=== PATIENT | female | born 1960 | race Caucasian/White ===

== ENCOUNTER 2018-02-27 08:27 | Outpatient (CLI) | payer MEDICARE, MEDICAID, SELFPAY ==
[2018-02-27 11:36] LABS: Hemoglobin A1C 6.8 % (4.5-6.2)
[2018-02-27 11:49] LABS: Anion Gap 8.7 mmol/L (3-11); BUN 14 mg/dL (7-18); CO2 29.3 mmol/L (21.0-32.0); CREATININE 1.06 mg/dL (0.55-1.02); Calcium 8.7 mg/dL (8.5-10.1); Chloride 103 mmol/L (98-107); Estimated GFR 53.24 (mL/min/1.73m2); Glucose 188 mg/dL (70-100); Potassium 4.6 mmol/L (3.5-5.1); Sodium 141 mmol/L (136-145)
== END 2018-02-27 08:47 ==
LOC: LOS 08:29 → LBO 09:08
PROVIDERS: PCP Family Medicine; Visit Provider Family Medicine
DX: E11.9 Type 2 diabetes mellitus without complications (principal)
CPT/HCPCS: 36415; 80048; 83036

== ENCOUNTER 2018-05-17 02:19 | Outpatient (CLI) | payer MEDICARE, MEDICAID, SELFPAY ==
[2018-05-17 13:00] LABS: Amylase 27 U/L (25-115); Anion Gap 8.6 mmol/L (3-11); BUN 15 mg/dL (7-18); CO2 30.4 mmol/L (21.0-32.0); CREATININE 0.91 mg/dL (0.55-1.02); Calcium 8.8 mg/dL (8.5-10.1); Chloride 102 mmol/L (98-107); Glucose 222 mg/dL (70-100); Lipase 214 U/L (73-393); Potassium 4.4 mmol/L (3.5-5.1); Sodium 141 mmol/L (136-145)
== END 2018-05-17 02:39 ==
PROVIDERS: PCP Family Medicine; Visit Provider Family Medicine
DX: R10.13 Epigastric pain (principal); R10.9 Unspecified abdominal pain; R79.89 Other specified abnormal findings of blood chemistry
CPT/HCPCS: 36415; 80048; 83690; 82150

== ENCOUNTER 2018-09-01 16:31 | Outpatient (REF) | payer MEDICARE, MEDICAID, SELFPAY | END 2018-09-01 16:51 | LOC: LBN 16:31 | PROVIDERS: PCP Family Medicine; Visit Provider Nurse Practitioner Family | DX: R35.0 Frequency of micturition (principal) | CPT/HCPCS: 87086 ==

== ENCOUNTER 2018-09-06 09:17 | Outpatient (CLI) | payer MEDICARE, MEDICAID, SELFPAY ==
[2018-09-06 16:34] LABS: TSH 3.41 uIU/mL (0.358-3.74)
[2018-09-06 17:27] LABS: Hemoglobin A1C 6.9 % (4.5-6.2)
== END 2018-09-06 09:37 ==
PROVIDERS: PCP Family Medicine; Visit Provider Family Medicine
DX: E11.9 Type 2 diabetes mellitus without complications (principal)
CPT/HCPCS: 36415; 83036; 84443

== ENCOUNTER → 2018-09-27 10:21 | Outpatient (BNVA) | payer MEDICARE, MEDICAID, SELFPAY | PROVIDERS: PCP Family Medicine; Referring Provider Family Medicine; Visit Provider Nurse Practitioner Gerontology | DX: R32 Unspecified urinary incontinence (principal); N30.10 Interstitial cystitis (chronic) without hematuria; E11.319 Type 2 diabetes mellitus with unspecified diabetic retinopathy without macular edema | CPT/HCPCS: 51798; 81003; 99204; 99215 ==

== ENCOUNTER 2018-10-05 18:18 | Emergency (ER) | payer MEDICARE, MEDICAID, SELFPAY ==
--- NOTE | 2018-10-05 18:13 | W.ED.GENAD ---
Discharge Plan Disposition Patient Disposition: HOME Condition: Stable Discharge Details Chief Complaint: FlankPain Clinical Impression: Right ureteral stone Primary Care Provider: Asim Tay ED Provider: Jona Wang Home Meds and New Rx's Prescriptions: New ondansetron 4 mg tablet,disintegrating 4 mg PO TID-QID PRN (Reason: nausea and vomiting) Qty: 30 RF: 0 oxycodone 5 mg tablet 5 mg PO Q6H PRN (Reason: pain) Qty: 12 RF: 0 tamsulosin [Flomax] 0.4 mg capsule 0.4 mg PO DAILY Qty: 14 RF: 0 acetaminophen-codeine [Tylenol-Codeine #3] 300-30 mg tablet 1 tab PO Q6H PRN (Reason: pain) Qty: 12 RF: 0 No Action terconazole 0.4 % cream 1 appful VG DAILY Qty: 45 RF: 0 clotrimazole 1 % cream 1 applic TP BID Qty: 28.35 RF: 4 Lotemax 0.5 % drops,suspension 1 drp OU DAILY PRNRF: 0 lorazepam 0.5 mg tablet 0.5 mg PO BID PRN (Reason: anxiety) Qty: 20 RF: 0 fluticasone propionate 50 mcg/actuation spray,suspension 2 spray TEAGAN DAILY Qty: 15.8 RF: 1 baclofen 5 mg tablet 5 mg PO TID PRN (Reason: muscle spasm) Qty: 30 RF: 2 Durezol 0.05 % drops 1 drp OP DAILY RF: 0 Ultra-Light Rollator 1 EACH misc 1 ea Miscellaneous ONCE Qty: 1 RF: 0 citalopram 20 MG tablet 20 mg PO DAILY Qty: 90 RF: 4 blood-glucose meter [OneTouch UltraMini] 1 EACH kit 1 ea Miscellaneous ONCE Qty: 1 RF: 0 ONETOUCH ULTRA TEST STRIPS 1 EACH strip 1 ea Miscellaneous QID Qty: 300 RF: 4 lancets [OneTouch Delica Lancets] 30 gauge misc 1 ea Miscellaneous QID Qty: 300 RF: 4 loratadine 10 mg capsule 10 mg PO DAILY PRN (Reason: allergy symptoms) Qty: 90 RF: 4 pen needle, diabetic [Unifine Pentips Plus] 31 gauge x 5/16 needle 1 ea Sub-Q DAILY Qty: 300 RF: 4 fluconazole 150 mg tablet 150 mg PO ONCE Qty: 2 RF: 0 Lantus Solostar U-100 Insulin 100 unit/mL (3 mL) insulin pen 42 unit subcut DAILY Qty: 12 RF: 4 omeprazole 20 mg capsule,delayed release(DR/EC) 20 mg PO DAILY PRN (Reason: GERD) Qty: 30 RF: 3 nitrofurantoin macrocrystal 100 mg capsule 100 mg PO BID Qty: 10 RF: 0 Discharge Instructions Instructions: Kidney Stones (ED) Additional Instructions: you can take 600mg ibuprofen every 6 hours for pain do not drive or drink alcohol if you take the oxycodone if you have high fevers, persistent vomit or severe uncontrolled pain return to the emergency department you should be contacted with an appointment for urology Discharge Data Discharge Date/Time-TO BE ENTERED AT DEPARTURE: 10/05/18 20:16 Medical Decision Making 58 yo female with hx of DM, spinal senosis, hld, anxiety, who comes in with chief complaint of suprapubic/right lower abdomen pain radiating to the rigth lower back that started acutely about an hour or so ago. Denies any recent trauma or falls, no fevers, no vomit but has had nausea since this started. Denies pain like this in the past. She has been having issues emptying her bladder per pt and incontinence and has seen urology recently for this and had post void residual that was 25cc. She denies ivdu or significant alcohol intake. She has rlq tenderness and suprapubic tenderness, no back tenderness, no rashes. No saddle anesthesia or weakness so doubt cauda equina. Given acute onset of symptoms concern for kidney stone, less likely appendicitis, will obtian lab work and imaging and monitor. pt's labs unremarkable. Her CT on my read shows distal right ureteral stone. she feels significantly better, awaiting vrad report vrad report confirms 8mm stone, ?cystitis as well and does have some bacteria on UA. No findings to suggest sepsis. will start on abx and have her f/u with urology, return precautions given I originally wrote to give her oxycodone but she states she prefers tylenol with codeine so this was prescribed in place of this, she was not given prescrption for oxycodone Differential Diagnosis kidney stone, pyelo, appendicitis Medical Records Medical records reviewed: Yes I reviewed the patient's medical records. Imaging Data Radiologic Study: Attestation: I personally reviewed and interpreted this imaging study as follows: Imaging: CT Scan My impression: distal right ureteral stone Radiologist's impression: IMPRESSION: 1. 8 mm right distal ureteral stone. Right hydroureteronephrosis. 2. 1.3 cm wall thickening of the bladder which could be related to underdistention. There is pericystic fat stranding which could indicate cystitis. Correlate with urinalysis. 3. Umbilical hernia containing fat, uncomplicated. 4. Groundglass appearance of the mesentery with shotty lymph nodes suggesting mesenteritis. Lab Data Lab results reviewed: Yes I reviewed the patient's lab results. HPI General Mode of arrival: EMS. Date/Time Provider Initiated Documentation: 10/05/18 18:21. Limitations to Documentation: no limitations. Information obtained by: patient. History of Present Illness 58 year old F presents to the emergency department with the chief complaint of abdomen pain, described as moderate and severe, Quality is described as aching and sharp, and is localized to the abdomen. Patient reports radiation to back. Patient started experiencing this hour(s) (1) and it has been constant. No relieving factors improve symptom(s), No exacerbating factors reported . Patient notes nausea/vomiting (nausea only). Patient did receive the following treatments prior to arrival, other (zofran with ems) Related Data Home Medications Medication Instructions Recorded Confirmed Ultra-Light Rollator #1 01/11/17 10/12/18 citalopram 20 mg PO DAILY #90 tab 09/27/17 10/12/18 blood-glucose meter [Onetouch #1 kit 12/29/17 10/12/18 Ultramini] clotrimazole 1 % topical cream 1 applic TP BID #28.35 gm 02/24/18 10/12/18 lancets 30 gauge #300 each 03/09/18 10/12/18 loratadine 10 mg capsule 10 mg PO DAILY PRN #90 cap 03/09/18 10/12/18 pen needle, diabetic 31 gauge x #300 each 03/09/18 10/12/18 5/16 lorazepam 0.5 mg tablet 0.5 mg PO BID PRN #20 tab 04/07/18 10/12/18 loteprednol etabonate 0.5 % eye 1 drp OU DAILY PRN ml 04/07/18 10/12/18 drops,suspension baclofen 5 mg tablet 5 mg PO TID PRN #30 tab 08/01/18 10/12/18 fluticasone propionate 50 2 spray TEAGAN DAILY #15.8 gm 08/01/18 10/12/18 mcg/actuation nasal spray,suspension terconazole 0.4 % vaginal cream 1 appful VG DAILY #45 gm 09/01/18 10/12/18 fluconazole 150 mg tablet 150 mg PO ONCE #2 tab 09/11/18 10/12/18 insulin glargine (U-100) 100 42 unit SUBCUT DAILY #12 pen 09/26/18 10/12/18 unit/mL (3 mL) subcutaneous pen omeprazole 20 mg capsule,delayed 20 mg PO DAILY PRN #30 cap 09/26/18 10/12/18 release acetaminophen-codeine 1 tab PO Q6H PRN #12 tab 10/05/18 10/12/18 [Tylenol-Codeine #3] ondansetron 4 mg PO TID-QID PRN #30 tab 10/05/18 10/12/18 oxycodone 5 mg PO Q6H PRN #12 tab 10/05/18 10/12/18 tamsulosin [Flomax] 0.4 mg PO DAILY #14 cap 10/05/18 10/12/18 nitrofurantoin macrocrystal 100 mg 100 mg PO BID #10 cap 10/06/18 10/12/18 capsule difluprednate 0.05 % eye drops 1 drp OP DAILY 10/12/18 10/12/18 Previous Rx's Medication Instructions Recorded citalopram 20 mg PO DAILY #90 tab 09/27/17 blood-glucose meter [Onetouch #1 kit 12/29/17 Ultramini] clotrimazole 1 % topical cream 1 applic TP BID #28.35 gm 02/24/18 lancets 30 gauge #300 each 03/09/18 loratadine 10 mg capsule 10 mg PO DAILY PRN #90 cap 03/09/18 pen needle, diabetic 31 gauge x #300 each 03/09/1810/19 lorazepam 0.5 mg tablet 0.5 mg PO BID PRN #20 tab 04/07/18 baclofen 5 mg tablet 5 mg PO TID PRN #30 tab 08/01/18 fluticasone propionate 50 2 spray TEAGAN DAILY #15.8 gm 08/01/18 mcg/actuation nasal spray,suspension terconazole 0.4 % vaginal cream 1 appful VG DAILY #45 gm 09/01/18 fluconazole 150 mg tablet 150 mg PO ONCE #2 tab 09/11/18 insulin glargine (U-100) 100 42 unit SUBCUT DAILY #12 pen 09/26/18 unit/mL (3 mL) subcutaneous pen omeprazole 20 mg capsule,delayed 20 mg PO DAILY PRN #30 cap 09/26/18 release acetaminophen-codeine 1 tab PO Q6H PRN #12 tab 10/05/18 [Tylenol-Codeine #3] ondansetron 4 mg PO TID-QID PRN #30 tab 10/05/18 oxycodone 5 mg PO Q6H PRN #12 tab 10/05/18 tamsulosin [Flomax] 0.4 mg PO DAILY #14 cap 10/05/18 nitrofurantoin macrocrystal 100 mg 100 mg PO BID #10 cap 10/06/18 capsule Allergies Allergy/AdvReac Type Severity Reaction Status Date / Time amoxicillin Allergy Severe Affects Unverified 10/05/18 18:35 kidney FXN per pt. dapsone Allergy Severe Anaphylaxsi Unverified 10/05/18 18:35 s lisinopril Allergy Severe Unverified 10/05/18 18:35 metformin Allergy Severe INTERACTION Unverified 10/05/18 18:35 S Pertussis Vaccines Allergy Severe kidney Unverified 10/05/18 18:35 problems clindamycin Allergy Mild SWELLING Unverified 10/05/18 18:35 OF THE THROAT latex Allergy Mild RASH Unverified 10/05/18 18:35 paroxetine Allergy Unknown Unverified 10/05/18 18:35 Sulfa (Sulfonamide Allergy Unknown Unverified 10/05/18 18:35 Antibiotics) fluconazole AdvReac Mild HEADACHE Unverified 10/05/18 18:35 tdap Allergy Intermediate PT Uncoded 10/05/18 18:35 REPORTED metal AdvReac Unknown staph Uncoded 10/05/18 18:35 infection Review of Systems Review of Systems All systems reviewed & are unremarkable except as noted in HPI and below Constitutional Denies fever(s) and Denies weakness Cardiovascular Denies chest pain and Denies dyspnea Respiratory Denies cough and Denies dyspnea Gastrointestinal Denies vomiting Genitourinary Denies dysuria Neurologic Denies weakness [facility] Medical History Diabetes mellitus (Chronic 09/01/12) Spinal stenosis (Chronic) Social anxiety disorder (Chronic 11/25/17) Restless legs (Chronic 06/05/07) Obstructive sleep apnea syndrome (Chronic 06/05/07) Obsessive compulsive disorder (Chronic) Non-alcoholic fatty liver disease (Chronic) Knee osteonecrosis, left (Chronic 11/08/16) Idiopathic scoliosis (Chronic) Hyperlipidemia (Chronic) Foot drop, right (Chronic) Fibrocystic disease of breast (Chronic) Dry eye (Chronic 03/15/13) Chronic post-traumatic stress disorder (Chronic) Cholelithiasis without obstruction (Chronic) Attention deficit hyperactivity disorder, predominantly inattentive type (Chronic) Anxiety (Chronic) Allergic rhinitis (Chronic) Cholelithiasis with cholecystitis (Chronic) ADHD (attention deficit hyperactivity disorder) Allergic rhinitis Anemia Anxiety Breast pain, left Chronic pain of both knees Chronic post-traumatic stress disorder (PTSD) Depressive disorder Dermatitis Diabetes mellitus Dry eyes Elevated LDH Fibrocystic disease of breast Foot drop Functional diarrhea Generalized osteoarthritis H/O menorrhagia Hyperlipidemia Idiopathic scoliosis Knee osteonecrosis, left Left carpal tunnel syndrome Low back pain Morbid obesity Non-alcoholic fatty liver disease OCD (obsessive compulsive disorder) Phlebitis RLS (restless legs syndrome) Right lumbar radiculopathy Social phobia Spinal stenosis Thrombosis of arteries of lower extremity Umbilical hernia without obstruction or gangrene Vaginitis Surgical History section Cholecystectomy (02/26/14) Colonoscopy - MAC (~10/2007) EGD - MAC (~10/2007) LAMINECTOMY (~11/2004) Ligation of fallopian tube (~1999) STRESS TEST Spinal Fusion (~1974) Family History Sister No problems noted. Sister No problems noted. Paternal Grandmother No problems noted. Social History Smoking/Tobacco Use Status: Never Alcohol Intake: never Drug use: Never Substance use type: does not use Caregiver/Support person: No Household members: none Housing: apartment Communication Needs: Hard of Hearing Pets and animals: No Sexually active: No Do you think of yourself as: straight/heterosexual Current gender identity: female What is your relationship status?: How often do you talk on the phone with friends or family?: three or more times per week How often do you get together with friends or relatives?: twice per week How often do you attend baptist or restorationist services?: decline to answer Do you belong to any clubs or organized social groups?: no Panel score (0-1 are the most socially isolated patients): 1 What type of physical activity do you participate in: walking Duration: 45-60 minutes/day Frequency: 5-6 times per week Claudette/Holiness: No preference Special claudette needs: No Seatbelt use: always Drive 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 local driver: No Do you feel safe at home: Yes Do you feel safe in your relationship?: Yes Exam Const General: no acute distress Orientation: alert HENMT Head: normal to inspection Ears: external ears normal General nose exam: external nose normal Mouth: moist mucous membranes Eyes General: appearance normal, both eyes and all related structures Neck Neck: normal visual inspection Resp Effort & Inspection: normal respiratory effort and able to speak in complete sentences Cardio Rate: regular rate GI Palpation: soft Skin General skin exam: no rashes or lesions noted Neuro General: alert and oriented x3 Extrem General: normal to inspection Psych Mental Status: mental status grossly normal
[2018-10-05 18:18] VITALS: BP 173/89; PULSE 71; RESP 16; TEMP 37.1; O2SAT 99
[2018-10-05] MEDS: Normal Saline Flush 10 ML SYR IVP (18:33)
[2018-10-05] MEDS: Normal Saline 1,000 ML 1000 ML IV (18:33)
[2018-10-05] MEDS: Ketorolac 15 MG/ML VIAL IVP (18:33)
[2018-10-05 18:38] LABS: Abs Immature Grans 0.03 k/cumm (0.0-0.09); Absolute Basophil Count 0.11 k/cumm (0.0-0.2); Absolute Eosinophil Count 0.39 k/cumm (0.0-0.7); Absolute Monocyte Count 0.58 k/cumm (0.11-0.7); Absolute Neutrophil Count 5.26 k/cumm (1.2-6.7); Basophils % 1.1; Eosinophils % 4.1; HCT 42.8 % (36.0-46.0); HGB 14.5 g/dL (12.0-15.5); Immature Grans % 0.3; Lymphocytes % 33.4; Mean Corp. HGB Concentration 33.9 g/dL (32.0-36.0); Mean Corpuscular Hemoglobin 28.7 pg (27.0-33.0); Mean Corpuscular Volume 84.8 fL (80-95); Mean Platelet Volume 9.9 fL (8.0-11.0); Monocytes % 6.1; Platelet Count 178 x1000/uL (130-400); RBC 5.05 m/cumm (4.00-5.20); RBC Distribution Width 13.3 % (11.7-14.6); White Blood Cell Count 9.57 k/cumm (4.4-10.8)
[2018-10-05 18:53] LABS: ALT 50 U/L (12-78); AST 25 U/L (15-37); Albumin 3.8 g/dL (3.4-5.0); Alkaline Phosphatase 97 U/L (46-116); Anion Gap 7.8 mmol/L (3-11); BUN 19 mg/dL (7-18); Bilirubin, Total 0.5 mg/dL (0.2-1.0); CO2 30.2 mmol/L (21.0-32.0); CREATININE 0.93 mg/dL (0.55-1.02); Calcium 9.2 mg/dL (8.5-10.1); Chloride 100 mmol/L (98-107); Glucose 141 mg/dL (70-100); Lipase 233 U/L (73-393); Magnesium 2.1 mg/dL (1.8-2.4); Potassium 3.8 mmol/L (3.5-5.1); Sodium 138 mmol/L (136-145); Total Protein 7.7 g/dL (6.4-8.2)
--- NOTE | 2018-10-05 18:55 | DI.CT_ITS ---
SYMPTOM/DIAGNOSIS: RT FLANK PAIN RENAL COLIC CT: CT examination of the abdomen and pelvis was performed without contrast administration. Note is made of posterior lumbar fusion with Rubio sergio in place. There is a marked scoliosis. Visualized lung bases appear clear. Visualized portions of the liver and spleen are unremarkable. Prior cholecystectomy noted. Pancreas appears intact. Note is made of mildly increased attenuation of central mesentery with some prominence of mesenteric lymph nodes noted as well, the findings may represent inflammatory process. Abdominal aorta is of normal diameter. Prior cholecystectomy noted with no evidence of biliary dilatation. There is a fat containing ventral hernia with no involvement of bowel. Urinary bladder is essentially empty and cannot be adequately evaluated. Appendix is normal. No evidence of diverticulitis or bowel obstruction. Adrenals appear normal bilaterally. Left kidney is unremarkable in appearance and there is no left urinary tract calcification or obstruction. There is an 8 mm. in diameter obstructing stone just above the ureterovesical junction on the right with surrounding fat edema and moderate right hydronephrosis and hydroureter to this level. 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 CONCLUSION: Findings consistent with 8 mm. obstructing distal right ureteral stone. Incidental finding of mesenteric mild fat edema and lymph node prominence may be associated with inflammatory process such as mesenteritis.
[2018-10-05 19:00] LABS: Bilirubin Negative (Negative); Blood Small (Negative); Clarity Clear; Glucose Negative (Negative); Ketones Negative (Negative); Leukocyte Esterase Negative (Negative); Nitrite Negative (Negative); Specific Gravity 1.025 (1.005-1.025); Urobilinogen 0.2 EU/dL (Up TO 0.2); pH 5.5 (5-8)
[2018-10-05 19:08] LABS: Bacteria Few HPF (Negative); C & S Indicated? Yes; Casts Negative LPF (Negative); Crystals Negative HPF (Negative); Epithelial Cells Few HPF (Negative); Mucus Negative (Negative)
[2018-10-05 19:10] VITALS: BP 153/61; PULSE 72; RESP 18; O2SAT 98
--- NOTE | 2018-10-05 19:37 | DI.VRAD_ITS ---
EXAM: CT Abdomen and Pelvis Without Contrast EXAM DATE/TIME: 10/05/2018 6:23 PM CLINICAL HISTORY: 58 years old, female; Abdominal pain; Flank; Right; Prior surgery; Surgery date: 6+ months; Surgery type: Back TECHNIQUE: Imaging protocol: Axial computed tomography images of the abdomen and pelvis without contrast. Coronal and sagittal reformatted images were created and reviewed. Radiation optimization: All CT scans at this facility use at least one of these dose optimization techniques: automated exposure control; mA and/or kV adjustment per patient size (includes targeted exams where dose is matched to clinical indication); or iterative reconstruction. COMPARISON: CT ABD PELVIS WO CONTRAST 09/27/2016 6:03 PM FINDINGS: ABDOMEN: Liver: Normal. No mass. Gallbladder and bile ducts: Cholecystectomy. Pancreas: Normal. No ductal dilation. Spleen: Normal. No splenomegaly. Adrenals: Normal. No mass. Kidneys and ureters: 8 mm right distal ureteral stone. Right hydroureteronephrosis. Stomach and bowel: Normal. No obstruction. No mucosal thickening. Appendix: No evidence of appendicitis. PELVIS: Bladder: 1.3 cm wall thickening of the bladder which could be related to underdistention. There is pericystic fat stranding which could indicate cystitis. Correlate with urinalysis. Reproductive: Unremarkable as visualized. ABDOMEN and PELVIS: Intraperitoneal space: Normal. No free air. No significant fluid collection. Bones/joints: Rubio sergio repair of scoliosis. Soft tissues: Umbilical hernia containing fat, uncomplicated. Vasculature: Normal. No abdominal aortic aneurysm. Lymph nodes: Groundglass appearance of the mesentery with shotty lymph nodes suggesting mesenteritis. IMPRESSION: 1. 8 mm right distal ureteral stone. Right hydroureteronephrosis. 2. 1.3 cm wall thickening of the bladder which could be related to underdistention. There is pericystic fat stranding which could indicate cystitis. Correlate with urinalysis. 3. Umbilical hernia containing fat, uncomplicated. 4. Groundglass appearance of the mesentery with shotty lymph nodes suggesting mesenteritis. Dictated and Authenticated by: Shaista Phillips MD. Ordering:HARRIS Tenorio MD
[2018-10-05] MEDS: Ondansetron O.D.T. 4 MG TABEF PO (20:02)
[2018-10-05] MEDS: levoFLOXacin 500 MG, levoFLOXacin 250 MG 750 MG PO (20:03)
[2018-10-05 20:17] VITALS: BP 153/61; PULSE 72; RESP 18; O2SAT 98
--- NOTE | 2018-10-05 20:18 | NUR.NOTE ---
Nursing Note: DC IV intact bleeding controlled. Discussed discharge instructions, Rx/OTC meds, use of strainer and follow up care with pt. Pt verbalized an understanding. Pt ambulated out the door with steady gait.
== END 2018-10-05 20:16 | disposition home or self-care (01) ==
PROVIDERS: Emergency Provider Emergency Medicine; PCP Family Medicine
DX: N20.1 Calculus of ureter (principal); E11.9 Type 2 diabetes mellitus without complications; Z79.4 Long term (current) use of insulin
CPT/HCPCS: 36415; 80053; 83690; 96361; 96374; 99284; 74176; 81003; 81015; 83735; 85025; 87086; J1885; J3490

== ENCOUNTER → 2018-10-12 13:52 | Outpatient (BNVA) | payer MEDICARE, MEDICAID, SELFPAY | PROVIDERS: PCP Family Medicine; Visit Provider Urology | DX: N20.1 Calculus of ureter (principal); Z87.448 Personal history of other diseases of urinary system; E11.319 Type 2 diabetes mellitus with unspecified diabetic retinopathy without macular edema; Z79.4 Long term (current) use of insulin | CPT/HCPCS: 99213 ==

== ENCOUNTER 2018-12-15 09:28 | Outpatient (CLI) | payer MEDICARE, MEDICAID, SELFPAY ==
[2018-12-15 13:14] LABS: Anion Gap 9.9 mmol/L (3-11); BUN 15 mg/dL (7-18); CO2 27.1 mmol/L (21.0-32.0); Calcium 8.8 mg/dL (8.5-10.1); Chloride 104 mmol/L (98-107); Glucose 157 mg/dL (70-100); Potassium 4.3 mmol/L (3.5-5.1); Sodium 141 mmol/L (136-145)
== END 2018-12-15 09:48 ==
PROVIDERS: PCP Family Medicine; Visit Provider Family Medicine
DX: E11.9 Type 2 diabetes mellitus without complications (principal)
CPT/HCPCS: 36415; 80048

== ENCOUNTER 2019-01-12 02:36 | Outpatient (CLI) | payer MEDICARE, MEDICAID, SELFPAY ==
--- NOTE | 2019-01-12 15:35 | DI.US_ITS ---
SYMPTOM/DIAGNOSIS: H/O RT URETERAL STONE WITH HYDRONEPHROSIS, N13.2 RENAL ULTRASOUND: The kidneys are normal in size and shape. There is no evidence of a renal mass, hydronephrosis or nephrolithiasis. Urinary bladder is unremarkable in appearance with pre and post void urinary bladder volume measurements of 382 cc's and 0 cc's respectively. CONCLUSION: Negative renal ultrasound.
== END 2019-01-12 02:56 ==
PROVIDERS: PCP Family Medicine; Visit Provider Family Medicine
DX: N13.2 Hydronephrosis with renal and ureteral calculous obstruction (principal)
CPT/HCPCS: 76770

== ENCOUNTER 2019-01-23 10:22 | Outpatient (CLI) | payer MEDICARE, MEDICAID, SELFPAY ==
[2019-01-23 11:54] LABS: Anion Gap 8.9 mmol/L (3-11); BUN 11 mg/dL (7-18); CO2 29.1 mmol/L (21.0-32.0); CREATININE 0.83 mg/dL (0.55-1.02); Calcium 8.9 mg/dL (8.5-10.1); Chloride 105 mmol/L (98-107); Glucose 130 mg/dL (70-100); Potassium 4.1 mmol/L (3.5-5.1); Sodium 143 mmol/L (136-145)
== END 2019-01-23 10:42 ==
PROVIDERS: PCP Family Medicine; Visit Provider Family Medicine
DX: I10 Essential (primary) hypertension (principal)
CPT/HCPCS: 36415; 80048

== ENCOUNTER 2019-03-18 13:45 | Emergency (ER) | payer MEDICARE, MEDICAID, SELFPAY ==
[2019-03-18] VITALS (52 sets, daily range): BP systolic 139–202; BP diastolic 64–162; PULSE 67–86; RESP 10–24; TEMP 36.9; O2SAT 93–98
--- NOTE | 2019-03-18 14:05 | ED.GENADUL_ITS ---
Discharge Plan Disposition Patient Disposition: [facility] Condition: Stable Discharge Details Chief Complaint: GenMedical Clinical Impression: Headache, Abnormal CT scan of head Primary Care Provider: Asim Tay ED Provider: Lidia Quinn Home Meds and New Rx's Prescriptions: No Action (DME) lancets [OneTouch Delica Lancets] 30 gauge misc 1 ea Miscellaneous QID Qty: 300 RF: 4 acetaminophen-codeine [Tylenol-Codeine #3] 300-30 mg tablet 1 tab PO Q6H PRN (Reason: pain) Qty: 12 RF: 0 Restasis MultiDose 0.05 % drops 1 drp OP Q12H RF: 0 (DME) Ultra-Light Rollator 1 EACH misc 1 ea Miscellaneous ONCE Qty: 1 RF: 0 (DME) blood-glucose meter [OneTouch UltraMini] 1 EACH kit 1 ea Miscellaneous ONCE Qty: 1 RF: 0 Lantus Solostar U-100 Insulin 100 unit/mL (3 mL) insulin pen 42 unit subcut DAILY Qty: 12 RF: 4 citalopram 20 mg tablet 20 mg PO DAILY Qty: 90 RF: 4 (DME) pen needle, diabetic [BD Ultra-Fine Mini Pen Needle] 31 gauge x 3/16 needle See Rx Instructions .ROUTE .MEDSUPPLY Qty: 100 RF: 5 (DME) OneTouch Ultra Blue Test Strip Strip See Rx Instructions .ROUTE .MEDSUPPLY Qty: 300 RF: 4 mupirocin 2 % ointment 1 applic TP BID PRN (Reason: rash) Qty: 15 RF: 0 lorazepam 0.5 mg tablet 0.5 mg PO BID PRN (Reason: anxiety) Qty: 20 RF: 0 loratadine 10 mg capsule 10 mg PO DAILY PRN (Reason: allergy symptoms) Qty: 90 RF: 4 nystatin 100,000 unit/gram powder 1 applic TP BID PRNRF: 0 Medical Decision Making 1400 -- 59-year-old female with a history of diabetes, PTSD, ADHD, hypertension, hyperlipidemia, obsessive-compulsive disorder who presents to the ED with a complaint of neck pain, left ear pain, and headache over the past week, worse with any movement of her head. She denies any fever, extremity weakness or numbness, blurry vision, or injury. BP hypertensive, 202/91. Normal ENT exam. She has tenderness to palpation of bilateral cervical paraspinal muscles as well as pain with range of motion of her head. No focal deficits. Neurovascularly intact. Suspect cervical strain/spasm, tension headache, viral illness. History presentation not consistent with meningitis, carotid dissection, acute CVA. Will obtain CT head and cervical spine, and give a dose of Toradol, prednisone, Valium and reassess. 1520 --imaging reviewed with radiologist Dr. Storey -there is an area of hyperdensity anterior macrina and recommends further evaluation with CTA brain. Will place an IV, give bolus IV fluids and check screening labs. Creatinine GFR from January within normal limits. CTA reviewed with Dr. Storey who states that he does not see any aneurysm but based on Noncon CT head recommends further evaluation possibly including MRI. Imaging reviewed with [facility] neurosurgery and they do not feel this is a mass or an aneurysm, but discussed that with patient's level of pain, an LP could be considered to rule out subarachnoid hemorrhage. This was discussed with patient and she was in agreement. Due to high acuity and volume in ED, anesthesia paged to perform LP. 2019 --anesthesia unable to obtain LP due to patient anatomy with spinal st enosis, Rubio rods, body habitus and level of pain. Case discussed with [facility] neurosurgery Dr. Story and they recommend LP under fluoroscopic guidance. We are unable to perform this here and she is excepted for transfer to the emergency department. Accepting physician Dr. Newell to the ED. Patient is agreeable with transfer. She states pain slightly increasing and she was given a dose of morphine. She is hemodynamically stable, moving all extremities and no focal deficits. Medical Records Medical records reviewed: Yes I reviewed the patient's medical records. Imaging Data Radiologic Study: Radiologist's impression: CT HEAD CERVICAL SPINE WO CLINICAL HISTORY: diffuse RODRIGUEZ and neck pain. TECHNIQUE: COMPARISON: SINUS CT WITHOUT CONTRAST from 03/03/2011 FINDINGS: CT examination cervical spine was performed utilizing multi slice acquisition multiplanar reconstruction. Moderate degenerative hypertrophic changes noted involving endplates and facet joints. No evidence of acute fracture or d islocation. Noncontrast cranial CT was performed. There is focus of increased attenuation which lies anterior to the macrina measuring roughly 18 by 7 millimeters. Possibility of a small focus of hemorrhage or possibly tip of the basilar aneurysm is raised. No fat additional evidence of subarachnoid or subdural hematoma. Orbital structures appear intact. Ventricular system is unremarkable in appearance. Additional evaluation with CTA recommended. IMPRESSION: No evidence of acute cervical fracture or dislocation. Moderate cervical degenerative changes noted. Questionable finding of increased attenuation lying anterior to the mcarina at the expected location of the basilar artery, additional evaluation with CT angiography recommended. CT BRAIN CTA CLINICAL HISTORY: further assessment macrina, r/o aneurysm. TECHNIQUE: COMPARISON: CT HEAD CERVICAL SPINE WO from 03/18/2019 FINDINGS: CT angiography of the head was performed with intravenous infusion of 100 cc of Omnipaque 350. The noncontrast CT obtained earlier today showed question of lobulated area of increased attenuation seen anterior to the macrina. Basilar artery vertebral arteries posterior cerebral arteries appear normal. Right posterior cerebral artery is supplied mainly across the posterior communicating artery. Visualized internal carotid arteries appear. Middle and anterior cerebral arteries and major branches are unremarkable. No enhancing lesion identified in the brain. There is minimal fusiform dilatation of the proximal basilar artery at about 3 millimeters. No fusiform or saccular aneurysm identified the level of the questionable area of increased attenuation seen on noncontrast CT. No additional findings. IMPRESSION: Conclusion no aneurysm identified at the superior basilar. Minimal fusiform dilatation of the proximal basilar artery noted at about 3 millimeters. No other significant findings in light of the CT findings on the noncontrast examination the possibility of a small mass or contrast unopacified aneurysm is not excluded. Additional evaluation with MRI of the brain recommended. Lab Data Lab results reviewed: Yes I reviewed the patient's lab results. Labs: Laboratory Tests Range/Units 03/18/19 03/18/19 15:45 15:45 WBC (4.4-10.8) k/cumm 10.96 H RBC (4.00-5.20) m/cumm 4.95 Hgb (12.0-15.5) g/dL 14.3 Hct (36.0-46.0) % 41.5 MCV (80-95) fL 83.8 MCH (27.0-33.0) pg 28.9 MCHC (32.0-36.0) g/dL 34.5 RDW (11.7-14.6) % 13.2 Plt Count (130-400) x1000/uL 233 MPV (8.0-11.0) fL 9.9 Immature Gran % 0.3 Neutrophils % 67.9 Lymphocytes % 23.1 Monocytes % 6.6 Eosinophils % 1.6 Basophils % 0.5 Absolute Neutrophils (1.2-6.7) k/cumm 7.44 H Absolute Lymphocytes (1.2-3.4) k/cumm 2.53 Absolute Monocytes (0.11-0.7) k/cumm 0.72 H Absolute Eosinophils (0.0-0.7) k/cumm 0.18 Absolute Basophils (0.0-0.2) k/cumm 0.05 Sodium (136-145) mmol/L 135 L Potassium (3.5-5.1) mmol/L 3.9 Chloride (98-107) mmol/L 99 Carbon Dioxide (21.0-32.0) mmol/L 27.8 Anion Gap (3-11) mmol/L 8.2 BUN (7-18) mg/dL 13 Creatinine (0.55-1.02) mg/dL 0.90 Estimated GFR/1.73 m2 (mL/min/1.73m2) >= 60.00 Glucose (70-100) mg/dL 156 H Calcium (8.5-10.1) mg/dL 9.1 HPI General Mode of arrival: ambulatory . Date/Time Provider Initiated Documentation: 03/18/19 13:49 . Limitations to Documentation: no limitations . Information obtained by: patient . HPI Narrative: Patient is a 59-year-old female with a history of anxiety, ADHD, PTSD, OCD, social phobia, diabetes, depression, sleep apnea who presents with headache, left ear pain and neck pain for the past week. She states her headache and neck pain is worse with movement of her head. She denies any known injury. She she denies any known fever, nasal congestion or discharge, sore throat. She states she has taken Tylenol with codeine and Motrin without relief. She describes the headache as a constant pulse in her head. She states the headache pain is currently 15/10. Related Data Home Medications Medication Instructions Recorded Confirmed Ultra-Light Rollator #1 01/11/17 01/19/19 blood-glucose meter [Onetouch #1 kit 12/29/17 01/19/19 Ultramini] insulin glargine 100 unit/mL (3 42 unit SUBCUT DAILY #12 pen 09/26/18 03/18/19 mL) subcutaneous pen cyclosporine 0.05 % eye drops 1 drp OP Q12H 11/15/18 03/18/19 citalopram 20 mg tablet 20 mg PO DAILY #90 tab 11/22/18 03/18/19 pen needle, diabetic 31 gauge x #100 each 01/03/19 01/19/1908/19 blood sugar diagnostic #300 each 01/19/19 lancets 30 gauge #300 each 01/19/19 01/19/19 mupirocin 2 % topical ointment 1 applic TP BID PRN #15 gm 01/29/19 03/18/19 loratadine 10 mg capsule 10 mg PO DAILY PRN #90 cap 02/02/19 03/18/19 lorazepam 0.5 mg tablet 0.5 mg PO BID PRN #20 tab 02/02/19 03/18/19 acetaminophen 300 mg-codeine 30 mg 1 tab PO Q6H PRN #12 tab 03/12/19 03/18/19 tablet nystatin 1 applic TP BID PRN 03/18/19 03/18/19 Previous Rx's Medication Instructions Recorded blood-glucose meter [Onetouch #1 kit 12/29/17 Ultramini] insulin glargine 100 unit/mL (3 42 unit SUBCUT DAILY #12 pen 09/26/18 mL) subcutaneous pen citalopram 20 mg tablet 20 mg PO DAILY #90 tab 11/22/18 pen needle, diabetic 31 gauge x #100 each 01/03/1908/19 blood sugar diagnostic #300 each 01/19/19 lancets 30 gauge #300 each 01/19/19 mupirocin 2 % topical ointment 1 applic TP BID PRN #15 gm 01/29/19 loratadine 10 mg capsule 10 mg PO DAILY PRN #90 cap 02/02/19 lorazepam 0.5 mg tablet 0.5 mg PO BID PRN #20 tab 02/02/19 acetaminophen 300 mg-codeine 30 mg 1 tab PO Q6H PRN #12 tab 03/12/19 tablet Allergies Allergy/AdvReac Type Severity Reaction Status Date / Time amoxicillin Allergy Severe Affects Verified 03/18/19 13:55 kidney FXN per pt. dapsone Allergy Severe Anaphylaxsi Verified 03/18/19 13:55 s lisinopril Allergy Severe Verified 03/18/19 13:55 metformin Allergy Severe INTERACTION Verified 03/18/19 13:55 S Pertussis Vaccines Allergy Severe kidney Verified 03/18/19 13:55 problems clindamycin Allergy Mild SWELLING Verified 03/18/19 13:55 OF THE THROAT latex Allergy Mild RASH Verified 03/18/19 13:55 paroxetine Allergy Unknown Verified 03/18/19 13:55 Sulfa (Sulfonamide Allergy Unknown Verified 03/18/19 13:55 Antibiotics) fluconazole AdvReac Mild HEADACHE Verified 03/18/19 13:55 tdap Allergy Intermediate PT Uncoded 02/22/19 11:02 REPORTED metal AdvReac Unknown staph Uncoded 02/22/19 11:02 infection General Stated Complaint: GenMedical SALMA: 3 Review of Systems Review of Systems ROS Unobtainable: All systems reviewed & are unremarkable except as noted in HPI and below Constitutional Constitutional: Reports as per HPI, Denies chills, Denies fever(s) and Reports headache(s) Eyes Eyes: Denies blurry vision ENT Ears, Nose, Mouth, and Throat: Denies dizziness, Reports otalgia, Reports headache(s), Reports neck pain, Denies sore throat and Denies throat swelling Cardiovascular Cardiovascular: Denies chest pain and Denies dyspnea Respiratory Respiratory: Denies cough and Denies dyspnea Gastrointestinal Gastrointestinal: Denies abdominal pain, Denies diarrhea and Denies vomiting Genitourinary Genitourinary: Denies hematuria and Denies dysuria Musculoskeletal Musculoskeletal: Denies back pain, Reports neck pain and Denies numbness Integumentary/Breasts Skin/Breast: Denies lesions and Denies rash Neurologic Neurologic: Denies dizziness, Reports headache(s), Denies focal weakness and Denies numbness Allergic/Immunologic Allergic/Immunologic: Denies throat swelling [facility] Medical History ADHD (attention deficit hyperactivity disorder) Allergic rhinitis Allergic rhinitis (Chronic) Anemia Anxiety Anxiety (Chronic) Attention deficit hyperactivity disorder, predominantly inattentive type (Chronic) social phobia Breast pain, left Cholelithiasis with cholecystitis (Chronic) Cholelithiasis without obstruction (Chronic) Chronic pain of both knees Chronic post-traumatic stress disorder (Chronic) childhood Chronic post-traumatic stress disorder (PTSD) Depressive disorder Dermatitis Diabetes mellitus Diabetes mellitus (Chronic 09/01/12) Dry eye (Chronic 03/15/13) Dry eyes Elevated LDH Fibrocystic disease of breast Fibrocystic disease of breast (Chronic) Foot drop Foot drop, right (Chronic) right; 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 Functional diarrhea Generalized osteoarthritis H/O menorrhagia Hyperlipidemia Hyperlipidemia (Chronic) Hypertension (Chronic) Idiopathic scoliosis Idiopathic scoliosis (Chronic) Rubio sergio-age 13 Knee osteonecrosis, left Knee osteonecrosis, left (Chronic 11/08/16) Left carpal tunnel syndrome Low back pain Morbid obesity Neck pain (Acute) Non-alcoholic fatty liver disease Non-alcoholic fatty liver disease (Chronic) Obsessive compulsive disorder (Chronic) Obstructive sleep apnea syndrome (Chronic 06/05/07) with CPAP OCD (obsessive compulsive disorder) Phlebitis Restless legs (Chronic 06/05/07) Right lumbar radiculopathy RLS (restless legs syndrome) Social anxiety disorder (Chronic 11/25/17) Social phobia Spinal stenosis Spinal stenosis (Chronic) with Cauda equina syndrome; [place] [facility] [place]rombosis of arteries of lower extremity Umbilical hernia without obstruction or gangrene Vaginitis Surgical History section 1997 AND 1999 Cholecystectomy (02/26/14) Colonoscopy - MAC (~10/2007) NEG EGD - MAC (~10/2007) NEG LAMINECTOMY (~11/2004) L5-S1 Ligation of fallopian tube (~1999) Spinal Fusion (~1974) T4-L3 FOR SEVERE SCOLIOSIS STRESS TEST 02/18/14;LVEF 64%; EXAM IN N/L Family History Sister No problems noted. Sister No problems noted. Paternal Grandmother No problems noted. Social History Smoking/Tobacco Use Status: Never Alcohol Intake: former Drug use: Never Substance use type: does not use Caregiver/Support person: No Household members: none Housing: apartment Communication Needs: Hard of Hearing Pets and animals: No Sexually active: No Do you think of yourself as: straight/heterosexual Current gender identity: female What is your relationship status?: How often do you talk on the phone with friends or family?: three or more times per week How often do you get together with friends or relatives?: twice per week How often do you attend jewish or nondenominational services?: decline to answer Do you belong to any clubs or organized social groups?: no Panel score (0-1 are the most socially isolated patients): 1 What type of physical activity do you participate in: walking Duration: 45-60 minutes/day Frequency: 5-6 times per week Claudette/Denominational: No preference Special claudette needs: No Seatbelt use: always Drive 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 ice delivery driver: No Do you feel safe at home: Yes Exam Const General: cooperative and anxious (mild, tearful) Orientation: alert, awake and oriented x3 HENMT Head: normal to inspection Ears: hearing grossly normal bilaterally, external ears normal and TM's normal bilaterally General nose exam: external nose normal Face and sinus: normal facial exam Mouth: oral mucosae normal Teeth and gingiva: dentition normal Throat: posterior oropharynx normal Eyes General: appearance normal, both eyes and all related structures Eyelids: eyelids normal Pupils: PERRL EOM: EOM intact bilaterally Neck Neck: normal visual inspection, no lymphadenopathy, no anterior neck swelling and No submandibular swelling Lymphatic: no lymphadenopathy noted Chest Chest: normal inspection of the chest Resp Effort & Inspection: normal respiratory effort and able to speak in complete sentences Auscultation: clear to auscultation bilaterally Cardio Rate: regular rate Rhythm: regular rhythm GI Inspection: normal to inspection Palpation: soft, not firm, no guarding, no hepatosplenomegaly, no masses and nontender Auscultation: normal bowel sounds Back/Spine/Pelvis Back: no CVA tenderness Skin General skin exam: no rashes or lesions noted Neuro General: alert and awake Cranial Nerves: CN's II-XI intact bilaterally Cognition: normal cognition Speech: speech normal Gait: normal gait Motor: muscle tone normal throughout and strength 5/5 throughout Sensory Exam: no sensory deficits noted Extrem General: normal to inspection, full ROM and normal capillary refill Psych Appearance: grossly normal Mental Status: mental status grossly normal Speech and Movement: speech and movement normal Affect: normal affect Thought Process: normal Course Vital Signs Vital signs: Vital Signs Temperature 98.4 F 03/18/19 13:50 Pulse 75 03/18/19 13:50 Respiratory Rate 18 03/18/19 13:50 Blood Pressure 202/91 H 10/13/19 13:50 Pulse Oximetry 97 03/18/19 13:50 Temperature 98.4 F 03/18/19 13:50 Temperature Source Skin 03/18/19 13:50 Pulse 75 03/18/19 13:50 Respiratory Rate 18 03/18/19 13:50 Respiratory Effort Non-Labored 03/18/19 14:00 Respiratory Depth Normal 03/18/19 14:00 Blood Pressure 202/91 H 03/18/19 13:50 Blood Pressure Position Sitting 03/18/19 13:50 Pulse Oximetry 97 03/18/19 13:50 Oxygen Delivery Method Room Air 03/18/19 13:50 Oxygen Flow Rate 0 03/18/19 13:50 Pain Level 10 03/18/19 13:50 Comment 03/18/19 13:50
--- NOTE | 2019-03-18 14:22 | DI.CT_ITS ---
EXAM: CT HEAD CERVICAL SPINE WO CLINICAL HISTORY: diffuse RODRIGUEZ and neck pain. TECHNIQUE: COMPARISON: SINUS CT WITHOUT CONTRAST from 03/03/2011 FINDINGS: CT examination cervical spine was performed utilizing multi slice acquisition multiplanar reconstruct ion. Moderate degenerative hypertrophic changes noted involving endplates and facet joints. No evid ence of acute fracture or dislocation. Noncontrast cranial CT was performed. There is focus of increased attenuation which lies anterior to the macrina measuring roughly 18 by 7 millimeters. Possibility of a small focus of hemorrhage or possi alberto tip of the basilar aneurysm is raised. No fat additional evidence of subarachnoid or subdural he matoma. Orbital structures appear intact. Ventricular system is unremarkable in appearance. Additional evaluation with CTA recommended. IMPRESSION: No evidence of acute cervical fracture or dislocation. Moderate cervical degenerative changes noted. Questionable finding of increased attenuation lying anterior to the macrina at the expected location of the basilar artery, additional evaluation with CT angiography recommended.
[2019-03-18] MEDS: predniSONE 20 MG TAB 60 MG PO (14:34)
[2019-03-18] MEDS: Ketorolac 60 MG/2 ML VIAL IM (14:34)
[2019-03-18] MEDS: diazePAM 5 MG TAB PO (14:34)
--- NOTE | 2019-03-18 15:26 | DI.CT_ITS ---
EXAM: CT BRAIN CTA CLINICAL HISTORY: further assessment macrina, r/o aneurysm. TECHNIQUE: COMPARISON: CT HEAD CERVICAL SPINE WO from 03/18/2019 FINDINGS: CT angiography of the head was performed with intravenous infusion of 100 cc of Omnipaque 350. The n oncontrast CT obtained earlier today showed question of lobulated area of increased attenuation seen anterior to the macrina. Basilar artery vertebral arteries posterior cerebral arteries appear normal. Right posterior cerebral artery is supplied mainly across the posterior communicating artery. Visual ized internal carotid arteries appear. Middle and anterior cerebral arteries and major branches are unremarkable. No enhancing lesion identified in the brain. There is minimal fusiform dilatation of the proximal basilar artery at about 3 millimeters. No fusif orm or saccular aneurysm identified the level of the questionable area of increased attenuation seen on noncontrast CT. No additional findings. IMPRESSION: Conclusion no aneurysm identified at the superior basilar. Minimal fusiform dilatation of the proxima l basilar artery noted at about 3 millimeters. No other significant findings in light of the CT find ings on the noncontrast examination the possibility of a small mass or contrast unopacified aneurysm is not excluded. Additional evaluation with MRI of the brain recommended.
[2019-03-18 15:57] LABS: Abs Immature Grans 0.03 k/cumm (0.0-0.09); Absolute Basophil Count 0.05 k/cumm (0.0-0.2); Absolute Eosinophil Count 0.18 k/cumm (0.0-0.7); Absolute Lymphocyte Count 2.53 k/cumm (1.2-3.4); Absolute Monocyte Count 0.72 k/cumm (0.11-0.7); Basophils % 0.5; Eosinophils % 1.6; HCT 41.5 % (36.0-46.0); HGB 14.3 g/dL (12.0-15.5); Immature Grans % 0.3; Lymphocytes % 23.1; Mean Corp. HGB Concentration 34.5 g/dL (32.0-36.0); Mean Corpuscular Hemoglobin 28.9 pg (27.0-33.0); Mean Corpuscular Volume 83.8 fL (80-95); Mean Platelet Volume 9.9 fL (8.0-11.0); Monocytes % 6.6; Neutrophils % 67.9; Platelet Count 233 x1000/uL (130-400); RBC 4.95 m/cumm (4.00-5.20); RBC Distribution Width 13.2 % (11.7-14.6); White Blood Cell Count 10.96 k/cumm (4.4-10.8)
[2019-03-18 16:01] LABS: Absolute Neutrophil Count 7.44 k/cumm (1.2-6.7)
[2019-03-18 16:06] LABS: Anion Gap 8.2 mmol/L (3-11); BUN 13 mg/dL (7-18); CO2 27.8 mmol/L (21.0-32.0); Calcium 9.1 mg/dL (8.5-10.1); Chloride 99 mmol/L (98-107); Glucose 156 mg/dL (70-100); Potassium 3.9 mmol/L (3.5-5.1); Sodium 135 mmol/L (136-145)
[2019-03-18] MEDS: Normal Saline 1,000 ML 1000 ML IV (16:18)
[2019-03-18] MEDS: Omnipaque 350 MG/ML 100 ML BTL IJ (16:20)
--- NOTE | 2019-03-18 19:03 | NUR.NOTE ---
03/18/19 @ 1900-Anesthesia bedside, consent for LP given by and signed by pt. supplies bedside. Nursing Note:
== END 2019-03-18 21:59 | disposition short-term general hospital (02) ==
PROVIDERS: Emergency Provider Physician Assistant; PCP Family Medicine
DX: R51 Headache (principal); R93.0 Abnormal findings on diagnostic imaging of skull and head, not elsewhere classified; I10 Essential (primary) hypertension
CPT/HCPCS: 36415; 70496; 80048; 96360; 96361; 96372; 99285; 70450; 72125; 85025; 99284; J1885; J3490; J7512

== ENCOUNTER 2019-04-01 16:07 | Observation (INO) | payer MEDICARE, MEDICAID, SELFPAY ==
[2019-04-01] VITALS (65 sets, daily range): BP systolic 140–177; BP diastolic 71–91; PULSE 60–72; RESP 16; TEMP 36.3–36.8; O2SAT 91–98
--- NOTE | 2019-04-01 16:46 | W.ED.GENAD ---
Discharge Plan Discharge Details Chief Complaint: GenMedical Admit Date/Time: 04/02/19 00:00 Admit Provider: Rodrick Donato Attending Provider: Rodrick Donato Primary Care Provider: Asim Tay ED Provider: Jaun Mijares Discharge Data Discharge Date/Time-TO BE ENTERED AT DEPARTURE: 04/02/19 00:25 Medical Decision Making <Jaun Mijares MD - Last Filed: 04/03/19 01:21> 16:51 --59-year-old female with multiple medical problems including recently diagnosed spontaneous subarachnoid hemorrhage, [place] [facility] [place] here generally not feeling well with persistent headache, generalized weakness, fatigue. No focal deficits noted. I obtained and reviewed outside hospital records [place] [facility] [place] summary dated 03/28/2019 notes Hospital course with admission for subarachnoid hemorrhage HH2, MF1. MRI of the brain noted pre-mesencephalic hemorrhage characterized by susceptibility related signal loss and T1 shortening surrounding the basilar artery. There is an adjacent 7 mm site of acute infarction involving the left superior macrina. No significant mass-effect. MRA noted basilar artery focally narrowed at the site of hemorrhage. -- Dilaudid 1mg IV for pain. Zofran 4mg PO for nausea. 18:25 --labs reviewed and nondiagnostic. CT head was interpreted by radiology: No acute intracranial abnormality. I have called [facility] [place] with [place]surgery. CT has been sent for review. 19:08 -- Spoke with Dr. Cesar - discussed ED presentation and course. He reviewed CT head. He recommends checking troponin and further discussion. 20:00 --troponin negative. ECG was reviewed and interpreted by me: Sinus rhythm 61 bpm, normal axis, no STEMI. Patient reassessed continues to have 4 out of 10 headache and continues to feel generally weak. Repeat call to [facility] [place] with [place]sx. Awating call back. 21:50 --CTA of the brain venous phase interpreted by radiology is no acute arterial pathology, pain in false pass of [place], dominant dural venous sinuses appear patent. CTA of the neck interpreted by radiology: No acute arterial pathology. Patent carotid and vertebral system bilaterally. Jugular veins are patent bilaterally. Patient reassessed and BP 166/81. Plan to admit for serial exams, symptomatic treatment and BP control. HPI <Jaun Mijares MD - Last Filed: 04/03/19 01:21> General Mode of arrival: ambulatory. Date/Time Provider Initiated Documentation: 04/01/19 16:23. Limitations to Documentation: no limitations. Information obtained by: patient. HPI Narrative: 59-year-old female with multiple medical problems including recently discharged [place] [facility] [place] being treated for spontaneous subarachnoid hemorrhage, returns today with chief complaint of generally not feeling well. Patient notes that since she was discharged on the she has had persistent moderate to severe headache, localized frontal head, improves with Tylenol with codeine, generalized weakness with no focal deficits, fatigue. She states that she has been taking T3 as prescribed and sleeping and otherwise not functioning. She states that she stumbled last night as a result of fatigue. She is concerned that her BP is elevated. She notes that during hospitalization she has low sodium and was on salt tablets. Related Data Home Medications Medication Instructions Recorded Confirmed Ultra-Light Rollator #1 01/11/17 04/01/19 blood-glucose meter [Onetouch #1 kit 12/29/17 04/01/19 Ultramini] cyclosporine 0.05 % eye drops 1 drp OP Q12H 11/15/18 04/01/19 citalopram 20 mg tablet 20 mg PO DAILY #90 tab 11/22/18 04/01/19 pen needle, diabetic 31 gauge x #100 each 01/03/19 04/01/1908/19 blood sugar diagnostic #300 each 01/19/19 04/01/19 lancets 30 gauge #300 each 01/19/19 04/01/19 mupirocin 2 % topical ointment 1 applic TP BID PRN #15 gm 01/29/19 04/01/19 loratadine 10 mg capsule 10 mg PO DAILY PRN #90 cap 02/02/19 03/18/19 lorazepam 0.5 mg tablet 0.5 mg PO BID PRN #20 tab 02/02/19 03/18/19 acetaminophen 300 mg-codeine 30 mg 1 tab PO Q6H PRN #12 tab 03/12/19 04/01/19 tablet nystatin 1 applic TP BID PRN 03/18/19 04/01/19 acetaminophen-codeine 1 tab PO UNKNOWN 04/01/19 04/01/19 [Tylenol-Codeine #3] insulin glargine [Lantus Solostar 22 unit SUBCUT DAILY 04/01/19 04/01/19 U-100 Insulin] Previous Rx's Medication Instructions Recorded blood-glucose meter [Onetouch #1 kit 12/29/17 Ultramini] citalopram 20 mg tablet 20 mg PO DAILY #90 tab 11/22/18 pen needle, diabetic 31 gauge x #100 each 01/03/1908/19 blood sugar diagnostic #300 each 01/19/19 lancets 30 gauge #300 each 01/19/19 mupirocin 2 % topical ointment 1 applic TP BID PRN #15 gm 01/29/19 loratadine 10 mg capsule 10 mg PO DAILY PRN #90 cap 02/02/19 lorazepam 0.5 mg tablet 0.5 mg PO BID PRN #20 tab 02/02/19 acetaminophen 300 mg-codeine 30 mg 1 tab PO Q6H PRN #12 tab 03/12/19 tablet Allergies Allergy/AdvReac Type Severity Reaction Status Date / Time amoxicillin Allergy Severe Affects Verified 04/01/19 16:14 kidney FXN per pt. dapsone Allergy Severe Anaphylaxsi Verified 04/01/19 16:14 s lisinopril Allergy Severe Verified 04/01/19 16:14 metformin Allergy Severe INTERACTION Verified 04/01/19 16:14 S Pertussis Vaccines Allergy Severe kidney Verified 04/01/19 16:14 problems clindamycin Allergy Mild SWELLING Verified 04/01/19 16:14 OF THE THROAT latex Allergy Mild RASH Verified 04/01/19 16:14 paroxetine Allergy Unknown Verified 04/01/19 16:14 Sulfa (Sulfonamide Allergy Unknown Verified 04/01/19 16:14 Antibiotics) adhesive AdvReac Mild Itching Unverified 04/02/19 00:55 fluconazole AdvReac Mild HEADACHE Verified 04/01/19 16:14 tdap Allergy Intermediate PT Uncoded 04/01/19 16:14 REPORTED metal AdvReac Unknown staph Uncoded 04/01/19 16:14 infection General Stated Complaint: GenMedical SALMA: 3 Review of Systems <Jaun Mijares MD - Last Filed: 04/03/19 01:21> All systems reviewed & are unremarkable except as noted in HPI and below Constitutional Constitutional: Reports as per HPI, Reports fatigue, Denies fever(s) and Reports weakness Cardiovascular Cardiovascular: Denies chest pain and Denies dyspnea Respiratory Respiratory: Denies dyspnea Gastrointestinal Gastrointestinal: Denies abdominal pain Neurologic Neurologic: Reports weakness and Reports other (chronic neuropathy LEs) Endocrine Endocrine: Reports fatigue PFS <Jaun Mijares MD - Last Filed: 04/03/19 01:21> Medical History (Updated 04/02/19 @ 10:00 by Sherita Saldaña MD) ADHD (attention deficit hyperactivity disorder) Allergic rhinitis (Chronic) Anemia Anxiety (Chronic) Attention deficit hyperactivity disorder, predominantly inattentive type (Chronic) social phobia Breast pain, left Cholelithiasis with cholecystitis (Chronic) Cholelithiasis without obstruction (Chronic) Chronic pain of both knees Chronic post-traumatic stress disorder (Chronic) childhood Depressive disorder Dermatitis Diabetes mellitus (Chronic 09/01/12) Dry eye (Chronic 03/15/13) Elevated LDH Fibrocystic disease of breast (Chronic) Foot drop, right (Chronic) right; 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 Functional diarrhea Generalized osteoarthritis H/O menorrhagia Hyperlipidemia (Chronic) Hypertension (Chronic) Idiopathic scoliosis (Chronic) Rubio sergio-age 13 Knee osteonecrosis, left (Chronic 11/08/16) Left carpal tunnel syndrome Low back pain Morbid obesity Neck pain (Acute) Non-alcoholic fatty liver disease (Chronic) Obsessive compulsive disorder (Chronic) Obstructive sleep apnea syndrome (Chronic 06/05/07) with CPAP Phlebitis Restless legs (Chronic 06/05/07) Scoliosis (Acute) Social anxiety disorder (Chronic 11/25/17) Social phobia Spastic bladder (Acute) Spinal stenosis (Chronic) with Cauda equina syndrome; [place] [facility] [place] Thrombosis of arteries of lower extremity Umbilical hernia without obstruction or gangrene Vaginitis Surgical History section 1997 AND 1999 Cholecystectomy (02/26/14) Colonoscopy - MAC (~10/2007) NEG EGD - MAC (~10/2007) NEG LAMINECTOMY (~11/2004) L5-S1 Ligation of fallopian tube (~1999) Spinal Fusion (~1974) T4-L3 FOR SEVERE SCOLIOSIS STRESS TEST 02/18/14;LVEF 64%; EXAM IN N/L Family History Sister No problems noted. Sister No problems noted. Paternal Grandmother No problems noted. Social History Smoking/Tobacco Use Status: Never Alcohol Intake: former Drug use: Never Substance use type: does not use Caregiver/Support person: No Household members: none Housing: apartment Communication Needs: Hard of Hearing Pets and animals: No Sexually active: No Do you think of yourself as: straight/heterosexual Current gender identity: female What is your relationship status?: How often do you talk on the phone with friends or family?: three or more times per week How often do you get together with friends or relatives?: twice per week How often do you attend protestant or caodaism services?: decline to answer Do you belong to any clubs or organized social groups?: no Panel score (0-1 are the most socially isolated patients): 1 What type of physical activity do you participate in: walking Duration: 45-60 minutes/day Frequency: 5-6 times per week Claudette/Pentecostal: No preference Special claudette needs: No Seatbelt use: always Drive 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 tour bus driver: No Do you feel safe at home: Yes Exam <Jaun Mijares MD - Last Filed: 04/03/19 01:21> Const General: cooperative and no acute distress HENMT Head: normocephalic and atraumatic Mouth: moist mucous membranes Eyes Alignment and Position: alignment normal Conjunctivae: normal conjunctivae Sclera: normal sclerae Pupils: PERRL and accommodation normal EOM: EOM intact bilaterally Neck Neck: trachea midline and supple Resp Auscultation: clear to auscultation bilaterally, no rales, no rhonchi and no wheezes Cardio Jugular venous pressure: no JVD Rate: regular rate and not tachycardic Rhythm: regular rhythm GI Palpation: soft, not firm, no guarding, no masses, not rigid and nontender Skin General skin exam: no rashes or lesions noted Neuro General: alert, awake, oriented x3 and tone normal Cranial Nerves: CN's II-XI intact bilaterally Cognition: normal cognition Speech: speech normal Motor: muscle tone normal throughout and strength 5/5 throughout Sensory Exam: no sensory deficits noted Extrem General: no edema Psych Appearance: grossly normal Mental Status: mental status grossly normal Speech and Movement: speech and movement normal Course <Jaun Mijares MD - Last Filed: 04/03/19 01:21> Vital Signs Vital signs: Vital Signs Temperature 36.3 C L 04/01/19 16:11 Pulse 72 04/01/19 16:11 Respiratory Rate 16 04/01/19 16:11 Blood Pressure 177/91 H 04/01/19 16:11 Pulse Oximetry 98 04/01/19 16:11 Temperature 36.3 C L 04/01/19 16:11 Temperature Source Temporal Artery Scan 04/01/19 16:11 Pulse 72 04/01/19 16:11 Respiratory Rate 16 04/01/19 16:11 Respiratory Effort Non-Labored 04/01/19 16:11 Blood Pressure 177/91 H 04/01/19 16:11 Pulse Oximetry 98 04/01/19 16:11 Oxygen Delivery Method Room Air 04/01/19 16:11 Oxygen Flow Rate 0 04/01/19 16:11 Pain Level 5 04/01/19 16:11
--- NOTE | 2019-04-01 17:02 | DI.CT_ITS ---
EXAM: CT HEAD WO CLINICAL HISTORY: headache, recent SAH TECHNIQUE: The exam was performed according to the usual protocol without contrast. COMPARISON: CT BRAIN CTA from 03/18/2019 FINDINGS: There is a normal ying-white matter differentiation. No acute intracranial hemorrhage, midline shift , or mass effect is present. The ventricles are intact. The basilar cisterns are patent. No acute fluid levels are seen in the visualized paranasal sinuses. The mastoid air cells are well pneumatize d. The calvarium is intact. IMPRESSION: No acute intracranial process.
--- NOTE | 2019-04-01 17:15 | DI.VRAD_ITS ---
PROCEDURE INFORMATION: Exam: CT Head Without Contrast Exam date and time: 04/01/2019 4:59 PM Clinical history: 59 years old, female; Other: Headache, recent sah; Patient HX: Patient discharged from [facility] [place]. 10 day stay with sah. TECHNIQUE: Imaging protocol: Computed tomography of the head without contrast. Radiation optimization: All CT scans at this facility use at least one of these dose optimization techniques: automated exposure control; mA and/or kV adjustment per patient size (includes targeted exams where dose is matched to clinical indication); or iterative reconstruction. COMPARISON: CT HEAD CERVICAL SPINE WO 03/18/2019 2:53 PM FINDINGS: Brain: Normal. No hemorrhage. Unremarkable white matter. No mass effect. Ventricles: Normal. No ventriculomegaly. Bones/joints: Unremarkable. No acute fracture. Sinuses: Visualized sinuses are unremarkable. No fluid levels. Mastoid air cells: Visualized mastoid air cells are well aerated. Soft tissues: Unremarkable. IMPRESSION: No acute intracranial abnormality. Dictated and Authenticated by: Shaista Phillips MD. Ordering:QI Zamorano MD
[2019-04-01 17:29] LABS: Abs Immature Grans 0.07 k/cumm (0.0-0.09); Absolute Basophil Count 0.05 k/cumm (0.0-0.2); Absolute Eosinophil Count 0.23 k/cumm (0.0-0.7); Absolute Lymphocyte Count 1.94 k/cumm (1.2-3.4); Absolute Monocyte Count 0.59 k/cumm (0.11-0.7); Absolute Neutrophil Count 6.27 k/cumm (1.2-6.7); Basophils % 0.5; Eosinophils % 2.5; HGB 13.1 g/dL (12.0-15.5); Immature Grans % 0.8; Lymphocytes % 21.2; Mean Corp. HGB Concentration 32.8 g/dL (32.0-36.0); Mean Corpuscular Hemoglobin 28.4 pg (27.0-33.0); Mean Corpuscular Volume 86.6 fL (80-95); Mean Platelet Volume 9.5 fL (8.0-11.0); Monocytes % 6.4; Neutrophils % 68.6; Platelet Count 201 x1000/uL (130-400); RBC 4.62 m/cumm (4.00-5.20); RBC Distribution Width 13.3 % (11.7-14.6); White Blood Cell Count 9.15 k/cumm (4.4-10.8)
[2019-04-01] MEDS: HYDROmorphone 2 MG/ML VIAL 1 MG IVP (17:32)
[2019-04-01] MEDS: Normal Saline Flush 10 ML SYR IVP (17:33)
[2019-04-01] MEDS: Normal Saline 50 ML 200 ML (17:33)
[2019-04-01 17:44] LABS: ALT 64 U/L (14-59); AST 52 U/L (15-37); Albumin 3.7 g/dL (3.4-5.0); Alkaline Phosphatase 76 U/L (46-116); Anion Gap 9.2 mmol/L (3-11); BUN 16 mg/dL (7-18); Bilirubin, Total 0.3 mg/dL (0.2-1.0); CO2 26.8 mmol/L (21.0-32.0); CREATININE 0.81 mg/dL (0.55-1.02); Calcium 9.2 mg/dL (8.5-10.1); Chloride 103 mmol/L (98-107); Glucose 142 mg/dL (70-100); Potassium 4.1 mmol/L (3.5-5.1); Sodium 139 mmol/L (136-145); Total Protein 7.5 g/dL (6.4-8.2)
[2019-04-01] MEDS: Ondansetron O.D.T. 4 MG TABEF (17:46)
[2019-04-01 19:46] LABS: Troponin I < 0.05 ng/mL (0.00-0.06)
--- NOTE | 2019-04-01 21:41 | DI.VRAD_ITS ---
PROCEDURE INFORMATION: Exam: CT Angiography Head With Contrast Exam date and time: 04/01/2019 21:05 Clinical history: 59 years old, female; Patient HX: Consistent headache recent sah concern for sinus thrombus; Additional info: Venous phases done also TECHNIQUE: Imaging protocol: Computed tomography angiography of the head with intravenous contrast. 3D rendering: MIP reconstructed images were created and reviewed. Radiation optimization: All CT scans at this facility use at least one of these dose optimization techniques: automated exposure control; mA and/or kV adjustment per patient size (includes targeted exams where dose is matched to clinical indication); or iterative reconstruction. Contrast material: OMNIPAQUE 350; Contrast volume: 85 ml; Contrast route: IV; COMPARISON: CT BRAIN CTA 03/18/2019 16:01 FINDINGS: Right internal carotid artery: Intracranial segment is patent with no significant stenosis. No aneurysm. Right anterior cerebral artery: No occlusion or significant stenosis. No aneurysm. Right middle cerebral artery: No occlusion or significant stenosis. No aneurysm. Right posterior cerebral artery: No occlusion or significant stenosis. No aneurysm. Right vertebral artery: No occlusion or significant stenosis. No aneurysm. Left internal carotid artery: Intracranial segment is patent with no significant stenosis. No aneurysm. Left anterior cerebral artery: No occlusion or significant stenosis. No aneurysm. Left middle cerebral artery: No occlusion or significant stenosis. No aneurysm. Left posterior cerebral artery: No occlusion or significant stenosis. No aneurysm. Left vertebral artery: No occlusion or significant stenosis. No aneurysm. Basilar artery: No occlusion or significant stenosis. No aneurysm. Dural sinuses/cerebral veins: The dominant dural venous sinuses appear patent. Dominant central veins appear patent. HEAD: Sinuses: Trace mucosal thickening in the right ethmoid air cells, mild mucosal thickening in the left sphenoid sinus. IMPRESSION: No acute arterial pathology; patent [place]. The dominant dural venous sinuses appear patent. PROCEDURE INFORMATION: Exam: CT Angiography Neck With Contrast Exam date and time: 04/01/2019 21:05 Clinical history: 59 years old, female; Patient HX: Consistent headache recent sah concern for sinus thrombus; Additional info: Venous phases done also TECHNIQUE: Imaging protocol: Computed tomography angiography of the neck with intravenous contrast. 3D rendering: MIP reconstructed images were created and reviewed. Radiation optimization: All CT scans at this facility use at least one of these dose optimization techniques: automated exposure control; mA and/or kV adjustment per patient size (includes targeted exams where dose is matched to clinical indication); or iterative reconstruction. Contrast material: OMNIPAQUE 350; Contrast volume: 85 ml; Contrast route: IV; COMPARISON: CT BRAIN CTA 03/18/2019 16:01 FINDINGS: VASCULATURE: Right common carotid artery: No significant stenosis. No dissection or occlusion. Right internal carotid artery: Extracranial segment is patent with no significant stenosis. No dissection or occlusion. Right external carotid artery: No occlusion or significant stenosis. Right vertebral artery: No significant stenosis. No dissection or occlusion. Left common carotid artery: No significant stenosis. No dissection or occlusion. Left internal carotid artery: Extracranial segment is patent with no significant stenosis. No dissection or occlusion. Left external carotid artery: No occlusion or significant stenosis. Left vertebral artery: No significant stenosis. No dissection or occlusion. Other vasculature: The jugular veins are patent bilaterally. NECK: Bones/joints: Internal fixation partially seen in the thoracic spine. Degenerative changes in the neck. No acute fracture or subluxation. Soft tissues: No significant soft tissue swelling. IMPRESSION: 1. No acute arterial pathology. Patent carotid and vertebral system bilaterally. 2. The jugular veins are patent bilaterally. COMMENT: Reference per NASCET criteria for degree of stenosis: Mild: less than 50% stenosis. Moderate: 50-69% stenosis. Severe: 70-94% stenosis. Near occlusion: 95-99% stenosis. Dictated and Authenticated by: Arianna Tillman MD. Ordering:QI Zamorano MD
[2019-04-01] MEDS: Omnipaque 350 MG/ML 100 ML BTL IJ (21:55)
--- NOTE | 2019-04-01 21:56 | DI.CT_ITS ---
EXAM: CT BRAIN NECK CTA CLINICAL HISTORY: recent SAH, RODRIGUEZ TECHNIQUE: Axial CT angiography was performed with multi-slice acquisition and multi-planar and/or 3 D reconstructions. The exam was performed according to the usual protocol with 85 cc's of Omnipaque 350. COMPARISON: No exams were available for comparison FINDINGS: CT angiography of the neck: The common carotid arteries are unremarkable. No evidence of dissection, occlusion, or significant s tenosis is present. The extracranial internal carotid arteries are unremarkable. There is no evidence of occlusion, diss ection, or significant stenosis. The external carotid arteries are unremarkable. There is no evidence of occlusion or significant brent nosis. The vertebral arteries are unremarkable. No evidence of dissection, occlusion, or significant stenos is. Degenerative changes are seen in the neck. The soft tissues are unremarkable. Internal fixation of the thoracic spine is partially identified. CT angiography of the head: The intracranial internal carotid arteries are unremarkable. No evidence of significant stenosis, oc clusion, or aneurysm. The anterior cerebral arteries are unremarkable. There is no evidence of aneurysm, occlusion, or sig nificant stenosis. The middle cerebral arteries are unremarkable. There is no evidence of aneurysm, occlusion, or signi ficant stenosis. The posterior cerebral arteries are unremarkable. There is no evidence of aneurysm, occlusion, or si gnificant stenosis. The vertebral arteries are unremarkable. No evidence of aneurysm, occlusion, or significant stenosis . The basilar artery is unremarkable. No evidence of aneurysm, occlusion, or significant stenosis. There is trace mucosal thickening in the right ethmoid air cells. There is mild mucosal thickening i n the left sphenoid sinus. IMPRESSION: No acute arterial injury.
[2019-04-01 22:25] LABS: Troponin I < 0.05 ng/mL (0.00-0.06)
[2019-04-02] VITALS (9 sets, daily range): BP systolic 117–178; BP diastolic 55–91; PULSE 64–84; RESP 17–19; TEMP 36–36.9; O2SAT 93–98
--- NOTE | 2019-04-02 01:16 | HPE_ITS ---
Date of service: 04/02/19 Time of Service: 01:16 Assessment and Plan Assessment and plan (1) Headache: Status: Acute Assessment and plan: will try to control her BP and her headaches w/ verapamil. will continue Tyl #3 for short term control of headaches but use verapamil for prevention of both her headaches and control of her BP. She reportedly had TITA associated w/ use of lisinopril although discussion with her reveals that there was more going on including use of NSAID's at the time of her TITA however she had severe renal failure w/ creatinine up to 8 and nearly went on hemodialysis. Nevertheless, I am not going to start her on an GONZALO-I nor an ARB without her steel analyst's input. However, use of a non-dihydropyridine Calcium channel stiven may be beneficial in treating any vasospasms causing her headaches as well as controlling her HTN w/out increasing her proteinuria or increasing her GF pressures. I am going to avoid use of NSAID for couple of good reasons including her prior TITA and also her recent SAH. Likewise, it would be prudent to avoid Tramadol as this may increase her risk for seizures. I will continue her use of Tylenol #3 for now. I will also consult w/ neurology to weigh in on best practices for post SAH headaches. Qualifiers: Headache type: other vascular headache Qualified Code(s): G44.1 - Vascular headache, not elsewhere classified (2) Hypertension: Status: Chronic Assessment and plan: begin Verapamil SR 120 mg daily and monitor her bp. Qualifiers: Hypertension type: unspecified secondary hypertension Qualified Code(s): I15.9 - Secondary hypertension, unspecified (3) History of subarachnoid hemorrhage: Status: Acute Assessment and plan: as above. avoid use of enoxaparin for DVT prophylaxis. avoid NSAID's. Obtain improved BP control w/ goal of SBP under 140 mm (4) Diabetes mellitus: Status: Chronic Assessment and plan: Patient previously was on Lantus 42 units daily prior to entry into [facility] on 03/18 but states that they were only giving her couple units of insulin per day. Since discharge she was on Lantus 20 units daiy but increased herself to 22 units when her glucose was running in the high 280's. I am going to start her on 30 units daily of Lantus but also give her meal coverage and a sliding scale for correction of elevated glucose readings. We can then titrate her Lantus dose based upon her total daily insulin needs. 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 Because of concern for possible subarachnoid hemorrhage patient was transferred to [facility] for further work-up. LP could not be performed because of previous back surgery and because of her obesity. Work-up at [facility] included 2 digital subtraction angiography in the first 1 performed March 19, 2019 that was negative for aneurysm. A repeat angiogram was performed on March 27, 2019 and again was negative and uncomplicated. She was monitored regularly with transcranial Dopplers which were negative. She had no focal deficits on exam throughout her admission. She was treated prophylactically for seizure protection with Keppra and was placed on nimodipine for vasospasm prevention which was then discontinued after the second negative DSA. She continued to have headaches upon discharge she was discharged on Tylenol 3. She has known type 2 diabetes mellitus for which she takes insulin and usually uses Lantus 42 units daily prior to her hospitalization. Since being discharged from the hospital she has had difficulty controlling her blood sugars with glucose readings up to high 280s. Says normally her A1c runs around 6.5% and she does not take any fast acting insulin. She called [facility] earlier this evening complaining that her blood sugars are out of whack and feeling shaky and lightheaded and unsteady on her feet. She was crying on the phone and complained of headaches and feeling unwell. She was advised to go the nearest emergency department. She presented to the emergency department at [facility] where she was evaluated by Dr. Jaun Mijares who performed a neurologic exam as well as a noncontrast CT scan of her head and a CTA of her head. Noncontrast CT scan of the head showed no acute intracranial abnormality. CTA of her head showed no acute arterial pathology and her [place] is patent. She has dominant dural venous sinuses that appear to be patent. CTA of the neck also showed no acute arterial pathology. Carotid and vertebral systems are patent bilaterally and the jugular veins are patent bilaterally. Her headache was treated with Dilaudid 1 mg IV and Zofran 4 mg for nausea. On arrival she was noted to have elevated blood pressures of 177/91 but after being treated for her headache with Dilaudid her blood pressures came down into the mid 140s but has since climbed into the 150-160 range. She does not currently take any medications for blood pressure but previously had been on lisinopril which was discontinued when she had acute kidney injury in June 2011. At that time she had severe renal failure although she did not require hemodialysis. At that time she was taking a number of different medications including NSAIDs and lisinopril and had just received a Tdap vaccine. She says she was told by her steel analyst at [facility] stay off all the medications that she had been on at the time of her acute kidney injury. Patient was not discharged on any antihypertensives at the time of her latest discharge from [facility]. As a said the nimodipine was stopped once the repeat DSA confirmed no aneurysm was present. Dr. Jaun Mijares discussed her case with Dr. Lainez from [facility] who would reviewed her CT scans. He recommended admission for observation and control of her headaches. Review of Systems Constitutional Constitutional: Reports weakness Neurologic Neurologic: Reports as per HPI, Reports paresthesias (Chronic paresthesias in her right leg as well as mild right leg weakness) and Reports weakness Comments: Chronic right leg weakness and paresthesias secondary to spinal stenosis unchanged [facility] Medical History ADHD (attention deficit hyperactivity disorder) Allergic rhinitis Allergic rhinitis (Chronic) Anemia Anxiety Anxiety (Chronic) Attention deficit hyperactivity disorder, predominantly inattentive type (Chronic) social phobia Breast pain, left Cholelithiasis with cholecystitis (Chronic) Cholelithiasis without obstruction (Chronic) Chronic pain of both knees Chronic post-traumatic stress disorder (Chronic) childhood Chronic post-traumatic stress disorder (PTSD) Depressive disorder Dermatitis Diabetes mellitus Diabetes mellitus (Chronic 09/01/12) Dry eye (Chronic 03/15/13) Dry eyes Elevated LDH Fibrocystic disease of breast Fibrocystic disease of breast (Chronic) Foot drop Foot drop, right (Chronic) right; 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 Functional diarrhea Generalized osteoarthritis H/O menorrhagia Hyperlipidemia Hyperlipidemia (Chronic) Hypertension (Chronic) Idiopathic scoliosis Idiopathic scoliosis (Chronic) Rubio sergio-age 13 Knee osteonecrosis, left Knee osteonecrosis, left (Chronic 11/08/16) Left carpal tunnel syndrome Low back pain Morbid obesity Neck pain (Acute) Non-alcoholic fatty liver disease Non-alcoholic fatty liver disease (Chronic) Obsessive compulsive disorder (Chronic) Obstructive sleep apnea syndrome (Chronic 06/05/07) with CPAP OCD (obsessive compulsive disorder) Phlebitis Restless legs (Chronic 06/05/07) Right lumbar radiculopathy RLS (restless legs syndrome) Social anxiety disorder (Chronic 11/25/17) Social phobia Spinal stenosis Spinal stenosis (Chronic) with Cauda equina syndrome; surgery at [facility] Thrombosis of arteries of lower extremity Umbilical hernia without obstruction or gangrene Vaginitis Surgical History section 1997 AND 1999 Cholecystectomy (02/26/14) Colonoscopy - MAC (~10/2007) NEG EGD - MAC (~10/2007) NEG LAMINECTOMY (~11/2004) L5-S1 Ligation of fallopian tube (~1999) Spinal Fusion (~1974) T4-L3 FOR SEVERE SCOLIOSIS STRESS TEST 02/18/14;LVEF 64%; EXAM IN N/L Family History Sister No problems noted. Sister No problems noted. Paternal Grandmother No problems noted. Social History Smoking/Tobacco Use Status: Never Alcohol Intake: former Drug use: Never Substance use type: does not use Caregiver/Support person: No Household members: none Housing: apartment Communication Needs: Hard of Hearing Pets and animals: No Sexually active: No Do you think of yourself as: straight/heterosexual Current gender identity: female What is your relationship status?: How often do you talk on the phone with friends or family?: three or more times per week How often do you get together with friends or relatives?: twice per week How often do you attend zoroastrianism or yarsani services?: decline to answer Do you belong to any clubs or organized social groups?: no Panel score (0-1 are the most socially isolated patients): 1 What type of physical activity do you participate in: walking Duration: 45-60 minutes/day Frequency: 5-6 times per week Claudette/Worship: No preference Special claudette needs: No Seatbelt use: always Drive 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 emergency medical technician/driver: No Do you feel safe at home: Yes Meds Home Medications and Allergies Home Medications Medication Instructions Recorded Confirmed Type Ultra-Light Rollator #1 01/11/17 04/01/19 History blood-glucose meter [Onetouch #1 kit 12/29/17 04/01/19 Rx Ultramini] cyclosporine 0.05 % eye drops 1 drp OP Q12H 11/15/18 04/01/19 History citalopram 20 mg tablet 20 mg PO DAILY #90 tab 11/22/18 04/01/19 Rx pen needle, diabetic 31 gauge x #100 each 01/03/19 04/01/19 Rx 08/19 blood sugar diagnostic #300 each 01/19/19 04/01/19 Rx lancets 30 gauge #300 each 01/19/19 04/01/19 Rx mupirocin 2 % topical ointment 1 applic TP BID PRN #15 gm 01/29/19 04/01/19 Rx loratadine 10 mg capsule 10 mg PO DAILY PRN #90 cap 02/02/19 03/18/19 Rx lorazepam 0.5 mg tablet 0.5 mg PO BID PRN #20 tab 02/02/19 03/18/19 Rx acetaminophen 300 mg-codeine 30 mg 1 tab PO Q6H PRN #12 tab 03/12/19 04/01/19 Rx tablet nystatin 1 applic TP BID PRN 03/18/19 04/01/19 History acetaminophen-codeine 1 tab PO UNKNOWN 04/01/19 04/01/19 History [Tylenol-Codeine #3] insulin glargine [Lantus Solostar 22 unit SUBCUT DAILY 04/01/19 04/01/19 History U-100 Insulin] Allergies Allergy/AdvReac Type Severity Reaction Status Date / Time amoxicillin Allergy Severe Affects Verified 04/01/19 16:14 kidney FXN per pt. dapsone Allergy Severe Anaphylaxsi Verified 04/01/19 16:14 s lisinopril Allergy Severe Verified 04/01/19 16:14 metformin Allergy Severe INTERACTION Verified 04/01/19 16:14 S Pertussis Vaccines Allergy Severe kidney Verified 04/01/19 16:14 problems clindamycin Allergy Mild SWELLING Verified 04/01/19 16:14 OF THE THROAT latex Allergy Mild RASH Verified 04/01/19 16:14 paroxetine Allergy Unknown Verified 04/01/19 16:14 Sulfa (Sulfonamide Allergy Unknown Verified 04/01/19 16:14 Antibiotics) adhesive AdvReac Mild Itching Unverified 04/02/19 00:55 fluconazole AdvReac Mild HEADACHE Verified 04/01/19 16:14 tdap Allergy Intermediate PT Uncoded 04/01/19 16:14 REPORTED metal AdvReac Unknown staph Uncoded 04/01/19 16:14 infection Exam Const General: cooperative and anxious Nutritional Appearance: obese Orientation: alert, awake and oriented x3 HENMT Head: normal to inspection, no palpable skull fracture, normocephalic and atraumatic Ears: hearing grossly normal bilaterally, external ears normal and TM's normal bilaterally General nose exam: external nose normal, nares normal, no nasal polyps and nasal mucous membranes and turbinates normal Face and sinus: normal facial exam, sinuses nontender and face symmetric Mouth: oral mucosae normal, lip normal, tongue normal and oropharynx normal Teeth and gingiva: poor dentition Throat: posterior oropharynx normal and uvula midline Eyes General: appearance normal, both eyes and all related structures Alignment and Position: alignment normal Periorbital: periorbital findings normal Eyelids: eyelids normal Conjunctivae: conjunctivae normal Sclera: sclerae normal Cornea: corneas normal Pupils: PERRL EOM: EOM intact bilaterally Direct ophthalmoscopy: normal light reflex Resp Effort & Inspection: normal respiratory effort and able to speak in complete sentences Auscultation: clear to auscultation bilaterally Cardio Jugular venous pressure: no JVD Palpation: normal PMI Rate: regular rate Rhythm: regular rhythm Heart Sounds: S1 normal, S2 normal, normal, physiologic split S2, no gallops, no murmurs and no rubs Bruits: no abdominal aortic bruits and no carotid bruits Pulses: normal peripheral pulses GI Inspection: obesity Palpation: soft, no hepatosplenomegaly and nontender Percussion: normal to percussion Auscultation: normal bowel sounds Back/Spine/Pelvis Back: no CVA tenderness Cervical Spine: normal cervical lordosis Skin General skin exam: no rashes or lesions noted Neuro General: alert, awake, oriented x3 and moves all extremities Cranial Nerves: PERRL, accommodation normal, EOM intact bilaterally, no nystagmus, facial strength normal, tongue midline, hearing normal, able to rotate head bilaterally and able to elevate shoulders bilaterally Cognition: normal cognition Speech: speech normal Motor: muscle tone normal throughout, no pronator drift, no movement abnormalities noted, no fasciculations and strength abnormal right lower extremity flexion 4 / 5 and extension 4 / 5 Sensory Exam: lower extremity right light-touch abnormal decreased Coordination: [id number] test normal Extrem General: normal to inspection, full ROM, normal capillary refill, no joint enlargement, no clubbing, cyanosis or edema, no pedal edema and no calf tenderness Psych Appearance: grossly normal Mental Status: mental status grossly normal Speech and Movement: speech and movement normal Mood: anxious mood Affect: anxious affect Attitude: cooperative Thought Process: normal Thought Content: normal Insight: insight good Judgment: judgment good Results Imaging Additional studies: PROCEDURE INFORMATION: Exam: CT Head Without Contrast Exam date and time: 04/01/2019 4:59 PM Clinical history: 59 years old, female; Other: Headache, recent sah; Patient HX: Patient discharged from [facility]. 10 day stay with sah. TECHNIQUE: Imaging protocol: Computed tomography of the head without contrast. Radiation optimization: All CT scans at this facility use at least one of these dose optimization techniques: automated exposure control; mA and/or kV adjustment per patient size (includes targeted exams where dose is matched to clinical indication); or iterative reconstruction. COMPARISON: CT HEAD CERVICAL SPINE WO 03/18/2019 2:53 PM FINDINGS: Brain: Normal. No hemorrhage. Unremarkable white matter. No mass effect. Ventricles: Normal. No ventriculomegaly. Bones/joints: Unremarkable. No acute fracture. Sinuses: Visualized sinuses are unremarkable. No fluid levels. Mastoid air cells: Visualized mastoid air cells are well aerated. Soft tissues: Unremarkable. IMPRESSION: No acute intracranial abnormality. Dictated and Authenticated by: Shaista Phillips MD. Imaging Studies: PROCEDURE INFORMATION: Exam: CT Angiography Head With Contrast Exam date and time: 04/01/2019 21:05 Clinical history: 59 years old, female; Patient HX: Consistent headache recent sah concern for sinus thrombus; Additional info: Venous phases done also TECHNIQUE: Imaging protocol: Computed tomography angiography of the head with intravenous contrast. 3D rendering: MIP reconstructed images were created and reviewed. Radiation optimization: All CT scans at this facility use at least one of these dose optimization techniques: automated exposure control; mA and/or kV adjustment per patient size (includes targeted exams where dose is matched to clinical indication); or iterative reconstruction. Contrast material: OMNIPAQUE 350; Contrast volume: 85 ml; Contrast route: IV; COMPARISON: CT BRAIN CTA 03/18/2019 16:01 FINDINGS: Right internal carotid artery: Intracranial segment is patent with no significant stenosis. No aneurysm. Right anterior cerebral artery: No occlusion or significant stenosis. No aneurysm. Right middle cerebral artery: No occlusion or significant stenosis. No aneurysm. Right posterior cerebral artery: No occlusion or significant stenosis. No aneurysm. Right vertebral artery: No occlusion or significant stenosis. No aneurysm. Left internal carotid artery: Intracranial segment is patent with no significant stenosis. No aneurysm. Left anterior cerebral artery: No occlusion or significant stenosis. No aneurysm. Left middle cerebral artery: No occlusion or significant stenosis. No aneurysm. Left posterior cerebral artery: No occlusion or significant stenosis. No aneurysm. Left vertebral artery: No occlusion or significant stenosis. No aneurysm. Basilar artery: No occlusion or significant stenosis. No aneurysm. Dural sinuses/cerebral veins: The dominant dural venous sinuses appear patent. Dominant central veins appear patent. HEAD: Sinuses: Trace mucosal thickening in the right ethmoid air cells, mild mucosal thickening in the left sphenoid sinus. IMPRESSION: No acute arterial pathology; patent [place] of [place]. The dominant dural venous sinuses appear patent. PROCEDURE INFORMATION: Exam: CT Angiography Neck With Contrast Exam date and time: 04/01/2019 21:05 Clinical history: 59 years old, female; Patient HX: Consistent headache recent sah concern for sinus thrombus; Additional info: Venous phases done also TECHNIQUE: Imaging protocol: Computed tomography angiography of the neck with intravenous contrast. 3D rendering: MIP reconstructed images were created and reviewed. Radiation optimization: All CT scans at this facility use at least one of these dose optimization techniques: automated exposure control; mA and/or kV adjustment per patient size (includes targeted exams where dose is matched to clinical indication); or iterative reconstruction. Contrast material: OMNIPAQUE 350; Contrast volume: 85 ml; Contrast route: IV; COMPARISON: CT BRAIN CTA 03/18/2019 16:01 FINDINGS: VASCULATURE: Right common carotid artery: No significant stenosis. No dissection or occlusion. Right internal carotid artery: Extracranial segment is patent with no significant stenosis. No dissection or occlusion. Right external carotid artery: No occlusion or significant stenosis. Right vertebral artery: No significant stenosis. No dissection or occlusion. Left common carotid artery: No significant stenosis. No dissection or occlusion. Left internal carotid artery: Extracranial segment is patent with no significant stenosis. No dissection or occlusion. Left external carotid artery: No occlusion or significant stenosis. Left vertebral artery: No significant stenosis. No dissection or occlusion. Other vasculature: The jugular veins are patent bilaterally. NECK: Bones/joints: Internal fixation partially seen in the thoracic spine. Degenerative changes in the neck. No acute fracture or subluxation. Soft tissues: No significant soft tissue swelling. IMPRESSION: 1. No acute arterial pathology. Patent carotid and vertebral system bilaterally. 2. The jugular veins are patent bilaterally. COMMENT: Reference per NASCET criteria for degree of stenosis: Mild: less than 50% stenosis. Moderate: 50-69% stenosis. Severe: 70-94% stenosis. Near occlusion: 95-99% stenosis. Dictated and Authenticated by: Arianna Tillman MD. Ordering:QI Zamorano MD Ordered By: CC: Dictated By: Reports vrad 04/[id number] Transcribed By: Bertha Ortega Labs Result diagrams: 04/01/19 17:15 04/01/19 17:15 Labs: Laboratory Results - last 24 hr 04/01/19 04/01/19 04/01/19 17:15 17:15 19:00 WBC 9.15 RBC 4.62 Hgb 13.1 Hct 40.0 MCV 86.6 MCH 28.4 MCHC 32.8 RDW 13.3 Plt Count 201 MPV 9.5 Immature Gran % 0.8 Neutrophils % 68.6 Lymphocytes % 21.2 Monocytes % 6.4 Eosinophils % 2.5 Basophils % 0.5 Absolute Neutrophils 6.27 Absolute Lymphocytes 1.94 Absolute Monocytes 0.59 Absolute Eosinophils 0.23 Absolute Basophils 0.05 Sodium 139 Potassium 4.1 Chloride 103 Carbon Dioxide 26.8 Anion Gap 9.2 BUN 16 Creatinine 0.81 Estimated GFR/1.73 m2 >= 60.00 Glucose 142 H Calcium 9.2 Magnesium 2.0 Total Bilirubin 0.3 AST 52 H ALT 64 H Alkaline Phosphatase 76 Troponin I < 0.05 Total Protein 7.5 Albumin 3.7 04/01/19 22:00 WBC RBC Hgb Hct MCV MCH MCHC RDW Plt Count MPV Immature Gran % Neutrophils % Lymphocytes % Monocytes % Eosinophils % Basophils % Absolute Neutrophils Absolute Lymphocytes Absolute Monocytes Absolute Eosinophils Absolute Basophils Sodium Potassium Chloride Carbon Dioxide Anion Gap BUN Creatinine Estimated GFR/1.73 m2 Glucose Calcium Magnesium Total Bilirubin AST ALT Alkaline Phosphatase Troponin I < 0.05 Total Protein Albumin Last Vital Signs Temp 36.8 C 04/01/19 17:19 Pulse 65 04/02/19 00:00 Resp 16 04/01/19 17:19 BP 151/88 H 04/02/19 00:00 Pulse Ox 97 04/01/19 20:52
[2019-04-02] MEDS: Normal Saline 1,000 ML 100 ML IV (02:49)
--- NOTE | 2019-04-02 04:01 | NUR.NOTE ---
Patient was admitted to the med-surg unit earlier this evening with headache. Patient gave history of admission to the [facility] on `03/18/19 until 03/28/19 for SAH. She state that since yesterday she started feeling generalized weakness, nausea, constant headache; she was treating the headache with medications that she had from [facility] but state they were not getting any better. Patient visited this hospital then was admitted to floor. She is conscious, alert and rational.
[2019-04-02] MEDS: Citalopram 20 MG TAB PO (08:22)
[2019-04-02] MEDS: Insulin Aspart 300 UNITS/3 ML PEN SC ×5 (08:24→17:06)
[2019-04-02] MEDS: Insulin Glargine 300 UNITS/3 ML PEN 30 UNITS SC (08:25)
--- NOTE | 2019-04-02 09:40 | W.NEUROCONSU ---
Date of service: 04/02/19 Time of Service: 09:40 Assessment and Plan Assessment and plan (1) Anxiety: Status: Chronic (2) Headache: Status: Acute Qualifiers: Headache type: other vascular headache Qualified Code(s): G44.1 - Vascular headache, not elsewhere classified (3) Subarachnoid hemorrhage: Status: Acute Assessment and plan: Ms. Hudson is a 59-year-old, right-handed woman with a complicated past medical history with a recent nontraumatic, non-aneurysmal, perimesencephalic subarachnoid hemorrhage, complicated by a small, asymptomatic left pontine/midbrain acute ischemic infarct with persistent headaches and increased anxiety. She is neurologically stable. I agree with MRI brain without contrast as further work-up. In the meantime, I also agree with verapamil for use as an antihypertensive, migraine prophylactic, and to prevent post hemorrhage vasospasm. I would also consider aggressive IV hydration for treatment of headaches along with scheduled 1 g magnesium every 8 hours given over 20 minutes. She does have some nausea, and therefore would recommend p.o. or IV Compazine 5 to 10 mg every 8 hours either as needed or scheduled. This will be helpful for headaches as well. Watch for acute dystonic reaction. Otherwise, anxiety seems to be playing a large part in her syndrome. Her anxiety was under control previous to her hemorrhage. She was treated with scheduled lorazepam while at [facility]. Will defer to primary team but can consider hydroxyzine which also has an anti-headache component. I will continue to follow along. Please call for any further questions or concerns. History of Present Illness History of Present Illness Chief Complaint: headache Narrative: Handedness: right. HPI: Ms. Hudson is a 59-year-old woman with a past medical history of hypertension, hyperlipidemia, type 2 diabetes, depression, anxiety, PTSD, ADHD, OCD, fibromyalgia, headaches, and scoliosis. She was admitted to [facility] 03/18/2019 through 03/28/2019 after [facility] with 7 days of increasing headache found to have a small paramesencephalic subarachnoid hemorrhage. Angiography x2 on 03/19/2019 and 03/27/2019 were both negative. She was treated with nimodipine through 03/27/2019 and discharged to home on Tylenol 3 for her headaches. She had an extensive work-up as below. She presented back to the ER yesterday 04/01/2019 with increased anxiety specifically around her glucose levels and blood pressure as well as continued headaches. She has no new neurological symptoms. In the emergency room, her blood pressure was noted to be 177/91. She had a sodium of 135. Troponin x2 was negative. She has mild AST/ALT elevation which is stable. She was admitted for further treatment and observation. She did not get much sleep last night as her current place of living has been affected by bedbugs. This has been a several week process and she attributes the stress and anxiety to bedbugs as causing her hemorrhage. Every time I asked her on the status of her headache, she redirects her symptoms to discuss her anxiety and need for lorazepam. Imaging: -CT head (03/18/19): an area of hypertensity anterior to the macrina/midbrain. I reviewed these images personally. -CTA head (03/18/19): no aneurysm. I reviewed these images personally. -MRI brain w/wo with MRA head (03/19/19): perimesencephalic SAH anterior to midbrain/macrina; small areas of acute ischemic infarction in the left upper macrina/lower midbrain; possible vasospasm basilar artery with fluctuating diameter. I reviewed these images personally. -CT head (04/01/19): a blush of apparent residual hemorrhage in the above perimesencephalic area. I reviewed these images personally. -CTA head (04/01/19): no aneursym. No apparent vasospasm but this is not a an adequate test. I reviewed these images personally. Consults Requesting physician: Rodrick Donato Review of Systems All systems reviewed & are unremarkable except as noted in HPI and below [facility] Medical History ADHD (attention deficit hyperactivity disorder) Allergic rhinitis (Chronic) Anemia Anxiety (Chronic) Attention deficit hyperactivity disorder, predominantly inattentive type (Chronic) social phobia Breast pain, left Cholelithiasis with cholecystitis (Chronic) Cholelithiasis without obstruction (Chronic) Chronic pain of both knees Chronic post-traumatic stress disorder (Chronic) childhood Depressive disorder Dermatitis Diabetes mellitus (Chronic 09/01/12) Dry eye (Chronic 03/15/13) Elevated LDH Fibrocystic disease of breast (Chronic) Foot drop, right (Chronic) right; 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 Functional diarrhea Generalized osteoarthritis H/O menorrhagia Hyperlipidemia (Chronic) Hypertension (Chronic) Idiopathic scoliosis (Chronic) Rubio sergio-age 13 Knee osteonecrosis, left (Chronic 11/08/16) Left carpal tunnel syndrome Low back pain Morbid obesity Neck pain (Acute) Non-alcoholic fatty liver disease (Chronic) Obsessive compulsive disorder (Chronic) Obstructive sleep apnea syndrome (Chronic 06/05/07) with CPAP Phlebitis Restless legs (Chronic 06/05/07) Social anxiety disorder (Chronic 11/25/17) Social phobia Spinal stenosis (Chronic) with Cauda equina syndrome; surgery at [facility] Thrombosis of arteries of lower extremity Umbilical hernia without obstruction or gangrene Vaginitis Surgical History section 1997 AND 1999 Cholecystectomy (02/26/14) Colonoscopy - MAC (~10/2007) NEG EGD - MAC (~10/2007) NEG LAMINECTOMY (~11/2004) L5-S1 Ligation of fallopian tube (~1999) Spinal Fusion (~1974) T4-L3 FOR SEVERE SCOLIOSIS STRESS TEST 02/18/14;LVEF 64%; EXAM IN N/L Family History Sister No problems noted. Sister No problems noted. Paternal Grandmother No problems noted. Social History Smoking/Tobacco Use Status: Never Alcohol Intake: former Drug use: Never Substance use type: does not use Caregiver/Support person: No Household members: none Housing: apartment Communication Needs: Hard of Hearing Pets and animals: No Sexually active: No Do you think of yourself as: straight/heterosexual Current gender identity: female What is your relationship status?: How often do you talk on the phone with friends or family?: three or more times per week How often do you get together with friends or relatives?: twice per week How often do you attend sabianist or sikhism services?: decline to answer Do you belong to any clubs or organized social groups?: no Panel score (0-1 are the most socially isolated patients): 1 What type of physical activity do you participate in: walking Duration: 45-60 minutes/day Frequency: 5-6 times per week Claudette/Yazdanism: No preference Special claudette needs: No Seatbelt use: always Drive 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 bottom hoop driver: No Do you feel safe at home: Yes Visit Medication and Allergies Active Medications Generic Name Dose Route Start Last Admin Trade Name Freq PRN Reason Stop Dose Admin Acetaminophen 0 mg 04/02/19 00:52 Tylenol PO Q4H PRN PRN Acetaminophen/Codeine Phosphate 1 tab 04/02/19 01:15 04/02/19 02:48 Tylenol W/Codeine #3 Tablet PO 1 tab Q6H PRN PRN Administration Headache Al Hydrox/Mg Hydrox/Simethicone 30 ml 04/02/19 00:52 Mylanta Liquid PO Q2H PRN PRN Citalopram Hydrobromide 20 mg 04/02/19 08:30 04/02/19 08:22 Celexa PO 20 mg DAILY LONI Administration Cyclosporine 0 ml 04/02/19 02:00 04/02/19 02:49 Restasis OP 1 drp Q12H LONI Administration Dextrose 0 gm 04/02/19 00:56 Insta-Glucose PO DIRECTED PRN Dextrose/Water 0 gm 04/02/19 00:56 IVP DIRECTED PRN Dimethicone/Zinc Oxide 0 gm 04/02/19 00:52 Sandra Protect Cream TP PRN PRN Docusate Sodium 100 mg 04/02/19 00:52 Colace PO TID PRN PRN Sodium Chloride 1,000 mls @ 100 mls/hr 04/02/19 01:00 04/02/19 02:49 Saline 1000ml Bag IV 04/02/19 10:59 100 mls/hr INFUSION LONI Administration IV Miscellaneous Supplies 1 each 04/01/19 16:45 IV DIRECTED LONI Insulin Aspart 0 units 04/02/19 08:00 04/02/19 08:24 Novolog Flexpen SC 2 unit 0800,1200,1700 LONI Administration Protocol Insulin Aspart 0 units 04/02/19 07:30 04/02/19 08:27 Novolog Flexpen SC 4 unit AC & HS LONI Administration Insulin Glargine 30 units 04/02/19 08:30 04/02/19 08:25 Lantus Solostar SC 30 unit DAILY LONI Administration Iohexol 100 ml 04/01/19 22:00 04/01/19 21:55 Omnipaque 350 IJ 05/01/19 23:59 100 ml DIRECTED LONI Administration Magnesium Hydroxide 30 ml 04/02/19 00:52 Milk Of Magnesia PO DAILY PRN PRN Nystatin 0 gm 04/02/19 00:55 Mycostatin Powder TP BID PRN PRN Polyethylene Glycol 17 gm 04/02/19 00:52 Miralax PO DAILY PRN PRN Constipation Sodium Chloride 0 ml 04/01/19 16:41 04/01/19 17:33 Saline Flush 10 Ml Syringe IVP 10 ml PRN PRN Administration Verapamil HCl 120 mg 04/02/19 08:30 04/02/19 08:22 Calan Sr PO 120 mg DAILY LONI Administration Allergies amoxicillin Allergy (Severe, Verified 04/01/19 16:14) Affects kidney FXN per pt. dapsone Allergy (Severe, Verified 04/01/19 16:14) Anaphylaxsis lisinopril Allergy (Severe, Verified 04/01/19 16:14) metformin Allergy (Severe, Verified 04/01/19 16:14) INTERACTIONS Pertussis Vaccines Allergy (Severe, Verified 04/01/19 16:14) kidney problems clindamycin Allergy (Mild, Verified 04/01/19 16:14) SWELLING OF THE THROAT latex Allergy (Mild, Verified 04/01/19 16:14) RASH paroxetine Allergy (Unknown, Verified 04/01/19 16:14) Sulfa (Sulfonamide Antibiotics) Allergy (Unknown, Verified 04/01/19 16:14) adhesive Adverse Reaction (Mild, Unverified 04/02/19 00:55) Itching fluconazole Adverse Reaction (Mild, Verified 04/01/19 16:14) HEADACHE tdap Allergy (Intermediate, Uncoded 04/01/19 16:14) PT REPORTED metal Adverse Reaction (Unknown, Uncoded 04/01/19 16:14) staph infection Exam Narrative Exam Narrative: Physical Exam: Gen: Patient of apparent stated age, mild distress Head and face: no facial or cranial abnormalities Neck: Supple, no meningismus, no occipital tenderness CV: + S1, S2, RRR, no murmur Resp: CTA B/L Abd: soft, nontender, nondistended Ext: No edema. No clubbing or cyanosis. No bony deformity. Neuro Exam: Language: fluency, naming, repetition, and comprehension intact; Mental Status: AAOx3, current events intact, fund of knowledge intact; Speech: no dysarthria Cranial nerves: Funduscopy: not performed CN II: visual spence intact CN III, IV, : extraocular movements intact, no nystagmus, pupils symmetric and reactive to light CN V: face sensation intact to LT and PP CN VII: no facial asymmetry noted CN VIII: hearing intact bilaterally CN IX, X: palate rises symmetrically CN XI: trapezius/SCM 5/5 bilaterally CN XII: protrudes tongue symmetrically Sensory: intact to LT and PP in all extremities Motor: bulk and tone intact. Fine motor movements intact bilaterally. No pronator drift. Strength 5/5 throughout including the deltoids, biceps, triceps, wrist extensors, hip flexors, knee flexors, knee extensors, ankle flexors, and ankle extensors. Reflexes: hyporeflexic throughout; toes down going bilaterally; Coordination: FTN and HTS intact bilaterally Gait: deferred Results Last Vital Signs Temp 36.8 C 04/02/19 03:05 Pulse 84 04/02/19 04:05 Resp 17 04/02/19 04:05 BP 117/68 04/02/19 04:05 Pulse Ox 95 04/02/19 04:05 Labs Result diagrams: 04/01/19 17:15 04/01/19 17:15 Labs: Laboratory Results - last 24 hr 04/01/19 04/01/19 04/01/19 17:15 17:15 19:00 WBC 9.15 RBC 4.62 Hgb 13.1 Hct 40.0 MCV 86.6 MCH 28.4 MCHC 32.8 RDW 13.3 Plt Count 201 MPV 9.5 Immature Gran % 0.8 Neutrophils % 68.6 Lymphocytes % 21.2 Monocytes % 6.4 Eosinophils % 2.5 Basophils % 0.5 Absolute Neutrophils 6.27 Absolute Lymphocytes 1.94 Absolute Monocytes 0.59 Absolute Eosinophils 0.23 Absolute Basophils 0.05 Sodium 139 Potassium 4.1 Chloride 103 Carbon Dioxide 26.8 Anion Gap 9.2 BUN 16 Creatinine 0.81 Estimated GFR/1.73 m2 >= 60.00 Glucose 142 H Calcium 9.2 Magnesium 2.0 Total Bilirubin 0.3 AST 52 H ALT 64 H Alkaline Phosphatase 76 Troponin I < 0.05 Total Protein 7.5 Albumin 3.7 10/27/19 22:00 WBC RBC Hgb Hct MCV MCH MCHC RDW Plt Count MPV Immature Gran % Neutrophils % Lymphocytes % Monocytes % Eosinophils % Basophils % Absolute Neutrophils Absolute Lymphocytes Absolute Monocytes Absolute Eosinophils Absolute Basophils Sodium Potassium Chloride Carbon Dioxide Anion Gap BUN Creatinine Estimated GFR/1.73 m2 Glucose Calcium Magnesium Total Bilirubin AST ALT Alkaline Phosphatase Troponin I < 0.05 Total Protein Albumin
[2019-04-02] MEDS: MAGNESIUM SULFATE 1 GM/100 ML BAG IVPB ×2 (10:23→17:05)
[2019-04-02] MEDS: Normal Saline 1,000 ML 1000 ML IV (10:23)
[2019-04-02] MEDS: Prochlorperazine 5 MG TAB PO ×2 (10:52→17:04)
[2019-04-02] MEDS: hydrOXYzine HCL 25 MG TAB PO (10:52)
--- NOTE | 2019-04-02 11:30 | W.PM.PROGNOT ---
Date of Service Date of service: 04/02/19 Time of Service: 11:30 Subjective Subjective Interval history since last seen: Patient highly anxious. Neurology recommendations IVF bolus 1 L, Mag 1 gm over 20 mins, hydroxizine po for anxiety ordered QID and compazine. Tylenol 3 not giving patient much relief. Will try fioricet for relief of RODRIGUEZ, with neurology recommendation. MRI pending. Objective Objective Clinical Data: Abnormal lab results 04/01/19 Range/Units 17:15 Glucose 142 H (70-100) mg/dL AST 52 H (15-37) U/L ALT 64 H (14-59) U/L Vital Signs Temperature 36.6 C 04/02/19 07:20 Temperature Source Tympanic 04/02/19 07:20 Pulse 73 04/02/19 07:20 Pulse Rhythm Regular 04/02/19 07:20 Respiratory Rate 18 04/02/19 07:20 Respiratory Effort 04/02/19 07:20 Respiratory Depth Normal 04/02/19 07:20 Respiratory Pattern Normal 04/02/19 07:20 Blood Pressure 121/55 L 04/02/19 07:20 Blood Pressure Mean 94 04/01/19 19:01 Pulse Oximetry 93 L 04/02/19 07:20 Oxygen Delivery Method Room Air 04/02/19 07:20 Oxygen Flow Rate 0 04/02/19 07:20 Pain Level 3 04/02/19 10:52 Intake & Output 04/01/19 04/01/19 04/02/19 11:59 23:59 11:59 Intake Total 1236.667 / 1236.667 Output Total 1000 / 1000 Balance 236.667 / 236.667 Weight 90.718 kg 97.7 kg Intake: IV 786.667 / 786.667 Oral 450 / 450 Output: Urine 1000 / 1000 Other: Urine Color Yellow Urine Appearance Clear Urine Odor None Voiding Methods Toilet Laboratory Results WBC 9.15 k/cumm (4.4-10.8) 04/01/19 17:15 RBC 4.62 m/cumm (4.00-5.20) 04/01/19 17:15 Hgb 13.1 g/dL (12.0-15.5) 04/01/19 17:15 Hct 40.0 % (36.0-46.0) 04/01/19 17:15 MCV 86.6 fL (80-95) 04/01/19 17:15 MCH 28.4 pg (27.0-33.0) 04/01/19 17:15 MCHC 32.8 g/dL (32.0-36.0) 04/01/19 17:15 RDW 13.3 % (11.7-14.6) 04/01/19 17:15 Plt Count 201 x1000/uL (130-400) 04/01/19 17:15 MPV 9.5 fL (8.0-11.0) 04/01/19 17:15 Immature Gran % 0.8 04/01/19 17:15 Neutrophils % 68.6 04/01/19 17:15 Lymphocytes % 21.2 04/01/19 17:15 Monocytes % 6.4 04/01/19 17:15 Eosinophils % 2.5 04/01/19 17:15 Basophils % 0.5 04/01/19 17:15 Absolute Neutrophils 6.27 k/cumm (1.2-6.7) 04/01/19 17:15 Absolute Lymphocytes 1.94 k/cumm (1.2-3.4) 04/01/19 17:15 Absolute Monocytes 0.59 k/cumm (0.11-0.7) 04/01/19 17:15 Absolute Eosinophils 0.23 k/cumm (0.0-0.7) 04/01/19 17:15 Absolute Basophils 0.05 k/cumm (0.0-0.2) 04/01/19 17:15 Sodium 139 mmol/L (136-145) 04/01/19 17:15 Potassium 4.1 mmol/L (3.5-5.1) 04/01/19 17:15 Chloride 103 mmol/L (98-107) 04/01/19 17:15 Carbon Dioxide 26.8 mmol/L (21.0-32.0) 04/01/19 17:15 Anion Gap 9.2 mmol/L (3-11) 04/01/19 17:15 BUN 16 mg/dL (7-18) 04/01/19 17:15 Creatinine 0.81 mg/dL (0.55-1.02) 04/01/19 17:15 Estimated GFR/1.73 m2 >= 60.00 (mL/min/1.73m2) 04/01/19 17:15 Glucose 142 mg/dL (70-100) H 04/01/19 17:15 Calcium 9.2 mg/dL (8.5-10.1) 04/01/19 17:15 Magnesium 2.0 mg/dL (1.8-2.4) 04/01/19 17:15 Total Bilirubin 0.3 mg/dL (0.2-1.0) 04/01/19 17:15 AST 52 U/L (15-37) H 04/01/19 17:15 ALT 64 U/L (14-59) H 04/01/19 17:15 Alkaline Phosphatase 76 U/L (46-116) 04/01/19 17:15 Troponin I < 0.05 ng/mL (0.00-0.06) 04/01/19 22:00 Total Protein 7.5 g/dL (6.4-8.2) 04/01/19 17:15 Albumin 3.7 g/dL (3.4-5.0) 04/01/19 17:15
[2019-04-02] MEDS: LORazepam 2 MG/ML VIAL (11:41)
--- NOTE | 2019-04-02 11:52 | NUR.NOTE ---
Per pulmonology, patient's CPAP settings were between 9-15, patient averages 10L. Respiratory aware. Nursing Note:
--- NOTE | 2019-04-02 12:35 | DI.MRI_ITS ---
EXAM: MR BRAIN WO CLINICAL HISTORY: headaches; recent SAH and pontine CVA. TECHNIQUE: Multiplanar multisequence MRI was performed. COMPARISON: No exams were available for comparison FINDINGS: The ventricles and sulci are consistent with the patient's age. The diffusion-weighted images show n o evidence of an acute hemorrhage. The ventricles are intact. The basilar cisterns are patent. The re is no acute midline shift. No intracranial hemorrhage is identified. There is a normal flow void seen in the [id number]. There is mild mucosal thickening in the sphenoid sinuses. No fluid l evels are present in the sinuses. IMPRESSION: No evidence of an acute infarct.
[2019-04-03] MEDS: MAGNESIUM SULFATE 1 GM/100 ML BAG IVPB ×2 (02:54→10:13)
[2019-04-03] MEDS: Prochlorperazine 5 MG TAB PO ×2 (02:55→13:27)
[2019-04-03 07:28] LABS: Anion Gap 6.6 mmol/L (3-11); BUN 14 mg/dL (7-18); CO2 29.4 mmol/L (21.0-32.0); CREATININE 0.88 mg/dL (0.55-1.02); Calcium 8.8 mg/dL (8.5-10.1); Chloride 105 mmol/L (98-107); Glucose 125 mg/dL (70-100); Magnesium 2.4 mg/dL (1.8-2.4); Potassium 4.2 mmol/L (3.5-5.1); Sodium 141 mmol/L (136-145)
[2019-04-03] MEDS: Citalopram 20 MG TAB PO (07:50)
[2019-04-03] MEDS: Insulin Aspart 300 UNITS/3 ML PEN SC ×4 (08:07→17:18)
[2019-04-03] MEDS: Insulin Glargine 300 UNITS/3 ML PEN 30 UNITS SC (08:09)
[2019-04-03 08:48] VITALS: BP 132/79; PULSE 60; RESP 17; TEMP 36.1; O2SAT 95
--- NOTE | 2019-04-03 08:54 | W.PM.PROGNOT ---
Date of Service Date of service: 04/03/19 Time of Service: 08:54 Assessment and Plan Assessment and plan (1) Anxiety: Status: Chronic (2) Headache: Status: Acute Qualifiers: Headache type: other vascular headache Qualified Code(s): G44.1 - Vascular headache, not elsewhere classified (3) Subarachnoid hemorrhage: Status: Acute Assessment and plan: Ms. Hudson is a 59-year-old, right-handed woman with a complicated past medical history with a recent nontraumatic, non-aneurysmal, perimesencephalic subarachnoid hemorrhage, complicated by a small, asymptomatic left pontine/midbrain acute ischemic infarct with persistent headaches and increased anxiety. She remains neurologically stable with an MRI with no residual significant hemorrhage. Anxiety continues to be her biggest factor. Would recommend scheduling hydroxyzine QID with close outpatient follow-up with PCP/psych. Continue Compazine 5mg +/- Tylenol #3 TID prn headache. We discussed blood pressure control as best way to avoid future hemorrhage. She should follow-up in the Neurology clinic in 4-6 weeks. Please call with any questions or concerns. . Subjective Subjective Interval history since last seen: No headache over night and slept well. Initially no headache this am, but then as I talked to her she kept developing new pains (occipital and then behind her eyes; 2/10 in severity). As she was talking she continued to express significant anxiety over everything - her insulin regimen, her blood pressures, her PCP office, her headaches, her recent SAH, the future, etc. She has no support at home. Does have a counselor but hasn't seen her in a few weeks due to her illness. Hydroxyzine was Rx'd for her anxiety but appears she only got once last night as it was written prn instead of scheduled. Exam Narrative Exam Narrative: Physical Exam: Constitutional: Patient of apparent stated age, well nourished, well developed, no acute distress Neuro: MS/Language/Speech: Alert, oriented, clear language (fluency and comprehension), no dysarthria CN: EOMI, visual spence full, trigeminal sensation intact, no facial asymmetry, hearing intact Motor: Normal bulk and tone. FMM intact, no pronator drift. 5/5 strength in bilateral upper and lower extremities Sensation: Intact to light touch throughout Coordination: Finger to nose performed without dysmetria Gait: Deferred Objective Objective Clinical Data: Abnormal lab results 04/03/19 Range/Units 06:45 Glucose 125 H (70-100) mg/dL Vital Signs Temperature 36.1 C L 04/03/19 08:48 Temperature Source Tympanic 04/03/19 08:48 Pulse 60 04/03/19 08:48 Pulse Rhythm Regular 04/03/19 02:30 Respiratory Rate 17 04/03/19 08:48 Respiratory Effort 04/03/19 02:30 Respiratory Depth Normal 04/03/19 02:30 Respiratory Pattern Normal 04/03/19 02:30 Blood Pressure 132/79 04/03/19 08:48 Blood Pressure Mean 94 04/01/19 19:01 Pulse Oximetry 95 04/03/19 08:48 Oxygen Delivery Method Room Air 04/03/19 08:48 Oxygen Flow Rate 0 04/03/19 08:48 Pain Level 2 04/03/19 08:48 Intake & Output 04/02/19 04/02/19 04/03/19 11:59 23:59 11:59 Intake Total 1236.667 / 2816.667 1580 / 2816.667 Output Total 1000 / 3300 2300 / 3300 700 / 700 Balance 236.667 / -483.333 -720 / -483.333 -700 / -700 Weight 97.7 kg Intake: IV 786.667 / 1381.637 6092 / 1886.667 Oral 450 / 930 480 / 930 Output: Urine 1000 / 3300 2300 / 3300 700 / 700 Other: Urine Color Yellow Yellow Yellow Urine Appearance Clear Clear Clear Urine Odor None Normal None Voiding Methods Toilet Toilet Laboratory Results WBC 9.15 k/cumm (4.4-10.8) 04/01/19 17:15 RBC 4.62 m/cumm (4.00-5.20) 04/01/19 17:15 Hgb 13.1 g/dL (12.0-15.5) 04/01/19 17:15 Hct 40.0 % (36.0-46.0) 04/01/19 17:15 MCV 86.6 fL (80-95) 04/01/19 17:15 MCH 28.4 pg (27.0-33.0) 04/01/19 17:15 MCHC 32.8 g/dL (32.0-36.0) 04/01/19 17:15 RDW 13.3 % (11.7-14.6) 04/01/19 17:15 Plt Count 201 x1000/uL (130-400) 04/01/19 17:15 MPV 9.5 fL (8.0-11.0) 04/01/19 17:15 Immature Gran % 0.8 04/01/19 17:15 Neutrophils % 68.6 04/01/19 17:15 Lymphocytes % 21.2 04/01/19 17:15 Monocytes % 6.4 04/01/19 17:15 Eosinophils % 2.5 04/01/19 17:15 Basophils % 0.5 04/01/19 17:15 Absolute Neutrophils 6.27 k/cumm (1.2-6.7) 04/01/19 17:15 Absolute Lymphocytes 1.94 k/cumm (1.2-3.4) 04/01/19 17:15 Absolute Monocytes 0.59 k/cumm (0.11-0.7) 04/01/19 17:15 Absolute Eosinophils 0.23 k/cumm (0.0-0.7) 04/01/19 17:15 Absolute Basophils 0.05 k/cumm (0.0-0.2) 04/01/19 17:15 Sodium 141 mmol/L (136-145) 04/03/19 06:45 Potassium 4.2 mmol/L (3.5-5.1) 04/03/19 06:45 Chloride 105 mmol/L (98-107) 04/03/19 06:45 Carbon Dioxide 29.4 mmol/L (21.0-32.0) 04/03/19 06:45 Anion Gap 6.6 mmol/L (3-11) 04/03/19 06:45 BUN 14 mg/dL (7-18) 04/03/19 06:45 Creatinine 0.88 mg/dL (0.55-1.02) 04/03/19 06:45 Estimated GFR/1.73 m2 >= 60.00 (mL/min/1.73m2) 04/03/19 06:45 Glucose 125 mg/dL (70-100) H 04/03/19 06:45 Calcium 8.8 mg/dL (8.5-10.1) 04/03/19 06:45 Magnesium 2.4 mg/dL (1.8-2.4) 04/03/19 06:45 Total Bilirubin 0.3 mg/dL (0.2-1.0) 04/01/19 17:15 AST 52 U/L (15-37) H 04/01/19 17:15 ALT 64 U/L (14-59) H 04/01/19 17:15 Alkaline Phosphatase 76 U/L (46-116) 04/01/19 17:15 Troponin I < 0.05 ng/mL (0.00-0.06) 04/01/19 22:00 Total Protein 7.5 g/dL (6.4-8.2) 04/01/19 17:15 Albumin 3.7 g/dL (3.4-5.0) 04/01/19 17:15
[2019-04-03 11:00] VITALS: BP 117/64; PULSE 60; RESP 17; TEMP 36; O2SAT 93
[2019-04-03] MEDS: hydrOXYzine HCL 25 MG TAB PO ×2 (12:03→16:12)
--- NOTE | 2019-04-03 12:57 | DI.US_ITS ---
EXAM: US LOWER EXTREMITY VENOUS RT CLINICAL HISTORY: ?DVT, RLE pain, hx DVT TECHNIQUE: Ultrasound performed using standard protocol. COMPARISON: US renal from 01/12/2019 FINDINGS: The common femoral, femoral, and popliteal veins show normal compression, augmentation, and color flash w. There is no evidence of a right lower extremity deep venous thrombus. Saphenofemoral junction ap pears unremarkable. No evidence of a Smart's cyst is seen. IMPRESSION: No evidence of a right lower extremity DVT
[2019-04-03 15:00] VITALS: BP 125/68; PULSE 65; RESP 14; TEMP 36.7; O2SAT 96
--- NOTE | 2019-04-03 15:28 | CMDISCH_ITS ---
LACE Index Scoring Tool - Questions: Length of Stay (in days): 1 (RN/PT/OT/FURNITURE PAINTER) Acuity (Admit via E.D.?): Yes Comorbidities: Diabetes w/o Complication E.D. Visits: 3 - Answers: Total Score: 8 Risk of Readmission: Low Risk Care Management Discharge Reason for Hospitalization: Headache Discharge Plan: Linh will return home where she resides at the [facility] in [place], [place]. Her son has an apartment across the [place]. She reports being interested in working with a mattress spring encaser and manager social responsibility to attain increased services in the home setting including homemaker supports. She will transport via private vehicle with her mother. Per provider, she will have new orders through [facility] for RN/PT/OT/FURNITURE PAINTER. Filled FWW through [employer] at patient and provider request. Patient/Family Education Needs: Review discharge instructions, discuss Ask Me Three, reviewed discharge plan. Provided medication trays, medication organization sheet, pill cutter, and lifeline resources. Services Needed at Discharge: DME Agency, Home Health Care Services (RN/PT/OT/Andrew GARCIA)
--- NOTE | 2019-04-03 15:30 | DSE_ITS ---
Date of service: 04/03/19 Time of Service: 15:30 DS: Diagnosis Discharge Diagnosis (1) Anxiety: Status: Chronic (2) Headache: Status: Acute (3) Subarachnoid hemorrhage: Status: Acute Discharge Plan Disposition Patient Disposition: HOME W/HOME HEALTH SERVICE Condition: Improving Discharge Details Chief Complaint: GenMedical Reason For Visit: HEADACHE Admit Date/Time: 04/02/19 00:00 Admit Provider: Rodrick Donato Attending Provider: Rodrick Donato Primary Care Provider: Asim Tay ED Provider: Jaun Mijares [facility] Course Hospital Course: Linh Hudson is a 59-year-old female with a past medical history significant for hypertension, hyperlipidemia, type 2 diabetes, depression, anxiety, PTSD, ADHD, OCD, fibromyalgia, headaches and scoliosis as well as recent subarachnoid hemorrhage. She was recently hospitalized at [facility] from 03/18/2019 to 03/28/2019 after she presented to the emergency department here at [facility] with 7 days of increasing headache. There was concern for subarachnoid hemorrhage, however, she was unable to have a lumbar puncture at this facility due to no availability of LP under fluoroscopic guidance. She was transferred to [facility] and was found to have a small paramesencephalic subarachnoid hemorrhage. She had ongoing headaches and was discharged from [facility] on 03/28/2019 with Tylenol 3 for her headaches. On 04/01/2019, she presented back to the [facility] emergency department with increased anxiety regarding her elevated glucose levels and blood pressure as well as ongoing headaches. In the emergency department, her blood pressure was noted to be 177/91, her sodium was mildly low at 135, troponin was negative x2, she had mild AST/ALT elevation. She had a CT head which showed no acute intracranial process, CTA head/neck showed no acute arterial injury. She was admitted to the [facility] floor for further treatment and observation. She went on to have Brain MRI showed no evidence of an acute infarct. She was seen by neurology who made recommendations including scheduled aggressive IV fluid hydration, IV magnesium, scheduled hydroxyzine, Compazine and she did agree with verapamil for antihypertensive, migraine prophylaxis and to prevent post hemorrhage vasospasm. She is chronically on celexa and the combination of celexa and hydroxyzine puts her at risk for prolonged QT. Therefore, she is not discharged home on hydroxyzine. She will remain on Tylenol #3 TID as needed headache. She will follow up in the Neurology clinic in 4-6 weeks. On the day of discharge, she is no longer experiencing a headache. She was very concerned about making changes to her insulin regimen. She has been on a carb counting regimen, 1 unit per 10 g of carbohydrates with meals and snacks while she has been in the hospital. She did not believe that she could maintain that at home. She was previously on a once daily Lantus regimen which she would prefer to resume, at an adjusted dose. She will be discharged home on a once daily long acting insulin regimen. She will be discharged on 30 units of lantus daily. She will monitor her blood glucose and bring her log to her PCP so he can review and make adjustments. She will follow up with her PCP in 2 days. Ms Hudson was evaluated by PT. PT recommended a front-wheeled walker and home PT/OT for ongoing balance training. She will also be referred for Home health nursing and social work. She is concerned about bed bugs in her apartment building and will be provided with community resources for help with that issue. It is recommended that she be connected with behavioral health for her anxiety, consider psychiatric consult as an outpatient. Home Meds and New Rx's Prescriptions: New verapamil [Calan SR] 120 mg Tablet Extended Release 120 mg PO DAILY Qty: 30 RF: 0 prochlorperazine maleate 5 mg Tablet 5 mg PO TID Qty: 90 RF: 0 Continued (DME) lancets [OneTouch Delica Lancets] 30 gauge misc 1 ea Miscellaneous QID Qty: 300 RF: 4 acetaminophen-codeine [Tylenol-Codeine #3] 300-30 mg tablet 1 tab PO Q6H PRN (Reason: pain) Qty: 12 RF: 0 Restasis MultiDose 0.05 % drops 1 drp OP Q12H RF: 0 (DME) Ultra-Light Rollator 1 EACH misc 1 ea Miscellaneous ONCE Qty: 1 RF: 0 (DME) blood-glucose meter [OneTouch UltraMini] 1 EACH kit 1 ea Miscellaneous ONCE Qty: 1 RF: 0 citalopram 20 mg tablet 20 mg PO DAILY Qty: 90 RF: 4 (DME) pen needle, diabetic [BD Ultra-Fine Mini Pen Needle] 31 gauge x 3/16 needle See Rx Instructions .ROUTE .MEDSUPPLY Qty: 100 RF: 5 (DME) OneTouch Ultra Blue Test Strip Strip See Rx Instructions .ROUTE .MEDSUPPLY Qty: 300 RF: 4 mupirocin 2 % ointment 1 applic TP BID PRN (Reason: rash) Qty: 15 RF: 0 lorazepam 0.5 mg tablet 0.5 mg PO BID PRN (Reason: anxiety) Qty: 20 RF: 0 loratadine 10 mg capsule 10 mg PO DAILY PRN (Reason: allergy symptoms) Qty: 90 RF: 4 nystatin 100,000 unit/gram powder 1 applic TP BID PRNRF: 0 acetaminophen-codeine [Tylenol-Codeine #3] 300-30 mg Tablet 1 tab PO UNKNOWN RF: 0 Changed Lantus Solostar U-100 Insulin 100 unit/mL (3 mL) insulin pen 30 unit subcut DAILY Qty: 0 RF: 0 Discharge Instructions Instructions: Basic Carbohydrate Counting (DC), Anxiety (GEN) Additional Instructions: Your long acting insulin dose has been increased to 30 units daily. You will need to keep track of your blood glucose and bring it to your PCP on . Your lantus will likely need adjustment but this will need to be done slowly as an outpatient so you do not get too low. Keeping your blood pressure under control will be very important, you have been started on verapamil. You will have home health services to monitor you at home. Follow up with Dr. Saldaña, Neurology, in 4-6 weeks. Follow up with your PCP as scheduled. Stand Alone Forms: Nursing Discharge Form Referrals: Asim Tay MD [Primary Care Provider] - 04/05/19 10:00 am Sherita Saldaña MD [ [facility] STAFF PHYSICIAN] - (Please call the office tomorow to schedule a follow up appointment for 4-6 weeks. [phone]) Activity:: Activity as Tolerated Equipment/Supplies:: No Equipment Needed Diet:: Carb Counting Discharge Orders Discharge Orders: Discharge Order (Routine); Ordered 04/03/19 Ordered By: Josseline Heredia DS: Summary Status at Discharge Functional status at discharge: uses cane/walker Overall status at discharge: patient is progressing back to baseline Mental Status: mental status grossly normal Speech and Movement: speech and movement normal Mood: anxious mood Affect: normal affect Exam Narrative Exam Narrative: General: Middle aged female, sitting up in recliner, in NAD. Alert and oriented, answers questions appropriately. HEENT: Pupils equal and round, EOMI, mucous membranes moist. Neck: supple, no JVD. Cardiovascular: heart has regular rate and rhythm, no murmur appreciated. Respiratory: respirations even and unlabored, lung sounds clear bilaterally. GI: abdomen soft, nontender on palpation, no masses appreciated, normal bowel sounds. Extremities: well perfused with no clubbing, cyanosis or edema. Psych Mental Status: mental status grossly normal Speech and Movement: speech and movement normal Mood: anxious mood Affect: normal affect DS: Data Vitals/I&O Vitals and I&O: Vital Signs Temperature 36.0 C L 04/03/19 11:00 Temperature Source Tympanic 04/03/19 11:00 Pulse 60 04/03/19 11:00 Pulse Rhythm Regular 04/03/19 07:45 Respiratory Rate 17 04/03/19 11:00 Respiratory Effort Non-Labored 04/03/19 07:45 Respiratory Depth Normal 04/03/19 07:45 Respiratory Pattern Normal 04/03/19 07:45 Blood Pressure 117/64 04/03/19 11:00 Blood Pressure Mean 94 04/01/19 19:01 Pulse Oximetry 93 L 04/03/19 11:00 Oxygen Delivery Method Room Air 04/03/19 11:00 Oxygen Flow Rate 0 04/03/19 11:00 Pain Level 4 04/03/19 12:02 Intake & Output 04/02/19 04/03/19 04/03/19 23:59 11:59 23:59 Intake Total 1580 / 2816.667 590 / 830 240 / 830 Output Total 2300 / 3300 800 / 1400 600 / 1400 Balance -720 / -483.333 -210 / -570 -360 / -570 Intake: IV 1100 / 1886.667 110 / 110 Oral 480 / 930 480 / 720 240 / 720 Output: Urine 2300 / 3300 800 / 1400 600 / 1400 Other: Urine Color Yellow Yellow Yellow Urine Appearance Clear Clear Urine Odor Normal None Voiding Methods Toilet Toilet Data Completed and Pending Completed studies during hospitalization [Text1]: 04/01/2019: EXAM: CT HEAD WO CLINICAL HISTORY: headache, recent SAH TECHNIQUE: The exam was performed according to the usual protocol without contrast. COMPARISON: CT BRAIN CTA from 03/18/2019 FINDINGS: There is a normal ying-white matter differentiation. No acute intracranial hemorrhage, midline shift, or mass effect is present. The ventricles are intact. The basilar cisterns are patent. No acute fluid levels are seen in the visualized paranasal sinuses. The mastoid air cells are well pneumatized. The calvarium is intact. IMPRESSION: No acute intracranial process. EXAM: CT BRAIN NECK CTA CLINICAL HISTORY: recent SAH, RODRIGUEZ TECHNIQUE: Axial CT angiography was performed with multi-slice acquisition and multi-planar and/or 3D reconstructions. The exam was performed according to the usual protocol with 85 cc's of Omnipaque 350. COMPARISON: No exams were available for comparison FINDINGS: CT angiography of the neck: The common carotid arteries are unremarkable. No evidence of dissection, occlusion, or significant stenosis is present. The extracranial internal carotid arteries are unremarkable. There is no evidence of occlusion, dissection, or significant stenosis. The external carotid arteries are unremarkable. There is no evidence of occlusion or significant stenosis. The vertebral arteries are unremarkable. No evidence of dissection, occlusion, or significant stenosis. Degenerative changes are seen in the neck. The soft tissues are unremarkable. Internal fixation of the thoracic spine is partially identified. CT angiography of the head: The intracranial internal carotid arteries are unremarkable. No evidence of significant stenosis, occlusion, or aneurysm. The anterior cerebral arteries are unremarkable. There is no evidence of aneurysm, occlusion, or significant stenosis. The middle cerebral arteries are unremarkable. There is no evidence of aneurysm, occlusion, or significant stenosis. The posterior cerebral arteries are unremarkable. There is no evidence of aneurysm, occlusion, or significant stenosis. The vertebral arteries are unremarkable. No evidence of aneurysm, occlusion, or significant stenosis. The basilar artery is unremarkable. No evidence of aneurysm, occlusion, or significant stenosis. There is trace mucosal thickening in the right ethmoid air cells. There is mild mucosal thickening in the left sphenoid sinus. IMPRESSION: No acute arterial injury. 04/02/2018: EXAM: MR BRAIN WO CLINICAL HISTORY: headaches; recent SAH and pontine CVA. TECHNIQUE: Multiplanar multisequence MRI was performed. COMPARISON: No exams were available for comparison FINDINGS: The ventricles and sulci are consistent with the patient's age. The diffusion- weighted images show no evidence of an acute hemorrhage. The ventricles are intact. The basilar cisterns are patent. There is no acute midline shift. No intracranial hemorrhage is identified. There is a normal flow void seen in the [id number]. There is mild mucosal thickening in the sphenoid sinuses. No fluid levels are present in the sinuses. IMPRESSION: No evidence of an acute infarct. Labs on day of discharge: Labs from last 24 hours 04/03/19 06:45 Sodium 141 Potassium 4.2 Chloride 105 Carbon Dioxide 29.4 Anion Gap 6.6 BUN 14 Creatinine 0.88 Estimated GFR/1.73 m2 >= 60.00 Glucose 125 H Calcium 8.8 Magnesium 2.4 [facility] Medical History ADHD (attention deficit hyperactivity disorder) Allergic rhinitis (Chronic) Anemia Anxiety (Chronic) Attention deficit hyperactivity disorder, predominantly inattentive type (Chronic) social phobia Breast pain, left Cholelithiasis with cholecystitis (Chronic) Cholelithiasis without obstruction (Chronic) Chronic pain of both knees Chronic post-traumatic stress disorder (Chronic) childhood Depressive disorder Dermatitis Diabetes mellitus (Chronic 09/01/12) Dry eye (Chronic 03/15/13) Elevated LDH Fibrocystic disease of breast (Chronic) Foot drop, right (Chronic) right; 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 Functional diarrhea Generalized osteoarthritis H/O menorrhagia Hyperlipidemia (Chronic) Hypertension (Chronic) Idiopathic scoliosis (Chronic) Rubio sergio-age 13 Knee osteonecrosis, left (Chronic 11/08/16) Left carpal tunnel syndrome Low back pain Morbid obesity Neck pain (Acute) Non-alcoholic fatty liver disease (Chronic) Obsessive compulsive disorder (Chronic) Obstructive sleep apnea syndrome (Chronic 06/05/07) with CPAP Phlebitis Restless legs (Chronic 06/05/07) Scoliosis (Acute) Social anxiety disorder (Chronic 11/25/17) Social phobia Spastic bladder (Acute) Spinal stenosis (Chronic) with Cauda equina syndrome; surgery at [facility] Thrombosis of arteries of lower extremity Umbilical hernia without obstruction or gangrene Vaginitis Surgical History section 1997 AND 1999 Cholecystectomy (02/26/14) Colonoscopy - MAC (~10/2007) NEG EGD - MAC (~10/2007) NEG LAMINECTOMY (~11/2004) L5-S1 Ligation of fallopian tube (~1999) Spinal Fusion (~1974) T4-L3 FOR SEVERE SCOLIOSIS STRESS TEST 02/18/14;LVEF 64%; EXAM IN N/L Family History Sister No problems noted. Sister No problems noted. Paternal Grandmother No problems noted. Social History Smoking/Tobacco Use Status: Never Alcohol Intake: former Drug use: Never Substance use type: does not use Caregiver/Support person: No Household members: none Housing: apartment Communication Needs: Hard of Hearing Pets and animals: No Sexually active: No Do you think of yourself as: straight/heterosexual Current gender identity: female What is your relationship status?: How often do you talk on the phone with friends or family?: three or more times per week How often do you get together with friends or relatives?: twice per week How often do you attend gnosticist or confucianism services?: decline to answer Do you belong to any clubs or organized social groups?: no Panel score (0-1 are the most socially isolated patients): 1 What type of physical activity do you participate in: walking Duration: 45-60 minutes/day Frequency: 5-6 times per week Claudette/Buddhism: No preference Special claudette needs: No Seatbelt use: always Drive 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 otr hazmat company driver: No Do you feel safe at home: Yes
--- NOTE | 2019-04-03 16:24 | PDOC.HHF2F ---
Home Health Certification Home Health Certification: 1. Encounter Date and Reason I certify that HANSEL VIEIRA was seen by Josseline Heredia on 04/03/19 and that I had a [id number] encounter with this patient that meets the physician face to face encounter requirements. 2. Clinical Findings Supporting Skilled Need and Homebound Status I certify that home health services are medically necessary, include either intermittent shelter and/or physical/speech therapy, and that this patient is homebound in that absences from the home require considerable and taxing effort and are infrequent or of short duration, or are attributable to the need to receive medical care. [X] (a) Attached documentation from encounter provides clinical findings supporting skilled need and homebound status (including what assistance patient requires to leave the home). The encounter with the patient was in whole, or in part, for the following medical condition, which is the primary reason for home health care: HEADACHE, recent SAH, anxiety Correction: Needed to monitor medical conditions including diabetes, hypertension and anxiety. Assist with medication management Physical Therapy: Needed for ongoing balance and strength training after discharge from hospital. OT: Needed for evaluation of home environment and for recommendations as needed. Speech Therapy: Homebound: Unable to leave home without assistance at this time. 3. Certification and Authentication I certify that I composed the above information based on my clinical judgement relating to this patient's medical condition and, if applicable, clinical findings communicated to me by the NPP or inpatient physician who performed the Home Health Referral. All further orders will be obtained through Dr. Tay (Community Based Physician - PCP)
[2019-04-03] MEDS: Calcium Carbonate *TUMS* 500 MG CHEW 1000 MG PO (16:29)
--- NOTE | 2019-04-03 18:17 | NUR.NOTE ---
Nursing Note: Patient on magnesium infusions to treat headaches. Magnesium level this am (04/03/19) 2.4. Discussed level with charge nurse who contacted the provider. Provider aware and ok to continue with infusion.
--- NOTE | 2019-04-03 18:30 | PT.INIE ---
Date of service: 04/03/19 Time of Service: 13:10 PT Notes Inpatient Physical Therapy Evaluation Date: 04/03/2019 Referring Doctor: Carlos Perkins MD PT Orders: PT CONSULT: Safety Consult for D/C? Precautions: Fall. Standard. Activity as tolerated. Patient Profile/Admitting Diagnosis: Patient was admitted to the ED on 04/01/2019 with chief complaints of persistent headache since discharge from [facility] on 03/28/2019 and general generalized body weakness. Patient is diagnosed with headache related to severe hemorrhage, and hypertension. PMHX: Medical History ADHD (attention deficit hyperactivity disorder) Allergic rhinitis Allergic rhinitis (Chronic) Anemia Anxiety Anxiety (Chronic) Attention deficit hyperactivity disorder, predominantly inattentive type (Chronic) social phobia Breast pain, left Cholelithiasis with cholecystitis (Chronic) Cholelithiasis without obstruction (Chronic) Chronic pain of both knees Chronic post-traumatic stress disorder (Chronic) childhood Chronic post-traumatic stress disorder (PTSD) Depressive disorder Dermatitis Diabetes mellitus Diabetes mellitus (Chronic 09/01/12) Dry eye (Chronic 03/15/13) Dry eyes Elevated LDH Fibrocystic disease of breast Fibrocystic disease of breast (Chronic) Foot drop Foot drop, right (Chronic) right; 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 Functional diarrhea Generalized osteoarthritis H/O menorrhagia Hyperlipidemia Hyperlipidemia (Chronic) Hypertension (Chronic) Idiopathic scoliosis Idiopathic scoliosis (Chronic) Rubio sergio-age 13 Knee osteonecrosis, left Knee osteonecrosis, left (Chronic 11/08/16) Left carpal tunnel syndrome Low back pain Morbid obesity Neck pain (Acute) Non-alcoholic fatty liver disease Non-alcoholic fatty liver disease (Chronic) Obsessive compulsive disorder (Chronic) Obstructive sleep apnea syndrome (Chronic 06/05/07) with CPAP OCD (obsessive compulsive disorder) Phlebitis Restless legs (Chronic 06/05/07) Right lumbar radiculopathy RLS (restless legs syndrome) Social anxiety disorder (Chronic 11/25/17) Social phobia Spinal stenosis Spinal stenosis (Chronic) with Cauda equina syndrome; surgery at [facility] Thrombosis of arteries of lower extremity Umbilical hernia without obstruction or gangrene Vaginitis Surgical History section 1997 AND 1999 Cholecystectomy (02/26/14) Colonoscopy - MAC (~10/2007) NEG, EGD - MAC (~10/2007)NEG LAMINECTOMY (~11/2004)L5-S1 Ligation of fallopian tube (~1999) Spinal Fusion (~1974) T4-L3 FOR SEVERE SCOLIOSIS STRESS TEST 02/18/14;LVEF 64%; EXAM IN N/L Social History/Home Situation: Patient lives at [facility] in [place] by herself. She has a daughter at [employer] [facility] [employer], and a son who is disabled and lives next door. Equipment Owned/DME: [employer] Subjective: Patient reports she has a 3/10 headache that worsens with activity. She attributes it to her rising blood pressure. She is severely afraid of falling. She states her neighbor has bed bugs, and she fears going back to her home because she is afraid she might also have bed bugs. Objective: General Observation: Patient is seen sitting in her chair with an IV in R UE. Mental Status: Alert and oriented x 4 but in some mental distress Pain: 3/10 that increases to 6/10 with ambulation. Vital Signs: 159/76 mmHg following 240? ambulation. ROM: Right Lower Extremity: Hip flexion WFL. Hip abduction WFL. Knee flexion WFL. Ankle dorsiflexion WFL. Ankle plantarflexion WFL. Left Lower Extremity: Hip flexion WFL. Hip abduction WFL. Knee flexion WFL. Ankle dorsiflexion WFL. Ankle plantarflexion WFL. Strength: Right Lower Extremity: Hip flexors 3/5. Hip abductors 5/5. Knee flexors 3+/5. Knee extensors 3/5. Ankle dorsiflexors 5/5. Ankle plantarflexors 5/5. Left Lower Extremity:Hip flexors 5/5. Hip abductors 5/5. Knee flexors 5/5. Knee extensors 5/5. Ankle dorsiflexors 5/5. Ankle plantarflexors 5/5. Bed Mobility/Transfers: Rolling Independent Supine to sit Independent Sit to supine Independent Sit to stand Independent Stand to sit Independent Bed to chair Independent Chair to bed Independent Gait: Patient ambulated 240? with FWW and SBA. She exhibited a reciprocal gait pattern with trunk sway. She required a decreased pace during the last 100 feet. Balance: Static Sitting: Normal Dynamic Sitting: Normal Static Standing: Fair Dynamic Standing: Poor-Fair Special Tests: Mobility Limitations Standardized Measure [facility] AM-PAC 6 clicks Basic Mobility Inpatient Short Form: Raw Score: 24 CMS Score: 0% 4-Stage Balance Test: Could not complete stage 1, classifying her as a high fall risk. 2-minute walk test: 162 steps classifying her as one with impaired aerobic capacity and at risk for falls. Informed Consent/Education: Patient instructed in purpose of PT consult and plan of care. Assessment: Patient is a 59 year old female admitted to the medical/surgical unit with complaints of [id number]-rz-hthexd headache. She previously had a subarachnoid hemorrhage six days ago and was discharged from [facility]. She continues to complain of headache and stated that it worsens with activities that heighten her blood pressure. She stated that her anxiety also worsens her headache. She reported that her anxiety stems from her home situation at the [facility]. There has been a recent infestation of bed bugs in her jairon?s apartment, and it has made her very anxious that she will also get bed bugs. Care management has been asked to intervene. Rodolfo balance is severely impaired and she could not perform the first stage of the 4-stage balance test. Her walking tolerance is fair, but she requires a FWW due to limited stability during gait. She reported that due to her scoliosis as well as her previous spinal fusion surgery, she is unable to stand up straight. Patient presents with clinical signs and symptoms consistent with current/admitting diagnoses that have resulted to mobility limitations, gait instability, generalized weakness, and impairment of motor control as demonstrated by the following impairment level findings: 1. Decreased strength to R LE major muscle groups 2. Impaired standing balance 3. Impaired activity tolerance Impairments are contributing to the following functional limitations: 1. Inability to safely ambulate without assistive device and physical assistance 2. Increase completion time for mobility ADL performance 3. Increased fall risk 4. Inability to negotiate steps alone safely Patient is assessed as a 46640 moderate complexity based on the following: History: Patient was admitted with chief complaints of persistent headache since discharge from [facility] on 03/28/2019 and general generalized body weakness. Patient is diagnosed with headache related to severe hemorrhage, and hypertension. Examination: Demonstrable impairment in strength, balance, and range of motion with underlying impairments and functional limitations as documented above Presentation:Evolving Decision Makin moderate complexity Goals: N/A. Patient is evaluation only. Please see recommendations below. Plan of Care/Treatment Plan: N/A. Patient is evaluation only. Please see recommendations below. DISCHARGE RECOMMENDATIONS: Patient is safe to return home and is recommended to receive home health physical therapy services for a home safety assessment, and balance training. TREATMENT CODE/TIME: 71931 x 25 minutes beginning at 13:10 PM. Thank you very much for this referral. Rivas Littlejohn, [facility] In consultation with: Sruthi Calderon PT, DPT, CLT [facility]
== END 2019-04-03 17:45 | disposition home health service (06) ==
LOC: ER 23:57 → MS 04-02 00:28
PROVIDERS: Admitting Provider Internal Medicine; Emergency Provider Student in an Organized Health Care Education/Training Program; PCP Family Medicine; Visit Provider Internal Medicine
DX: F41.8 Other specified anxiety disorders (principal); F90.9 Attention-deficit hyperactivity disorder, unspecified type; R51 Headache; I10 Essential (primary) hypertension; E78.5 Hyperlipidemia, unspecified; E11.65 Type 2 diabetes mellitus with hyperglycemia; F32.9 Major depressive disorder, single episode, unspecified; Z79.4 Long term (current) use of insulin; Z86.79 Personal history of other diseases of the circulatory system; G25.81 Restless legs syndrome; Z86.73 Personal history of transient ischemic attack (TIA), and cerebral infarction without residual deficits
CPT/HCPCS: 36415; 70496; 70498; 80048; 80053; 93005; 96374; 97161; 99215; 99220; 99226; 99232; 99239; 99255; 99285; NC; 70450; 70551; 83735; 84484; 85025; 93010; 93971; 94660; 99217; G0378; J2060; J3475; J3490

== ENCOUNTER 2019-04-05 19:41 | Outpatient (REF) | payer MEDICARE, MEDICAID, SELFPAY ==
[2019-04-05 13:16] LABS: Bilirubin Negative (Negative); Blood Negative (Negative); Glucose Negative (Negative); Ketones Negative (Negative); Leukocyte Esterase Negative (Negative); Nitrite Negative (Negative); Specific Gravity 1.025 (1.005-1.025); Urobilinogen 0.2 EU/dL (Up TO 0.2); pH 5.5 (5-8)
[2019-04-05 13:35] LABS: Clarity Clear (Clear)
== END 2019-04-05 20:01 ==
LOC: LBN 19:41
PROVIDERS: PCP Family Medicine; Visit Provider Family Medicine
DX: R30.0 Dysuria (principal); Z87.442 Personal history of urinary calculi
CPT/HCPCS: 81003; 87086

== ENCOUNTER → 2019-05-23 13:27 | Outpatient (BNVA) | payer MEDICARE, MEDICAID, SELFPAY | PROVIDERS: PCP Family Medicine; Referring Provider Family Medicine; Visit Provider Psychiatry & Neurology Neurology | DX: G44.1 Vascular headache, not elsewhere classified (principal); Z86.79 Personal history of other diseases of the circulatory system; I10 Essential (primary) hypertension | CPT/HCPCS: 99214 ==

== ENCOUNTER 2019-07-06 10:05 | Outpatient (CLI) | payer MEDICARE, MEDICAID, SELFPAY ==
[2019-07-06 10:44] LABS: Hemoglobin A1C 7.1 % (3.8-5.6)
== END 2019-07-06 10:25 ==
PROVIDERS: PCP Family Medicine; Visit Provider Family Medicine
DX: E11.9 Type 2 diabetes mellitus without complications (principal)
CPT/HCPCS: 36415; 83036

== ENCOUNTER 2019-10-30 00:43 | Outpatient (CLI) | payer MEDICARE, MEDICAID, SELFPAY ==
[2019-10-30 08:57] LABS: BUN 15 mg/dL (7-18); CREATININE 0.89 mg/dL (0.55-1.02)
--- NOTE | 2019-10-30 09:30 | DI.CT_ITS ---
EXAM: CT BRAIN NECK CTA CLINICAL HISTORY: F/U SUBDURAL HEMORRHAGE,I60.9,ANGIO NEG, ? VASCULAR ABNORMALITY. TECHNIQUE: Imaging Protocol: Axial CT angiography was performed with multi-slice acquisition and mu lti-planar and/or 3D reconstructions. CONTRAST MATERIAL: Intravenous: Omnipaque 350 Contrast volume:structured data in ml COMPARISON: CT CT BRAIN NECK CTA from 04/01/[address] HEAD WO from 04/01/2019 FINDINGS: CT Head W/O: Ventricles and Extra axial spaces: Normal in size and morphology for the patient's age. Hemorrhage: None. Cerebral parenchyma: Normal. Midline shift: None. Brainstem/Cerebellum: Normal. Calvarium: Normal. Visualized Paranasal sinuses/Mastoids: Clear. Soft Tissues: Unremarkable. CTA Brain W: Internal Carotid Arteries: Petrous: Normal. Cavernous: Normal. Cerebral: Normal. Middle Cerebral Arteries: Right: No aneurysm, occlusion or significant stenosis. No vascular irregularity is seen. Left: No aneurysm, occlusion or significant stenosis. No vascular irregularity is seen. Anterior Cerebral Arteries: Right: No aneurysm, occlusion or significant stenosis. No vascular irregularity is seen. Left: No aneurysm, occlusion or significant stenosis. No vascular irregularity is seen. Posterior cerebral Arteries: Right: No aneurysm, occlusion or significant stenosis. No vascular irregularity is seen. Left: No aneurysm, occlusion or significant stenosis. No vascular irregularity is seen. Vertebral Arteries: Right: No aneurysm, occlusion or significant stenosis. No vascular irregularity is seen. Left: No aneurysm, occlusion or significant stenosis. No vascular irregularity is seen. Basilar Artery: No aneurysm, occlusion or significant stenosis. No vascular irregularity is seen. CTA Neck W: Common Carotid: Right: No aneurysm, occlusion or significant stenosis. Left: No aneurysm, occlusion or significant stenosis. External Carotid: Right: No aneurysm, occlusion or significant stenosis. Left: No aneurysm, occlusion or significant stenosis. Internal Carotid: Right: No aneurysm, occlusion or significant stenosis. Left: No aneurysm, occlusion or significant stenosis. Vertebral Artery: Right: No aneurysm, occlusion or significant stenosis. Left: No aneurysm, occlusion or significant stenosis. Lung Apices: Normal. Bones: Normal. Soft Tissues: Normal. Cerebral parenchyma: Mild atrophy. IMPRESSION: 1. Normal CTA examination of the [place]. No vascular irregularity is seen. 2. Unremarkable noncontrast CT Head. 3. Normal CTA examination of the neck. RADIATION DOSE DELIVERED: 1,199.03mGy.cm Total DLP 1,199.03mGy.cm Total DLP DATA REPOSITORY: All CT scans at this facility are submitted to the National Radiology Data Registry (NRDR) Dose Index Registry (DIR) with the [employer] (ACR). RADIATION OPTIMIZATION: All CT scans at this facility use at least one of these dose optimization te chniques: automated exposure control; mA and/or kV adjustment per patient size (includes targeted exa ms where dose is matched to clinical indication); or iterative reconstruction. Addendum: There is linear high signal extending horizontally through the substance the body of the la teral meniscus with extension into the anterior and posterior horns. There is apparent extension to the inferior articular surface at the anterior horn. This is consistent with a horizontal tear.
[2019-10-30] MEDS: Normal Saline - Diluent 50 ML VIAL IV (09:51)
[2019-10-30] MEDS: Omnipaque 350 MG/ML 100 ML BTL 85 ML IJ (09:52)
[2019-10-30 11:10] LABS: Anion Gap 8.2 mmol/L (3-11); BUN 17 mg/dL (7-18); CO2 25.8 mmol/L (21.0-32.0); CREATININE 0.94 mg/dL (0.55-1.02); Calcium 9.2 mg/dL (8.5-10.1); Chloride 102 mmol/L (98-107); Glucose 241 mg/dL (74-106); Potassium 3.7 mmol/L (3.5-5.1); Sodium 136 mmol/L (136-145)
== END 2019-10-30 01:03 ==
PROVIDERS: PCP Family Medicine; Visit Provider Neurological Surgery
DX: I60.9 Nontraumatic subarachnoid hemorrhage, unspecified (principal); I10 Essential (primary) hypertension; Z13.89 Encounter for screening for other disorder
CPT/HCPCS: 70496; 70498; 80048; 84520; 82565; J3490

== ENCOUNTER 2019-11-07 01:42 | Outpatient (CLI) | payer MEDICARE, MEDICAID, SELFPAY ==
--- NOTE | 2019-11-07 08:45 | DI.US_ITS ---
EXAM: US RENAL CLINICAL HISTORY: Left flank pain R10.9 ABDOMINAL PAIN TECHNIQUE: Ultrasound performed using standard protocol. COMPARISON: CT CT renal colic wo from 10/05/[address] BRAIN NECK CTA from 04/01/2019 US US LOWER EXTREMITY VENOUS RT from 04/03/2019 FINDINGS: The kidneys are normal in size and shape. There is no evidence of a renal mass, hydronephrosis, or n ephrolithiasis. Pre and postvoid urinary bladder volume measurements are 175 cc and 1 cc respectivel y. Ureteral jets are noted bilaterally. IMPRESSION: Negative renal ultrasound DATA REPOSITORY:
== END 2019-11-07 02:02 ==
PROVIDERS: PCP Family Medicine; Visit Provider Family Medicine
DX: R10.32 Left lower quadrant pain (principal)
CPT/HCPCS: 76770

== ENCOUNTER 2019-11-26 12:52 | Outpatient (REF) | payer MEDICARE, MEDICAID, SELFPAY ==
--- NOTE | 2019-11-26 10:30 | PAPFT_PTH ---
PATIENT: Linh Hudson LOC: N U#:[id number] AGE/SX: 59/F ROOM: RE11/26/[address]: DAVID Renee : 1960 BED: DIS: 11/26/2019 SPEC #: [id number] RECD: 11/26/19 12:57 STATUS: CHERRIE REQ #: [id number] RATNA: 11/26/19 10:[address]: Heidi Peck DEPT: [facility] Cytology RECD BY: Katja Caro ENTERED: 11/26/19 12:58 SP TYPE: PAPFT LIBAN DR: Asim Tay MD Tissues: 1 - CX/ENDOCX FOR PAP SMEARS Procedures: PAP THIN PREP/UVM Screening HPV DNA PROBE Comments: [id number]
== END 2019-11-26 13:12 ==
LOC: LBN 12:52
PROVIDERS: PCP Family Medicine; Visit Provider Nurse Practitioner Family
DX: Z12.4 Encounter for screening for malignant neoplasm of cervix (principal); Z11.51 Encounter for screening for human papillomavirus (HPV)
CPT/HCPCS: 88142; 87624

== ENCOUNTER 2019-11-28 02:18 | Outpatient (CLI) | payer MEDICARE, MEDICAID, SELFPAY ==
[2019-11-28 10:13] LABS: Abs Immature Grans 0.03 k/cumm (0.0-0.09); Absolute Basophil Count 0.03 k/cumm (0.0-0.2); Absolute Eosinophil Count 0.29 k/cumm (0.0-0.7); Absolute Lymphocyte Count 1.77 k/cumm (1.2-3.4); Absolute Neutrophil Count 3.94 k/cumm (1.2-6.7); Basophils % 0.5; Eosinophils % 4.5; HCT 40.1 % (36.0-46.0); HGB 13.6 g/dL (12.0-15.5); Immature Grans % 0.5 %; Lymphocytes % 27.4; Mean Corp. HGB Concentration 33.9 g/dL (32.0-36.0); Mean Corpuscular Hemoglobin 29.1 pg (27.0-33.0); Mean Corpuscular Volume 85.7 fL (80-95); Mean Platelet Volume 10.1 fL (8.0-11.0); Monocytes % 6.2; Neutrophils % 60.9; Platelet Count 183 x1000/uL (130-400); RBC 4.68 m/cumm (4.00-5.20); RBC Distribution Width 13.7 % (11.7-14.6); White Blood Cell Count 6.46 k/cumm (4.4-10.8)
[2019-11-28 10:41] LABS: Hemoglobin A1C 7.4 % (3.8-5.6)
[2019-11-28 11:16] LABS: Albumin 3.8 g/dL (3.4-5.0); Anion Gap 7.8 mmol/L (3-11); BUN 12 mg/dL (7-18); C-Reactive Protein 1.16 mg/dL (0.0-0.3); CO2 29.2 mmol/L (21.0-32.0); CREATININE 0.92 mg/dL (0.55-1.02); Calcium 8.9 mg/dL (8.5-10.1); Chloride 103 mmol/L (98-107); Glucose 219 mg/dL (74-106); PHOSPHORUS 3.5 mg/dL (2.6-4.7); Potassium 4.5 mmol/L (3.5-5.1); Sodium 140 mmol/L (136-145)
[2019-11-28 11:36] LABS: ESR 13 mm/hr (0-30)
== END 2019-11-28 02:38 ==
PROVIDERS: PCP Family Medicine; Visit Provider Optometrist
DX: E11.9 Type 2 diabetes mellitus without complications (principal); Z79.4 Long term (current) use of insulin; H20.013 Primary iridocyclitis, bilateral
CPT/HCPCS: 36415; 80069; 85652; 83036; 85025; 86140

== ENCOUNTER 2019-12-05 10:48 | Outpatient (REF) | payer MEDICARE, MEDICAID, SELFPAY ==
[2019-12-05 22:09] LABS: Bilirubin Negative (Negative); Blood Large (Negative); Clarity Cloudy (Clear); Glucose Negative (Negative); Ketones Negative (Negative); Leukocyte Esterase Small (Negative); Nitrite Negative (Negative); Specific Gravity 1.025 (1.005-1.025); Urobilinogen 0.2 EU/dL (Up TO 0.2); pH 5.5 (5-8)
[2019-12-05 22:26] LABS: Bacteria Negative HPF (Negative); C & S Indicated? Yes; Casts Negative LPF (Negative); Crystals Negative HPF (Negative); Epithelial Cells Few HPF (Negative); Mucus Negative (Negative); Other Cells Negative (Negative); RBC >50 HPF (0-2)
== END 2019-12-05 11:08 ==
LOC: LBN 10:48
PROVIDERS: PCP Family Medicine; Visit Provider Family Medicine
DX: R31.9 Hematuria, unspecified (principal)
CPT/HCPCS: 87077; 81003; 81015; 87086; 87186

== ENCOUNTER 2019-12-11 03:37 | Outpatient (CLI) | payer MEDICARE, MEDICAID, SELFPAY ==
[2019-12-11 12:42] LABS: Abs Immature Grans 0.02 k/cumm (0.0-0.09); Absolute Basophil Count 0.05 k/cumm (0.0-0.2); Absolute Eosinophil Count 0.28 k/cumm (0.0-0.7); Absolute Lymphocyte Count 2.18 k/cumm (1.2-3.4); Absolute Monocyte Count 0.41 k/cumm (0.11-0.7); Absolute Neutrophil Count 5.43 k/cumm (1.2-6.7); Basophils % 0.6; Eosinophils % 3.3; HCT 43.6 % (36.0-46.0); HGB 14.6 g/dL (12.0-15.5); Immature Grans % 0.2 %; Mean Corp. HGB Concentration 33.5 g/dL (32.0-36.0); Mean Corpuscular Hemoglobin 28.9 pg (27.0-33.0); Mean Corpuscular Volume 86.2 fL (80-95); Mean Platelet Volume 10.8 fL (8.0-11.0); Monocytes % 4.9; Platelet Count 223 x1000/uL (130-400); RBC 5.06 m/cumm (4.00-5.20); RBC Distribution Width 13.8 % (11.7-14.6); White Blood Cell Count 8.37 k/cumm (4.4-10.8)
[2019-12-11 12:58] LABS: ALT 125 U/L (14-59); AST 90 U/L (15-37); Albumin 3.9 g/dL (3.4-5.0); Alkaline Phosphatase 105 U/L (46-116); Amylase 23 U/L (25-115); Anion Gap 8.8 mmol/L (3-11); BUN 17 mg/dL (7-18); Bilirubin, Total 0.7 mg/dL (0.2-1.0); CO2 27.2 mmol/L (21.0-32.0); Calcium 9.1 mg/dL (8.5-10.1); Chloride 101 mmol/L (98-107); Estimated GFR 56.75 (mL/min/1.73m2); Glucose 320 mg/dL (74-106); Lipase 223 U/L (73-393); Potassium 4.1 mmol/L (3.5-5.1); Sodium 137 mmol/L (136-145); Total Protein 7.3 g/dL (6.4-8.2)
== END 2019-12-11 03:57 ==
PROVIDERS: PCP Family Medicine; Visit Provider Family Medicine
DX: R10.9 Unspecified abdominal pain (principal); N39.0 Urinary tract infection, site not specified
CPT/HCPCS: 36415; 80053; 83690; 82150; 85025

== ENCOUNTER 2019-12-11 13:07 | Outpatient (REF) | payer MEDICARE, MEDICAID, SELFPAY ==
[2019-12-12 11:51] LABS: Campylobacter PCR Negative (Negative); Salmonella PCR Negative (Negative); Shiga Toxin PCR Negative (Negative); Shigella/Enteroinvasive Ecoli Negative (Negative)
== END 2019-12-11 13:27 ==
LOC: LBN 13:07
PROVIDERS: PCP Family Medicine; Visit Provider Family Medicine
DX: R19.7 Diarrhea, unspecified (principal)
CPT/HCPCS: 87329; 87505; 87324; 87798

== ENCOUNTER 2020-01-04 12:21 | Outpatient (CLI) | payer MEDICARE, MEDICAID, SELFPAY ==
[2020-01-07 18:14] LABS: SARS-CoV-2 RNA Undetected (Undetected)
== END 2020-01-04 12:41 ==
PROVIDERS: PCP Family Medicine; Visit Provider Family Medicine
DX: Z11.59 Encounter for screening for other viral diseases (principal)
CPT/HCPCS: U0003

== ENCOUNTER 2020-01-22 00:59 | Outpatient (CLI) | payer MEDICARE, MEDICAID, SELFPAY ==
--- NOTE | 2020-01-22 12:00 | DI.MAMMO_ITS ---
EXAM: MAMMO SCREENING CLINICAL HISTORY: screening TECHNIQUE: Mammograms were interpreted according to the usual protocol including computer analysis w Ramen CAD system, tomosynthesis and C-view imaging. COMPARISON: 2009 through 2016 FINDINGS: The breasts are composed of scattered fibroglandular densities, Breast Density category B. No suspicious masses or suspicious microcalcifications are seen. Vascular calcifications are inciden tally noted. No skin thickening or abnormal axillary lymph nodes are seen. There has been no significant change from prior exams. IMPRESSION: BI-RADS Category 1, Negative mammogram Yearly screening mammography is recommended. Breast Density Category B, scattered fibroglandular densities. A negative radiographic report should not delay biopsy if a dominant or clinically suspicious mass is present. Up to ten percent of cancers are not identified on mammography. A negative report may reinforce clinical impression. Adenosis and dense breasts may obscure an underlying neoplasm. False positive reports average 6 to 10%. Patient will receive a letter notifying them of these results.
== END 2020-01-22 01:19 ==
PROVIDERS: PCP Nurse Practitioner; Visit Provider Nurse Practitioner Family
DX: Z12.31 Encounter for screening mammogram for malignant neoplasm of breast (principal); R92.2 Inconclusive mammogram
CPT/HCPCS: 77063; 77067

== ENCOUNTER 2020-06-23 21:11 | Outpatient (REF) | payer MEDICARE, MEDICAID, SELFPAY ==
[2020-06-23 21:32] LABS: Bilirubin Negative (Negative); Blood Trace-lysed (Negative); Clarity Clear (Clear); Glucose Negative (Negative); Ketones Negative (Negative); Leukocyte Esterase Negative (Negative); Nitrite Negative (Negative); Specific Gravity >= 1.030 (1.005-1.025); Urobilinogen 0.2 EU/dL (Up TO 0.2); pH 5.5 (5-8)
[2020-06-23 21:34] LABS: Bacteria Rare HPF (Negative); Epithelial Cells Few HPF (Negative); WBC Negative HPF (0-5)
[2020-06-23 21:35] LABS: C & S Indicated? No; Casts Negative LPF (Negative); Crystals Few Calcium Oxalate HPF (Negative); Mucus Negative (Negative)
== END 2020-06-23 21:31 ==
LOC: NCHCN 21:11
PROVIDERS: PCP Nurse Practitioner; Visit Provider Physician Assistant
DX: N39.0 Urinary tract infection, site not specified (principal)
CPT/HCPCS: 81003; 81015

== ENCOUNTER 2020-06-24 11:55 | Outpatient (CLI) | payer MEDICARE, MEDICAID, SELFPAY ==
--- NOTE | 2020-06-24 08:15 | DI.CT_ITS ---
EXAM: CT ABDOMEN PELVIS W CLINICAL HISTORY: abdominal pain, nausea,R10.9 TECHNIQUE: Imaging Protocol: Axial computed tomography images with coronal and sagittal reformatted images were created and reviewed CONTRAST MATERIAL: Intravenous: Omnipaque 350 Contrast volume:100 mL Oral: Yes COMPARISON: CT CT renal colic wo from 10/05/[address] BRAIN NECK CTA from 10/30/2019 FINDINGS: ABDOMEN: Lung Bases: Normal where visualized. Liver: Diffuse decreased attenuation suggesting fatty infiltration. No measurable mass. Portal, Superior Mesenteric, and Splenic Veins: Unremarkable. Gallbladder and Biliary Tract: Status post cholecystectomy. No biliary ductal dilatation. Pancreas: Normal density, no abnormal calcifications or inflammatory process. Spleen: Normal. Adrenals: No masses seen. Kidneys: Normal size, contour and axis. 7 mm nonobstructing stone in the midpole of the right kidney. Tiny hypodensities in the kidneys. They are too small for further characterization but likely refl ect small cysts. Abdominal Aorta: Abdominal portion non-dilated. Atherosclerosis. Bowel: No evidence of bowel obstruction. Mild diffuse thickening of the wall of the rectosigmoid col on. Appendix is unremarkable. There are few scattered diverticula in the colon but no evidence of ac [place] diverticulitis. Peritoneal Cavity: No ascites, collection or mesenteric inflammatory response. No free air. Lymph Nodes: Within normal limits. Bones: Degenerative changes. Posterior spinal rods are in place in the thoracic and lumbar spine. Soft Tissues: Large fat containing paraumbilical hernia. PELVIS: Bladder: Symmetric distention, no gross wall thickening. Reproductive Organs: Unremarkable as visualized. Lymph Nodes: Within normal limits. Bones: Please see above. IMPRESSION: 1. Mild diffuse bowel wall thickening seen in the rectosigmoid colon. A mild infectious or inflammat ory colitis should be considered. 2. Right nephrolithiasis. RADIATION DOSE DELIVERED: 1,364.2mGy.cm Total DLP DATA REPOSITORY: All CT scans at this facility are submitted to the National Radiology Data Registry (NRDR) Dose Index Registry (DIR) with the [employer] (ACR). RADIATION OPTIMIZATION: All CT scans at this facility use at least one of these dose optimization te chniques: automated exposure control; mA and/or kV adjustment per patient size (includes targeted exa ms where dose is matched to clinical indication); or iterative reconstruction.
[2020-06-24] MEDS: Omnipaque 350 MG/ML 50 ML BTL PO (10:13)
[2020-06-24 10:18] LABS: Abs Immature Grans 0.03 10^3/uL (0.0-0.06); Absolute Basophil Count 0.07 10^3/uL (0.0-0.2); Absolute Eosinophil Count 0.29 10^3/uL (0.0-0.7); Absolute Lymphocyte Count 2.11 10^3/uL (1.2-3.4); Absolute Monocyte Count 0.42 10^3/uL (0.1-0.8); Absolute Neutrophil Count 5.26 10^3/uL (1.2-6.7); Basophils % 0.9; Eosinophils % 3.5; HCT 40.8 % (36.0-46.0); HGB 13.8 g/dL (11.2-15.7); Immature Grans % 0.4; Lymphocytes % 25.8; MCH 29.2 pg (27.0-33.0); MCHC 33.8 % (32.0-36.0); MCV 86.3 fL (80-95); MPV 10.2 fL (8.0-11.0); Monocytes % 5.1; Neutrophils % 64.3; Nucleated RBC 0 %; Platelet Count 190 10^3/uL (130-400); RBC 4.73 10^6/uL (3.93-5.22); RDW 12.9 % (11.7-14.6); RDW-SD 40.6 fL; WBC 8.18 10^3/uL (4.4-10.8)
[2020-06-24 10:33] LABS: ALT 78 U/L (14-59); AST 58 U/L (15-37); Albumin 3.7 g/dL (3.4-5.0); Alkaline Phosphatase 82 U/L (46-116); Anion Gap 6.2 mmol/L (3-11); BUN 13 mg/dL (7-18); Bilirubin, Total 0.9 mg/dL (0.2-1.0); CO2 28.8 mmol/L (21.0-32.0); CREATININE 0.89 mg/dL (0.55-1.02); Calcium 8.8 mg/dL (8.5-10.1); Chloride 103 mmol/L (98-107); Glucose 138 mg/dL (74-106); Potassium 4.1 mmol/L (3.5-5.1); Sodium 138 mmol/L (136-145); Total Protein 7.4 g/dL (6.4-8.2)
[2020-06-24 11:14] LABS: Hemoglobin A1C 6.7 % (<5.7)
[2020-06-24] MEDS: Omnipaque 350 MG/ML 100 ML BTL IJ (11:32)
[2020-06-24 14:50] LABS: Lipase 139 U/L (73-393)
== END 2020-06-24 12:15 ==
PROVIDERS: PCP Nurse Practitioner; Visit Provider Physician Assistant
DX: E11.9 Type 2 diabetes mellitus without complications (principal); Z79.4 Long term (current) use of insulin; I10 Essential (primary) hypertension; R10.9 Unspecified abdominal pain; R11.0 Nausea; N20.0 Calculus of kidney; K63.89 Other specified diseases of intestine
CPT/HCPCS: 80053; 83690; 74177; 82565; 83036; 85025; J3490; Q9967

== ENCOUNTER 2020-06-27 10:35 | Outpatient (REF) | payer MEDICARE, MEDICAID, SELFPAY ==
[2020-06-28 11:04] LABS: Campylobacter PCR Negative (Negative); Salmonella PCR Negative (Negative); Shiga Toxin PCR Negative (Negative); Shigella/Enteroinvasive Ecoli Negative (Negative)
== END 2020-06-27 10:55 ==
LOC: NCHCN 10:35
PROVIDERS: PCP Nurse Practitioner; Visit Provider Physician Assistant
DX: R10.9 Unspecified abdominal pain (principal)
CPT/HCPCS: 87493; 87505

== ENCOUNTER 2020-07-10 19:59 | Outpatient (REF) | payer MEDICARE, MEDICAID, SELFPAY | END 2020-07-10 20:00 | disposition home or self-care (01) | LOC: NCHCN 19:59 | PROVIDERS: PCP Nurse Practitioner; Visit Provider Nurse Practitioner Family | DX: R10.2 Pelvic and perineal pain (principal) | CPT/HCPCS: 87086 ==

== ENCOUNTER 2020-07-29 10:48 | Emergency (ER) | payer MEDICARE, MEDICAID, SELFPAY ==
[2020-07-29] VITALS (37 sets, daily range): BP systolic 154–194; BP diastolic 68–117; PULSE 56–74; RESP 9–24; TEMP 36.7; O2SAT 95–99
--- NOTE | 2020-07-29 10:45 | RT.EKG_ITS ---
APPROVED REPORT Exam: Resting ECG Patient Location: E HR:67 bpm ECG Measurements Heart Rate 67 AXIS NE 176 P 18 QRSd 88 QRS 17 QT 396 T 49 QTc 417 Conclusion Sinus rhythm...normal P axis, V-rate 60- 99 Ventricular premature complex...V complex w/ short R-R interval Consider anteroseptal infarct...Q >30mS, dimin R, V1-V2 I have reviewed and interpreted ECG and agree with software generated interpretation.
--- NOTE | 2020-07-29 11:15 | DI.RAD_ITS ---
EXAM: XR CHEST 2V PA LATERAL CLINICAL HISTORY: chest pain TECHNIQUE: 2D digital imaging was performed. COMPARISON: CT CHEST WITHOUT CONTRAST from 12/23/2017 FINDINGS: Rods are again noted in the spine for scoliosis. Heart size is normal. The lungs are well inflated and clear. No infiltrate, effusion or pneumothorax is seen. IMPRESSION: No acute pulmonary findings. DATA REPOSITORY: RADIATION DOSE DELIVERED:
[2020-07-29 11:40] LABS: Abs Immature Grans 0.05 10^3/uL (0.0-0.06); Absolute Basophil Count 0.08 10^3/uL (0.0-0.2); Absolute Lymphocyte Count 2.38 10^3/uL (1.2-3.4); Absolute Monocyte Count 0.46 10^3/uL (0.1-0.8); Absolute Neutrophil Count 4.79 10^3/uL (1.2-6.7); Eosinophils % 3.7; HCT 42.4 % (36.0-46.0); HGB 14.4 g/dL (11.2-15.7); Immature Grans % 0.6; Lymphocytes % 29.5; MCH 29.3 pg (27.0-33.0); MCV 86.2 fL (80-95); MPV 10.7 fL (8.0-11.0); Monocytes % 5.7; Neutrophils % 59.5; Nucleated RBC 0 %; Platelet Count 182 10^3/uL (130-400); RBC 4.92 10^6/uL (3.93-5.22); RDW 12.8 % (11.7-14.6); RDW-SD 39.8 fL; WBC 8.06 10^3/uL (4.4-10.8)
[2020-07-29] MEDS: Normal Saline 1,000 ML 150 ML IV (11:40)
--- NOTE | 2020-07-29 11:48 | ED.GENADUL_ITS ---
Discharge Plan Disposition Patient Disposition: HOME Condition: Stable Discharge Details Clinical Impression: Palpitations, Chest tightness, Cephalgia Primary Care Provider: Anisa Wilkins ED Provider: Rodrick Garland Home Meds and New Rx's Prescriptions: Continued omeprazole 20 mg capsule,delayed release(DR/EC) 20 mg PO DAILY Qty: 30 RF: 2 fluticasone propionate 50 mcg/actuation spray,suspension 2 spray TEAGAN DAILY Qty: 18.2 RF: 2 Restasis MultiDose 0.05 % drops 1 drp OP Q12H RF: 0 cholecalciferol (vitamin D3) 1,250 mcg (50,000 unit) capsule 1,250 mcg PO QMONTH Qty: 20 RF: 4 nystatin 100,000 unit/gram cream 1 applic TP BID Qty: 120 RF: 4 terconazole 0.4 % cream 1 appful vaginal DAILY Qty: 45 RF: 0 (DME) Ultra-Light Rollator 1 EACH misc 1 ea Miscellaneous ONCE Qty: 1 RF: 0 (DME) blood-glucose meter [OneTouch UltraMini] 1 EACH kit 1 ea Miscellaneous ONCE Qty: 1 RF: 0 lorazepam 0.5 mg tablet 0.5 mg PO BID PRN (Reason: anxiety) Qty: 30 RF: 1 citalopram 20 mg tablet 20 mg PO DAILY Qty: 90 RF: 4 loratadine 10 mg tablet 10 mg PO DAILY PRN (Reason: allergy symptoms) Qty: 90 RF: 4 miconazole nitrate [Miconazole 7] 2 % cream 1 appful VG QHS 7 Days Qty: 45 RF: 1 mupirocin 2 % ointment 1 applic TP BID PRN (Reason: rash) Qty: 15 RF: 1 (DME) OneTouch Ultra Blue Test Strip Strip See Rx Instructions .ROUTE .MEDSUPPLY Qty: 300 RF: 4 (DME) lancets [OneTouch Delica Lancets] 30 gauge misc 1 ea Miscellaneous QID Qty: 300 RF: 4 (DME) pen needle, diabetic [BD Ultra-Fine Mini Pen Needle] 31 gauge x 3/16 needle See Rx Instructions .ROUTE .MEDSUPPLY Qty: 100 RF: 5 Lantus Solostar U-100 Insulin 100 unit/mL (3 mL) insulin pen 58 unit subcut DAILY Qty: 15 RF: 4 verapamil [Calan SR] 120 mg tablet extended release 120 mg PO DAILY Qty: 90 RF: 4 albuterol sulfate [ProAir HFA] 90 mcg/actuation HFA aerosol inhaler 2 puff IH Q6H PRN (Reason: shortness of breath or wheezing) Qty: 18 RF: 1 acetaminophen-codeine 300-15 mg tablet 1 tab PO DAILY PRN (Reason: pain) Qty: 10 RF: 0 Discharge Instructions Instructions: Chest Pain (ED), Heart Palpitations (ED), General Headache (ED) Additional Instructions: Work-up in the ER does not reveal any obvious emergent process. Laboratory values, EKGs, repeat troponin, and CT imaging of your brain and CT imaging of your vessels in your brain are all unremarkable. I do recommend taking your usual medications as directed for your typical symptomatic control. Please watch for new or worsening symptoms and return to the ER for any concerns. I do recommend that you reach out to your primary care provider for outpatient reevaluation. As we discussed outpatient Holter monitor may be indicated for further evaluation of your palpitations. I do also recommend contacting your neurology team for outpatient evaluation of your ongoing headaches. Medical Decision Making This is a 60-year-old female with past medical history that includes diabetes, neuropathy, ADHD, anemia, anxiety, hypertension, chronic back pain, obesity, subarachnoid hemorrhage, presented to the ER complaining of palpitations and racing heart that has been daily for the last 2 months. She has not been seen by her primary care provider for this. She states that today her palpitations seem to be associate with mild chest tightness on the left side, no tightness or pain now. The tightness prompted her to come to the ER. Also reports chronic headaches, typically every 2 or 3 days. Gradual headache began this morning 2 out of 10, now a 4 out of 10. She states this feels identical to her typical headaches. She tries not to take any medication for these unless her pain reaches a 6 or 7. Clinically she is anxious but otherwise appears well, nontoxic. Will obtain cardiac work-up including thyroid studies. We will also obtain head CT without contrast and brain CTA given her history of subarachnoid hemorrhage. Clinically I have extremely low suspicion for intracranial hemorrhage. She states headaches every 3 days, this feels very similar, denies recent illness or trauma. Denies a sudden onset of this headache. I do feel as though there is likely a large component of anxiety exacerbating her symptoms. Given her history of intracranial hemorrhage, extremely low suspicion for ACS, will hold off on any aspirin at this time. I was able to review the records from [facility], date of service 03-28-19. It appears as though she has a diagnostic cerebral angiogram that documented a subarachnoid hemorrhage. Laboratory values reveal a very benign work-up. TSH 2.64, troponin less than 0 .05, normal renal function, electrolytes unremarkable. Normal coags, white blood cell count of 8.06 with a hemoglobin of 14.4 hematocrit 42.4 platelet count 182. Awaiting imaging studies. Chest x-ray read by radiology as no acute pulmonary findings Head CT and brain CTA read by radiology as normal CTA and normal CT. Patient requesting water, able to tolerate p.o. intake without difficulty. She was also given 1 g of p.o. Tylenol. She states that she does take Tylenol for mild headaches. Discussed benign work-up thus far with patient. She is agreeable to awaiting a repeat troponin and EKG. Patient states that while I was in the room she felt the chest palpitations, on the panel monitor, her heart rate was in the 60s and appeared irregular. No obvious PVC. Repeat EKG performed at 1435, please see official report by Dr. Quinn. Sinus rhythm, ventricular rate of 62. No STEMI. Repeat troponin remains less than 0.05. Discussed work-up with patient. She reports improvement with Tylenol. Headache is now a 1 or 2 out of 10. She remains hemodynamically stable. Headache is like her typical headache, not sudden onset. I see no clear indication to further assess headache today with lumbar puncture. Patient is agreeable to this plan. She tells me that she continues to occasionally feel her heart race or having extra beats. She has been on the panel monitor during her ER visit and there has been no obvious arrhythmias. She was given strict return precautions. Recommend that she contact neurology for her ongoing chronic headaches, contact her primary care provider for her ongoing palpitations, she may benefit from an outpatient the did a Holter monitor. Patient has no additional questions or concerns and is comfortable discharge. Medical Records Medical records reviewed: Yes I reviewed the patient's medical records. Lab Data Lab results reviewed: Yes I reviewed the patient's lab results. Lab results narrative: Laboratory Tests Range/Units 07/29/20 07/29/20 07/29/20 11:11 11:11 11:11 WBC (4.4-10.8) 10^3/uL RBC (3.93-5.22) 10^6/uL Hgb (11.2-15.7) g/dL Hct (36.0-46.0) % MCV (80-95) fL MCH (27.0-33.0) pg MCHC (32.0-36.0) % RDW (11.7-14.6) % Plt Count (130-400) 10^3/uL MPV (8.0-11.0) fL Immature Gran % Neutrophils % Lymphocytes % Monocytes % Eosinophils % Basophils % Nucleated RBC % % Absolute Neutrophils (1.2-6.7) 10^3/uL Absolute Lymphocytes (1.2-3.4) 10^3/uL Absolute Monocytes (0.1-0.8) 10^3/uL Absolute Eosinophils (0.0-0.7) 10^3/uL Absolute Basophils (0.0-0.2) 10^3/uL PT (9.3-11.0) sec 9.8 INR (0.9-1.1) 1.0 APTT (21.0-27.5) sec 21.5 Sodium (136-145) mmol/L 138 Potassium (3.5-5.1) mmol/L 4.5 Chloride (98-107) mmol/L 104 Carbon Dioxide (21.0-32.0) mmol/L 25.9 Anion Gap (3-11) mmol/L 8.1 BUN (7-18) mg/dL 12 Creatinine (0.55-1.02) mg/dL 0.7 Estimated GFR/1.73 m2 (mL/min/1.73m2) >= 60.00 Glucose (74-106) mg/dL 148 H Calcium (8.5-10.1) mg/dL 9.2 Magnesium (1.8-2.4) mg/dL 2.0 Total Bilirubin (0.2-1.0) mg/dL 0.6 AST (15-37) U/L 43 H ALT (14-59) U/L 60 H Alkaline Phosphatase (46-116) U/L 108 Troponin I (<0.06) ng/mL < 0.05 Total Protein (6.4-8.2) g/dL 7.8 Albumin (3.4-5.0) g/dL 3.6 Lipase (73-393) U/L 168 TSH (0.36-3.74) uIU/mL 2.64 Range/Units 07/29/20 11:11 WBC (4.4-10.8) 10^3/uL 8.06 RBC (3.93-5.22) 10^6/uL 4.92 Hgb (11.2-15.7) g/dL 14.4 Hct (36.0-46.0) % 42.4 MCV (80-95) fL 86.2 MCH (27.0-33.0) pg 29.3 MCHC (32.0-36.0) % 34.0 RDW (11.7-14.6) % 12.8 Plt Count (130-400) 10^3/uL 182 MPV (8.0-11.0) fL 10.7 Immature Gran % 0.6 Neutrophils % 59.5 Lymphocytes % 29.5 Monocytes % 5.7 Eosinophils % 3.7 Basophils % 1.0 Nucleated RBC % % 0 Absolute Neutrophils (1.2-6.7) 10^3/uL 4.79 Absolute Lymphocytes (1.2-3.4) 10^3/uL 2.38 Absolute Monocytes (0.1-0.8) 10^3/uL 0.46 Absolute Eosinophils (0.0-0.7) 10^3/uL 0.30 Absolute Basophils (0.0-0.2) 10^3/uL 0.08 PT (9.3-11.0) sec INR (0.9-1.1) APTT (21.0-27.5) sec Sodium (136-145) mmol/L Potassium (3.5-5.1) mmol/L Chloride (98-107) mmol/L Carbon Dioxide (21.0-32.0) mmol/L Anion Gap (3-11) mmol/L BUN (7-18) mg/dL Creatinine (0.55-1.02) mg/dL Estimated GFR/1.73 m2 (mL/min/1.73m2) Glucose (74-106) mg/dL Calcium (8.5-10.1) mg/dL Magnesium (1.8-2.4) mg/dL Total Bilirubin (0.2-1.0) mg/dL AST (15-37) U/L ALT (14-59) U/L Alkaline Phosphatase (46-116) U/L Troponin I (<0.06) ng/mL Total Protein (6.4-8.2) g/dL Albumin (3.4-5.0) g/dL Lipase (73-393) U/L TSH (0.36-3.74) uIU/mL ECG Data Attestation: I personally reviewed and interpreted this ECG (s) as follows: Interpretation: Please see official report by Dr. Quinn. Sinus rhythm, PVC, ventricular rate of 67. No STEMI. HPI General Mode of arrival: ambulatory . Date/Time Provider Initiated Documentation: 07/29/20 10:51 . Limitations to Documentation: no limitations . Information obtained by: patient . HPI Narrative: This is a 60-year-old female with past medical history that includes diabetes, peripheral neuropathy, hypertension, anxiety, sleep apnea, obesity, hyperlipidemia, depression, PTSD, subarachnoid hemorrhage, chronic back pain, OCD, spastic bladder, presented to the ER today for multiple complaints. She states for about 6-8 weeks she has been experiencing heart palpitations described as her heart beating fast and rapid. She states that this occurs every single day, typically more so at night when she is relaxing. She states that she sometimes feels dizzy if her rapid heart rate last for a prolonged period of time. Sometimes she describes the sensation as more of a extra beat as opposed to a rapid heart rate. When she gets this sensation she states that it causes her anxiety to increase which then makes her overall situation worse. This morning she had the rapid heart rate and extra beat which came along with what she describes as a localized left- sided chest tightness. She has not experienced any tightness over the past 2 months, decided to come to the ER. At this time she denies any chest tightness or chest pain. She denies recent illness or trauma. She denies fever, neck pain, visual changes, shortness of breath, difficulty breathing, abdominal pain, nausea, vomiting, numbness or weakness. Reports baseline peripheral neuropathy. Patient also reports history of subarachnoid hemorrhage back in 2019. Since that time she has been evaluated by neurology and states that everything was back to normal. She tells me that she has a headache typically every 3 days, usually in the back aspect of her head. She states this morning she developed a very typical headache for her, began at a 2 out of 10, is now a 4 out of 10. She has not taken any medications for her symptoms. She states that she has learned to live with these chronic headaches and that she does not typically take any medication until it is a 6 or 7 out of 10. She feels as though this is very normal for her chronic headaches. She denies a rapid onset of this headache. She tells me that she has not been evaluated by her primary care provider in the past couple of months regarding her ongoing palpitations. A couple of years ago she did have similar symptoms, wore a Holter monitor, and was told that she had an extra beat. Related Data Home Medications Medication Instructions Recorded Confirmed Ultra-Light Rollator #1 01/11/17 06/23/20 blood-glucose meter [OneTouch #1 kit 12/29/17 06/23/20 UltraMini] cyclosporine 0.05 % eye drops 1 drp OP Q12H 11/15/18 06/23/20 lorazepam 0.5 mg tablet 0.5 mg PO BID PRN #30 tab 08/21/19 06/23/20 citalopram 20 mg tablet 20 mg PO DAILY #90 tab 11/28/19 06/23/20 omeprazole 20 mg capsule,delayed 20 mg PO DAILY #30 cap 12/10/19 06/23/20 release fluticasone propionate 50 2 spray TEAGAN DAILY #18.2 ml 01/08/20 06/23/20 mcg/actuation nasal spray,suspension loratadine 10 mg tablet 10 mg PO DAILY PRN #90 tab 01/10/20 06/23/20 miconazole nitrate 2 % vaginal 1 appful VG QHS 7 Days #45 gm 02/05/20 06/23/20 cream mupirocin 2 % topical ointment 1 applic TP BID PRN #15 gm 02/27/20 06/23/20 cholecalciferol (vitamin D3) 1,250 1,250 mcg PO QMONTH #20 cap 02/28/20 05/09/20 mcg (50,000 unit) capsule nystatin 100,000 unit/gram topical 1 applic TP BID #120 g 02/28/20 06/23/20 cream blood sugar diagnostic #300 each 02/29/20 06/23/20 lancets 30 gauge #300 each 02/29/20 06/23/20 pen needle, diabetic 31 gauge x #100 each 03/05/20 06/23/2008/19 insulin glargine 100 unit/mL (3 58 unit SUBCUT DAILY #15 ml 03/27/20 06/23/20 mL) subcutaneous pen verapamil 120 mg tablet,extended 120 mg PO DAILY #90 tab 05/20/20 06/23/20 release acetaminophen 300 mg-codeine 15 mg 1 tab PO DAILY PRN #10 tab 06/20/20 06/23/20 tablet albuterol sulfate 90 mcg/actuation 2 puff IH Q6H PRN #18 gm 06/20/20 06/23/20 aerosol inhaler terconazole 0.4 % vaginal cream 1 appful VAGINAL DAILY #45 g 07/10/20 07/10/20 Previous Rx's Medication Instructions Recorded blood-glucose meter [OneTouch #1 kit 12/29/17 UltraMini] lorazepam 0.5 mg tablet 0.5 mg PO BID PRN #30 tab 08/21/19 citalopram 20 mg tablet 20 mg PO DAILY #90 tab 11/28/19 omeprazole 20 mg capsule,delayed 20 mg PO DAILY #30 cap 12/10/19 release fluticasone propionate 50 2 spray TEAGAN DAILY #18.2 ml 01/08/20 mcg/actuation nasal spray,suspension loratadine 10 mg tablet 10 mg PO DAILY PRN #90 tab 01/10/20 miconazole nitrate 2 % vaginal 1 appful VG QHS 7 Days #45 gm 02/05/20 cream mupirocin 2 % topical ointment 1 applic TP BID PRN #15 gm 02/27/20 cholecalciferol (vitamin D3) 1,250 1,250 mcg PO QMONTH #20 cap 02/28/20 mcg (50,000 unit) capsule nystatin 100,000 unit/gram topical 1 applic TP BID #120 g 02/28/20 cream blood sugar diagnostic #300 each 02/29/20 lancets 30 gauge #300 each 02/29/20 pen needle, diabetic 31 gauge x #100 each 03/05/2008/19 insulin glargine 100 unit/mL (3 58 unit SUBCUT DAILY #15 ml 03/27/20 mL) subcutaneous pen verapamil 120 mg tablet,extended 120 mg PO DAILY #90 tab 05/20/20 release acetaminophen 300 mg-codeine 15 mg 1 tab PO DAILY PRN #10 tab 06/20/20 tablet albuterol sulfate 90 mcg/actuation 2 puff IH Q6H PRN #18 gm 06/20/20 aerosol inhaler terconazole 0.4 % vaginal cream 1 appful VAGINAL DAILY #45 g 07/10/20 Allergies Allergy/AdvReac Type Severity Reaction Status Date / Time amoxicillin Allergy Severe Affects Verified 07/10/20 09:31 kidney FXN per pt. dapsone Allergy Severe Anaphylaxsi Verified 07/10/20 09:31 s lisinopril Allergy Severe Verified 07/10/20 09:31 metformin Allergy Severe INTERACTION Verified 07/10/20 09:31 S Pertussis Vaccines Allergy Severe kidney Verified 07/10/20 09:31 problems clindamycin Allergy Mild SWELLING Verified 07/10/20 09:31 OF THE THROAT latex Allergy Mild RASH Verified 07/10/20 09:31 paroxetine Allergy Unknown Verified 07/10/20 09:31 Sulfa (Sulfonamide Allergy Unknown Verified 07/10/20 09:31 Antibiotics) adhesive AdvReac Mild Itching Verified 07/10/20 09:31 fluconazole AdvReac Mild HEADACHE Verified 07/10/20 09:31 tdap Allergy Intermediate PT Uncoded 06/23/20 17:10 REPORTED metal AdvReac Unknown staph Uncoded 06/23/20 17:10 infection General Stated Complaint: Palpitatns SALMA: 3 Review of Systems Constitutional Constitutional: Denies fatigue, Denies fever(s), Reports headache(s) and Denies weakness Eyes Eyes: Denies change in vision ENT Ears, Nose, Mouth, and Throat: Reports headache(s) and Denies neck pain Cardiovascular Cardiovascular: Reports chest pain (Described as a tightness), Reports rapid heart rate, Reports palpitations and Denies dyspnea Respiratory Respiratory: Denies cough and Denies dyspnea Gastrointestinal Gastrointestinal: Reports abdominal pain, Denies nausea and Denies vomiting Genitourinary Genitourinary: Denies dysuria Musculoskeletal Musculoskeletal: Reports back pain (Chronic), Denies neck pain and Denies numbness Integumentary/Breasts Skin/Breast: Denies rash Neurologic Neurologic: Reports headache(s), Denies numbness and Denies weakness Psychiatric Psychiatric: Reports anxiety Endocrine Endocrine: Denies fatigue and Reports palpitations [facility] Medical History ADHD (attention deficit hyperactivity disorder) Allergic rhinitis Anemia Anxiety Attention deficit hyperactivity disorder, predominantly inattentive type social phobia Breast pain, left Calculus of right ureter Cholelithiasis with cholecystitis Cholelithiasis without obstruction Chronic pain of both knees Chronic post-traumatic stress disorder childhood Depressive disorder Dermatitis Diabetes mellitus (09/01/12) Dry eye (03/15/13) Elevated LDH Fibrocystic disease of breast Foot drop, right right; 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 Functional diarrhea Generalized osteoarthritis H/O menorrhagia History of menorrhagia (05/21/11) History of renal stone Obstructing stone requiring ureteral stent placement History of stress test History of subarachnoid hemorrhage Hyperlipidemia Hypertension Idiopathic scoliosis [place] ser[place]-age 13 Knee osteonecrosis, left (11/08/16) Left carpal tunnel syndrome Low back pain Low back pain Lumbar disc prolapse with root compression Morbid obesity Non-alcoholic fatty liver disease Obsessive compulsive disorder Obstructive sleep apnea syndrome (06/05/07) with CPAP Phlebitis (05/05/04) Renal failure autoimmune - resolved Restless legs (06/05/07) Scoliosis Social anxiety disorder (11/25/17) Spastic bladder Spinal stenosis with Cauda equina syndrome[place] [facility] [place]arachnoid hemorrhage Thrombosis of arteries of lower extremity Umbilical hernia without obstruction or gangrene Uveitis sees Dr Alcaraz Vaginitis Surgical History section 1998 AND 1999 Cholecystectomy (02/26/14) Colonoscopy - MAC (~10/2007) NEG EGD - MAC (~10/2007) NEG History of bilateral ligation of fallopian tubes History of section History of esophagogastroduodenoscopy History of spinal fusion LAMINECTOMY (~11/2004) L5-S1 Ligation of fallopian tube (~1999) S/P ureteral stent placement For impacted ureteral stone Spinal Fusion (~1974) T4-L3 FOR SEVERE SCOLIOSIS Status post cholecystectomy Status post laminectomy STRESS TEST 02/18/14;LVEF 64%; EXAM IN N/L Family History Sister No problems noted. Sister No problems noted. Paternal Grandmother No problems noted. Social History Smoking/Tobacco Use Status: Never Smoking risk assessment performed?: Yes Alcohol Intake: former Drug use: Never Substance use type: does not use Caregiver/Support person: No Household members: none Housing: apartment Communication Needs: Hard of Hearing Pets and animals: No Sexually active: No Do you think of yourself as: straight/heterosexual Current gender identity: female What is your relationship status?: How often do you talk on the phone with friends or family?: three or more times per week How often do you get together with friends or relatives?: twice per week How often do you attend sabianism or druze services?: decline to answer Do you belong to any clubs or organized social groups?: no Panel score (0-1 are the most socially isolated patients): 1 What type of physical activity do you participate in: walking Duration: 45-60 minutes/day Frequency: 5-6 times per week Claudette/Moravian: No preference Special claudette needs: No Seatbelt use: always Drive 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 minibus driver: No Do you feel safe at home: Yes Exam Const General: cooperative, healthy appearing, comfortable, no acute distress and anxious Orientation: alert, awake and oriented x3 HENMT Head: normal to inspection, normocephalic and atraumatic Mouth: moist mucous membranes Eyes Conjunctivae: conjunctivae normal Neck Neck: normal visual inspection, full ROM, trachea midline, supple and nontender Resp Effort & Inspection: normal respiratory effort and able to speak in complete sentences Auscultation: clear to auscultation bilaterally Cardio Rate: regular rate Rhythm: regular rhythm GI Palpation: soft, not firm, no guarding, no pulsatile masses and nontender Back/Spine/Pelvis Back: No back tenderness Skin General skin exam: no rashes or lesions noted Neuro General: patient alert, patient awake, patient oriented x3, moves all extremities and no focal motor deficits Cranial Nerves: CN's II-XI intact bilaterally Cognition: normal cognition Speech: speech normal Gait: normal gait Motor: muscle tone normal throughout Sensory Exam: no sensory deficits noted Extrem General: normal to inspection, full ROM, capillary refill normal, no pedal edema and no calf tenderness Psych Appearance: grossly normal Mental Status: mental status grossly normal Course Vital Signs Vital signs: Vital Signs Temperature 36.7 C 07/29/20 10:54 Pulse 74 07/29/20 10:54 Respiratory Rate 24 07/29/20 10:54 Blood Pressure 167/68 H 07/29/20 10:54 Pulse Oximetry 98 07/29/20 10:54 Temperature 36.7 C 07/29/20 10:54 Temperature Source Skin 07/29/20 10:54 Pulse 74 07/29/20 10:54 Respiratory Rate 24 07/29/20 10:54 Respiratory Effort Non-Labored 07/29/20 11:13 Blood Pressure 167/68 H 07/29/20 10:54 Blood Pressure Position Sitting 07/29/20 10:54 Pulse Oximetry 98 07/29/20 10:54 Oxygen Delivery Method Room Air 07/29/20 10:54 Oxygen Flow Rate 0 07/29/20 10:54 Lab/Test Results Lab/Test Results: Laboratory Tests Range/Units 07/29/20 11:11 WBC (4.4-10.8) 10^3/uL 8.06 RBC (3.93-5.22) 10^6/uL 4.92 Hgb (11.2-15.7) g/dL 14.4 Hct (36.0-46.0) % 42.4 MCV (80-95) fL 86.2 MCH (27.0-33.0) pg 29.3 MCHC (32.0-36.0) % 34.0 RDW (11.7-14.6) % 12.8 Plt Count (130-400) 10^3/uL 182 MPV (8.0-11.0) fL 10.7 Immature Gran % 0.6 Neutrophils % 59.5 Lymphocytes % 29.5 Monocytes % 5.7 Eosinophils % 3.7 Basophils % 1.0 Nucleated RBC % % 0 Absolute Neutrophils (1.2-6.7) 10^3/uL 4.79 Absolute Lymphocytes (1.2-3.4) 10^3/uL 2.38 Absolute Monocytes (0.1-0.8) 10^3/uL 0.46 Absolute Eosinophils (0.0-0.7) 10^3/uL 0.30 Absolute Basophils (0.0-0.2) 10^3/uL 0.08
[2020-07-29 11:53] LABS: PTT Activated 21.5 sec (21.0-27.5); Prothrombin Time 9.8 sec (9.3-11.0)
[2020-07-29 11:58] LABS: ALT 60 U/L (14-59); AST 43 U/L (15-37); Albumin 3.6 g/dL (3.4-5.0); Alkaline Phosphatase 108 U/L (46-116); Anion Gap 8.1 mmol/L (3-11); BUN 12 mg/dL (7-18); Bilirubin, Total 0.6 mg/dL (0.2-1.0); CO2 25.9 mmol/L (21.0-32.0); CREATININE 0.7 mg/dL (0.55-1.02); Calcium 9.2 mg/dL (8.5-10.1); Chloride 104 mmol/L (98-107); Glucose 148 mg/dL (74-106); Potassium 4.5 mmol/L (3.5-5.1); Sodium 138 mmol/L (136-145); Total Protein 7.8 g/dL (6.4-8.2)
[2020-07-29 11:59] LABS: Troponin I < 0.05 ng/mL (<0.06)
[2020-07-29 12:03] LABS: Lipase 168 U/L (73-393); TSH 2.64 uIU/mL (0.36-3.74)
[2020-07-29] MEDS: Normal Saline - Diluent 50 ML VIAL IV (13:08)
[2020-07-29] MEDS: Normal Saline Flush 10 ML SYR IVP (13:10)
--- NOTE | 2020-07-29 13:10 | DI.CT_ITS ---
EXAM: CT BRAIN CTA CLINICAL HISTORY: Headache, subarachnoid hemorrhage. TECHNIQUE: Imaging Protocol: Axial CT angiography was performed with multi-slice acquisition and mu lti-planar and/or 3D reconstructions. CONTRAST MATERIAL: Intravenous: Omnipaque 350 Contrast volume:structured data in ml COMPARISON: CT CT ABDOMEN PELVIS W from 06/24/2020 FINDINGS: Head CT without and with contrast: No intracranial hemorrhage, mass or infarct is seen. The ventricles are normal in size. There is no evidence of skull fracture. There is minimal sinus mucosal thickening. The mastoid air cells appea r clear. There are no abnormal enhancing lesions. CT angiography of the brain: Internal Carotid Arteries: Petrous: Normal. Cavernous: Normal. Cerebral: Normal. Middle Cerebral Arteries: Right: No aneurysm, occlusion or significant stenosis. Left: No aneurysm, occlusion or significant stenosis. Anterior Cerebral Arteries: Right: No aneurysm, occlusion or significant stenosis. Left: No aneurysm, occlusion or significant stenosis. Posterial Cerebral Arteries: Right: No aneurysm, occlusion or significant stenosis. Left: No aneurysm, occlusion or significant stenosis. Vertebral Arteries: Right: No aneurysm, occlusion or significant stenosis. Left: No aneurysm, occlusion or significant stenosis. Basilar Artery: No aneurysm, occlusion or significant stenosis. IMPRESSION: Normal CTA examination of the [place]. Normal CT head. RADIATION DOSE DELIVERED: 2,668.63mGy.cm Total DLP DATA REPOSITORY: All CT scans at this facility are submitted to the National Radiology Data Registry (NRDR) Dose Index Registry (DIR) with the [employer] ([employer]). RADIATION OPTIMIZATION: All CT scans at this facility use at least one of these dose optimization te chniques: automated exposure control; mA and/or kV adjustment per patient size (includes targeted exa ms where dose is matched to clinical indication); or iterative reconstruction.
[2020-07-29] MEDS: Acetaminophen 500 MG TAB 1000 MG PO (13:25)
--- NOTE | 2020-07-29 14:15 | RT.EKG_ITS ---
APPROVED REPORT Exam: Resting ECG Patient Location: E HR:62 bpm ECG Measurements Heart Rate 62 AXIS [place] 181 P 12 QRSd 89 QRS 12 QT 447 T 27 QTc 455 Conclusion Sinus rhythm...normal P axis, V-rate 60- 99 I have reviewed and interpreted ECG and agree with software generated interpretation.
[2020-07-29 14:59] LABS: Troponin I < 0.05 ng/mL (<0.06)
== END 2020-07-29 15:45 | disposition home or self-care (01) ==
PROVIDERS: Emergency Provider Physician Assistant; PCP Nurse Practitioner
DX: R00.2 Palpitations (principal); R07.89 Other chest pain; R51.9 Headache, unspecified; Z86.79 Personal history of other diseases of the circulatory system; E11.42 Type 2 diabetes mellitus with diabetic polyneuropathy; Z79.4 Long term (current) use of insulin; I10 Essential (primary) hypertension
CPT/HCPCS: 70496; 80053; 83690; 93005; 99285; 71046; 83735; 84443; 84484; 85025; 85610; 85730; 93010; 99284

== ENCOUNTER 2020-08-01 15:12 | Outpatient (RCR) | payer MEDICARE, MEDICAID, SELFPAY ==
--- NOTE | 2020-08-01 15:00 | HOLTER_ITS ---
APPROVED REPORT Exam Type: HOLTER MONITOR APPLICATION Reason for Test: palpitation Patient Location: O Conclusion This is a 2-day Holter monitor ordered for indication of palpitations. The patient was in normal sinus rhythm for the majority of the recording with an average heart rate o f 72 bpm. There was one episode of SVT lasting 3 beats. There were rare PACs. There were no episodes of ventricular tachycardia and occasional (2.6%) PVCs. There were no episodes of atrial fibrillation, no pauses greater than 3 seconds and no evidence of hi gh degree heart block. There were no patient triggered events.
== END 2020-08-03 23:59 | disposition home or self-care (01) ==
LOC: RT 15:12
PROVIDERS: PCP Nurse Practitioner; Visit Provider Nurse Practitioner
DX: R00.2 Palpitations (principal)
CPT/HCPCS: 93225; 93226

== ENCOUNTER 2020-08-07 14:57 | Outpatient (CLI) | payer MEDICARE, MEDICAID, SELFPAY | END 2020-08-07 14:58 | LOC: CARDO 09-16 16:45 | PROVIDERS: PCP Nurse Practitioner; Referring Provider Nurse Practitioner; Visit Provider Internal Medicine Cardiovascular Disease | DX: R00.2 Palpitations (principal); I47.1 Supraventricular tachycardia; I47.2 Ventricular tachycardia; I49.1 Atrial premature depolarization; I49.3 Ventricular premature depolarization | CPT/HCPCS: 93227 ==

== ENCOUNTER 2021-01-05 13:59 | Outpatient (REF) | payer MEDICARE, MEDICAID, SELFPAY ==
[2021-01-05 18:55] LABS: Bilirubin Negative (Negative); Blood Negative (Negative); Clarity Clear (Clear); Glucose Negative (Negative); Ketones Negative (Negative); Leukocyte Esterase Negative (Negative); Nitrite Negative (Negative); Specific Gravity 1.025 (1.005-1.025); Urobilinogen 0.2 EU/dL (Up TO 0.2)
== END 2021-01-05 14:00 | disposition home or self-care (01) ==
LOC: LBN 13:59
PROVIDERS: PCP Nurse Practitioner; Visit Provider Physician Assistant
DX: R10.32 Left lower quadrant pain (principal)
CPT/HCPCS: 81003

== ENCOUNTER 2021-01-07 02:31 | Outpatient (CLI) | payer MEDICARE, MEDICAID, SELFPAY ==
--- NOTE | 2021-01-07 07:30 | DI.US_ITS ---
Exam(s) US HERNIA EXAM: US HERNIA CLINICAL HISTORY: left groin pain,? HERNIA,.LLQ PAIN,R10.32. TECHNIQUE: Ultrasound was performed using standard protocol. COMPARISON: US US RENAL from 01/07/2021 FINDINGS: Sonographic assessment utilizing grayscale and color Doppler imaging was performed and targeted to th e area of clinical concern. This apparently left groin region. Submitted images reveal multiple benign-appearing lymph nodes in the region of concern-left groin. L argest of these measures 2.6 x 0.6 cm. No evidence of aneurysm nor hernia on these images. IMPRESSION: Benign-appearing lymph nodes in the area of concern left groin. DATA REPOSITORY:
--- NOTE | 2021-01-07 07:30 | DI.US_ITS ---
Exam(s) US RENAL EXAM: US RENAL CLINICAL HISTORY: LLQ AND LT GROIN PAIN, ? STONES,R10.32 TECHNIQUE: Ultrasound of both kidneys performed using standard protocol. COMPARISON: US US RENAL from 11/07/2019 FINDINGS: RIGHT KIDNEY: Measures 12 cm in length. No cysts evident. Normal cortical thickness and corticomedullary differenti ation .No solid masses There is a 3 millimeter hyperechoic focus at the midpole level. This is possibly a nonobstructive ca lculus. LEFT KIDNEY: Measures 1.5 cm in length. No cysts evident. Normal cortical thickness and corticomedullary differen tiaion. No solids masses. There is a 4 millimeter hyperechoic focus in the upper pole region which i s probably a nonobstructive calculus. URINARY BLADDER: Prevoid volume is 129 cc Postvoid volume is 0 cc No evidence of bladder mass nor diverticuli. Ureterovesical jets: Both identified and appear symmetrical IMPRESSION: 1. Appears to be a single nonobstructive calculus in each kidney. No hydronephrosis. 2. No obvious abnormality in urinary bladder. DATA REPOSITORY:
== END 2021-01-07 02:51 ==
PROVIDERS: PCP Nurse Practitioner; Visit Provider Physician Assistant
DX: R10.32 Left lower quadrant pain; G89.29 Other chronic pain
CPT/HCPCS: 76770; 76857

== ENCOUNTER 2021-02-05 11:58 | Emergency (ER) | payer MEDICARE, MEDICAID, SELFPAY ==
[2021-02-05] VITALS (44 sets, daily range): BP systolic 155–175; BP diastolic 75–93; PULSE 61–82; RESP 11–26; TEMP 36.3; O2SAT 95–99
--- NOTE | 2021-02-05 12:00 | RT.EKG_ITS ---
APPROVED REPORT Exam: Resting ECG Reason for Exam: vaccine reaction Patient Location: E HR:63 bpm ECG Measurements Heart Rate 63 AXIS [place] 168 P -27 QRSd 88 QRS 17 QT 411 T 35 QTc 423 Conclusion Sinus rhythm...normal P axis, V-rate 60- 99. Sinus. I have reviewed and interpreted ECG and agree with software generated interpretation. No STEMI.
--- NOTE | 2021-02-05 12:09 | W.ED.GENAD ---
Discharge Plan Disposition Patient Disposition: HOME Condition: Stable Discharge Details Clinical Impression: Palpitations, Back pain, Headache Primary Care Provider: Anisa Wilkins ED Provider: Lidia Quinn Home Meds and New Rx's Prescriptions: Continued omeprazole 20 mg capsule,delayed release(DR/EC) 20 mg PO DAILY Qty: 30 RF: 2 methocarbamol 500 mg tablet 500 mg PO QID PRN (Reason: muscl spasm) Qty: 30 RF: 3 Lantus Solostar U-100 Insulin 100 unit/mL (3 mL) insulin pen 60 unit subcut DAILY Qty: 45 RF: 4 Restasis MultiDose 0.05 % drops 1 drp OP Q12H RF: 0 lorazepam 0.5 mg tablet 0.5 mg PO BID PRN (Reason: anxiety) Qty: 30 RF: 1 (DME) pen needle, diabetic [BD Ultra-Fine Mini Pen Needle] 31 gauge x 3/16 needle See Rx Instructions .ROUTE .MEDSUPPLY Qty: 100 RF: 5 mupirocin 2 % ointment 1 applic TP BID PRN (Reason: rash) Qty: 15 RF: 1 citalopram 20 mg tablet 20 mg PO DAILY Qty: 90 RF: 4 (DME) Ultra-Light Rollator 1 EACH misc 1 ea Miscellaneous ONCE Qty: 1 RF: 0 loratadine 10 mg tablet 10 mg PO DAILY PRN (Reason: allergy symptoms) Qty: 90 RF: 4 verapamil [Calan SR] 120 mg tablet extended release 120 mg PO DAILY Qty: 90 RF: 4 albuterol sulfate [ProAir HFA] 90 mcg/actuation HFA aerosol inhaler 2 puff IH Q6H PRN (Reason: shortness of breath or wheezing) Qty: 18 RF: 1 acetaminophen-codeine 300-15 mg tablet 1 tab PO DAILY PRN (Reason: pain) Qty: 10 RF: 0 (DME) OneTouch Ultra Blue Test Strip Strip See Rx Instructions .ROUTE .MEDSUPPLY Qty: 300 RF: 4 cholecalciferol (vitamin D3) 1,250 mcg (50,000 unit) capsule 1,250 mcg PO QMONTH Qty: 20 RF: 4 (DME) lancets [OneTouch Delica Lancets] 30 gauge misc 1 ea Miscellaneous QID Qty: 300 RF: 4 (DME) blood-glucose meter [OneTouch UltraMini] Kit See Rx Instructions .ROUTE .MEDSUPPLY Qty: 1 RF: 0 clotrimazole [Lotrimin AF (clotrimazole)] 1 % cream 1 applic topical TID Qty: 45 RF: 1 nystatin 100,000 unit/gram cream 1 applic TP BID Qty: 120 RF: 4 Discharge Instructions Instructions: Heart Palpitations (ED), Back Pain (ED), General Headache (ED) Additional Instructions: Drink plenty of fluids and get plenty of rest. Alternate tylenol and motrin as needed and directed for pain. Follow-up with your primary care doctor in 1 week. Return the color television console monitor to the hospital as directed by respiratory therapy. Return to the emergency department with any worsening or new concerning symptoms. Discharge Data Discharge Date/Time-TO BE ENTERED AT DEPARTURE: 02/05/21 18:15 Discharge Physician: Lidia Quinn Medical Decision Making 1220 -- 60-year-old female with a history of morbid obesity, diabetes, sleep apnea, anxiety, depression, hypertension, hyperlipidemia presents for multiple complaints including headache, chest pain, back pain, arm pain, jaw pain, palpitations and shakiness that started 24 hours after receiving her first dose of the Moderna vaccine 3 days ago. EKG notes a rate of 53, sinus, no STEMI and nondiagnostic. Patient appears comfortable and nontoxic. She has no focal deficits on exam. Differential diagnosis includes vaccine reaction, also consider CVA, PE, ACS. Will place an IV, screening labs, CTA head and neck, CT chest and give fluids and reassess. 1400 -- Labs and imaging reviewed and unremarkable. Troponin negative. CTA head and neck and CTA chest negative. 1630 -- Repeat troponin unremarkable. Repeat EKG unchanged. Patient reassessed and still complaining of palpitations and intermittent pain in scattered areas of head and back. She was given IV tylenol, IV toradol, IV decadron, PO valium without any relief while in the emergency department. Heart rate and rhythm remains within normal limits on the monitor while in the emergency department. She appears in no acute distress. She was given additional IV fluids. A dose of IV dilaudid was ordered but pt declined stating I don't want to go home and from it. A Holter monitor was placed prior to discharge. Patient feels comfortable going home. Advised to increase fluids, rest, alternate Tylenol and Motrin as needed for pain. Advised to call the PCP for follow-up. Usual and customary return precautions given prior to discharge. Medical Records Medical records reviewed: Yes I reviewed the patient's medical records. Imaging Data Radiologic Study: Radiologist's impression: CT HEAD WO CLINICAL HISTORY: posterior headache, r/o hemorrhage. TECHNIQUE: Imaging Protocol: Axial computed tomography images with coronal and sagittal reformatted images were created and reviewed COMPARISON: CT CT BRAIN CTA from 07/29/2020 FINDINGS: Ventricles and Extra axial spaces: Normal in size and morphology for the patient's age. Hemorrhage: None. Cerebral parenchyma: Normal. Midline shift: None. Brainstem/Cerebellum: Normal. Calvarium: Normal. Visualized Paranasal sinuses/Mastoids: Clear. Soft Tissues: Unremarkable. IMPRESSION: No acute intracranial process. CT BRAIN NECK CTA CLINICAL HISTORY: posterior headache, r/o acute thrombosis, bleed. TECHNIQUE: Imaging Protocol: Axial CT angiography was performed with multi-slice acquisition and multi-planar and/or 3D reconstructions. CONTRAST MATERIAL: Intravenous: Omnipaque 350 Contrast volume:structured data in ml COMPARISON: CT CT BRAIN CTA from 07/29/2020 FINDINGS: CT Head W contrast: Ventricles and Extra axial spaces: Normal in size and morphology for the patient's age. Hemorrhage: None. Cerebral parenchyma: Normal. Midline shift: None. Brainstem/Cerebellum: Normal. Calvarium: Normal. Visualized Paranasal sinuses/Mastoids: Clear. Soft Tissues: Unremarkable. Enhancement: Normal. CTA Brain W: Internal Carotid Arteries: Petrous: Normal. Cavernous: Normal. Cerebral: Normal. Middle Cerebral Arteries: Right: No aneurysm, occlusion or significant stenosis. Left: No aneurysm, occlusion or significant stenosis. Anterior Cerebral Arteries: Right: No aneurysm, occlusion or significant stenosis. Left: No aneurysm, occlusion or significant stenosis. Posterior cerebral Arteries: Right: No aneurysm, occlusion or significant stenosis. Left: No aneurysm, occlusion or significant stenosis. Vertebral Arteries: Right: No aneurysm, occlusion or significant stenosis. Left: No aneurysm, occlusion or significant stenosis. Basilar Artery: No aneurysm, occlusion or significant stenosis. CTA Neck W: Common Carotid: Right: No aneurysm, occlusion or significant stenosis. Left: No aneurysm, occlusion or significant stenosis. External Carotid: Right: No aneurysm, occlusion or significant stenosis. Left: No aneurysm, occlusion or significant stenosis. Internal Carotid: No significant plaque. Right: No aneurysm, occlusion or significant stenosis. Left: No aneurysm, occlusion or significant stenosis. Vertebral Artery: Right: No aneurysm, occlusion or significant stenosis. Left: No aneurysm, occlusion or significant stenosis. Lung Apices: Normal. Bones: Degenerative changes in the cervical spine Soft Tissues: Normal. IMPRESSION: 1. Normal CTA examination of the [place]. 2. Unremarkable CT Head. 3. Normal CTA examination of the neck. CT CHEST PE CTA CLINICAL HISTORY: L sided chest pain, sob, r/o PE. TECHNIQUE: Imaging Protocol: Axial CT angiography was performed with multi-slice acquisition and multi-planar and/or 3D reconstructions. CONTRAST MATERIAL: Intravenous: Omnipaque 350 Contrast volume:63 cc COMPARISON: CT CT BRAIN CTA from 07/29/[address] BRAIN NECK CTA from 02/05/2021 FINDINGS: Pulmonary Arteries: No evidence of filling defect to suggest pulmonary emboli. Tracheobronchial tree: Patent where visualized. Mediastinum and Jyoti: No dominant adenopathy or fluid collection. Pulmonary parenchyma: No consolidation or dominant measurable mass. Limited evaluation due to S expiratory changes and mild motion at the lung bases. Pleura: No effusion or pneumothorax. Heart: The heart is not dilated. No coronary artery calcifications are seen. Aorta: Thoracic aorta non-dilated. Upper abdomen: Enlarged fatty liver. Status post cholecystectomy. Bones: Rods in the spine. IMPRESSION: No evidence of pulmonary embolism or other acute abnormality.. Lab Data Lab results reviewed: Yes I reviewed the patient's lab results. Labs: Laboratory Tests Range/Units 02/05/21 02/05/21 02/05/21 12:15 12:15 12:15 WBC (4.4-10.8) 10^3/uL 8.04 RBC (3.93-5.22) 10^6/uL 4.98 Hgb (11.2-15.7) g/dL 14.5 Hct (36.0-46.0) % 43.3 MCV (80-95) fL 86.9 MCH (27.0-33.0) pg 29.1 MCHC (32.0-36.0) % 33.5 RDW (11.7-14.6) % 12.9 Plt Count (130-400) 10^3/uL 190 MPV (8.0-11.0) fL 10.5 Immature Gran % 0.6 Neutrophils % 61.2 Lymphocytes % 28.1 Monocytes % 5.7 Eosinophils % 3.4 Basophils % 1.0 Nucleated RBC % % 0 Absolute Neutrophils (1.2-6.7) 10^3/uL 4.92 Absolute Lymphocytes (1.2-3.4) 10^3/uL 2.26 Absolute Monocytes (0.1-0.8) 10^3/uL 0.46 Absolute Eosinophils (0.0-0.7) 10^3/uL 0.27 Absolute Basophils (0.0-0.2) 10^3/uL 0.08 Sodium (136-145) mmol/L 141 Potassium (3.5-5.1) mmol/L 4.0 Chloride (98-107) mmol/L 103 Carbon Dioxide (21.0-32.0) mmol/L 28.7 Anion Gap (3-11) mmol/L 9.3 BUN (7-18) mg/dL 12 Creatinine (0.55-1.02) mg/dL 0.8 Estimated GFR/1.73 m2 (mL/min/1.73m2) >= 60.00 Glucose (74-106) mg/dL 113 H Calcium (8.5-10.1) mg/dL 9.5 Magnesium (1.8-2.4) mg/dL 2.2 Total Bilirubin (0.2-1.0) mg/dL 0.6 AST (15-37) U/L 86 H ALT (14-59) U/L 118 H Alkaline Phosphatase (46-116) U/L 84 Troponin I (<0.06) ng/mL < 0.05 Total Protein (6.4-8.2) g/dL 7.9 Albumin (3.4-5.0) g/dL 3.9 Range/Units 02/05/21 15:20 WBC (4.4-10.8) 10^3/uL RBC (3.93-5.22) 10^6/uL Hgb (11.2-15.7) g/dL Hct (36.0-46.0) % MCV (80-95) fL MCH (27.0-33.0) pg MCHC (32.0-36.0) % RDW (11.7-14.6) % Plt Count (130-400) 10^3/uL MPV (8.0-11.0) fL Immature Gran % Neutrophils % Lymphocytes % Monocytes % Eosinophils % Basophils % Nucleated RBC % % Absolute Neutrophils (1.2-6.7) 10^3/uL Absolute Lymphocytes (1.2-3.4) 10^3/uL Absolute Monocytes (0.1-0.8) 10^3/uL Absolute Eosinophils (0.0-0.7) 10^3/uL Absolute Basophils (0.0-0.2) 10^3/uL Sodium (136-145) mmol/L Potassium (3.5-5.1) mmol/L Chloride (98-107) mmol/L Carbon Dioxide (21.0-32.0) mmol/L Anion Gap (3-11) mmol/L BUN (7-18) mg/dL Creatinine (0.55-1.02) mg/dL Estimated GFR/1.73 m2 (mL/min/1.73m2) Glucose (74-106) mg/dL Calcium (8.5-10.1) mg/dL Magnesium (1.8-2.4) mg/dL Total Bilirubin (0.2-1.0) mg/dL AST (15-37) U/L ALT (14-59) U/L Alkaline Phosphatase (46-116) U/L Troponin I (<0.06) ng/mL < 0.05 Total Protein (6.4-8.2) g/dL Albumin (3.4-5.0) g/dL ECG Data Attestation: I personally reviewed and interpreted this ECG (s) as follows: Interpretation: #1 -- rate of 63, sinus, no STEMI. MT 168. QRS 88. QTc 423. #2 -- rate of 63, sinus, no STEMI. MT 185. QRS 92. QTc 443. HPI General Mode of arrival: ambulatory. Date/Time Provider Initiated Documentation: 02/05/21 11:58. Limitations to Documentation: no limitations. Information obtained by: patient. HPI Narrative: Patient is a 60-year-old female with a history of morbid obesity, diabetes, hypertension, hyperlipidemia, anxiety, depression presents for multiple complaints over the past few days after her first lumbar Covid vaccine. Patient states she had her first dose of the Moderna Covid vaccine on Tuesday and the following day developed upper and lower back pain, followed by headache, followed by left-sided chest pain with left jaw pain with intermittent fluttering and palpitations in her chest with shakiness she states her headache is posterior and feels aching and is currently 4/10. She states her chest pain is now resolved. She states she has been able to eat and drink and denies any vomiting or diarrhea. She took Tylenol 2 days ago for her pain but not since then. Related Data Home Medications Medication Instructions Recorded Confirmed Ultra-Light Rollator #1 01/11/17 01/09/21 cyclosporine 0.05 % eye drops 1 drp OP Q12H 11/15/18 02/05/21 omeprazole 20 mg capsule,delayed 20 mg PO DAILY #30 cap 12/10/19 02/05/21 release loratadine 10 mg tablet 10 mg PO DAILY PRN #90 tab 01/10/20 02/05/21 verapamil 120 mg tablet,extended 120 mg PO DAILY #90 tab 05/20/20 02/05/21 release acetaminophen 300 mg-codeine 15 mg 1 tab PO DAILY PRN #10 tab 06/20/20 02/05/21 tablet albuterol sulfate 90 mcg/actuation 2 puff IH Q6H PRN #18 gm 06/20/20 02/05/21 aerosol inhaler lorazepam 0.5 mg tablet 0.5 mg PO BID PRN #30 tab 07/31/20 02/05/21 mupirocin 2 % topical ointment 1 applic TP BID PRN #15 gm 07/31/20 02/05/21 pen needle, diabetic 31 gauge x #100 each 07/31/20 01/09/2108/19 blood sugar diagnostic #300 each 09/04/20 01/09/21 cholecalciferol (vitamin D3) 1,250 1,250 mcg PO QMONTH #20 cap 09/04/20 02/05/21 mcg (50,000 unit) capsule lancets 30 gauge #300 each 09/04/20 01/09/21 blood-glucose meter #1 ea 09/05/20 01/09/21 clotrimazole 1 % topical cream 1 applic TOPICAL TID #45 g 09/05/20 02/05/21 nystatin 100,000 unit/gram topical 1 applic TP BID #120 g 10/28/20 02/05/21 cream methocarbamol 500 mg tablet 500 mg PO QID PRN #30 tab 11/21/20 02/05/21 citalopram 20 mg tablet 20 mg PO DAILY #90 tab 01/06/21 02/05/21 insulin glargine 100 unit/mL (3 60 unit SUBCUT DAILY #45 ml 01/09/21 02/05/21 mL) subcutaneous pen Previous Rx's Medication Instructions Recorded omeprazole 20 mg capsule,delayed 20 mg PO DAILY #30 cap 12/10/19 release loratadine 10 mg tablet 10 mg PO DAILY PRN #90 tab 01/10/20 verapamil 120 mg tablet,extended 120 mg PO DAILY #90 tab 05/20/20 release acetaminophen 300 mg-codeine 15 mg 1 tab PO DAILY PRN #10 tab 06/20/20 tablet albuterol sulfate 90 mcg/actuation 2 puff IH Q6H PRN #18 gm 06/20/20 aerosol inhaler lorazepam 0.5 mg tablet 0.5 mg PO BID PRN #30 tab 07/31/20 mupirocin 2 % topical ointment 1 applic TP BID PRN #15 gm 07/31/20 pen needle, diabetic 31 gauge x #100 each 07/31/2008/19 blood sugar diagnostic #300 each 09/04/20 cholecalciferol (vitamin D3) 1,250 1,250 mcg PO QMONTH #20 cap 09/04/20 mcg (50,000 unit) capsule lancets 30 gauge #300 each 09/04/20 blood-glucose meter #1 ea 09/05/20 clotrimazole 1 % topical cream 1 applic TOPICAL TID #45 g 09/05/20 nystatin 100,000 unit/gram topical 1 applic TP BID #120 g 10/28/20 cream methocarbamol 500 mg tablet 500 mg PO QID PRN #30 tab 11/21/20 citalopram 20 mg tablet 20 mg PO DAILY #90 tab 01/06/21 insulin glargine 100 unit/mL (3 60 unit SUBCUT DAILY #45 ml 01/09/21 mL) subcutaneous pen Allergies Allergy/AdvReac Type Severity Reaction Status Date / Time amoxicillin Allergy Severe Affects Verified 02/05/21 16:45 kidney FXN per pt. dapsone Allergy Severe Anaphylaxsi Verified 02/05/21 16:45 s lisinopril Allergy Severe Verified 02/05/21 16:45 metformin Allergy Severe INTERACTION Verified 02/05/21 16:45 S Pertussis Vaccines Allergy Severe kidney Verified 02/05/21 16:45 problems clindamycin Allergy Mild SWELLING Verified 02/05/21 16:45 OF THE THROAT latex Allergy Mild RASH Verified 02/05/21 16:45 paroxetine Allergy Unknown Verified 02/05/21 16:45 Sulfa (Sulfonamide Allergy Unknown Verified 02/05/21 16:45 Antibiotics) adhesive AdvReac Mild Itching Verified 02/05/21 16:45 fluconazole AdvReac Mild HEADACHE Verified 02/05/21 16:45 tdap Allergy Intermediate PT Uncoded 02/05/21 16:45 REPORTED metal AdvReac Unknown staph Uncoded 02/05/21 16:45 infection General Stated Complaint: Chest Pain SALMA: 2 Review of Systems All systems reviewed & are unremarkable except as noted in HPI and below Constitutional Constitutional: Reports as per HPI, Denies chills, Denies fever(s) and Reports headache(s) Eyes Eyes: Denies blurry vision ENT Ears, Nose, Mouth, and Throat: Denies dizziness, Reports headache(s), Denies sore throat and Denies throat swelling Cardiovascular Cardiovascular: Reports chest pain, Reports rapid heart rate and Denies dyspnea Respiratory Respiratory: Denies cough and Denies dyspnea Gastrointestinal Gastrointestinal: Denies abdominal pain, Denies diarrhea and Denies vomiting Genitourinary Genitourinary: Denies hematuria and Denies dysuria Musculoskeletal Musculoskeletal: Denies back pain and Denies numbness Integumentary/Breasts Skin/Breast: Denies lesions and Denies rash Neurologic Neurologic: Denies dizziness, Reports headache(s), Denies localized weakness and Denies numbness Allergic/Immunologic Allergic/Immunologic: Denies throat swelling [facility] Medical History ADHD (attention deficit hyperactivity disorder) Allergic rhinitis Anemia Anxiety Attention deficit hyperactivity disorder, predominantly inattentive type social phobia Breast pain, left Calculus of right [place] [facility] [place]teroscopy & lithotripsy 11/2018- 7mm right pole- asymptomatic Cholelithiasis with cholecystitis Cholelithiasis without obstruction Chronic pain of both knees Chronic post-traumatic stress disorder childhood Depressive disorder Dermatitis Diabetes mellitus (09/01/12) Dry eye (03/15/13) Elevated LDH Fibrocystic disease of breast Foot drop, right right; 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 Functional diarrhea Generalized osteoarthritis H/O menorrhagia History of menorrhagia (05/21/11) History of renal stone Obstructing stone requiring ureteral stent placement History of stress test History of subarachnoid hemorrhage Hyperlipidemia Hypertension Idiopathic scoliosis [place] ser[place]-age 13 Knee osteonecrosis, left (11/08/16) Left carpal tunnel syndrome Low back pain Low back pain Lumbar disc prolapse with root compression Morbid obesity Non-alcoholic fatty liver disease Obsessive compulsive disorder Obstructive sleep apnea syndrome (06/05/07) with CPAP Phlebitis (05/05/04) Renal failure autoimmune - resolved Restless legs (06/05/07) Scoliosis Social anxiety disorder (11/25/17) Spastic bladder Spinal stenosis with Cauda equina syndrome; [place] [facility] [place]arachnoid hemorrhage Thrombosis of arteries of lower extremity Umbilical hernia without obstruction or gangrene Uveitis sees Dr Alcaraz Vaginitis Surgical History section 1997 AND 1999 Cholecystectomy (02/26/14) Colonoscopy - MAC (~10/2007) NEG EGD - MAC (~10/2007) NEG History of bilateral ligation of fallopian tubes History of section History of esophagogastroduodenoscopy History of spinal fusion LAMINECTOMY (~11/2004) L5-S1 Ligation of fallopian tube (~1999) S/P ureteral stent placement For impacted ureteral stone Spinal Fusion (~1974) T4-L3 FOR SEVERE SCOLIOSIS Status post cholecystectomy Status post laminectomy STRESS TEST 02/18/14;LVEF 64%; EXAM IN N/L Family History Sister No problems noted. Sister No problems noted. Paternal Grandmother No problems noted. Social History Smoking/Tobacco Use Status: Never Smoking risk assessment performed?: Yes Alcohol Intake: former Drug use: Never Substance use type: does not use Caregiver/Support person: No Household members: none Housing: apartment Communication Needs: Hard of Hearing Pets and animals: No Sexually active: No Do you think of yourself as: straight/heterosexual Current gender identity: female What is your relationship status?: How often do you talk on the phone with friends or family?: three or more times per week How often do you get together with friends or relatives?: twice per week How often do you attend anglican or congregation services?: decline to answer Do you belong to any clubs or organized social groups?: no Panel score (0-1 are the most socially isolated patients): 1 What type of physical activity do you participate in: walking Duration: 45-60 minutes/day Frequency: 5-6 times per week Claudette/Sikhism: No preference Special claudette needs: No Seatbelt use: always Drive 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 Do you feel safe at home: Yes Exam Const General: cooperative and no acute distress HENMT Head: normal to inspection Face and sinus: normal facial exam Eyes General: appearance normal, both eyes and all related structures Pupils: PERRL EOM: EOM intact bilaterally Neck Neck: normal visual inspection and No submandibular swelling Lymphatic: no lymphadenopathy noted Chest Chest: normal inspection of the chest and no tenderness Resp Effort & Inspection: normal respiratory effort and able to speak in complete sentences Auscultation: clear to auscultation bilaterally Cardio Rate: regular rate Rhythm: regular rhythm GI Inspection: normal to inspection Palpation: soft, not firm, not rigid and nontender Auscultation: normal bowel sounds Skin General skin exam: no rashes or lesions noted Neuro General: patient alert, patient awake and patient oriented x3 Cranial Nerves: CN's II-XI intact bilaterally Cognition: normal cognition Speech: speech normal Motor: muscle tone normal throughout Sensory Exam: no sensory deficits noted Extrem General: normal to inspection, full ROM, capillary refill normal, no calf tenderness bilaterally and no edema Psych Appearance: grossly normal Mental Status: mental status grossly normal Speech and Movement: speech and movement normal Affect: normal affect Course Vital Signs Vital signs: Vital Signs Temperature 97.3 F L 02/05/21 12:02 Pulse 70 02/05/21 12:02 Blood Pressure 168/93 H 02/05/21 12:02 Pulse Oximetry 98 02/05/21 12:02 Temperature 97.3 F L 02/05/21 12:02 Temperature Source Temporal Artery Scan 02/05/21 12:02 Pulse 70 02/05/21 12:02 Blood Pressure 168/93 H 02/05/21 12:02 Blood Pressure Position Sitting 02/05/21 12:02 Pulse Oximetry 98 02/05/21 12:02 Oxygen Delivery Method Room Air 02/05/21 12:02 Oxygen Flow Rate 0 02/05/21 12:02 Pain Level 4 02/05/21 12:02
--- NOTE | 2021-02-05 12:15 | DI.CT_ITS ---
Exam(s) CT HEAD WO EXAM: CT HEAD WO CLINICAL HISTORY: posterior headache, r/o hemorrhage. TECHNIQUE: Imaging Protocol: Axial computed tomography images with coronal and sagittal reformatted images were created and reviewed COMPARISON: CT CT BRAIN CTA from 07/29/2020 FINDINGS: Ventricles and Extra axial spaces: Normal in size and morphology for the patient's age. Hemorrhage: None. Cerebral parenchyma: Normal. Midline shift: None. Brainstem/Cerebellum: Normal. Calvarium: Normal. Visualized Paranasal sinuses/Mastoids: Clear. Soft Tissues: Unremarkable. IMPRESSION: No acute intracranial process. RADIATION DOSE DELIVERED: 749.61mGy.cm Total DLP DATA REPOSITORY: All CT scans at this facility are submitted to the National Radiology Data Registry (NRDR) Dose Index Registry (DIR) with the [employer] ([employer]). RADIATION OPTIMIZATION: All CT scans at this facility use at least one of these dose optimization te chniques: automated exposure control; mA and/or kV adjustment per patient size (includes targeted exa ms where dose is matched to clinical indication); or iterative reconstruction.
--- NOTE | 2021-02-05 12:15 | DI.CT_ITS ---
Exam(s) CT CHEST PE CTA EXAM: CT CHEST PE CTA CLINICAL HISTORY: L sided chest pain, sob, r/o PE. TECHNIQUE: Imaging Protocol: Axial CT angiography was performed with multi-slice acquisition and mu lti-planar and/or 3D reconstructions. CONTRAST MATERIAL: Intravenous: Omnipaque 350 Contrast volume:63 cc COMPARISON: CT CT BRAIN CTA from 07/29/[address] BRAIN NECK CTA from 02/05/2021 FINDINGS: Pulmonary Arteries: No evidence of filling defect to suggest pulmonary emboli. Tracheobronchial tree: Patent where visualized. Mediastinum and Jyoti: No dominant adenopathy or fluid collection. Pulmonary parenchyma: No consolidation or dominant measurable mass. Limited evaluation due to S expi ratory changes and mild motion at the lung bases. Pleura: No effusion or pneumothorax. Heart: The heart is not dilated. No coronary artery calcifications are seen. Aorta: Thoracic aorta non-dilated. Upper abdomen: Enlarged fatty liver. Status post cholecystectomy. Bones: Rods in the spine. IMPRESSION: No evidence of pulmonary embolism or other acute abnormality.. RADIATION DOSE DELIVERED: 615.47mGy.cm Total DLP DATA REPOSITORY: All CT scans at this facility are submitted to the National Radiology Data Registry (NRDR) Dose Index Registry (DIR) with the [employer] (ACR). RADIATION OPTIMIZATION: All CT scans at this facility use at least one of these dose optimization te chniques: automated exposure control; mA and/or kV adjustment per patient size (includes targeted exa ms where dose is matched to clinical indication); or iterative reconstruction.
--- NOTE | 2021-02-05 12:15 | DI.CT_ITS ---
Exam(s) CT BRAIN NECK CTA EXAM: CT BRAIN NECK CTA CLINICAL HISTORY: posterior headache, r/o acute thrombosis, bleed. TECHNIQUE: Imaging Protocol: Axial CT angiography was performed with multi-slice acquisition and mu lti-planar and/or 3D reconstructions. CONTRAST MATERIAL: Intravenous: Omnipaque 350 Contrast volume:structured data in ml COMPARISON: CT CT BRAIN CTA from 07/29/2020 FINDINGS: CT Head W contrast: Ventricles and Extra axial spaces: Normal in size and morphology for the patient's age. Hemorrhage: None. Cerebral parenchyma: Normal. Midline shift: None. Brainstem/Cerebellum: Normal. Calvarium: Normal. Visualized Paranasal sinuses/Mastoids: Clear. Soft Tissues: Unremarkable. Enhancement: Normal. CTA Brain W: Internal Carotid Arteries: Petrous: Normal. Cavernous: Normal. Cerebral: Normal. Middle Cerebral Arteries: Right: No aneurysm, occlusion or significant stenosis. Left: No aneurysm, occlusion or significant stenosis. Anterior Cerebral Arteries: Right: No aneurysm, occlusion or significant stenosis. Left: No aneurysm, occlusion or significant stenosis. Posterior cerebral Arteries: Right: No aneurysm, occlusion or significant stenosis. Left: No aneurysm, occlusion or significant stenosis. Vertebral Arteries: Right: No aneurysm, occlusion or significant stenosis. Left: No aneurysm, occlusion or significant stenosis. Basilar Artery: No aneurysm, occlusion or significant stenosis. CTA Neck W: Common Carotid: Right: No aneurysm, occlusion or significant stenosis. Left: No aneurysm, occlusion or significant stenosis. External Carotid: Right: No aneurysm, occlusion or significant stenosis. Left: No aneurysm, occlusion or significant stenosis. Internal Carotid: No significant plaque. Right: No aneurysm, occlusion or significant stenosis. Left: No aneurysm, occlusion or significant stenosis. Vertebral Artery: Right: No aneurysm, occlusion or significant stenosis. Left: No aneurysm, occlusion or significant stenosis. Lung Apices: Normal. Bones: Degenerative changes in the cervical spine Soft Tissues: Normal. IMPRESSION: 1. Normal CTA examination of the [place]. 2. Unremarkable CT Head. 3. Normal CTA examination of the neck. RADIATION DOSE DELIVERED: 931.54 mGy.cm Total DLP DATA REPOSITORY: All CT scans at this facility are submitted to the National Radiology Data Registry (NRDR) Dose Index Registry (DIR) with the [employer] (ACR). RADIATION OPTIMIZATION: All CT scans at this facility use at least one of these dose optimization te chniques: automated exposure control; mA and/or kV adjustment per patient size (includes targeted exa ms where dose is matched to clinical indication); or iterative reconstruction.
[2021-02-05 12:43] LABS: Abs Immature Grans 0.05 10^3/uL (0.0-0.06); Absolute Basophil Count 0.08 10^3/uL (0.0-0.2); Absolute Eosinophil Count 0.27 10^3/uL (0.0-0.7); Absolute Lymphocyte Count 2.26 10^3/uL (1.2-3.4); Absolute Monocyte Count 0.46 10^3/uL (0.1-0.8); Absolute Neutrophil Count 4.92 10^3/uL (1.2-6.7); Eosinophils % 3.4; HCT 43.3 % (36.0-46.0); HGB 14.5 g/dL (11.2-15.7); Immature Grans % 0.6; Lymphocytes % 28.1; MCH 29.1 pg (27.0-33.0); MCHC 33.5 % (32.0-36.0); MCV 86.9 fL (80-95); MPV 10.5 fL (8.0-11.0); Monocytes % 5.7; Neutrophils % 61.2; Nucleated RBC 0 %; Platelet Count 190 10^3/uL (130-400); RBC 4.98 10^6/uL (3.93-5.22); RDW 12.9 % (11.7-14.6); RDW-SD 40.1 fL; WBC 8.04 10^3/uL (4.4-10.8)
[2021-02-05 12:53] LABS: Magnesium 2.2 mg/dL (1.8-2.4)
[2021-02-05 13:02] LABS: ALT 118 U/L (14-59); AST 86 U/L (15-37); Albumin 3.9 g/dL (3.4-5.0); Alkaline Phosphatase 84 U/L (46-116); Anion Gap 9.3 mmol/L (3-11); BUN 12 mg/dL (7-18); Bilirubin, Total 0.6 mg/dL (0.2-1.0); CO2 28.7 mmol/L (21.0-32.0); CREATININE 0.8 mg/dL (0.55-1.02); Calcium 9.5 mg/dL (8.5-10.1); Chloride 103 mmol/L (98-107); Glucose 113 mg/dL (74-106); Sodium 141 mmol/L (136-145); Total Protein 7.9 g/dL (6.4-8.2)
[2021-02-05 13:12] LABS: Troponin I < 0.05 ng/mL (<0.06)
[2021-02-05] MEDS: Normal Saline 500 ML IV ×2 (13:12→17:00)
[2021-02-05] MEDS: ACETAMINOPHEN 1,000 MG/100 ML BTL 400 MG IVPB (13:22)
[2021-02-05] MEDS: diazePAM 5 MG TAB PO (13:22)
[2021-02-05] MEDS: Omnipaque 350 MG/ML 100 ML BTL IV (13:40)
[2021-02-05] MEDS: Omnipaque 350 MG/ML 50 ML BTL IJ (13:52)
--- NOTE | 2021-02-05 14:30 | RT.EKG_ITS ---
APPROVED REPORT Exam: Resting ECG Reason for Exam: palpitations Patient Location: E HR:63 bpm ECG Measurements Heart Rate 63 AXIS VA 185 P 48 QRSd 92 QRS 14 QT 434 T 30 QTc 443 Conclusion Sinus rhythm...normal P axis, V-rate 60- 99. Sinus. No STEMI. I have reviewed and interpreted ECG and agree with software generated interpretation.
[2021-02-05] MEDS: Dexamethasone 10 MG/ML VIAL IVP (15:11)
[2021-02-05] MEDS: Ketorolac 30 MG/ML VIAL IVP (15:11)
[2021-02-05 15:51] LABS: Troponin I < 0.05 ng/mL (<0.06)
[2021-02-05] MEDS: diphenhydrAMINE 25 MG CAP 50 MG PO (17:57)
== END 2021-02-05 18:15 | disposition home or self-care (01) ==
PROVIDERS: Emergency Provider Physician Assistant; PCP Nurse Practitioner
DX: R00.2 Palpitations (principal); R51.9 Headache, unspecified; M54.5 Low back pain; R07.89 Other chest pain; T50.B95A Adverse effect of other viral vaccines, initial encounter; E11.9 Type 2 diabetes mellitus without complications; Z79.4 Long term (current) use of insulin
CPT/HCPCS: 36415; 36416; 70496; 70498; 71275; 80053; 82962; 93005; 96361; 96365; 96375; 99285; 70450; 83735; 84484; 85025; 93010; 93225; J0131; J1100; J1885; J3490; Q9967

== ENCOUNTER 2021-02-05 16:44 | Outpatient (RCR) | payer MEDICARE, MEDICAID, SELFPAY ==
--- NOTE | 2021-02-05 17:00 | HOLTER_ITS ---
APPROVED REPORT Conclusion This is a 48-hour Holter monitor ordered for symptoms of palpitations Rhythm throughout was sinus with an average heart rate of 76. Minimum was 53, maximum 118 There were rare atrial and ventricular ectopic beats There was no atrial fibrillation, no high-grade AV block, no pauses greater than 3 seconds The majority of patient's symptoms corresponded to sinus rhythm, rarely to isolated PVCs
== END 2021-03-05 23:59 | disposition home or self-care (01) ==
LOC: RT 16:44
PROVIDERS: PCP Nurse Practitioner; Visit Provider Physician Assistant
DX: R00.2 Palpitations (principal)
CPT/HCPCS: 93227; 93225; 93226

== ENCOUNTER 2021-02-18 13:45 | Outpatient (REF) | payer MEDICARE, MEDICAID, SELFPAY ==
[2021-02-18 13:18] LABS: ESR 14 mm/hr (0-30)
[2021-02-18 13:34] LABS: Hemoglobin A1C 6.9 % (<5.7)
[2021-02-18 14:07] LABS: COMMENT (LAB VIEW ONLY) 98.98 mg/dL; Microalb ug/mg Crea 9.7 ug/mg Cr
== END 2021-02-18 13:46 | disposition home or self-care (01) ==
LOC: LBN 13:45
PROVIDERS: PCP Family Medicine; Visit Provider Family Medicine
DX: E11.9 Type 2 diabetes mellitus without complications; M54.2 Cervicalgia; R51.9 Headache, unspecified
CPT/HCPCS: 85652; 82043; 82570; 83036

== ENCOUNTER 2021-03-24 15:28 | Outpatient (REF) | payer MEDICARE, MEDICAID, SELFPAY | END 2021-03-24 15:29 | disposition home or self-care (01) | LOC: LBN 15:28 | PROVIDERS: PCP Family Medicine; Visit Provider Nurse Practitioner Family | DX: R30.0 Dysuria (principal) | CPT/HCPCS: 87086 ==

== ENCOUNTER 2021-03-31 00:40 | Outpatient (CLI) | payer MEDICARE, MEDICAID, SELFPAY ==
--- NOTE | 2021-03-31 08:00 | DI.MAMMO_ITS ---
Exam(s) MAMMO SCREENING EXAM: MAMMO SCREENING CLINICAL HISTORY: screening TECHNIQUE: Mammograms were interpreted according to the usual protocol including computer analysis w [employer] CAD system, tomosynthesis and C-view imaging. COMPARISON: 2011 through 2019 FINDINGS: The breasts are composed of scattered fibroglandular densities, Breast Density category B. No suspicious masses or suspicious microcalcifications are seen. No skin thickening or abnormal axillary lymph nodes are seen. There has been no significant change from prior exams. IMPRESSION: BI-RADS Category 1, Negative mammogram Yearly screening mammography is recommended. Breast Density - Category B, scattered fibroglandular densities. A negative radiographic report should not delay biopsy if a dominant or clinically suspicious mass is present. Up to ten percent of cancers are not identified on mammography. A negative report may reinforce clinical impression. Adenosis and dense breasts may obscure an underlying neoplasm. False positive reports average 6 to 10%. Patient will receive a letter notifying them of these results.
[2021-03-31 09:01] LABS: CREATININE 0.8 mg/dL (0.55-1.02)
== END 2021-03-31 01:00 ==
PROVIDERS: Nurse Practitioner Family; PCP Family Medicine; Visit Provider Nurse Practitioner Family
DX: Z12.31 Encounter for screening mammogram for malignant neoplasm of breast (principal); Z01.812 Encounter for preprocedural laboratory examination
CPT/HCPCS: 77063; 77067; 82565

== ENCOUNTER 2021-03-31 00:43 | Outpatient (CLI) | payer MEDICARE, MEDICAID, SELFPAY ==
[2021-03-31] MEDS: Breeza Beverage 473 ML BTL PO (08:57)
[2021-03-31] MEDS: Omnipaque 350 MG/ML 50 ML BTL PO (08:58)
[2021-03-31] MEDS: Normal Saline - Diluent 50 ML VIAL IV (09:27)
[2021-03-31] MEDS: Omnipaque 350 MG/ML 100 ML BTL IJ (09:30)
--- NOTE | 2021-03-31 09:31 | DI.CT_ITS ---
Exam(s) CT ABDOMEN PELVIS W EXAM: CT ABDOMEN PELVIS W CLINICAL HISTORY: RLQ AND LLQ PAIN,R10.31,R10.32. TECHNIQUE: Imaging Protocol: Axial computed tomography images with coronal and sagittal reformatted images were created and reviewed CONTRAST MATERIAL: Intravenous: Omnipaque 350 Contrast volume:100 ml Oral: yes / no COMPARISON: CT CT renal colic wo from 10/05/[address] renal colic wo from 10/05/[address] CHEST PE CTA from 02/05/2021 FINDINGS: ABDOMEN: Lung Bases: Normal where visualized. Liver: Enlarged fatty liver. No measurable mass. Gallbladder and biliary tract: Status post cholecystectomy. No radiodense calculus or dilation. Pancreas: Normal density, no abnormal calcifications or inflammatory process. Spleen: Normal. Kidneys: Normal size, contour and axis. Nonobstructing stone lower pole right kidney. No obstructiv e uropathy. No masses seen. Adrenal glands: No masses seen. Abdominal Aorta: Abdominal portion non-dilated. Soft tissues: Stable midline fatty containing her hernia adjacent to the umbilicus. PELVIS: Bladder: No gross wall thickening. No calculi.No focal mass. Bowel: Few scattered diverticula are noted. No obstruction or bowel wall thickening. Appendix normal . Moderate quantity of stool. Peritoneal cavity: No ascites, collection or mesenteric inflammatory response. Bones: Scoliosis. Spinal rods. Reproductive organs: Within normal limits. Lymph nodes: Unremarkable. Impression: Nonobstructing stone lower pole right kidney. Fatty containing umbilical hernia. No acute abnormalit y. RADIATION DOSE DELIVERED: 1,501.06mGy.cm Total DLP DATA REPOSITORY: All CT scans at this facility are submitted to the National Radiology Data Registry (NRDR) Dose Index Registry (DIR) with the [employer] (ACR). RADIATION OPTIMIZATION: All CT scans at this facility use at least one of these dose optimization te chniques: automated exposure control; mA and/or kV adjustment per patient size (includes targeted exa ms where dose is matched to clinical indication); or iterative reconstruction.
== END 2021-03-31 01:03 ==
PROVIDERS: PCP Family Medicine; Visit Provider Nurse Practitioner Family
DX: R10.31 Right lower quadrant pain (principal); R10.32 Left lower quadrant pain; N20.0 Calculus of kidney; K42.9 Umbilical hernia without obstruction or gangrene
CPT/HCPCS: 74177; J3490; Q9967

== ENCOUNTER 2021-04-08 00:47 | Outpatient (CLI) | payer MEDICARE, MEDICAID, SELFPAY ==
--- NOTE | 2021-04-08 07:00 | DI.US_ITS ---
Exam(s) US PELVIS TRANSVAGINAL EXAM: US PELVIS TRANSVAGINAL CLINICAL HISTORY: left lower quad pain,R10.32 TECHNIQUE: Ultrasound of the pelvis was performed both transabdominal and transvaginal. COMPARISON: US US HERNIA from 01/07/[address] ABDOMEN PELVIS W from 03/31/[address] ABDOMEN PELVIS W from 03/31/2021 FINDINGS: UTERUS: Anteverted Measures 7.3 cm length x 4.2 cm AP x 4.8 cm wide. There are no uterine fibroids. Endometrial thickness measures 4 mm. There is no fluid in the endometrial canal. CERVIX: There are few nabothian cysts noted. RIGHT OVARY: Measures 2.9 x 2.7 x 2.2 cm No significant cysts nor masses evident in the right ovary. LEFT OVARY: Measures 0.3 x 1.7 x 1.2 cm No significant cysts nor masses evident in the left ovary. CUL-DE-SAC: No free fluid evident. IMPRESSION: 1. Normal appearing uterus and age-appropriate endometrium. 2. No abnormal ovarian findings. 3. No free fluid evident in the adnexal regions and cul-de-sac. DATA REPOSITORY:
== END 2021-04-08 01:07 ==
PROVIDERS: PCP Family Medicine; Visit Provider Nurse Practitioner Family
DX: R10.32 Left lower quadrant pain (principal)
CPT/HCPCS: 76830; 76856

== ENCOUNTER 2021-05-20 01:23 | Outpatient (CLI) | payer MEDICARE, MEDICAID, SELFPAY ==
[2021-05-20 14:38] LABS: Anion Gap 5.8 mmol/L (3-11); BUN 16 mg/dL (7-18); CO2 31.2 mmol/L (21.0-32.0); CREATININE 0.7 mg/dL (0.55-1.02); Calcium 8.9 mg/dL (8.5-10.1); Chloride 104 mmol/L (98-107); Glucose 88 mg/dL (74-106); Potassium 4.2 mmol/L (3.5-5.1); Sodium 141 mmol/L (136-145)
[2021-05-20 14:42] LABS: Hemoglobin A1C 6.3 % (<5.7)
[2021-05-21 00:46] LABS: Vitamin D 25 Total 49.6 ng/mL (30-100)
== END 2021-05-20 01:24 | disposition home or self-care (01) ==
LOC: LBO 01:23
PROVIDERS: PCP Family Medicine; Visit Provider Family Medicine
DX: E11.9 Type 2 diabetes mellitus without complications (principal); E66.01 Morbid (severe) obesity due to excess calories
CPT/HCPCS: 36415; 80048; 82306; 83036

== ENCOUNTER 2021-05-27 15:38 | Outpatient (REF) | payer MEDICARE, MEDICAID, SELFPAY | END 2021-05-27 15:39 | disposition home or self-care (01) | LOC: LBN 15:38 | PROVIDERS: PCP Family Medicine; Visit Provider Family Medicine | DX: N76.0 Acute vaginitis (principal) | CPT/HCPCS: 87480; 87510; 87660 ==

== ENCOUNTER 2021-07-21 18:27 | Emergency (ER) | payer MEDICARE, MEDICAID, SELFPAY ==
[2021-07-21 18:33] VITALS: BP 162/78; PULSE 71; RESP 16; TEMP 36.3; O2SAT 99
--- NOTE | 2021-07-21 18:52 | ED.GENADUL_ITS ---
Discharge Plan Disposition Patient Disposition: HOME Condition: Good Discharge Details Clinical Impression: Abdominal pain, Rectal bleeding Primary Care Provider: Debbi Monge ED Provider: Amado Pinto Meds and New Rx's Prescriptions: Continued Lantus Solostar U-100 Insulin 100 unit/mL (3 mL) insulin pen 60 unit subcut DAILY Qty: 45 4RF Rx Instructions: DX: E11.9 lorazepam 0.5 mg tablet 0.5 mg PO BID PRN (Reason: anxiety) Qty: 10 0RF aspirin 81 mg tablet,delayed release (DR/EC) 81 mg PO DAILY Qty: 90 3RF triamcinolone acetonide 0.1 % cream 1 applic topical DAILY Qty: 80 0RF (DME) pen needle, diabetic [BD Ultra-Fine Mini Pen Needle] 31 gauge x 3/16 needle See Rx Instructions .ROUTE .MEDSUPPLY Qty: 100 5RF Rx Instructions: One daily citalopram 20 mg tablet 20 mg PO DAILY Qty: 90 4RF albuterol sulfate [ProAir HFA] 90 mcg/actuation HFA aerosol inhaler 2 puff IH Q6H PRN (Reason: shortness of breath or wheezing) Qty: 18 11RF Rx Instructions: please dispence with a spacer/aerochamber clotrimazole [Lotrimin AF (clotrimazole)] 1 % cream 1 applic topical TID Qty: 45 2RF mupirocin 2 % ointment 1 applic topical BID Qty: 15 0RF Rx Instructions: to affected area of ear (DME) Aerochamber MV Spacer See Rx Instructions .ROUTE .MEDSUPPLY Qty: 1 0RF Rx Instructions: As directed Metamucil (sugar) Powder 1 tbsp PO DAILY 0RF Maximum Daily Multivitamin 18-0.4 mg tablet PO 0RF loratadine 10 mg tablet 10 mg PO DAILY PRN (Reason: allergy symptoms) Qty: 90 4RF acetaminophen-codeine 300-15 mg tablet 1 tab PO DAILY PRN (Reason: pain) Qty: 10 0RF (DME) OneTouch Ultra Blue Test Strip Strip See Rx Instructions .ROUTE .MEDSUPPLY Qty: 300 4RF Rx Instructions: One TID cholecalciferol (vitamin D3) 1,250 mcg (50,000 unit) capsule 1,250 mcg PO QMONTH Qty: 20 4RF (DME) lancets [OneTouch Delica Lancets] 30 gauge misc 1 ea Miscellaneous QID Qty: 300 4RF Rx Instructions: One TID Dx: E11.9 (DME) blood-glucose meter [OneTouch UltraMini] Kit See Rx Instructions .ROUTE .MEDSUPPLY Qty: 1 0RF Rx Instructions: As directed nystatin 100,000 unit/gram cream 1 applic TP BID Qty: 120 4RF cyclobenzaprine 5 mg tablet 5 mg PO QHS PRN (Reason: muscle spasm) Qty: 30 2RF verapamil [Calan SR] 120 mg tablet extended release 120 mg PO DAILY Qty: 90 4RF Discharge Instructions Instructions: Rectal Bleeding (ED), Abdominal Pain (ED) Additional Instructions: You were seen for abdominal pain and rectal bleeding. Your stool here was brown with no overt blood present. Your labs and EKG are good. Your CT scan shows no evidence of colitis or diverticulitis. Scan will be over-read tomorrow by our radiologist. Bleeding likely related to the bowel movement and hemorrhoids. Follow up with your PCP or your [facility] GI if continued problems. Return to ED for new/worse pain, persistent bleeding, vomiting, fever, other concerns. Referrals: Debbi Monge MD [Primary Care Provider] - Medical Decision Making <Lidia Quinn DO - Last Filed: 07/21/21 19:59> 1845 -- 61-year-old female with a history of morbid obesity, diabetes, sleep apnea, anxiety, depression, hypertension, hyperlipidemia, ADHD, OCD, TING presents for left lower quadrant abdominal pain for the past 2 days and bright red blood in the toilet with bowel movement today. Blood pressure hypertensive, remainder vitals within normal limits. Patient appears comfortable and nontoxic. She does have left lower quadrant greater than suprapubic greater than right lower quadrant tenderness. Rectal exam noted brown stool which was trace guaiac positive. No obvious hemorrhoids noted on exam. Differential diagnosis includes acute diverticulitis, colitis, internal hemorrhoids. Will place an IV, bolus IV fluids, screening labs, CT abdomen and pelvis and give a dose of IV Tylenol and reassess. 1944 -- Labs hemolyzed. Lab will re-draw. 1999 --Case endorsed to Dr. Pinto to follow-up on labs and imaging and final disposition. Medical Records Medical records reviewed: Yes I reviewed the patient's medical records. <Amado Pinto MD - Last Filed: 07/21/21 21:49> 1845 -- 61-year-old female with a history of morbid obesity, diabetes, sleep apnea, anxiety, depression, hypertension, hyperlipidemia, ADHD, OCD, TING presents for left lower quadrant abdominal pain for the past 2 days and bright red blood in the toilet with bowel movement today. Blood pressure hypertensive, remainder vitals within normal limits. Patient appears comfortable and nontoxic. She does have left lower quadrant greater than suprapubic greater than right lower quadrant tenderness. Rectal exam noted brown stool which was trace guaiac positive. No obvious hemorrhoids noted on exam. Differential diagnosis includes acute diverticulitis, colitis, internal hemorrhoids. Will place an IV, bolus IV fluids, screening labs, CT abdomen and pelvis and give a dose of IV Tylenol and reassess. 1944 -- Labs hemolyzed. Lab will re-draw. 1999 --Case endorsed to Dr. Pinto to follow-up on labs and imaging and final disposition. 21:45 Patient signed out to me pending labs and CT scan. She had presented with LLQ pain and BRBPR. Per Dr. Quinn stool here is brown with no gross blood. Labs are unremarkable. EKG is unchanged. CT scan with some hazy mesentery otherwise unremarkable with no colitis or diverticulitis. Discussed findings with patient. Patient has had LLQ on off for months. Is followed by GI at [facility]. Refer back to PCP and/or GI. Return if new/worse pain, fever, persistent bleeding, other concerns. Imaging Data Radiologic Study: Imaging: CT Scan Radiologist's impression: IMPRESSION: Findings of nubia mesentery, nonspecific. This can be related to idiopathic change. Vasculitis or possible lymphoma are considerations. Thank you for allowing us to participate in the care of your patient. Dictated and Authenticated by: Sondra Rodríguez MD Lab Data Lab results reviewed: Yes I reviewed the patient's lab results. ECG Data Attestation: I personally reviewed and interpreted this ECG (s) as follows: Prior ECG tracings: available for review Interpretation: see EKG HPI <Lidia Gabe Maurofarhad, DO - Last Filed: 07/21/21 19:59> General Date/Time Provider Initiated Documentation: 07/21/21 18:36 . Related Data Home Medications Medication Instructions Recorded Confirmed loratadine 10 mg tablet 10 mg PO DAILY PRN #90 tab 01/10/20 07/21/21 acetaminophen 300 mg-codeine 15 mg 1 tab PO DAILY PRN #10 tab 06/20/20 07/21/21 tablet pen needle, diabetic 31 gauge x #100 each 07/31/20 05/27/21 3/16 (BD Ultra-Fine Mini Pen Needle) blood sugar diagnostic (OneTouch #300 each 09/04/20 05/27/21 Ultra Blue Test Strip) cholecalciferol (vitamin D3) 1,250 1,250 mcg PO QMONTH #20 cap 09/04/20 07/21/21 mcg (50,000 unit) capsule lancets 30 gauge (OneTouch Delica #300 each 09/04/20 05/27/21 Lancets) blood-glucose meter (OneTouch #1 ea 09/05/20 05/27/21 UltraMini) nystatin 100,000 unit/gram topical 1 applic TP BID #120 g 10/28/20 07/21/21 cream citalopram 20 mg tablet 20 mg PO DAILY #90 tab 01/06/21 07/21/21 insulin glargine 100 unit/mL (3 60 unit (0.6 mL) SUBCUT DAILY #45 01/09/21 07/21/21 mL) subcutaneous pen (Lantus ml Solostar U-100 Insulin) lorazepam 0.5 mg tablet 0.5 mg PO BID PRN #10 tab 02/11/21 07/21/21 cyclobenzaprine 5 mg tablet 5 mg PO QHS PRN #30 tab 02/18/21 07/21/21 albuterol sulfate 90 mcg/actuation 2 puff IH Q6H PRN #18 gm 03/10/21 07/21/21 aerosol inhaler (ProAir HFA) clotrimazole 1 % topical cream 1 applic TOPICAL TID #45 g 03/10/21 07/21/21 (Lotrimin AF (clotrimazole)) inhalational spacing device #1 ea 03/10/21 05/27/21 (Aerochamber MV) mupirocin 2 % topical ointment 1 applic TOPICAL BID #15 g 03/10/21 07/21/21 edovigglmnkg-Lw-nekz-minerals 18 tab PO 04/06/21 05/27/21 mg-0.4 mg tablet (Maximum Daily Multivitamin) psyllium seed (sugar) oral powder 1 tbsp PO DAILY 04/06/21 07/21/21 (Metamucil (sugar)) triamcinolone acetonide 0.1 % 1 applic TOPICAL DAILY #80 g 04/13/21 07/21/21 topical cream verapamil 120 mg tablet,extended 120 mg PO DAILY #90 tab 05/26/21 07/21/21 release (Calan SR) aspirin 81 mg tablet,delayed 81 mg PO DAILY #90 tab 05/27/21 07/21/21 release Previous Rx's Medication Instructions Recorded loratadine 10 mg tablet 10 mg PO DAILY PRN #90 tab 01/10/20 acetaminophen 300 mg-codeine 15 mg 1 tab PO DAILY PRN #10 tab 06/20/20 tablet pen needle, diabetic 31 gauge x #100 each 07/31/2008/19 (BD Ultra-Fine Mini Pen Needle) blood sugar diagnostic (OneTouch #300 each 09/04/20 Ultra Blue Test Strip) cholecalciferol (vitamin D3) 1,250 1,250 mcg PO QMONTH #20 cap 09/04/20 mcg (50,000 unit) capsule lancets 30 gauge (OneTouch Delica #300 each 09/04/20 Lancets) blood-glucose meter (OneTouch #1 ea 09/05/20 UltraMini) nystatin 100,000 unit/gram topical 1 applic TP BID #120 g 10/28/20 cream citalopram 20 mg tablet 20 mg PO DAILY #90 tab 01/06/21 insulin glargine 100 unit/mL (3 60 unit (0.6 mL) SUBCUT DAILY #45 01/09/21 mL) subcutaneous pen (Lantus ml Solostar U-100 Insulin) lorazepam 0.5 mg tablet 0.5 mg PO BID PRN #10 tab 02/11/21 cyclobenzaprine 5 mg tablet 5 mg PO QHS PRN #30 tab 02/18/21 albuterol sulfate 90 mcg/actuation 2 puff IH Q6H PRN #18 gm 03/10/21 aerosol inhaler (ProAir HFA) clotrimazole 1 % topical cream 1 applic TOPICAL TID #45 g 03/10/21 (Lotrimin AF (clotrimazole)) inhalational spacing device #1 ea 03/10/21 (Aerochamber MV) mupirocin 2 % topical ointment 1 applic TOPICAL BID #15 g 03/10/21 triamcinolone acetonide 0.1 % 1 applic TOPICAL DAILY #80 g 04/13/21 topical cream verapamil 120 mg tablet,extended 120 mg PO DAILY #90 tab 05/26/21 release (Calan SR) aspirin 81 mg tablet,delayed 81 mg PO DAILY #90 tab 05/27/21 release Allergies Allergy/AdvReac Type Severity Reaction Status Date / Time amoxicillin Allergy Severe Affects Verified 07/21/21 18:39 kidney FXN per pt. dapsone Allergy Severe Anaphylaxsi Verified 07/21/21 18:39 s lisinopril Allergy Severe Verified 07/21/21 18:39 metformin Allergy Severe INTERACTION Verified 07/21/21 18:39 S Pertussis Vaccines Allergy Severe kidney Verified 07/21/21 18:39 problems clindamycin Allergy Mild SWELLING Verified 07/21/21 18:39 OF THE THROAT latex Allergy Mild RASH Verified 07/21/21 18:39 paroxetine Allergy Unknown Verified 07/21/21 18:39 Sulfa (Sulfonamide Allergy Unknown Verified 07/21/21 18:39 Antibiotics) adhesive AdvReac Mild Itching Verified 07/21/21 18:39 fluconazole AdvReac Mild HEADACHE Verified 07/21/21 18:39 tdap Allergy Intermediate PT Uncoded 07/21/21 18:39 REPORTED metal AdvReac Unknown staph Uncoded 07/21/21 18:39 infection General Stated Complaint: GI Bleed SALMA: 2 Review of Systems <Lidia Quinn DO - Last Filed: 07/21/21 19:59> All systems reviewed & are unremarkable except as noted in HPI and below Constitutional Constitutional: Denies chills, Denies excessive sweating, Denies fatigue, Denies fever(s), Denies weakness and Denies weight loss Eyes Eyes: Reports system reviewed and no additional complaints, except as documented and Denies blurry vision ENT Ears, Nose, Mouth, and Throat: Denies vertigo, Denies dizziness, Denies otalgia, Denies nasal congestion, Denies sore throat and Denies throat swelling Cardiovascular Cardiovascular: Denies chest pain, Denies syncope, Denies rapid heart rate and Denies dyspnea Respiratory Respiratory: Denies chest congestion, Denies cough, Denies pain on inspiration and Denies dyspnea Gastrointestinal Gastrointestinal: Reports abdominal pain, Denies diarrhea, Denies vomiting and Reports other (bright red blood in toilet) Genitourinary Genitourinary: Denies hematuria, Denies dysuria and Denies flank pain Musculoskeletal Musculoskeletal: Denies back pain and Denies joint swelling Integumentary/Breasts Skin/Breast: Denies lesions and Denies rash Neurologic Neurologic: Denies behavioral changes, Denies confusion, Denies vertigo, Denies dizziness, Denies syncope, Denies localized weakness and Denies weakness Psychiatric Psychiatric: Denies behavioral changes, Denies confusion and Denies depression Endocrine Endocrine: Denies excessive sweating and Denies fatigue Hematologic/Lymphatic Hematologic/Lymphatic: Denies easy bruising and Denies lymphadenopathy Allergic/Immunologic Allergic/Immunologic: Denies throat swelling PFSH <Lidia Quinn, - Last Filed: 07/21/21 19:59> All Active Problems (Updated 07/21/21 @ 21:30 by Amado Pinto MD) Abdominal pain (Acute) Rectal bleeding (Acute) Absence of left dorsalis pedis artery pulse (Acute) Diabetic peripheral neuropathy (Acute) Hypertension (Chronic) Diabetic retinopathy (Chronic) 06/14/18; JOLEEN MILD B/L-KB Diabetes mellitus (Chronic 09/01/12) Obstructive sleep apnea syndrome (Chronic 06/05/07) with CPAP Obsessive compulsive disorder (Chronic) Non-alcoholic fatty liver disease (Chronic) Morbid obesity due to excess calories (Chronic) Hyperlipidemia (Chronic) Generalized osteoarthrosis (Chronic) Depressive disorder (Chronic) Chronic pain of both knees (Chronic 07/15/16) after bilateral patellar fractures from fall on ice. 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 Davis vascular surg. SMA & NAINA patent. 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 Functional diarrhea History of subarachnoid hemorrhage Idiopathic scoliosis Rubio sergio-age 13 Knee osteonecrosis, left (11/08/16) Left carpal tunnel syndrome Lumbar disc prolapse with root compression Renal failure autoimmune - resolved Restless legs (06/05/07) Social anxiety disorder (11/25/17) Spinal stenosis with Cauda equina syndrome; surgery at [facility] Subarachnoid hemorrhage 2019, tx at [facility], small per report Thrombosis of arteries of lower extremity Tubular adenoma of colon (~08/2020) at [facility] Umbilical hernia without obstruction or gangrene Uveitis sees Dr Alcaraz Surgical History History of bilateral ligation of fallopian tubes History of section History of esophagogastroduodenoscopy History of spinal fusion S/P ureteral stent placement For impacted ureteral stone Spinal Fusion (~1974) T4-L3 FOR SEVERE SCOLIOSIS Status post cholecystectomy Status post laminectomy Family History Sister No problems noted. Sister No problems noted. Paternal Grandmother No problems noted. Social History (Updated 05/27/21 @ 16:15 by Minda Childress) Smoking/Tobacco Use Status: Never Second Hand Exposure: Yes Smoking risk assessment performed?: Yes Alcohol Intake: current Alcohol Intake frequency: a few times a month Alcohol type: beer and wine Drug use: Never Substance use type: does not use Caregiver/Support person: No Household members: none Housing: apartment Communication Needs: Hard of Hearing Pets and animals: No Sexually active: No Do you think of yourself as: straight/heterosexual Current gender identity: female What is your relationship status?: How often do you talk on the phone with friends or family?: three or more times per week How often do you get together with friends or relatives?: twice per week How often do you attend episcopalian or anabaptism services?: decline to answer Do you belong to any clubs or organized social groups?: no Panel score (0-1 are the most socially isolated patients): 1 What type of physical activity do you participate in: walking Duration: 45-60 minutes/day Frequency: 5-6 times per week Claudette/Caodaism: No preference Special claudette needs: No Seatbelt use: always 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 Do you feel safe at home: Yes Exam <Lidia Quinn DO - Last Filed: 07/21/21 19:59> Const General: cooperative and healthy appearing Orientation: alert, awake and oriented x3 HENMT Head: normal to inspection Ears: hearing grossly normal bilaterally, external ears normal and TM's normal bilaterally General nose exam: external nose normal Face and sinus: normal facial exam Mouth: oral mucosae normal Teeth and gingiva: dentition normal Throat: posterior oropharynx normal Eyes General: appearance normal, both eyes and all related structures Eyelids: eyelids normal Pupils: PERRL EOM: EOM intact bilaterally Neck Neck: normal visual inspection Lymphatic: no lymphadenopathy noted Chest Chest: normal inspection of the chest Resp Effort & Inspection: normal respiratory effort and able to speak in complete sentences Auscultation: clear to auscultation bilaterally Cardio Rate: regular rate Rhythm: regular rhythm GI Inspection: normal to inspection and obesity Palpation: soft, not firm, no guarding, no hepatosplenomegaly, no masses and nontender Auscultation: normal bowel sounds Skin General skin exam: no rashes or lesions noted Neuro General: patient alert, patient awake and patient oriented x3 Cognition: normal cognition Speech: speech normal Gait: normal gait Motor: muscle tone normal throughout Sensory Exam: no sensory deficits noted Extrem General: normal to inspection, full ROM and capillary refill normal Psych Appearance: grossly normal Mental Status: mental status grossly normal Speech and Movement: speech and movement normal Affect: normal affect Thought Process: normal Course <Lidia Quinn DO - Last Filed: 07/21/21 19:59> Vital Signs Vital signs: Vital Signs Temperature 97.3 F L 07/21/21 18:33 Pulse 71 07/21/21 18:33 Respiratory Rate 16 07/21/21 18:33 Blood Pressure 162/78 H 07/21/21 18:33 Pulse Oximetry 99 07/21/21 18:33 Temperature 97.3 F L 07/21/21 18:33 Temperature Source Skin 07/21/21 18:33 Pulse 71 07/21/21 18:33 Respiratory Rate 16 07/21/21 18:33 Respiratory Effort 07/21/21 18:33 Blood Pressure 162/78 H 07/21/21 18:33 Blood Pressure Position Supine 07/21/21 18:33 Pulse Oximetry 99 07/21/21 18:33 Oxygen Delivery Method Room Air 07/21/21 18:33 Oxygen Flow Rate 0 07/21/21 18:33 Pain Level 4 07/21/21 18:33 Sign Out <Lidia Quinn DO - Last Filed: 07/21/21 19:59> Sign Out Data: Sign Out Comment: Follow-up on labs and imaging and final disposition. Last updated by Lidia Quinn DO at 07/21/21 20:00
[2021-07-21 18:55] LABS: Bilirubin Negative (Negative); Blood Trace-intact (Negative); Clarity Clear (Clear); Glucose Negative (Negative); Ketones Negative (Negative); Leukocyte Esterase Negative (Negative); Nitrite Negative (Negative); Specific Gravity 1.025 (1.005-1.025); Urobilinogen 0.2 EU/dL (Up TO 0.2); pH 5.5 (5-8)
[2021-07-21 19:05] LABS: Bacteria Negative HPF (Negative); C & S Indicated? Yes; Casts Negative LPF (Negative); Crystals Negative HPF (Negative); Epithelial Cells Rare HPF (Negative); Mucus Negative (Negative); Other Cells Negative (Negative); RBC 0-2 HPF (0-2)
--- NOTE | 2021-07-21 19:15 | DI.CT_ITS ---
Exam(s) CT ABDOMEN PELVIS W EXAM: CT ABDOMEN PELVIS W CLINICAL HISTORY: LLQ abd pain/rectal bleeding,r/o diverticulitis TECHNIQUE: Imaging Protocol: Axial computed tomography images with coronal and sagittal reformatted images were created and reviewed CONTRAST MATERIAL: Intravenous: Omnipaque 350 Contrast volume:98 mL Oral: No COMPARISON: CT CT renal colic wo from 10/05/[address] ABDOMEN PELVIS W from 06/24/[address] ABDOMEN PELVIS W from 03/31/2021 FINDINGS: ABDOMEN: Lung Bases: Normal where visualized. Liver: There is diffuse decreased attenuation of the liver consistent with fatty infiltration. The l iver measures 20 cm long. No measurable mass. Portal, Superior Mesenteric, and Splenic Veins: Unremarkable. Gallbladder and Biliary Tract: Status post cholecystectomy. No biliary ductal dilatation. Pancreas: Normal density, no abnormal calcifications or inflammatory process. Spleen: Normal. Adrenals: No masses seen. Kidneys: Normal size, contour and axis. There is a 0.8 cm nonobstructing stone in the midpole of the right kidney. There is a stable 0.7 cm cyst in the upper pole of the right kidney. No follow-up is recommended. Abdominal Aorta: Abdominal portion non-dilated. Atherosclerosis. Bowel: No obstruction or bowel wall thickening. No evidence of appendicitis. There is a redundant si gmoid colon. There are few scattered diverticula in the colon but no evidence of acute diverticuliti s. Peritoneal Cavity: No ascites. There is again seen mild increased attenuation in the mesentery with mildly prominent lymph nodes which appears stable. No free air. Lymph Nodes: There has been no change in the mildly prominent lymph nodes in the mesentery. Bones: Within normal limits for the patient's age. Postsurgical changes are seen in the lumbar spine . There is a left convex scoliosis of the lumbar spine. Rubio rods are seen in the lower thora cic and lumbar spine. Soft Tissues: There is a fat containing paraumbilical hernia. It contains an small knuckle of sigmoi d colon. But no evidence of obstruction or inflammation of the colon is seen. PELVIS: Bladder: Symmetric distention, no gross wall thickening. Reproductive Organs: Unremarkable as visualized. Lymph Nodes: Within normal limits. Bones: Within normal limits for the patient's age. IMPRESSION: Ground-glass appearance of the mesentery with mildly prominent lymph nodes are again seen. This is a stable appearance compared to prior examinations. A mild mesenteric inflammatory process cannot be entirely excluded. Please correlate clinically. RADIATION DOSE DELIVERED: 1,315.34mGy.cm Total DLP DATA REPOSITORY: All CT scans at this facility are submitted to the National Radiology Data Registry (NRDR) Dose Index Registry (DIR) with the [employer] (ACR). RADIATION OPTIMIZATION: All CT scans at this facility use at least one of these dose optimization te chniques: automated exposure control; mA and/or kV adjustment per patient size (includes targeted exa ms where dose is matched to clinical indication); or iterative reconstruction.
[2021-07-21 19:32] LABS: Abs Immature Grans 0.05 10^3/uL (0.0-0.06); Absolute Basophil Count 0.09 10^3/uL (0.0-0.2); Absolute Eosinophil Count 0.35 10^3/uL (0.0-0.7); Absolute Lymphocyte Count 2.95 10^3/uL (1.2-3.4); Absolute Neutrophil Count 5.58 10^3/uL (1.2-6.7); Basophils % 0.9; Eosinophils % 3.7; HCT 42.6 % (36.0-46.0); HGB 14.1 g/dL (11.2-15.7); Immature Grans % 0.5; MCHC 33.1 % (32.0-36.0); MCV 87.7 fL (80-95); MPV 11.5 fL (8.0-11.0); Monocytes % 5.3; Neutrophils % 58.6; Nucleated RBC 0 %; Platelet Count 152 10^3/uL (130-400); RBC 4.86 10^6/uL (3.93-5.22); RDW-SD 41.3 fL; WBC 9.52 10^3/uL (4.4-10.8)
[2021-07-21] MEDS: Normal Saline 1,000 ML 1000 ML IV (19:33)
[2021-07-21] MEDS: ACETAMINOPHEN 1,000 MG/100 ML BTL 400 MG IVPB (19:33)
[2021-07-21 20:15] LABS: ALT 45 U/L (14-59); AST 24 U/L (15-37); Albumin 3.2 g/dL (3.4-5.0); Alkaline Phosphatase 82 U/L (46-116); Anion Gap 6.3 mmol/L (3-11); BUN 16 mg/dL (7-18); Bilirubin, Total 0.4 mg/dL (0.2-1.0); CO2 28.7 mmol/L (21.0-32.0); CREATININE 0.8 mg/dL (0.55-1.02); Calcium 8.5 mg/dL (8.5-10.1); Chloride 105 mmol/L (98-107); Glucose 123 mg/dL (74-106); Potassium 3.7 mmol/L (3.5-5.1); Sodium 140 mmol/L (136-145); Total Protein 6.7 g/dL (6.4-8.2)
[2021-07-21 20:22] LABS: Lipase 137 U/L (73-393)
[2021-07-21] MEDS: Omnipaque 350 MG/ML 100 ML BTL IJ (20:42)
[2021-07-21] MEDS: Normal Saline Flush 10 ML SYR IVP (20:43)
--- NOTE | 2021-07-21 20:45 | RT.EKG_ITS ---
APPROVED REPORT Exam: Resting ECG Reason for Exam: chest pain Patient Location: E HR:60 bpm ECG Measurements Heart Rate 60 AXIS WY 198 P 54 QRSd 94 QRS 20 QT 438 T 41 QTc 436 Conclusion Sinus rhythm...normal P axis, V-rate 60- 99 I have reviewed and interpreted ECG and agree with software generated interpretation. There are no significant changes compared to prior EKG performed on 02/05/2021 at 15:36.
--- NOTE | 2021-07-21 21:13 | DI.VRAD_ITS ---
PROCEDURE INFORMATION: Exam: CT Abdomen And Pelvis With Contrast Exam date and time: 07/21/2021 7:20 PM Age: 61 years old Clinical indication: Abdominal pain; Localized; Lower; Prior surgery; Surgery date: 6+ months; Surgery type: Cholecystectomy, chiu sergio TECHNIQUE: Imaging protocol: Computed tomography of the abdomen and pelvis with contrast. Radiation optimization: All CT scans at this facility use at least one of these dose optimization techniques: automated exposure control; mA and/or kV adjustment per patient size (includes targeted exams where dose is matched to clinical indication); or iterative reconstruction. Contrast material: OMNIPAQUE 350; Contrast volume: 100 ml; Contrast route: INTRAVENOUS (IV); COMPARISON: CT ABDOMEN PELVIS W 03/31/2021 9:27 AM FINDINGS: Liver: Normal. No mass. Gallbladder and bile ducts: Status post cholecystectomy. Pancreas: Normal. No ductal dilation. Spleen: Normal. No splenomegaly. Adrenal glands: Normal. No mass. Kidneys and ureters: Nonobstructing right renal calculus. Renal perfusion symmetric without hydronephrosis or hydroureter. Stomach and bowel: Unremarkable. No obstruction. No mucosal thickening. Appendix: No evidence of appendicitis. Intraperitoneal space: Unremarkable. No free air. No significant fluid collection. Vasculature: Unremarkable. No abdominal aortic aneurysm. Lymph nodes: There is some soft tissue stranding at the mesenteric root with mild, shotty adenopathy. This is new since prior study. Urinary bladder: Unremarkable as visualized. Reproductive: Unremarkable as visualized. Bones/joints: Posterior spinal rods again noted with post fusion change at the thoracolumbar level. Levoscoliosis again seen. Soft tissues: Unremarkable. IMPRESSION: Findings of nubia mesentery, nonspecific. This can be related to idiopathic change. Vasculitis or possible lymphoma are considerations. Dictated and Authenticated by: Sondra Rodríguez MD. Ordering:MENDOZA Murillo MD
== END 2021-07-21 22:01 | disposition home or self-care (01) ==
PROVIDERS: Physician Assistant; Emergency Provider Emergency Medicine; PCP Family Medicine
DX: R10.32 Left lower quadrant pain (principal); K62.5 Hemorrhage of anus and rectum; R07.9 Chest pain, unspecified; I10 Essential (primary) hypertension; R10.31 Right lower quadrant pain
CPT/HCPCS: 36415; 80053; 83690; 93005; 96361; 96374; 99285; 74177; 81003; 81015; 85025; 87086; 93010; 99284; J0131; J3490

== ENCOUNTER 2021-08-30 13:40 | Emergency (ER) | payer MEDICARE, MEDICAID, SELFPAY ==
[2021-08-30 13:49] VITALS: BP 134/65; PULSE 65; RESP 14; TEMP 36.7; O2SAT 99
--- NOTE | 2021-08-30 14:15 | DI.CT_ITS ---
Exam(s) CT HEAD WO EXAM: CT HEAD WO CLINICAL HISTORY: headache. TECHNIQUE: Imaging Protocol: Axial computed tomography images with coronal and sagittal reformatted images were created and reviewed COMPARISON: CT CT BRAIN NECK CTA from 02/05/[address] HEAD WO from 02/05/2021 FINDINGS: Ventricles and Extra axial spaces: Normal in size and morphology for the patient's age. Hemorrhage: None. Cerebral parenchyma: Normal. Midline shift: None. Brainstem/Cerebellum: Normal. Calvarium: Normal. Visualized Paranasal sinuses/Mastoids: Mild mucosal thickening ethmoids. Soft Tissues: Unremarkable. IMPRESSION: No acute intracranial process. RADIATION DOSE DELIVERED: 738.82mGy.cm Total DLP DATA REPOSITORY: All CT scans at this facility are submitted to the National Radiology Data Registry (NRDR) Dose Index Registry (DIR) with the [employer] (ACR). RADIATION OPTIMIZATION: All CT scans at this facility use at least one of these dose optimization te chniques: automated exposure control; mA and/or kV adjustment per patient size (includes targeted exa ms where dose is matched to clinical indication); or iterative reconstruction.
--- NOTE | 2021-08-30 14:29 | ED.GENADUL_ITS ---
Discharge Plan Disposition Patient Disposition: HOME Condition: Stable Discharge Details Clinical Impression: Headache Primary Care Provider: Debbi Monge ED Provider: Kirstin Holliday Home Meds and New Rx's Prescriptions: New penicillin V potassium 500 mg tablet 500 mg PO TID 7 Days Qty: 21 0RF Rx Instructions: Take with Yogurt or probiotic. Continued Lantus Solostar U-100 Insulin 100 unit/mL (3 mL) insulin pen 60 unit subcut DAILY Qty: 45 4RF Rx Instructions: DX: E11.9 lorazepam 0.5 mg tablet 0.5 mg PO BID PRN (Reason: anxiety) Qty: 10 0RF aspirin 81 mg tablet,delayed release (DR/EC) 81 mg PO DAILY Qty: 90 3RF triamcinolone acetonide 0.1 % cream 1 applic topical DAILY Qty: 80 0RF (DME) pen needle, diabetic [BD Ultra-Fine Mini Pen Needle] 31 gauge x 3/16 needle See Rx Instructions .ROUTE .MEDSUPPLY Qty: 100 5RF Rx Instructions: One daily citalopram 20 mg tablet 20 mg PO DAILY Qty: 90 4RF albuterol sulfate [ProAir HFA] 90 mcg/actuation HFA aerosol inhaler 2 puff IH Q6H PRN (Reason: shortness of breath or wheezing) Qty: 18 11RF Rx Instructions: please dispence with a spacer/aerochamber clotrimazole [Lotrimin AF (clotrimazole)] 1 % cream 1 applic topical TID Qty: 45 2RF mupirocin 2 % ointment 1 applic topical BID Qty: 15 0RF Rx Instructions: to affected area of ear (DME) Aerochamber MV Spacer See Rx Instructions .ROUTE .MEDSUPPLY Qty: 1 0RF Rx Instructions: As directed Metamucil (sugar) Powder 1 tbsp PO DAILY 0RF Maximum Daily Multivitamin 18-0.4 mg tablet PO 0RF triamcinolone acetonide 0.1 % cream 1 applic topical BID Qty: 15 0RF polyethylene glycol 3350 [Miralax] 17 gram/dose powder 17 g PO BID Qty: 238 3RF nystatin 100,000 unit/gram powder 1 applic topical BID Qty: 30 2RF buspirone 5 mg tablet 5 mg PO BID Qty: 30 0RF loratadine 10 mg tablet 10 mg PO DAILY PRN (Reason: allergy symptoms) Qty: 90 4RF (DME) OneTouch Ultra Blue Test Strip Strip See Rx Instructions .ROUTE .MEDSUPPLY Qty: 300 4RF Rx Instructions: One TID cholecalciferol (vitamin D3) 1,250 mcg (50,000 unit) capsule 1,250 mcg PO QMONTH Qty: 20 4RF (DME) lancets [OneTouch Delica Lancets] 30 gauge misc 1 ea Miscellaneous QID Qty: 300 4RF Rx Instructions: One TID Dx: E11.9 (DME) blood-glucose meter [OneTouch UltraMini] Kit See Rx Instructions .ROUTE .MEDSUPPLY Qty: 1 0RF Rx Instructions: As directed cyclobenzaprine 5 mg tablet 5 mg PO QHS PRN (Reason: muscle spasm) Qty: 30 2RF verapamil [Calan SR] 120 mg tablet extended release 120 mg PO DAILY Qty: 90 4RF zinc oxide-white petrolatum Ointment 1 applic topical BID-QID PRN (Reason: skin irritation) Qty: 71 0RF azithromycin 250 mg tablet 250 mg PO DIRECTED 0RF Label Comments: TAKE 2 TABLETS ORALLY ONCE TODAY THEN 1 TABLET DAILY UNTIL GONE Discharge Instructions Instructions: General Headache (ED) Additional Instructions: At this time the CT head without contrast and CTA looking at the vessels is negative for any bleed aneurysms or hemorrhages. Work-up was largely unremarkable. You may take the cyclobenzaprine before bedtime as needed for muscle spasm. Take the antibiotic as directed. Take with yogurt or probiotic. Follow up with primary care provider in 3-5 days. Return to ED sooner if any worsening or concerns. Increase oral fluids. Please take Tylenol with food every 4-6 hours as needed for pain and swelling. Referrals: Debbi Monge MD [Primary Care Provider] - 3 days Discharge Data Discharge Date/Time-TO BE ENTERED AT DEPARTURE: 08/30/21 19:31 Medical Decision Making Patient presenting to the emergency department for chief complaint of right- sided headache. She states that this is been going on for approximately 1 week and been mild to moderate in nature. Patient does state a right lower jaw dental infection that she was started on azithromycin for which has not gotten better. Patient denies fever chills, nuchal rigidity, nausea vomiting abdominal pain. Patient has ongoing right-sided weakness due to spinal stenosis but states unchanged neurological symptoms and beyond headache and dental complaint she is otherwise at her baseline. Physical exam is unremarkable with normal cranial nerve exam, no pronator drift, extremity exams equal bilateral, no acute findings noted. Plan to check labs and CT of head given patient's history of subarachnoid hemorrhage. Will give IV acetaminophen pending results. Of notation was that patient had to be transferred to [facility] for lumbar puncture previously with subarachnoid hemorrhage due to spinal hardware complicating LP. Review of CT scan and radiologist interpretation shows no acute findings. We will plan on performing CTA brain and neck. Patient remains in stable condition. Further discussed with patient dental complaint. Will change pat iebeverley's antibiotic from azithromycin to penicillin as patient states no issues taking penicillin even though listed amoxicillin allergy but she has taken penicillin since that was listed as allergy due to kidney issues and does not have a problem with this. Patient signed out to Kirstin Holliday pending labs and CTA along with reassessment of patient after interventions. 1630: SJ: Care assumed from provider (Paul Guerrero, [employer] please see their initial HPI, PE, and documentation. Discussed patient details and case and pending workup and disposition. Patient is hemodynamically stable, and alert and oriented. At the time of signout awaiting CTA brain and neck rule out subarachnoid hemorrhage. Patient is hemodynamically stable. Patient was given penicillin while here in the department. Plan is to discharge patient on Pen-Vee K if presumed DC home. 1852: CT is unremarkable no stenosis no aneurysm on the V rad read. Discussed results with patient who verbalizes understanding. I did discuss home care she reports some musculoskeletal neck pain that radiates up and around to her head. She does have cyclobenzaprine listed on her med list. I did discuss sending her home with a couple of tablets and cutting them into quarters. Patient reports that she can only take 2.5 mg due to sedation. I did discuss strict return instructions and red flag to return for she verbalized understanding. She has an appointment with [facility] next week. She has been observed for approximately 5 hours here in the department with no neuro deficits. Patient was given cyclobenzaprine tablets to go. All her questions were answered to the best of my abilities. Patient remained hemodynamically stable, alert and oriented throughout the remainder of her stay. This text was generated using [employer] dictation system, please disregard any oddities of phrase or misspellings. Imaging Data Radiologic Study: Imaging: CT Scan Radiologist's impression: CT Head IMPRESSION: 1. No acute findings. 2. No detectable pneumothorax. Given history of pneumothorax, consider expiratory chest x-ray which is more sensitive for detection of pneumothorax. HPI General Mode of arrival: ambulatory (with walker) . Date/Time Provider Initiated Documentation: 08/30/21 13:50 . Limitations to Documentation: no limitations . Information obtained by: patient, RN notes reviewed and old records reviewed . History of Present Illness 61 year old F presents to the emergency department with the chief complaint of right sided headache, described as moderate, with intensity rated at 5. Quality is described as aching, and is localized to the head. Patient neck. Patient started experiencing this week(s) (1) and it has been constant. improves with No relieving factors improve symptom(s), No exacerbating factors reported . Patient notes other (dental pain). Patient did receive the following treatments prior to arrival, none Related Data Home Medications Medication Instructions Recorded Confirmed loratadine 10 mg tablet 10 mg PO DAILY PRN #90 tab 01/10/20 08/30/21 pen needle, diabetic 31 gauge x #100 each 07/31/20 08/17/2108/19 (BD Ultra-Fine Mini Pen Needle) blood sugar diagnostic (OneTouch #300 each 09/04/20 08/17/21 Ultra Blue Test Strip) cholecalciferol (vitamin D3) 1,250 1,250 mcg PO QMONTH #20 cap 09/04/20 08/30/21 mcg (50,000 unit) capsule lancets 30 gauge (OneTouch Delica #300 each 09/04/20 08/17/21 Lancets) blood-glucose meter (OneTouch #1 ea 09/05/20 08/17/21 UltraMini) citalopram 20 mg tablet 20 mg PO DAILY #90 tab 01/06/21 08/30/21 insulin glargine 100 unit/mL (3 60 unit (0.6 mL) SUBCUT DAILY #45 01/09/21 08/30/21 mL) subcutaneous pen (Lantus ml Solostar U-100 Insulin) lorazepam 0.5 mg tablet 0.5 mg PO BID PRN #10 tab 02/11/21 08/30/21 cyclobenzaprine 5 mg tablet 5 mg PO QHS PRN #30 tab 02/18/21 08/30/21 albuterol sulfate 90 mcg/actuation 2 puff IH Q6H PRN #18 gm 03/10/21 08/30/21 aerosol inhaler (ProAir HFA) clotrimazole 1 % topical cream 1 applic TOPICAL TID #45 g 03/10/21 08/30/21 (Lotrimin AF (clotrimazole)) inhalational spacing device #1 ea 03/10/21 08/17/21 (Aerochamber MV) mupirocin 2 % topical ointment 1 applic TOPICAL BID #15 g 03/10/21 08/30/21 [id number]-[id number]-minerals 18 tab PO 04/06/21 08/17/21 mg-0.4 mg tablet (Maximum Daily Multivitamin) psyllium seed (sugar) oral powder 1 tbsp PO DAILY 04/06/21 08/30/21 (Metamucil (sugar)) triamcinolone acetonide 0.1 % 1 applic TOPICAL DAILY #80 g 04/13/21 08/30/21 topical cream verapamil 120 mg tablet,extended 120 mg PO DAILY #90 tab 05/26/21 08/30/21 release (Calan SR) aspirin 81 mg tablet,delayed 81 mg PO DAILY #90 tab 05/27/21 08/30/21 release zinc oxide-white petrolatum 1 applic TOPICAL BID-QID PRN #71 g 07/22/21 08/30/21 topical ointment buspirone 5 mg tablet 5 mg PO BID #30 tab 08/17/21 08/30/21 nystatin 100,000 unit/gram topical 1 applic TOPICAL BID #30 g 08/17/21 08/30/21 powder polyethylene glycol 3350 17 17 g PO BID #238 g 08/17/21 08/30/21 gram/dose oral powder (Miralax) triamcinolone acetonide 0.1 % 1 applic TOPICAL BID #15 g 08/17/21 08/30/21 topical cream azithromycin 250 mg tablet 250 mg PO DIRECTED 08/30/21 08/30/21 penicillin V potassium 500 mg 500 mg PO TID 7 Days #21 tab 08/30/21 tablet Previous Rx's Medication Instructions Recorded loratadine 10 mg tablet 10 mg PO DAILY PRN #90 tab 01/10/20 pen needle, diabetic 31 gauge x #100 each 07/31/2008/19 (BD Ultra-Fine Mini Pen Needle) blood sugar diagnostic (OneTouch #300 each 09/04/20 Ultra Blue Test Strip) cholecalciferol (vitamin D3) 1,250 1,250 mcg PO QMONTH #20 cap 09/04/20 mcg (50,000 unit) capsule lancets 30 gauge (OneTouch Delica #300 each 09/04/20 Lancets) blood-glucose meter (OneTouch #1 ea 09/05/20 UltraMini) citalopram 20 mg tablet 20 mg PO DAILY #90 tab 01/06/21 insulin glargine 100 unit/mL (3 60 unit (0.6 mL) SUBCUT DAILY #45 01/09/21 mL) subcutaneous pen (Lantus ml Solostar U-100 Insulin) lorazepam 0.5 mg tablet 0.5 mg PO BID PRN #10 tab 02/11/21 cyclobenzaprine 5 mg tablet 5 mg PO QHS PRN #30 tab 02/18/21 albuterol sulfate 90 mcg/actuation 2 puff IH Q6H PRN #18 gm 03/10/21 aerosol inhaler (ProAir HFA) clotrimazole 1 % topical cream 1 applic TOPICAL TID #45 g 03/10/21 (Lotrimin AF (clotrimazole)) inhalational spacing device #1 ea 03/10/21 (Aerochamber MV) mupirocin 2 % topical ointment 1 applic TOPICAL BID #15 g 03/10/21 triamcinolone acetonide 0.1 % 1 applic TOPICAL DAILY #80 g 04/13/21 topical cream verapamil 120 mg tablet,extended 120 mg PO DAILY #90 tab 05/26/21 release (Calan SR) aspirin 81 mg tablet,delayed 81 mg PO DAILY #90 tab 05/27/21 release zinc oxide-white petrolatum 1 applic TOPICAL BID-QID PRN #71 g 07/22/21 topical ointment buspirone 5 mg tablet 5 mg PO BID #30 tab 08/17/21 nystatin 100,000 unit/gram topical 1 applic TOPICAL BID #30 g 08/17/21 powder polyethylene glycol 3350 17 17 g PO BID #238 g 08/17/21 gram/dose oral powder (Miralax) triamcinolone acetonide 0.1 % 1 applic TOPICAL BID #15 g 08/17/21 topical cream penicillin V potassium 500 mg 500 mg PO TID 7 Days #21 tab 08/30/21 tablet Allergies Allergy/AdvReac Type Severity Reaction Status Date / Time amoxicillin Allergy Severe Affects Verified 08/30/21 13:57 kidney FXN per pt. dapsone Allergy Severe Anaphylaxsi Verified 08/30/21 13:57 s lisinopril Allergy Severe Verified 08/30/21 13:57 metformin Allergy Severe INTERACTION Verified 08/30/21 13:57 S Pertussis Vaccines Allergy Severe kidney Verified 08/30/21 13:57 problems clindamycin Allergy Mild SWELLING Verified 08/30/21 13:57 OF THE THROAT latex Allergy Mild RASH Verified 08/30/21 13:57 paroxetine Allergy Unknown Verified 08/30/21 13:57 Sulfa (Sulfonamide Allergy Unknown Verified 08/30/21 13:57 Antibiotics) adhesive AdvReac Mild Itching Verified 08/30/21 13:57 fluconazole AdvReac Mild HEADACHE Verified 08/30/21 13:57 tdap Allergy Intermediate PT Uncoded 08/30/21 13:57 REPORTED metal AdvReac Unknown staph Uncoded 08/30/21 13:57 infection General Stated Complaint: Headache SALMA: 2 Review of Systems Constitutional Constitutional: Denies body ache(s), Denies chills, Denies fever(s) and Reports headache(s) Eyes Eyes: Denies change in vision ENT Ears, Nose, Mouth, and Throat: Denies vertigo, Denies dizziness and Reports headache(s) Cardiovascular Cardiovascular: Denies chest pain and Denies syncope Gastrointestinal Gastrointestinal: Reports nausea and Reports vomiting Musculoskeletal Musculoskeletal: Denies abnormal gait Neurologic Neurologic: Reports as per HPI, Denies abnormal speech, Denies abnormal gait, Denies confusion, Denies vertigo, Denies dizziness, Denies syncope, Reports headache(s), Denies lack of coordination and Denies sensory deficit Psychiatric Psychiatric: Denies confusion PFSH All Active Problems (Updated 08/30/21 @ 18:49 by Kirstin Holliday) Headache (Acute) Mass in armpit (Acute) Yeast infection of the skin (Acute) Seborrheic keratosis (Acute) Abdominal pain (Chronic) 06/2020- [facility] GI, 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 Ongoing mesenteric adenitis being followed by [facility]. Absence of left dorsalis pedis artery pulse (Acute) Diabetic peripheral neuropathy (Acute) Hypertension (Chronic) Diabetic retinopathy (Chronic) 06/14/18; JOLEEN MILD B/L-KB Diabetes mellitus (Chronic 09/01/12) Obstructive sleep apnea syndrome (Chronic 06/05/07) with CPAP Obsessive compulsive disorder (Chronic) Non-alcoholic fatty liver disease (Chronic) Morbid obesity due to excess calories (Chronic) Hyperlipidemia (Chronic) Generalized osteoarthrosis (Chronic) Depressive disorder (Chronic) Chronic pain of both knees (Chronic 07/15/16) after bilateral patellar fractures from fall on ice. 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 Davis vascular surg. SMA & NAINA patent. 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 Functional diarrhea History of subarachnoid hemorrhage Idiopathic scoliosis Rubio sergio-age 13 Knee osteonecrosis, left (11/08/16) Left carpal tunnel syndrome Lumbar disc prolapse with root compression Renal failure autoimmune - resolved Restless legs (06/05/07) Social anxiety disorder (11/25/17) Spinal stenosis with Cauda equina syndrome; surgery at [facility] Subarachnoid hemorrhage 2019, tx at [facility], small per report Thrombosis of arteries of lower extremity Tubular adenoma of colon (~08/2020) at [facility] Umbilical hernia without obstruction or gangrene Uveitis sees Dr Alcaraz Surgical History History of bilateral ligation of fallopian tubes History of section History of esophagogastroduodenoscopy History of spinal fusion S/P ureteral stent placement For impacted ureteral stone Spinal Fusion (~1974) T4-L3 FOR SEVERE SCOLIOSIS Status post cholecystectomy Status post laminectomy Family History Sister No problems noted. Sister No problems noted. Paternal Grandmother No problems noted. Social History Smoking/Tobacco Use Status: Never Second Hand Exposure: Yes Smoking risk assessment performed?: Yes Alcohol Intake: current Alcohol Intake frequency: a few times a month Alcohol type: beer and wine Drug use: Never Substance use type: does not use Caregiver/Support person: No Household members: none Housing: apartment Communication Needs: Hard of Hearing Pets and animals: No Sexually active: No Do you think of yourself as: straight/heterosexual Current gender identity: female What is your relationship status?: How often do you talk on the phone with friends or family?: three or more times per week How often do you get together with friends or relatives?: twice per week How often do you attend druze or religion services?: decline to answer Do you belong to any clubs or organized social groups?: no Panel score (0-1 are the most socially isolated patients): 1 What type of physical activity do you participate in: walking Duration: 45-60 minutes/day Frequency: 5-6 times per week Claudette/Muslim: No preference Special claudette needs: No Seatbelt use: always Drive 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: No Do you feel safe at home: Yes Exam Const General: cooperative and no acute distress Orientation: alert, awake and oriented x3 HENMT Head: normal to inspection Ears: hearing grossly normal bilaterally and TM's normal bilaterally Mouth: oral mucosae normal and moist mucous membranes Throat: posterior oropharynx normal Eyes Visual Berg: normal visual berg by confrontation Alignment and Position: alignment normal Periorbital: periorbital findings normal Eyelids: eyelids normal Sclera: sclerae normal Pupils: PERRL EOM: EOM intact bilaterally Neck Neck: normal visual inspection, full ROM, no lymphadenopathy and no meningeal signs Resp Effort & Inspection: normal respiratory effort and able to speak in complete sentences Auscultation: clear to auscultation bilaterally Cardio Rate: regular rate Rhythm: regular rhythm Heart Sounds: S1 normal and S2 normal Neuro General: patient alert, patient awake, patient oriented x3, gait normal, tone normal, moves all extremities, CN's II-XI intact bilaterally and not confused Cognition: normal cognition Speech: speech normal Motor: muscle tone normal throughout, no pronator drift, no movement abnormalities noted and no fasciculations Sensory Exam: no sensory deficits noted Coordination: [id number] test normal, Does not sway with eyes open, rapid alternating movement UE normal and rapid alternating movement LE normal Course Vital Signs Vital signs: Vital Signs Temperature 36.7 C 08/30/21 13:49 Pulse 65 08/30/21 13:49 Respiratory Rate 14 08/30/21 13:49 Blood Pressure 134/65 08/30/21 13:49 Pulse Oximetry 99 08/30/21 13:49 Temperature 36.7 C 08/30/21 13:49 Temperature Source Skin 08/30/21 13:49 Pulse 65 08/30/21 13:49 Respiratory Rate 14 08/30/21 13:49 Respiratory Effort 08/30/21 14:02 Blood Pressure 134/65 08/30/21 13:49 Pulse Oximetry 99 08/30/21 13:49 Oxygen Delivery Method Room Air 08/30/21 13:49 Oxygen Flow Rate 0 08/30/21 13:49 Pain Level 4 08/30/21 14:10 Sign Out Sign Out Data: Sign Out Comment: Patient pending CTA brain and neck along with review of labs and disposition. Plan to have patient start Pen-already VK 500 4 times daily for dental infection and I feel that 5 days is appropriate. Last updated by Paulo Guerrero NP at 08/30/21 16:20
[2021-08-30 15:30] LABS: ESR 12 mm/hr (0-30)
[2021-08-30 15:52] LABS: ALT 53 U/L (14-59); AST 36 U/L (15-37); Albumin 3.6 g/dL (3.4-5.0); Alkaline Phosphatase 74 U/L (46-116); Anion Gap 7.9 mmol/L (3-11); BUN 17 mg/dL (7-18); Bilirubin, Total 0.6 mg/dL (0.2-1.0); CO2 28.1 mmol/L (21.0-32.0); Calcium 8.7 mg/dL (8.5-10.1); Chloride 105 mmol/L (98-107); Estimated GFR 56.37 (mL/min/1.73m2); Glucose 87 mg/dL (74-106); Sodium 141 mmol/L (136-145); Total Protein 7.3 g/dL (6.4-8.2)
--- NOTE | 2021-08-30 15:53 | DI.VRAD_ITS ---
PROCEDURE INFORMATION: Exam: CT Head Without Contrast Exam date and time: 08/30/2021 2:53 PM Age: 61 years old Clinical indication: Patient HX: Headache, history of brain bleed in 2019 TECHNIQUE: Imaging protocol: Computed tomography of the head without contrast. Radiation optimization: All CT scans at this facility use at least one of these dose optimization techniques: automated exposure control; mA and/or kV adjustment per patient size (includes targeted exams where dose is matched to clinical indication); or iterative reconstruction. COMPARISON: CT HEAD WO 02/05/2021 12:59 PM FINDINGS: Brain: Normal. No hemorrhage. Unremarkable white matter. No mass effect. Cerebral ventricles: No ventriculomegaly. Paranasal sinuses: There is minimal mucoperiosteal thickening noted in the right ethmoid air cells. Mastoid air cells: Visualized mastoid air cells are well aerated. Bones/joints: Unremarkable. No acute fracture. Soft tissues: Unremarkable. IMPRESSION: No evidence for acute intracranial abnormality. Dictated and Authenticated by: Sondra Rodríguez MD. Ordering:YAHIR Bates MD
[2021-08-30 15:56] LABS: Abs Immature Grans 0.03 10^3/uL (0.0-0.06); Absolute Basophil Count 0.08 10^3/uL (0.0-0.2); Absolute Eosinophil Count 0.33 10^3/uL (0.0-0.7); Absolute Lymphocyte Count 2.67 10^3/uL (1.2-3.4); Absolute Monocyte Count 0.53 10^3/uL (0.1-0.8); Absolute Neutrophil Count 4.82 10^3/uL (1.2-6.7); Basophils % 0.9; Eosinophils % 3.9; HCT 40.3 % (36.0-46.0); HGB 13.2 g/dL (11.2-15.7); Immature Grans % 0.4; Lymphocytes % 31.6; MCH 28.6 pg (27.0-33.0); MCHC 32.8 % (32.0-36.0); MCV 87.2 fL (80-95); MPV 10.3 fL (8.0-11.0); Monocytes % 6.3; Neutrophils % 56.9; Nucleated RBC 0 %; Platelet Count 164 10^3/uL (130-400); RBC 4.62 10^6/uL (3.93-5.22); RDW 12.9 % (11.7-14.6); RDW-SD 41.1 fL; WBC 8.46 10^3/uL (4.4-10.8)
[2021-08-30 16:17] LABS: Prothrombin Time 9.9 sec (9.3-11.0)
--- NOTE | 2021-08-30 16:40 | DI.CT_ITS ---
Exam(s) CT BRAIN NECK CTA EXAM: CT BRAIN NECK CTA CLINICAL HISTORY: headache -history of subarachnoid. TECHNIQUE: Imaging Protocol: Axial CT angiography was performed with multi-slice acquisition and mu lti-planar and/or 3D reconstructions. CONTRAST MATERIAL: Intravenous: Omnipaque 350 Contrast volume:structured data in ml COMPARISON: CT CT HEAD WO from 02/05/[address] ABDOMEN PELVIS W from 07/21/2021 FINDINGS: CT Head W/O and W contrast: Ventricles and Extra axial spaces: Normal in size and morphology for the patient's age. Hemorrhage: None. Cerebral parenchyma: Normal. Midline shift: None. Brainstem/Cerebellum: Normal. Calvarium: Normal. Visualized Paranasal sinuses/Mastoids: Clear. Soft Tissues: Unremarkable. Enhancement: Normal. CTA Brain W: Internal Carotid Arteries: Petrous: Normal. Cavernous: Normal. Cerebral: Normal. Middle Cerebral Arteries: Right: No aneurysm, occlusion or significant stenosis. Left: No aneurysm, occlusion or significant stenosis. Anterior Cerebral Arteries: Right: No aneurysm, occlusion or significant stenosis. Left: No aneurysm, occlusion or significant stenosis. Posterior cerebral Arteries: Right: No aneurysm, occlusion or significant stenosis. Left: No aneurysm, occlusion or significant stenosis. Vertebral Arteries: Right: No aneurysm, occlusion or significant stenosis. Left: No aneurysm, occlusion or significant stenosis. Basilar Artery: No aneurysm, occlusion or significant stenosis. CTA Neck W: Common Carotid: Right: No aneurysm, occlusion or significant stenosis. Left: No aneurysm, occlusion or significant stenosis. External Carotid: Right: No aneurysm, occlusion or significant stenosis. Left: No aneurysm, occlusion or significant stenosis. Internal Carotid: Right: No aneurysm, occlusion or significant stenosis. Left: No aneurysm, occlusion or significant stenosis. Vertebral Artery: Right: No aneurysm, occlusion or significant stenosis. Left: No aneurysm, occlusion or significant stenosis. Lung Apices: Normal. Bones: Degenerative changes cervical spine. Soft Tissues: Normal. IMPRESSION: 1. Normal CTA examination of the [place]. 2. Unremarkable CT Head. 3. Normal CTA examination of the neck. RADIATION DOSE DELIVERED: 2,183.28mGy.cm Total DLP DATA REPOSITORY: All CT scans at this facility are submitted to the National Radiology Data Registry (NRDR) Dose Index Registry (DIR) with the [employer] ([employer]). RADIATION OPTIMIZATION: All CT scans at this facility use at least one of these dose optimization te chniques: automated exposure control; mA and/or kV adjustment per patient size (includes targeted exa ms where dose is matched to clinical indication); or iterative reconstruction.
[2021-08-30] MEDS: Penicillin V POTASSIUM 500 MG TAB PO (16:49)
--- NOTE | 2021-08-30 17:23 | DI.VRAD_ITS ---
PROCEDURE INFORMATION: Exam: CT Angiography Head With Contrast, Arteriography Exam date and time: 08/30/2021 4:26 PM Age: 61 years old Clinical indication: Pain; Headache; Additional info: Headache, HX of subarachnoid TECHNIQUE: Imaging protocol: Computed tomography angiography of the head with contrast. Exam focused on the arteries. 3D rendering (Not supervised by radiologist): MIP and/or 3D reconstructed images were created by the technologist. Radiation optimization: All CT scans at this facility use at least one of these dose optimization techniques: automated exposure control; mA and/or kV adjustment per patient size (includes targeted exams where dose is matched to clinical indication); or iterative reconstruction. Contrast material: OMNI-PAQUE 350; Contrast volume: 85 ml; Contrast route: INTRAVENOUS (IV); COMPARISON: 1. CT BRAIN NECK CTA 02/05/2021 1:[address] BRAIN NECK CTA 10/30/2019 9:13 AM FINDINGS: ANTERIOR CIRCULATION: Right internal carotid artery: Unremarkable. Intracranial segment is patent with no significant stenosis. No aneurysm. Right middle cerebral artery: Unremarkable. No occlusion or significant stenosis. No aneurysm. Right anterior cerebral artery: Unremarkable. No occlusion or significant stenosis. No aneurysm. Left internal carotid artery: Unremarkable. Intracranial segment is patent with no significant stenosis. No aneurysm. Left middle cerebral artery: Unremarkable. No occlusion or significant stenosis. No aneurysm. Left anterior cerebral artery: Unremarkable. No occlusion or significant stenosis. No aneurysm. POSTERIOR CIRCULATION: Right vertebral artery: Unremarkable. No occlusion or significant stenosis. No aneurysm. Left vertebral artery: Unremarkable. No occlusion or significant stenosis. No aneurysm. Basilar artery: Unremarkable. No occlusion or significant stenosis. No aneurysm. Right posterior cerebral artery: Unremarkable. No occlusion or significant stenosis. No aneurysm. Left posterior cerebral artery: Unremarkable. No occlusion or significant stenosis. No aneurysm. Brain: No definite mass, mass effect, or midline shift. Cerebral ventricles: No ventriculomegaly. Bones/joints: Unremarkable. No acute fracture. Soft tissues: Unremarkable. IMPRESSION: No evidence for central intracranial vascular occlusion. PROCEDURE INFORMATION: Exam: CT Angiography Neck With Contrast Exam date and time: 08/30/2021 4:26 PM Age: 61 years old Clinical indication: Pain; Headache; Additional info: Headache, HX of subarachnoid TECHNIQUE: Imaging protocol: Computed tomography angiography of the neck with contrast. 3D rendering (Not supervised by radiologist): MIP and/or 3D reconstructed images were created by the technologist. Radiation optimization: All CT scans at this facility use at least one of these dose optimization techniques: automated exposure control; mA and/or kV adjustment per patient size (includes targeted exams where dose is matched to clinical indication); or iterative reconstruction. Contrast material: OMNI-PAQUE 350; Contrast volume: 85 ml; Contrast route: INTRAVENOUS (IV); COMPARISON: 1. CT BRAIN NECK CTA 02/05/2021 1:[address] BRAIN NECK CTA 10/30/2019 9:13 AM FINDINGS: Right common carotid artery: No stenosis. No dissection or occlusion. Right internal carotid artery: No stenosis of the extracranial segment. No dissection or occlusion. Right external carotid artery: No occlusion or stenosis of the origin. Left common carotid artery: No stenosis. No dissection or occlusion. Left internal carotid artery: No stenosis of the extracranial segment. No dissection or occlusion. Left external carotid artery: No occlusion or stenosis of the origin. Right vertebral artery: No stenosis. No dissection or occlusion. Left vertebral artery: No stenosis. No dissection or occlusion. Soft tissues: Normal. No significant soft tissue swelling. Bones/joints: No acute fracture. IMPRESSION: No evidence for hemodynamically significant stenosis or occlusion. REFERENCES: NASCET CRITERIA. The degree of internal carotid artery stenosis is based on NASCET criteria. Normal is no stenosis. Mild is less than 50% stenosis. Moderate is 50-69% stenosis. Severe is 70% to 99% stenosis. Total occlusion is no detectable patent lumen. Dictated and Authenticated by: Sondra Rodríguez MD. Ordering:YAHIR Bates MD
[2021-08-30 19:13] VITALS: BP 154/67; PULSE 65; RESP 21; TEMP 36.8; O2SAT 97
[2021-08-30] MEDS: Cyclobenzaprine 10 MG TAB, 3 TABS/BTL PO (19:25)
== END 2021-08-30 19:31 | disposition home or self-care (01) ==
PROVIDERS: Nurse Practitioner Family; Emergency Provider Registered Nurse Emergency; PCP Family Medicine
DX: R51.9 Headache, unspecified (principal); Z86.79 Personal history of other diseases of the circulatory system; M27.2 Inflammatory conditions of jaws; K75.81 Nonalcoholic steatohepatitis (NASH)
CPT/HCPCS: 36415; 70496; 70498; 80053; 85652; 96365; 99285; 70450; 85025; 85610; 85730; 99284; J0131

== ENCOUNTER → 2021-09-30 03:07 | Outpatient (CLI) | payer MEDICARE, MEDICAID, SELFPAY ==
--- NOTE | 2021-09-30 07:00 | DI.US_ITS ---
Exam(s) US AXILLA LT EXAM: US AXILLA LT CLINICAL HISTORY: left axillary adenopathy, tenderness,LT BREAST AXILLARY MASS,N63.32,R59.1, TECHNIQUE: Ultrasound left axilla performed using standard protocol. COMPARISON: MG MAMMO SCREENING from 03/31/2021 FINDINGS: No solid or cystic masses, hypoechoic foci, areas of abnormal shadowing, or areas of skin thickening or edema. Normal appearing axillary lymph nodes with thin cortex and maintained hilum. No hyperemia . IMPRESSION: No sonographically suspicious finding. Axillary lymph nodes have a normal appearance. DATA REPOSITORY:
== END ==
PROVIDERS: PCP Family Medicine; Visit Provider Family Medicine
DX: N63.32 Unspecified lump in axillary tail of the left breast (principal); R22.30 Localized swelling, mass and lump, unspecified upper limb
CPT/HCPCS: 76642

== ENCOUNTER 2021-12-11 16:21 | Outpatient (REF) | payer MEDICARE, MEDICAID, SELFPAY | END 2021-12-11 16:22 | disposition home or self-care (01) | LOC: LBN 16:21 | PROVIDERS: PCP Family Medicine; Visit Provider Family Medicine | DX: N89.8 Other specified noninflammatory disorders of vagina (principal) | CPT/HCPCS: 87480; 87510; 87660 ==

== ENCOUNTER 2022-02-03 10:39 | Outpatient (CLI) | payer MEDICARE, MEDICAID, SELFPAY ==
[2022-02-03 12:59] LABS: Hemoglobin A1C 6.7 % (<5.7)
[2022-02-03 14:44] LABS: ALT 79 U/L (14-59); AST 59 U/L (15-37); Albumin 3.8 g/dL (3.4-5.0); Alkaline Phosphatase 77 U/L (46-116); Anion Gap 10.2 mmol/L (3-11); BUN 17 mg/dL (7-18); Bilirubin, Total 0.6 mg/dL (0.2-1.0); CO2 25.8 mmol/L (21.0-32.0); Calcium 8.9 mg/dL (8.5-10.1); Calculated LDL 125 mg/dL (<100); Chloride 105 mmol/L (98-107); Cholesterol 199 mg/dL (<200); Estimated GFR 64.09 (mL/min/1.73m2); Glucose 134 mg/dL (74-106); HDL Cholesterol 37 mg/dL (40-60); Potassium 4.3 mmol/L (3.5-5.1); Sodium 141 mmol/L (136-145); Total Protein 7.4 g/dL (6.4-8.2); Triglyceride 185 mg/dL (<150)
[2022-02-03 19:33] LABS: Albumin ug/mg Crea 12 (<30); Albumin, Ur 1.8 mg/dL (See Note); Creatinine, Ur 144.2 mg/dL (See Note)
== END 2022-02-03 10:40 | disposition home or self-care (01) ==
LOC: LOS 10:39
PROVIDERS: PCP Family Medicine; Visit Provider Family Medicine
DX: E11.65 Type 2 diabetes mellitus with hyperglycemia (principal); Z79.4 Long term (current) use of insulin
CPT/HCPCS: 36415; 80053; 80061; 82043; 82570; 83036

== ENCOUNTER → 2022-02-03 11:08 | Outpatient (CLI) | payer MEDICARE, MEDICAID, SELFPAY ==
--- NOTE | 2022-02-03 11:00 | DI.RAD_ITS ---
Exam(s) XR HAND LT COMPLETE EXAM: XR HAND LT COMPLETE CLINICAL HISTORY: PAIN IN FINGER-M79.646. TECHNIQUE: 2D digital imaging was performed. COMPARISON: No exams were available for comparison FINDINGS: 3 views No evidence of fracture or dislocation. No abnormal soft tissue calcifications. No osseous lesions nor erosions. Moderate degenerative changes in the 1st carpometacarpal joint. Metacarpophalangeal j oints are unremarkable. No radiopaque foreign body. No osseous lesions. IMPRESSION: DATA REPOSITORY: RADIATION DOSE DELIVERED:
--- NOTE | 2022-02-03 11:00 | DI.RAD_ITS ---
Exam(s) XR LUMBAR SPINE COMPLETE EXAM: XR LUMBAR SPINE COMPLETE CLINICAL HISTORY: CERVICALGIA-M54.2, SCIATICA-M54.32. TECHNIQUE: 2D digital imaging was performed. COMPARISON: CR LUMBAR SPINE COMPLETE from 10/22/2011 FINDINGS: Seven views: Rotoscoliosis convex left again noted. Inferior aspect of the Rubio sergio is right of center at the lower L3 level over L4 level, difficu lt to differentiate as there is transitional anatomy here. There is scoliosis convex left, similar to previous. The is a transitional lumbosacral vertebra whic h is sacralized. There is narrowing of the right-side of the disc space at the level just below the inferior aspect of the Rubio sergio. Also moderate narrowing of the disc space 1 level below this level. Scoliosis convex left is again noted. Fixation device is seen in the peripheral aspect of th e field of view on the right side at T11 level. No osseous lesions. Sacroiliac joints unremarkable. IMPRESSION: DATA REPOSITORY: RADIATION DOSE DELIVERED:
--- NOTE | 2022-02-03 11:00 | DI.RAD_ITS ---
Exam(s) XR CERVICAL SPINE COMP 4-5V EXAM: XR CERVICAL SPINE COMP 4-5V CLINICAL HISTORY: CERVICALGIA-M54.2, SCIATICA-M54.32. TECHNIQUE: 2D digital imaging was performed. COMPARISON: CR CERV SP.WITH OBL OR FLEX/EXT from 04/14/2010 FINDINGS: Five views No evidence of fracture nor prominent listhesis. There is now multilevel calcification in the anteri or longitudinal ligament, significantly more so than was evident 1010. No evidence of fracture nor s ignificant listhesis. No offset of the spinal laminar line. Disc spaces are preserved. There is so me facet arthropathy, most evident at C6-7. there is mild anterolisthesis C6 upon C7 at this level. On the oblique views there are no prominent Luschka joint osteophytes evident. Rubio rods are n oted in the thoracic spinal column. IMPRESSION: Progression of facet arthropathy when compared to April 2010. There is relative preservation of d isc height at each level in the cervical spine again noted. Mild degenerative anterolisthesis of C6 upon C7 due to facet arthropathy at this level, more so than previous. DATA REPOSITORY: RADIATION DOSE DELIVERED:
== END ==
PROVIDERS: PCP Family Medicine; Visit Provider Family Medicine
DX: M54.32 Sciatica, left side (principal); M54.2 Cervicalgia; Z98.1 Arthrodesis status; M79.642 Pain in left hand; M79.645 Pain in left finger(s); M18.12 Unilateral primary osteoarthritis of first carpometacarpal joint, left hand; M47.812 Spondylosis without myelopathy or radiculopathy, cervical region; M43.8X5 Other specified deforming dorsopathies, thoracolumbar region
CPT/HCPCS: 36415; 80053; 80061; 72050; 72110; 73130; 82043; 82570; 83036

== ENCOUNTER 2022-02-11 09:51 | Emergency (ER) | payer MEDICARE, MEDICAID, SELFPAY ==
[2022-02-11 09:55] VITALS: BP 169/62; PULSE 58; RESP 18; TEMP 36.2; O2SAT 100
--- NOTE | 2022-02-11 10:05 | ED.GENADUL_ITS ---
Discharge Plan Disposition Patient Disposition: HOME Condition: Stable Discharge Details Clinical Impression: Closed head injury without loss of consciousness, Left knee sprain Primary Care Provider: Debbi Monge ED Provider: Lidia Quinn Home Meds and New Rx's Prescriptions: Continued aspirin 81 mg tablet,delayed release (DR/EC) 81 mg PO DAILY Qty: 90 3RF Ozempic 0.25 mg or 0.5 mg(2 mg/1.5 mL) pen injector 0.25 mg subcut QWEEK Qty: 1.5 2RF Rx Instructions: for 4 doses at 0.25mg and then 4 doses of 0.5mg. diclofenac sodium 1 % gel 2 g topical QID Qty: 100 3RF Rx Instructions: apply to single elbow, wrist or hand; for hand includes palm/fingers/back of hand citalopram 20 mg tablet 20 mg PO DAILY Qty: 90 4RF albuterol sulfate [ProAir HFA] 90 mcg/actuation HFA aerosol inhaler 2 puff IH Q6H PRN (Reason: shortness of breath or wheezing) Qty: 18 11RF Rx Instructions: please dispence with a spacer/aerochamber Maximum Daily Multivitamin 18-0.4 mg tablet PO mometasone 0.1 % cream 1 applic topical DAILY 10 Days Qty: 15 1RF Rx Instructions: apply with fingertip to both ear canals loratadine 10 mg tablet 10 mg PO DAILY PRN (Reason: allergy symptoms) Qty: 90 4RF (DME) blood-glucose meter [StellaServiceuch UltraMini] Kit See Rx Instructions .ROUTE .MEDSUPPLY Qty: 1 0RF Rx Instructions: As directed verapamil [Calan SR] 120 mg tablet extended release 120 mg PO DAILY Qty: 90 4RF (DME) pen needle, diabetic [BD Ultra-Fine Mini Pen Needle] 31 gauge x 3/16 needle See Rx Instructions .ROUTE .MEDSUPPLY Qty: 100 5RF Rx Instructions: One daily omeprazole 20 mg capsule,delayed release(DR/EC) 20 mg PO DAILY Qty: 30 2RF cholecalciferol (vitamin D3) 25 mcg (1,000 unit) capsule 25 mcg PO DAILY Qty: 90 3RF (DME) lancets [OneTouch Delica Lancets] 30 gauge misc 1 ea Miscellaneous QID Qty: 300 4RF Rx Instructions: One TID Dx: E11.9 (DME) blood sugar diagnostic Strip See Rx Instructions .ROUTE .MEDSUPPLY Qty: 300 4RF Rx Instructions: One TID hydrocortisone valerate 0.2 % cream 1 applic topical BID PRN (Reason: skin irritation, use in ear with q-tip) Qty: 15 0RF insulin glargine [Lantus Solostar U-100 Insulin] 100 unit/mL (3 mL) insulin pen 60 unit subcut DAILY Qty: 45 1RF Rx Instructions: DX: E11.9 ibuprofen 600 mg Tablet 600 mg PO PRN PRN Discharge Instructions Instructions: Knee Sprain (ED), Head Injury (ED), Post Concussion Syndrome (ED) Additional Instructions: Your imaging today is reassuring and shows no evidence of acute concerning or significant findings. Drink plenty of fluids and get plenty of rest. Limit screen time such as phone, laptop and TV as eye straining may worsen your headache in the setting of a concussion. Rest, ice, and elevate the left knee as much as possible. Follow-up with your primary care doctor in 1 week. Return to the emergency department with any worsening or new concerning symptoms such as worsening headache, persistent vomiting or any other concerns. Discharge Data Discharge Date/Time-TO BE ENTERED AT DEPARTURE: 02/11/22 12:38 Discharge Physician: Lidia Quinn Medical Decision Making 62yo F w/ morbid obesity, diabetes, obstructive sleep apnea, anxiety, depression, hypertension, hyperlipidemia, ADHD, OCD, TING presents for headache, neck pain and feeling foggy after a car trunk door hit her on the top of the head this morning. She is also complaining of left knee pain after twisting her knee 1 week ago. No obvious evidence of head trauma. No midline cervical spine tenderness. She is in a c-collar. There are no focal deficits. Her left knee appears normal to inspection with no obvious pain with range of motion, cellulitis or evidence of trauma. She is neurovascularly intact. Will refer for CT head and cervical spine imaging and left knee xray and give a dose of tylenol. Imaging reviewed and negative. Patient advised to increase fluids, rest and limit screen time. Francis wrap placed to the left knee. Discussed that her symptoms could be secondary to a sprain and if her symptoms persist or worsen, follow-up with orthopedics and consider referral to physical therapy. Advised to follow up with the primary care doctor for re-evaluation. Usual and customary return precautions given prior to discharge. Medical Records Medical records reviewed: Yes I reviewed the patient's medical records. Imaging Data Radiologic Study: Radiologist's impression: CT HEAD ? CERVICAL SPINE WO CLINICAL HISTORY: ? car door hit top of head, r/o fx/intracranial inj. ? TECHNIQUE:? Imaging Protocol: Axial computed tomography images with coronal and sagittal reformatted images were created and reviewed COMPARISON:? CT CT BRAIN ? NECK CTA from 08/30/2021 FINDINGS: CT Head: Ventricles and Extra axial spaces: Normal in size and morphology for the patient's age. Hemorrhage: None. Cerebral parenchyma: Normal. Midline shift: None. Brainstem/Cerebellum: Normal. Calvarium: Normal. Visualized Paranasal sinuses/Mastoids: Clear. Soft Tissues: Unremarkable. CT Cervical Spine: Bones: No acute fracture or subluxation. Degenerative changes are seen in the cervical spine. Soft Tissues: Unremarkable. Lung Apices: Clear. IMPRESSION: 1. No acute intracranial process.? 2. No acute fracture or subluxation in the cervical spine. 3. Results of this exam have been verbally communicated with provider. XR KNEE LT 3V AP,LAT,KILO CLINICAL HISTORY: ? twisted L knee, medial knee pain, r/o fx/arthritis.? TECHNIQUE:? 2D digital imaging was performed of the left knee.? Three images were obtained.? AP, lateral and PA tunnel? views were obtained. COMPARISON:? CR LEFT KNEE 3 VIEW COMPLETE from 10/25/2016 FINDINGS: BONES:? No acute fracture is present. No bony destructive lesion is seen. JOINTS: The knee is normally aligned. No joint effusion is seen. SOFT TISSUE: Normal. IMPRESSION: No acute fracture or dislocation.? HPI General Mode of arrival: ambulatory . Date/Time Provider Initiated Documentation: 02/11/22 09:55 . Limitations to Documentation: no limitations . Information obtained by: patient . HPI Narrative: Patient is a 62-year-old female with a history of morbid obesity, diabetes, hypertension, hyperlipidemia, depression, subarachnoid hemorrhage who presents for headache and neck pain status post head injury this morning. Patient states she was at the trunk of a car when the trunk door came down on the top of her head. Patient admits to headache that started immediately after injury but denies loss of consciousness, blurry vision, nausea, vomiting or dizziness. She states she has been having left medial knee pain after twisting her knee when a chipmunk ran between her legs 1 week ago. She denies any direct fall onto her left knee. She states the pain has been keeping her up at night and is worse with walking and weightbearing. She states she took ibuprofen at 4 AM this morning for her knee pain. Related Data Home Medications Medication Instructions Recorded Confirmed loratadine 10 mg tablet 10 mg PO DAILY PRN allergy 01/10/20 02/11/22 symptoms #90 tabs blood-glucose meter (Kids NoteTouch #1 ea 09/05/20 02/05/22 UltraMini kit) citalopram 20 mg tablet 20 mg PO DAILY #90 tabs 01/06/21 02/11/22 albuterol sulfate 90 mcg/actuation 2 puff inhalation Q6H PRN 03/10/21 02/11/22 aerosol inhaler (ProAir HFA) shortness of breath or wheezing #18 grams [id number]-Sv-ccjh-minerals 18 tab PO 04/06/21 02/05/22 mg-0.4 mg tablet (Maximum Daily Multivitamin) verapamil 120 mg tablet,extended 120 mg PO DAILY #90 tabs 05/26/21 02/11/22 release (Calan SR) aspirin 81 mg tablet,delayed 81 mg PO DAILY #90 tabs 05/27/21 02/11/22 release pen needle, diabetic 31 gauge x #100 ea 09/07/21 02/05/2208/19 (BD Ultra-Fine Mini Pen Needle) cholecalciferol (vitamin D3) 25 25 mcg PO DAILY #90 caps 11/19/21 02/11/22 mcg (1,000 unit) capsule omeprazole 20 mg capsule,delayed 20 mg PO DAILY #30 caps 11/19/21 02/11/22 release blood sugar diagnostic #300 ea 12/11/21 02/05/22 lancets 30 gauge (OneTouch Delica #300 ea 12/11/21 02/05/22 Lancets) hydrocortisone valerate 0.2 % 1 applic topical BID PRN skin 12/14/21 02/11/22 topical cream irritation, use in ear with q-tip #15 grams insulin glargine 100 unit/mL (3 60 unit (0.6 mL) subcut DAILY #45 12/17/21 02/11/22 mL) subcutaneous pen (Lantus mL Solostar U-100 Insulin) mometasone 0.1 % topical cream 1 applic topical DAILY 10 days #15 12/21/21 02/11/22 grams diclofenac sodium 1 % topical gel 2 g topical QID #100 grams 02/03/22 02/11/22 semaglutide 0.25 mg or 0.5 mg (2 0.25 mg (0.2 mL) subcut QWEEK #1.5 02/05/22 02/11/22 mg/1.5 mL) subcutaneous pen mL injector (Viralytics) ibuprofen 600 mg tablet 600 mg PO PRN PRN 02/11/22 02/11/22 Previous Rx's Medication Instructions Recorded loratadine 10 mg tablet 10 mg PO DAILY PRN allergy 01/10/20 symptoms #90 tabs blood-glucose meter (Kids Noteuch #1 ea 09/05/20 UltraMini kit) citalopram 20 mg tablet 20 mg PO DAILY #90 tabs 01/06/21 albuterol sulfate 90 mcg/actuation 2 puff inhalation Q6H PRN 03/10/21 aerosol inhaler (ProAir HFA) shortness of breath or wheezing #18 grams verapamil 120 mg tablet,extended 120 mg PO DAILY #90 tabs 05/26/21 release (Calan SR) aspirin 81 mg tablet,delayed 81 mg PO DAILY #90 tabs 05/27/21 release pen needle, diabetic 31 gauge x #100 ea 09/07/2108/19 (BD Ultra-Fine Mini Pen Needle) cholecalciferol (vitamin D3) 25 25 mcg PO DAILY #90 caps 11/19/21 mcg (1,000 unit) capsule omeprazole 20 mg capsule,delayed 20 mg PO DAILY #30 caps 11/19/21 release blood sugar diagnostic #300 ea 12/11/21 lancets 30 gauge (OneTouch Delica #300 ea 12/11/21 Lancets) hydrocortisone valerate 0.2 % 1 applic topical BID PRN skin 12/14/21 topical cream irritation, use in ear with q-tip #15 grams insulin glargine 100 unit/mL (3 60 unit (0.6 mL) subcut DAILY #45 12/17/21 mL) subcutaneous pen (Lantus mL Solostar U-100 Insulin) mometasone 0.1 % topical cream 1 applic topical DAILY 10 days #15 12/21/21 grams diclofenac sodium 1 % topical gel 2 g topical QID #100 grams 02/03/22 semaglutide 0.25 mg or 0.5 mg (2 0.25 mg (0.2 mL) subcut QWEEK #1.5 02/05/22 mg/1.5 mL) subcutaneous pen mL injector (Ozempic) Allergies Allergy/AdvReac Type Severity Reaction Status Date / Time amoxicillin Allergy Severe Affects Verified 02/11/22 10:05 kidney FXN per pt. dapsone Allergy Severe Anaphylaxsi Verified 02/11/22 10:05 s lisinopril Allergy Severe Verified 02/11/22 10:05 metformin Allergy Severe INTERACTION Verified 02/11/22 10:05 S Pertussis Vaccines Allergy Severe kidney Verified 02/11/22 10:05 problems clindamycin Allergy Mild SWELLING Verified 02/11/22 10:05 OF THE THROAT latex Allergy Mild RASH Verified 02/11/22 10:05 paroxetine Allergy Unknown Verified 02/11/22 10:05 Sulfa (Sulfonamide Allergy Unknown Verified 02/11/22 10:05 Antibiotics) adhesive AdvReac Mild Itching Verified 02/11/22 10:05 fluconazole AdvReac Mild HEADACHE Verified 02/11/22 10:05 tdap Allergy Intermediate PT Uncoded 02/11/22 10:05 REPORTED metal AdvReac Unknown staph Uncoded 02/11/22 10:05 infection General Stated Complaint: HeadInjury SALMA: 2 Review of Systems All systems reviewed & are unremarkable except as noted in HPI and below Constitutional Constitutional: Denies chills, Denies excessive sweating, Denies fatigue, Denies fever(s), Reports headache(s), Denies weakness and Denies weight loss Eyes Eyes: Reports system reviewed and no additional complaints, except as documented and Denies blurry vision ENT Ears, Nose, Mouth, and Throat: Denies vertigo, Denies dizziness, Denies otalgia, Reports headache(s), Denies nasal congestion, Reports neck pain, Denies sore throat and Denies throat swelling Cardiovascular Cardiovascular: Denies chest pain, Denies syncope, Denies rapid heart rate and Denies dyspnea Respiratory Respiratory: Denies chest congestion, Denies cough, Denies pain on inspiration and Denies dyspnea Gastrointestinal Gastrointestinal: Denies abdominal pain, Denies diarrhea and Denies vomiting Genitourinary Genitourinary: Denies hematuria, Denies dysuria and Denies flank pain Musculoskeletal Musculoskeletal: Denies back pain, Denies joint swelling and Reports neck pain Comments: L knee pain Integumentary/Breasts Skin/Breast: Denies lesions and Denies rash Neurologic Neurologic: Denies behavioral changes, Denies confusion, Denies vertigo, Denies dizziness, Denies syncope, Reports headache(s), Denies localized weakness and Denies weakness Psychiatric Psychiatric: Denies behavioral changes, Denies confusion and Denies depression Endocrine Endocrine: Denies excessive sweating and Denies fatigue Hematologic/Lymphatic Hematologic/Lymphatic: Denies easy bruising and Denies lymphadenopathy Allergic/Immunologic Allergic/Immunologic: Denies throat swelling PFSH All Active Problems (Updated 02/11/22 @ 12:17 by Lidia Quinn DO) Anxiety (Chronic) Attention deficit hyperactivity disorder, predominantly inattentive type (Chronic) social phobia Chronic pain of both knees (Chronic 07/15/16) after bilateral patellar fractures from fall on ice. 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 Ongoing mesenteric adenitis being followed by [facility] [place] [facility]. 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 Davis vascular surg. SMA & NAINA patent. 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 Functional diarrhea History of subarachnoid hemorrhage Idiopathic scoliosis Rubio sergio-age 13 Knee osteonecrosis, left (11/08/16) Left carpal tunnel syndrome Lumbar disc prolapse with root compression Renal failure autoimmune - resolved Restless legs (06/05/07) Social anxiety disorder (11/25/17) Spinal stenosis with Cauda equina syndrome; surgery at [facility] [place] Subarachnoid hemorrhage 2019, tx at [facility] [place], small per report Thrombosis of arteries of lower extremity Tubular adenoma of colon (~08/2020) at [facility] [place]; repeat 09/2021 - tubular adenoma. Umbilical hernia without obstruction or gangrene Uveitis sees Dr Alcaraz Surgical History History of bilateral ligation of fallopian tubes History of section History of esophagogastroduodenoscopy History of spinal fusion S/P ureteral stent placement For impacted ureteral stone Spinal Fusion (~1974) T4-L3 FOR SEVERE SCOLIOSIS Status post cholecystectomy Status post laminectomy Family History Paternal Grandmother No problems noted. Sister No problems noted. Sister No problems noted. Mother Heart disease Father Diabetes Hyperlipidemia Hypertension Stroke Brother Skin cancer Depression Diabetes Hyperlipidemia Hypertension Son Diabetes Stroke Son No problems noted. Daughter No problems noted. Maternal Grandmother , 60 Diabetes Paternal Grandfather , 60 Cancer Heart disease Maternal Grandfather Prostate cancer Social History Smoking/Tobacco Use Status: Never Second Hand Exposure: Yes Smoking risk assessment performed?: Yes Alcohol Intake: current Alcohol Intake frequency: a few times a month Alcohol type: beer and wine Drug use: Never Substance use type: does not use Caregiver/Support person: No Household members: none Housing: apartment Communication Needs: None Do you need help understanding health information?: Rarely Pets and animals: Yes Pets and animals: cat(s) and dog(s) Sexually active: No Do you think of yourself as: straight/heterosexual Current gender identity: female What is your relationship status?: How often do you talk on the phone with friends or family?: three or more times per week How often do you get together with friends or relatives?: three or more times per week How often do you attend muslim or gnosticism services?: 1-3 times per year Do you belong to any clubs or organized social groups?: no Panel score (0-1 are the most socially isolated patients): 1 What type of physical activity do you participate in: walking Duration: 15-30 minutes/day Frequency: 3-4 times per week Claudette/Caodaism: Olya Seatbelt use: always Helmet use: Yes Helmet use: always Drive 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 trash truck driver: No Do you feel safe at home: Yes Exam Const General: cooperative and no acute distress Orientation: alert, awake and oriented x3 HENMT Head: normal to inspection and no palpable skull fracture Ears: hearing grossly normal bilaterally, external ears normal and TM's normal bilaterally General nose exam: external nose normal Face and sinus: normal facial exam Mouth: oral mucosae normal Eyes General: appearance normal, both eyes and all related structures Eyelids: eyelids normal Pupils: PERRL EOM: EOM intact bilaterally Neck Neck: normal visual inspection Lymphatic: no lymphadenopathy noted Chest Chest: normal inspection of the chest Resp Effort & Inspection: normal respiratory effort and able to speak in complete sentences Auscultation: clear to auscultation bilaterally Cardio Rate: regular rate Rhythm: regular rhythm GI Inspection: normal to inspection Palpation: soft, not firm, no guarding, no hepatosplenomegaly, no masses and nontender Auscultation: normal bowel sounds Skin General skin exam: no rashes or lesions noted Neuro General: patient alert, patient awake, patient oriented x3, moves all extremities and no meningeal signs Cranial Nerves: CN's II-XI intact bilaterally Cognition: normal cognition Speech: speech normal Motor: muscle tone normal throughout and strength 5/5 throughout Sensory Exam: no sensory deficits noted Extrem General: normal to inspection, full ROM and capillary refill normal Other: Left knee: No significant pain with valgus and varus stress. Negative anterior and posterior drawer tests. No evidence of erythema, edema ecchymoses, deformity or ligamentous laxity. No left lower leg edema. Left DP/PT pulses intact. Psych Appearance: grossly normal Mental Status: mental status grossly normal Speech and Movement: speech and movement normal Affect: normal affect Thought Process: normal Course Vital Signs Vital signs: Vital Signs Temperature 97.2 F L 02/11/22 09:55 Pulse 58 L 02/11/22 09:55 Respiratory Rate 18 02/11/22 09:55 Blood Pressure 169/62 H 02/11/22 09:55 Pulse Oximetry 100 02/11/22 09:55 Temperature 97.2 F L 02/11/22 09:55 Temperature Source Tympanic 02/11/22 09:55 Pulse 58 L 02/11/22 09:55 Respiratory Rate 18 02/11/22 09:55 Blood Pressure 169/62 H 02/11/22 09:55 Pulse Oximetry 100 02/11/22 09:55 Oxygen Delivery Method Room Air 02/11/22 09:55 Oxygen Flow Rate 0 02/11/22 09:55 Pain Level 6 02/11/22 09:55
--- NOTE | 2022-02-11 10:15 | DI.RAD_ITS ---
Exam(s) XR KNEE LT 3V AP,LAT,KILO EXAM: XR KNEE LT 3V AP,LAT,KILO CLINICAL HISTORY: twisted L knee, medial knee pain, r/o fx/arthritis. TECHNIQUE: 2D digital imaging was performed of the left knee. Three images were obtained. AP, late ral and PA tunnel views were obtained. COMPARISON: CR LEFT KNEE 3 VIEW COMPLETE from 10/25/2016 FINDINGS: BONES: No acute fracture is present. No bony destructive lesion is seen. JOINTS: The knee is normally aligned. No joint effusion is seen. SOFT TISSUE: Normal. IMPRESSION: No acute fracture or dislocation. DATA REPOSITORY: RADIATION DOSE DELIVERED:
--- NOTE | 2022-02-11 10:55 | DI.CT_ITS ---
Exam(s) CT HEAD CERVICAL SPINE WO EXAM: CT HEAD CERVICAL SPINE WO CLINICAL HISTORY: car door hit top of head, r/o fx/intracranial inj. TECHNIQUE: Imaging Protocol: Axial computed tomography images with coronal and sagittal reformatted images were created and reviewed COMPARISON: CT CT BRAIN NECK CTA from 08/30/2021 FINDINGS: CT Head: Ventricles and Extra axial spaces: Normal in size and morphology for the patient's age. Hemorrhage: None. Cerebral parenchyma: Normal. Midline shift: None. Brainstem/Cerebellum: Normal. Calvarium: Normal. Visualized Paranasal sinuses/Mastoids: Clear. Soft Tissues: Unremarkable. CT Cervical Spine: Bones: No acute fracture or subluxation. Degenerative changes are seen in the cervical spine. Soft Tissues: Unremarkable. Lung Apices: Clear. IMPRESSION: 1. No acute intracranial process. 2. No acute fracture or subluxation in the cervical spine. 3. Results of this exam have been verbally communicated with provider. RADIATION DOSE DELIVERED: 1,219.34mGy.cm Total DLP DATA REPOSITORY: All CT scans at this facility are submitted to the National Radiology Data Registry (NRDR) Dose Index Registry (DIR) with the [employer] (A[employer]). RADIATION OPTIMIZATION: All CT scans at this facility use at least one of these dose optimization te chniques: automated exposure control; mA and/or kV adjustment per patient size (includes targeted exa ms where dose is matched to clinical indication); or iterative reconstruction.
[2022-02-11] MEDS: Acetaminophen 325 MG TAB 650 MG PO (11:19)
== END 2022-02-11 12:38 | disposition home or self-care (01) ==
PROVIDERS: Emergency Provider Physician Assistant; PCP Family Medicine
DX: S83.92XA Sprain of unspecified site of left knee, initial encounter (principal); S09.90XA Unspecified injury of head, initial encounter; I10 Essential (primary) hypertension; E11.9 Type 2 diabetes mellitus without complications; Z79.4 Long term (current) use of insulin; Z77.22 Contact with and (suspected) exposure to environmental tobacco smoke (acute) (chronic); W22.8XXA Striking against or struck by other objects, initial encounter; X50.1XXA Overexertion from prolonged static or awkward postures, initial encounter
CPT/HCPCS: 36416; 73562; 82962; 99284; 70450; 72125; 99282

== ENCOUNTER 2022-02-21 10:41 | Emergency (ER) | payer MEDICARE, MEDICAID, SELFPAY ==
[2022-02-21 10:46] VITALS: BP 147/53; PULSE 62; RESP 18; TEMP 36.6; O2SAT 99
--- NOTE | 2022-02-21 11:00 | DI.CT_ITS ---
Exam(s) CT HEAD WO EXAM: CT HEAD WO CLINICAL HISTORY: hx of HI and hemorrhage. TECHNIQUE: Imaging Protocol: Axial computed tomography images with coronal and sagittal reformatted images were created and reviewed COMPARISON: CT CT HEAD CERVICAL SPINE WO from 02/11/2022 FINDINGS: There are no skull fractures nor fluid in the visualized paranasal sinuses. There is no evidence of intracranial hemorrhage, mass effect, or shift of midline structures. There are no extra-axial fluid collections. The ventricles are not enlarged or shifted and there is no blo od within the ventricular system nor within the basal cisterns. IMPRESSION: No acute intracranial findings on this noninfused CT scan of the brain. RADIATION DOSE DELIVERED: 758.86mGy.cm Total DLP DATA REPOSITORY: All CT scans at this facility are submitted to the National Radiology Data Registry (NRDR) Dose Index Registry (DIR) with the [employer] (ACR). RADIATION OPTIMIZATION: All CT scans at this facility use at least one of these dose optimization te chniques: automated exposure control; mA and/or kV adjustment per patient size (includes targeted exa ms where dose is matched to clinical indication); or iterative reconstruction.
[2022-02-21 11:33] VITALS: TEMP 36.6
[2022-02-21] MEDS: Acetaminophen 325 MG TAB 650 MG PO (11:33)
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
--- NOTE | 2022-02-21 12:49 | DI.VRAD_ITS ---
PROCEDURE INFORMATION: Exam: CT Head Without Contrast Exam date and time: 02/21/2022 12:29 PM Age: 62 years old Clinical indication: Other: HX of hi and hemorrhage TECHNIQUE: Imaging protocol: Computed tomography of the head without contrast. COMPARISON: CT HEAD CERVICAL SPINE WO 02/11/2022 10:42 AM FINDINGS: Brain: No evidence for acute transcortical infarct. No mass effect or midline shift. No extra-axial collection. No acute intracranial hemorrhage. Basal cisterns are patent. Cerebral ventricles: No ventriculomegaly. Paranasal sinuses: Visualized sinuses are unremarkable. No fluid levels. Mastoid air cells: Visualized mastoid air cells are well aerated. Bones/joints: Unremarkable. No acute fracture. Soft tissues: Unremarkable. IMPRESSION: No evidence for acute transcortical infarct, acute intracranial hemorrhage, or mass effect. Dictated and Authenticated by: Usman Segura MD. Ordering:DEBBIE Hightower MD
[2022-02-21 13:31] VITALS: BP 152/61; PULSE 68; RESP 18
== END 2022-02-21 13:52 | disposition home or self-care (01) ==
PROVIDERS: Emergency Provider Physician Assistant; PCP Family Medicine
DX: S06.0X9A Concussion with loss of consciousness of unspecified duration, initial encounter (principal); Z77.22 Contact with and (suspected) exposure to environmental tobacco smoke (acute) (chronic); W22.09XA Striking against other stationary object, initial encounter
CPT/HCPCS: 99284; 70450; 99282

== ENCOUNTER 2022-04-19 17:03 | Outpatient (REF) | payer MEDICARE, MEDICAID, SELFPAY | END 2022-04-19 17:04 | disposition home or self-care (01) | LOC: LBN 17:03 | PROVIDERS: PCP Family Medicine; Visit Provider Nurse Practitioner Women's Health | DX: N76.0 Acute vaginitis (principal) | CPT/HCPCS: 87480; 87510; 87660 ==

== ENCOUNTER 2022-05-07 10:56 | Outpatient (REF) | payer MEDICARE, MEDICAID, SELFPAY ==
[2022-05-07 14:07] LABS: C Diff PCR Negative (Negative)
== END 2022-05-07 10:57 | disposition home or self-care (01) ==
LOC: LBN 10:56
PROVIDERS: PCP Family Medicine; Visit Provider Surgery
DX: R19.7 Diarrhea, unspecified (principal)
CPT/HCPCS: 87493

== ENCOUNTER 2022-06-16 12:22 | Outpatient (REF) | payer MEDICARE, MEDICAID, SELFPAY | END 2022-06-16 12:23 | disposition home or self-care (01) | LOC: LBN 12:22 | PROVIDERS: PCP Family Medicine; Visit Provider Family Medicine | DX: N89.8 Other specified noninflammatory disorders of vagina (principal) | CPT/HCPCS: 87480; 87510; 87660 ==

== ENCOUNTER 2022-07-02 00:21 | Outpatient (CLI) | payer MEDICARE, MEDICAID, SELFPAY ==
--- NOTE | 2022-07-02 11:10 | DI.MAMMO_ITS ---
Exam(s) MG MAMMO SCREENING 60 MIN DUR EXAM: MG MAMMO SCREENING 60 MIN DUR CLINICAL HISTORY: screening.Z12.39 TECHNIQUE: Bilateral full field digital CC and MLO mammographic images were obtained with 3D tomosyn thesis and utilizing computer aided detection (CAD). COMPARISON: Available for comparison. FINDINGS: Masses/Architectural Distortion: None seen. Microcalcifications: No suspicious pleomorphic-type are seen. Skin Thickening/Nipple Retraction: None. IMPRESSION: 1. No significant interval change with no specific features of malignancy noted. 2. Unless there is more urgent need, screening mammography is recommended, as per [place] [employer] guidelines. BI-RADS Category 1 - Negative Breast Density - Category B - Scattered areas of fibroglandular density Breast density category C or D implies that the patient has dense breast tissue. Dense breast tissue is very common and is not abnormal but dense breast tissue can make it harder to find cancer on a ma mmogram. Also, dense breast tissue may increase their breast cancer risk. This information about the result of the mammogram report was provided to the patient to raise their awareness. Use this report when you speak with the patient about their risks for breast cancer, which includes their family hist ory. At that time, you may recommend for more screening tests (Ultrasound or MRI) as they might be us eful based on their risk. A negative radiographic report should not delay biopsy if a dominant or clinically suspicious mass is present. Up to ten percent of cancers are not identified on mammography. A negative report may reinforce clinical impression. Adenosis and dense breasts may obscure an underlying neoplasm. False positive reports average 6 to 10%. Patient will receive a letter notifying them of these results.
== END 2022-07-02 00:41 ==
LOC: DI 00:22
PROVIDERS: PCP Family Medicine; Visit Provider Family Medicine
DX: Z12.31 Encounter for screening mammogram for malignant neoplasm of breast (principal)
CPT/HCPCS: 77063; 77067

== ENCOUNTER 2022-07-05 03:03 | Outpatient (CLI) | payer MEDICARE, MEDICAID, SELFPAY ==
[2022-07-05 12:49] LABS: Anion Gap 6.4 mmol/L (3-11); BUN 18 mg/dL (7-18); CO2 30.6 mmol/L (21.0-32.0); CREATININE 0.9 mg/dL (0.55-1.02); Calcium 10.2 mg/dL (8.5-10.1); Chloride 102 mmol/L (98-107); Estimated GFR 72.28 (mL/min/1.73m2); Glucose 120 mg/dL (74-106); Potassium 4.3 mmol/L (3.5-5.1); Sodium 139 mmol/L (136-145)
== END 2022-07-05 03:04 | disposition home or self-care (01) ==
LOC: LOS 03:03
PROVIDERS: PCP Family Medicine; Visit Provider Family Medicine
DX: I10 Essential (primary) hypertension (principal); E11.9 Type 2 diabetes mellitus without complications
CPT/HCPCS: 36415; 80048

== ENCOUNTER 2022-07-22 13:47 | Emergency (ER) | payer MEDICARE, MEDICAID, SELFPAY ==
[2022-07-22] VITALS (17 sets, daily range): BP systolic 139–155; BP diastolic 54–67; PULSE 23–74; RESP 19–24; TEMP 36.8; O2SAT 96–99
--- NOTE | 2022-07-22 13:55 | ED.GENADUL_ITS ---
Discharge Plan Disposition Patient Disposition: Home Condition: Stable Discharge Details Clinical Impression: Hydronephrosis of right kidney, Ureterolithiasis Primary Care Provider: Debbi Monge ED Provider: Asim Lamb Home Meds and New Rx's Prescriptions: New tamsulosin 0.4 mg capsule 0.4 mg PO QHS Qty: 10 0RF Rx Instructions: Please take daily at night until your stone passes. morphine 10 mg capsule,extend.release pellets 10 mg PO DAILY PRNQty: 7 0RF No Action atorvastatin 40 mg tablet 40 mg PO QHS Qty: 90 3RF diclofenac sodium 1 % gel 2 g topical QID Qty: 100 3RF Rx Instructions: apply to single elbow, wrist or hand; for hand includes palm/fingers/back of hand meloxicam 7.5 mg tablet 7.5 mg PO BID Qty: 60 1RF Maximum Daily Multivitamin 18-0.4 mg tablet PO mometasone 0.1 % cream 1 applic topical DAILY 10 Days Qty: 15 1RF Rx Instructions: apply with fingertip to both ear canals albuterol sulfate [ProAir HFA] 90 mcg/actuation HFA aerosol inhaler 2 puff IH Q6H PRN (Reason: shortness of breath or wheezing) Qty: 18 11RF Rx Instructions: please dispence with a spacer/aerochamber loratadine 10 mg tablet 10 mg PO DAILY PRN (Reason: allergy symptoms) Qty: 90 4RF (DME) blood-glucose meter [[employer] UltraMini] Kit See Rx Instructions .ROUTE .MEDSUPPLY Qty: 1 0RF Rx Instructions: As directed (DME) pen needle, diabetic [BD Ultra-Fine Mini Pen Needle] 31 gauge x 3/16 needle See Rx Instructions .ROUTE .MEDSUPPLY Qty: 100 5RF Rx Instructions: One daily omeprazole 20 mg capsule,delayed release(DR/EC) 20 mg PO DAILY Qty: 30 2RF cholecalciferol (vitamin D3) 25 mcg (1,000 unit) capsule 25 mcg PO DAILY Qty: 90 3RF (DME) lancets [OneTouch Delica Lancets] 30 gauge misc 1 ea Miscellaneous QID Qty: 300 4RF Rx Instructions: One TID Dx: E11.9 (DME) blood sugar diagnostic Strip See Rx Instructions .ROUTE .MEDSUPPLY Qty: 300 4RF Rx Instructions: One TID hydrocortisone valerate 0.2 % cream 1 applic topical BID PRN (Reason: skin irritation, use in ear with q-tip) Qty: 15 0RF citalopram 20 mg tablet 20 mg PO DAILY Qty: 90 4RF insulin glargine [Lantus Solostar U-100 Insulin] 100 unit/mL (3 mL) insulin pen 60 unit subcut DAILY Qty: 45 1RF Rx Instructions: DX: E11.9 verapamil [Calan SR] 120 mg tablet extended release 120 mg PO DAILY Qty: 90 4RF aspirin 81 mg tablet,delayed release (DR/EC) 81 mg PO DAILY Qty: 90 3RF cyclobenzaprine 5 mg tablet 5 mg PO QHS PRNQty: 7 0RF ibuprofen 600 mg Tablet 600 mg PO PRN PRN Discharge Instructions Additional Instructions: You are seen in the emergency department for your right-sided abdominal pain. You were diagnosed with a 7 mm kidney stone. Please take acetaminophen and ibuprofen as directed on the bottle for pain. If you have additional pain please take these morphine tablets have also been sent to your pharmacy. Please take this prescription that will help you pass your stone every night. Please call the urology team at [facility] for follow-up in the next week or 2. If you develop fevers chills nausea or vomiting or worsening pain please return to the emergency department. Medical Decision Making This is a normothermic and not tachycardic nor hypotensive 62-year-old female with right lower quadrant pain concerning for appendicitis versus ureterolithiasis. We will proceed to CT scan to assess for appendicitis versus ureterolithiasis. She is pending a sonographic histogram in the setting of an abnormality seen on a transvaginal ultrasound at [facility] later this month. She is not septic and so I did not obtain blood cultures and lactate nor initiate empiric antibiotics. She has no rash on her abdomen to suggest zoster. She has not been vomiting to suggest obstruction. She has no left upper quadrant tenderness and not recently to suggest splenic arterial aneurysm. No shortness of breath no chest pain or epigastric pain to suggest ACS. 4:50 PM Patient was found to have an obstructing 7 mm right upper pelvis urete rolithiasis. She follows with urology and [facility]. Her pain is getting well controlled with no analgesia. Will provide ketorolac and touch base with [facility]. Chronic conditions affecting the care of the patient: Elevated BMI and uterine abnormality External record review: Chart review [facility] Medications: Social determinants of health affecting disposition: Not applicable Management discussed with: Urology at [facility] Treatment/interventions considered: Intervention versus medical management with empiric trial of passage 5:45 PM I spoke with Dr. Feng from urology at [facility] where patient is followed in the past. He advised an empiric trial of expectant outpatient management with urology follow-up at [facility] in the next week or 2 for repeat ultrasound. He advised tamsulosin. He also advised the patient return to the emergency department if she developed fevers could not tolerate her pain or if she had any other concerns. We will discharge patient now. I advised patient that if she had any concerns about this plan or if she felt unwell in any way that she should return immediately to the emergency department. I offered to call urology locally but the patient and reportedly had a less than ideal experience with them in the past and preferred to engage only with urology at [facility]. HPI General Date/Time Provider Initiated Documentation: 07/22/22 13:54 . HPI Narrative: This is a 62-year-old female in the emergency department in the setting of right-sided lower abdominal pain. She report for the past 3 days she has had right lower quadrant pain. She reports remote history of ureterolithiasis requiring stents at [facility]. She is also pending an ongoing evaluation by the [facility] team in the setting of abnormal vaginal discharge. She reports she is not sexually active and has never had a sexually transmitted infection. She has had a cramping right-sided lower abdominal pain for the past several days. She said persistent vaginal discharge. She reports that she has had numerous swabs obtained at [facility] and these have all been reassuring. Chart review indicates th at the patient has had a negative GC and Chlamydia probe negative trichomonas study negative yeast culture and negative BV swab. Related Data Home Medications Medication Instructions Recorded Confirmed loratadine 10 mg tablet 10 mg PO DAILY PRN allergy 01/10/20 07/22/22 symptoms #90 tabs blood-glucose meter (OneTouch #1 ea 09/05/20 07/07/22 UltraMini kit) [id number]-lgss-minerals 18 tab PO 04/06/21 07/07/22 mg-0.4 mg tablet (Maximum Daily Multivitamin) pen needle, diabetic 31 gauge x #100 ea 09/07/21 07/07/2208/19 (BD Ultra-Fine Mini Pen Needle) cholecalciferol (vitamin D3) 25 25 mcg PO DAILY #90 caps 11/19/21 07/22/22 mcg (1,000 unit) capsule omeprazole 20 mg capsule,delayed 20 mg PO DAILY #30 caps 11/19/21 07/22/22 release blood sugar diagnostic #300 ea 12/11/21 07/07/22 lancets 30 gauge (OneTouch Delica #300 ea 12/11/21 07/07/22 Lancets) hydrocortisone valerate 0.2 % 1 applic topical BID PRN skin 12/14/21 07/22/22 topical cream irritation, use in ear with q-tip #15 grams mometasone 0.1 % topical cream 1 applic topical DAILY 10 days #15 12/21/21 07/22/22 grams diclofenac sodium 1 % topical gel 2 g topical QID #100 grams 02/03/22 07/22/22 ibuprofen 600 mg tablet 600 mg PO PRN PRN 02/11/22 07/22/22 meloxicam 7.5 mg tablet 7.5 mg PO BID #60 tabs 02/18/22 07/22/22 cyclobenzaprine 5 mg tablet 5 mg PO QHS PRN #7 tabs 02/21/22 07/22/22 citalopram 20 mg tablet 20 mg PO DAILY #90 tabs 03/18/22 07/22/22 insulin glargine 100 unit/mL (3 60 unit (0.6 mL) subcut DAILY #45 03/18/22 07/22/22 mL) subcutaneous pen (Lantus mL Solostar U-100 Insulin) albuterol sulfate 90 mcg/actuation 2 puff inhalation Q6H PRN 04/07/22 07/22/22 aerosol inhaler (ProAir HFA) shortness of breath or wheezing #18 grams verapamil 120 mg tablet,extended 120 mg PO DAILY #90 tabs 05/24/22 07/22/22 release (Calan SR) aspirin 81 mg tablet,delayed 81 mg PO DAILY #90 tabs 06/03/22 07/22/22 release atorvastatin 40 mg tablet 40 mg PO QHS #90 tabs 06/16/22 07/22/22 morphine 10 mg capsule,extended 10 mg PO DAILY PRN #7 caps 07/22/22 release pellets tamsulosin 0.4 mg capsule 0.4 mg PO QHS #10 caps 07/22/22 Previous Rx's Medication Instructions Recorded loratadine 10 mg tablet 10 mg PO DAILY PRN allergy 01/10/20 symptoms #90 tabs blood-glucose meter (OneTouch #1 ea 09/05/20 UltraMini kit) pen needle, diabetic 31 gauge x #100 ea 09/07/2108/19 (BD Ultra-Fine Mini Pen Needle) cholecalciferol (vitamin D3) 25 25 mcg PO DAILY #90 caps 11/19/21 mcg (1,000 unit) capsule omeprazole 20 mg capsule,delayed 20 mg PO DAILY #30 caps 11/19/21 release blood sugar diagnostic #300 ea 12/11/21 lancets 30 gauge (OneTouch Delica #300 ea 12/11/21 Lancets) hydrocortisone valerate 0.2 % 1 applic topical BID PRN skin 12/14/21 topical cream irritation, use in ear with q-tip #15 grams mometasone 0.1 % topical cream 1 applic topical DAILY 10 days #15 12/21/21 grams diclofenac sodium 1 % topical gel 2 g topical QID #100 grams 02/03/22 meloxicam 7.5 mg tablet 7.5 mg PO BID #60 tabs 02/18/22 cyclobenzaprine 5 mg tablet 5 mg PO QHS PRN #7 tabs 02/21/22 citalopram 20 mg tablet 20 mg PO DAILY #90 tabs 03/18/22 insulin glargine 100 unit/mL (3 60 unit (0.6 mL) subcut DAILY #45 03/18/22 mL) subcutaneous pen (Lantus mL Solostar U-100 Insulin) albuterol sulfate 90 mcg/actuation 2 puff inhalation Q6H PRN 04/07/22 aerosol inhaler (ProAir HFA) shortness of breath or wheezing #18 grams verapamil 120 mg tablet,extended 120 mg PO DAILY #90 tabs 05/24/22 release (Calan SR) aspirin 81 mg tablet,delayed 81 mg PO DAILY #90 tabs 06/03/22 release atorvastatin 40 mg tablet 40 mg PO QHS #90 tabs 06/16/22 morphine 10 mg capsule,extended 10 mg PO DAILY PRN #7 caps 07/22/22 release pellets tamsulosin 0.4 mg capsule 0.4 mg PO QHS #10 caps 07/22/22 Allergies Allergy/AdvReac Type Severity Reaction Status Date / Time amoxicillin Allergy Severe Affects Verified 07/22/22 14:00 kidney FXN per pt. dapsone Allergy Severe Anaphylaxsi Verified 07/22/22 14:00 s lisinopril Allergy Severe Verified 07/22/22 14:00 metformin Allergy Severe INTERACTION Verified 07/22/22 14:00 S Pertussis Vaccines Allergy Severe kidney Verified 07/22/22 14:00 problems clindamycin Allergy Mild SWELLING Verified 07/22/22 14:00 OF THE THROAT latex Allergy Mild RASH Verified 07/22/22 14:00 paroxetine Allergy Unknown Verified 07/22/22 14:00 Sulfa (Sulfonamide Allergy Unknown Verified 07/22/22 14:00 Antibiotics) adhesive AdvReac Mild Itching Verified 07/22/22 14:00 fluconazole AdvReac Mild HEADACHE Verified 07/22/22 14:00 tdap Allergy Intermediate PT Uncoded 07/22/22 14:00 REPORTED metal AdvReac Unknown staph Uncoded 07/22/22 14:00 infection General SALMA: 2 PFSH All Active Problems (Updated 07/22/22 @ 16:53 by Asim Lamb MD) Anxiety (Chronic) Attention deficit hyperactivity disorder, predominantly inattentive type (Chronic) social phobia Chronic pain of both knees (Chronic 07/15/16) after bilateral patellar fractures from fall on ice. Depressive disorder (Chronic) Generalized osteoarthrosis (Chronic) Hyperlipidemia (Chronic) Morbid obesity due to excess calories (Chronic) working with Weight Mgmt clinic at [facility] Non-alcoholic fatty liver disease (Chronic) Obsessive compulsive disorder (Chronic) Obstructive sleep apnea syndrome (Chronic 06/05/07) with CPAP Diabetic retinopathy (Chronic) 06/14/18; JOLEEN MILD B/L-KB Hypertension (Chronic) Diabetic peripheral neuropathy (Acute) Abdominal pain (Chronic) 06/2020- 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 Ongoing mesenteric adenitis being followed by [facility] GI. CT scan unchanged 05/2022, next due 05/2023. Seborrheic keratosis (Acute) Abnormal gait due to muscle weakness (Acute) Neck pain (Chronic) undergoing PT Nail dystrophy (Acute) At risk for falling (Acute) Hydronephrosis of right kidney (Acute) Ureterolithiasis (Acute) Medical History Calculus of right ureter 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, seen by Dr. Davis vascular surg. SMA & NAINA patent. No further treatment needed, ongoing surveillance at 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 Subarachnoid hemorrhage 2019, tx at [facility], small per report Thrombosis of arteries of lower extremity Tubular adenoma of colon (~08/2020) at [facility]; repeat 09/2021 - tubular adenoma. Umbilical hernia without obstruction or gangrene Uveitis sees Dr Alcaraz Surgical History History of bilateral ligation of fallopian tubes History of section History of esophagogastroduodenoscopy History of spinal fusion S/P ureteral stent placement For impacted ureteral stone Spinal Fusion (~1974) T4-L3 FOR SEVERE SCOLIOSIS Status post cholecystectomy Status post laminectomy Family History Paternal Grandmother No problems noted. Sister No problems noted. Sister No problems noted. Mother Heart disease Father Diabetes Hyperlipidemia Hypertension Stroke Brother Skin cancer Depression Diabetes Hyperlipidemia Hypertension Son Diabetes Stroke Son No problems noted. Daughter No problems noted. Maternal Grandmother , 60 Diabetes Paternal Grandfather , 60 Cancer Heart disease Maternal Grandfather Prostate cancer Social History Smoking/Tobacco Use Status: Never Second Hand Exposure: Yes Smoking risk assessment performed?: Yes Alcohol Intake: current Alcohol Intake frequency: a few times a month Alcohol type: beer and wine Drug use: Never Substance use type: does not use Counseling given: No Caregiver/Support person: No Household members: none Housing: apartment Communication Needs: None Do you need help understanding health information?: Rarely Pets and animals: Yes Pets and animals: cat(s) and dog(s) Sexually active: No Do you think of yourself as: straight/heterosexual Current gender identity: female What is your relationship status?: How often do you talk on the phone with friends or family?: three or more times per week How often do you get together with friends or relatives?: three or more times per week How often do you attend yazdanism or druze services?: 1-3 times per year Do you belong to any clubs or organized social groups?: no Panel score (0-1 are the most socially isolated patients): 1 What type of physical activity do you participate in: walking Duration: 15-30 minutes/day Frequency: 3-4 times per week Claudette/Latter Day: Olya Seatbelt use: always Helmet use: Yes Helmet use: always Drive 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 auto parts delivery driver: No Do you feel safe at home: Yes Do you feel safe in your relationship?: Yes Exam Narrative Exam Narrative: General: Well-appearing in no acute distress speaking in complete sentences. Elevated BMI Head: Normocephalic, atraumatic Ear, nose, mouth, throat: Grossly normal inspection. Normal voice, handling secretions normally. Neck: Trachea midline. Cardiovascular: Well-perfused distal extremities. Respiratory: Nonlabored respiration. Gastrointestinal: Mildly abdomen. Right lower quadrant tenderness. No rash. No rebound. No guarding. Musculoskeletal: No edema. Moving all 4 extremities spontaneously. Skin: Normal for age and race, grossly normal temperature and turgor. No acute rash. Neurologic: Alert and appropriate, no apparent acute deficits. Psychiatric: Mood and manner are appropriate. Grooming and personal hygiene are appropriate.
--- NOTE | 2022-07-22 14:00 | DI.CT_ITS ---
Exam(s) CT ABDOMEN PELVIS W EXAM: CT ABDOMEN PELVIS W CLINICAL HISTORY: Right lower quadrant pain history of mass stones. TECHNIQUE: Imaging Protocol: Axial computed tomography images with coronal and sagittal reformatted images were created and reviewed CONTRAST MATERIAL: Intravenous: Omnipaque-350 100cc Oral: None COMPARISON: CT CT ABDOMEN PELVIS W from 07/21/2021 FINDINGS: VISUALIZED LUNG BASES: No nodules nor pleural effusions evident. ABDOMEN: There is no ascites. LIVER: There are no focal hepatic lesions evident. No dilated intrahepatic ducts. GALLBLADDER/BILIARY: The gallbladder is again noted be surgically absent. CBD is not dilated. PANCREAS: No evidence of pancreatic mass nor dilatation of the pancreatic duct. SPLEEN: Spleen is not enlarged. No obvious intrasplenic lesions. Splenic and portal veins are paten t. ADRENALS: There are no significant adrenal masses. KIDNEYS:There is new hydronephrosis of the right kidney. The calculus which was present in the right kidney on the previous scan is now in the right ureter within the pelvis and there is dilatation of the right ureter-right collecting system above this level, with the ureter dilated up to 1 cm. This calculus measures approximately 7x 5 mm. No calculi nor obstruction on the opposite-left side. No o ther ureteral calculi nor calculi in the nondistended urinary bladder.. ABDOMINAL AORTA: Abdominal aorta is not enlarged. LYMPH NODES:Central mesenteric streaking is again noted, unchanged. Few slightly prominent mesenteri c lymph nodes are again noted but there is no gross lymphadenopathy evident nor new mesenteric masses . ABDOMINAL WALL: Fat containing left paraumbilical hernias again noted. No bowel loops therein. No b owel obstruction. GI: There is no evidence of bowel obstruction, free air, nor abscess. PELVIS: GI: No evidence of appendicitis.No evidence of sigmoid diverticulitis. LYMPH NODES: There is no intrapelvic nor inguinal adenopathy. REPRODUCTIVE: Uterus and adnexal regions unremarkable. No abnormal masses nor free fluid. URINARY BLADDER: No calculi nor obvious masses evident OSSEOUS: Multilevel Rubio rods. No fractures. No significant osseous lesions. IMPRESSION: 1. The main acute finding is a 7 x 5 millimeter calculus in the right ureter in the upper pelvis with obstruction dilatation right collecting system above this level. There are no remaining calculi in the kidneys nor other focal renal findings. There are no calculi in the nondistended urinary bladder . 2. Stable appearing nonspecific streaking in the central mesentery which is unchanged from the prior study. A few slightly prominent mesenteric lymph nodes are again noted. No splenomegaly. 3. Other findings as above. Called by myself to ER physician. RADIATION DOSE DELIVERED: 1,435.36mGy.cm Total DLP DATA REPOSITORY: All CT scans at this facility are submitted to the National Radiology Data Registry (NRDR) Dose Index Registry (DIR) with the [employer] (ACR). RADIATION OPTIMIZATION: All CT scans at this facility use at least one of these dose optimization te chniques: automated exposure control; mA and/or kV adjustment per patient size (includes targeted exa ms where dose is matched to clinical indication); or iterative reconstruction.
[2022-07-22 15:03] LABS: HCT 39.8 % (36.0-46.0); HGB 13.3 g/dL (11.2-15.7); MCH 28.9 pg (27.0-33.0); MCHC 33.4 % (32.0-36.0); MCV 87 fL (80-95); MPV 9.8 fL (8.0-11.0); Platelet Count 183 10^3/uL (130-400); RDW 12.9 % (11.7-14.6); RDW-SD 39.9 fL
[2022-07-22] MEDS: Normal Saline 250 ML 500 ML IV (15:06)
[2022-07-22 15:08] LABS: Bilirubin Negative (Negative); Blood Moderate (Negative); Clarity Clear (Clear); Glucose Negative (Negative); Ketones Negative (Negative); Leukocyte Esterase Negative (Negative); Nitrite Negative (Negative); Specific Gravity >= 1.030 (1.005-1.025); Urobilinogen 0.2 EU/dL (Up TO 0.2); pH 5.5 (5-8)
[2022-07-22 15:13] LABS: Anion Gap 7.9 mmol/L (3-11); BUN 13 mg/dL (7-18); CO2 28.1 mmol/L (21.0-32.0); CREATININE 0.9 mg/dL (0.55-1.02); Calcium 9.5 mg/dL (8.5-10.1); Chloride 103 mmol/L (98-107); Estimated GFR 72.28 (mL/min/1.73m2); Glucose 162 mg/dL (74-106); Potassium 3.8 mmol/L (3.5-5.1); Sodium 139 mmol/L (136-145)
[2022-07-22 15:20] LABS: Bacteria Rare HPF (Negative); C & S Indicated? No; Casts Negative LPF (Negative); Crystals Negative HPF (Negative); Epithelial Cells Rare HPF (Negative); Mucus Negative (Negative); WBC Negative HPF (0-5)
[2022-07-22] MEDS: Omnipaque 350 MG/ML 100 ML BTL IJ (16:09)
[2022-07-22] MEDS: Normal Saline - Diluent 50 ML VIAL IJ (16:10)
[2022-07-22] MEDS: Ketorolac 15 MG/ML VIAL IVP (16:55)
[2022-07-22] MEDS: Tamsulosin 0.4 MG CAPCR PO (18:15)
== END 2022-07-22 18:28 | disposition home or self-care (01) ==
PROVIDERS: Emergency Provider Emergency Medicine; PCP Family Medicine
DX: N13.2 Hydronephrosis with renal and ureteral calculous obstruction (principal); Z90.49 Acquired absence of other specified parts of digestive tract; Z86.718 Personal history of other venous thrombosis and embolism; Z79.82 Long term (current) use of aspirin
CPT/HCPCS: 36415; 80048; 85027; 96361; 96374; 99285; 74177; 81003; 81015; 99284; J1885; J3490

== ENCOUNTER 2022-07-28 13:35 | Emergency (ER) | payer MEDICARE, MEDICAID, SELFPAY ==
[2022-07-28] VITALS (27 sets, daily range): BP systolic 150–198; BP diastolic 63–85; PULSE 64–75; RESP 16; TEMP 35.9; O2SAT 94–100
--- NOTE | 2022-07-28 14:15 | RT.EKG_ITS ---
APPROVED REPORT Exam: Resting ECG Reason for Exam: chest pain Patient Location: E HR:66 bpm ECG Measurements Heart Rate 66 AXIS IN 165 P 0 QRSd 87 QRS -17 QT 395 T 133 QTc 415 Conclusion Sinus rhythm...normal P axis, V-rate 60- 99 Nonspecific T abnormalities, lateral leads...T <-0.10mV, I aVL V5 V6
--- NOTE | 2022-07-28 15:00 | DI.CT_ITS ---
Exam(s) CT ABDOMEN PELVIS WO EXAM: CT ABDOMEN PELVIS WO CLINICAL HISTORY: recent R kid stone, now LLQ pain. TECHNIQUE: Imaging Protocol: Axial computed tomography images with coronal and sagittal reformatted images were created and reviewed. COMPARISON: CT CT ABDOMEN PELVIS W from 07/22/2022 FINDINGS: ABDOMEN: Lung Bases: Normal where visualized. Liver: Normal density. No measurable mass. The liver is enlarged measuring 19 cm long. Gallbladder and biliary tract: Status post cholecystectomy no biliary ductal dilatation. Pancreas: There are stable pancreatic calcifications. The pancreas is otherwise unremarkable. Spleen: Normal. Kidneys: Normal size, contour and axis.There has been distal migration of the 7 mm calculus though it is still proximal to the right UVJ. There is moderate hydronephrosis present. No masses seen. Adrenal glands: No mass is seen. Lymph nodes: Within normal limits. Abdominal Aorta: Abdominal portion non-dilated. Atherosclerosis is present. PELVIS: Bladder:Symmetric distention, no gross wall thickening. Bowel: There diverticula in the colon but no evidence of acute diverticulitis. There is no evidence of bowel obstruction. No evidence of appendicitis. Peritoneal cavity: There is again seen a nubia mesentery which is nonspecific. No free air. No asci bautista is present. Reproductive organs: Unremarkable as visualized. Bones: Within normal limits for the patient's age. Postsurgical changes are seen in the spine. Post erior spinal rods are again noted. There is a prominent left convex lumbar scoliosis. Soft Tissues: There is a fat containing paraumbilical hernia. IMPRESSION: 1. There has been some distal migration of the 7 mm right ureteral stone. There is persistent modera te hydronephrosis. 2. Findings were discussed with Dr. Marx at 4:10 p.m. on 07/28/2022. RADIATION DOSE DELIVERED: 1,234.06mGy.cm Total DLP DATA REPOSITORY: All CT scans at this facility are submitted to the National Radiology Data Registry (NRDR) Dose Index Registry (DIR) with the [employer] (ACR). RADIATION OPTIMIZATION: All CT scans at this facility use at least one of these dose optimization te chniques: automated exposure control; mA and/or kV adjustment per patient size (includes targeted exa ms where dose is matched to clinical indication); or iterative reconstruction.
[2022-07-28 15:23] LABS: Abs Immature Grans 0.04 10^3/uL (0.0-0.06); Absolute Basophil Count 0.08 10^3/uL (0.0-0.2); Absolute Eosinophil Count 0.35 10^3/uL (0.0-0.7); Absolute Monocyte Count 0.48 10^3/uL (0.1-0.8); Absolute Neutrophil Count 5.19 10^3/uL (1.2-6.7); Basophils % 0.9; HCT 40.2 % (36.0-46.0); HGB 13.5 g/dL (11.2-15.7); Immature Grans % 0.5; Lymphocytes % 30.5; MCH 28.8 pg (27.0-33.0); MCHC 33.6 % (32.0-36.0); MCV 86 fL (80-95); Monocytes % 5.4; Neutrophils % 58.7; Platelet Count 187 10^3/uL (130-400); RBC 4.68 10^6/uL (3.93-5.22); RDW 12.7 % (11.7-14.6); RDW-SD 39.4 fL; WBC 8.84 10^3/uL (4.4-10.8)
[2022-07-28 15:24] LABS: Bilirubin Negative (Negative); Blood Moderate (Negative); Clarity Clear (Clear); Glucose Negative (Negative); Ketones Negative (Negative); Leukocyte Esterase Negative (Negative); Nitrite Negative (Negative); Specific Gravity 1.025 (1.005-1.025); Urobilinogen 0.2 mg/dL (Up to 0.2)
[2022-07-28] MEDS: Ondansetron 4 MG/2 ML VIAL IVP (15:29)
[2022-07-28] MEDS: MORPHine 4 MG/ML SYR IVP (15:29)
--- NOTE | 2022-07-28 15:33 | ED.GENADUL_ITS ---
Discharge Plan Disposition Patient Disposition: Home Discharge Details Clinical Impression: Kidney stone on right side Primary Care Provider: Debbi Monge ED Provider: Chava Marx Home Meds and New Rx's Prescriptions: New tamsulosin [Flomax] 0.4 mg capsule 0.4 mg PO DAILY Qty: 7 0RF No Action atorvastatin 40 mg tablet 40 mg PO QHS Qty: 90 3RF diclofenac sodium 1 % gel 2 g topical QID Qty: 100 3RF Rx Instructions: apply to single elbow, wrist or hand; for hand includes palm/fingers/back of hand meloxicam 7.5 mg tablet 7.5 mg PO BID Qty: 60 1RF Maximum Daily Multivitamin 18-0.4 mg tablet 1 tab PO 1XD mometasone 0.1 % cream 1 applic topical DAILY 10 Days Qty: 15 1RF Rx Instructions: apply with fingertip to both ear canals albuterol sulfate [ProAir HFA] 90 mcg/actuation HFA aerosol inhaler 2 puff IH Q6H PRN (Reason: shortness of breath or wheezing) Qty: 18 11RF Rx Instructions: please dispence with a spacer/aerochamber loratadine 10 mg tablet 10 mg PO DAILY PRN (Reason: allergy symptoms) Qty: 90 4RF (DME) blood-glucose meter [[employer] UltraMini] Kit See Rx Instructions .ROUTE .MEDSUPPLY Qty: 1 0RF Rx Instructions: As directed (DME) pen needle, diabetic [BD Ultra-Fine Mini Pen Needle] 31 gauge x 3/16 needle See Rx Instructions .ROUTE .MEDSUPPLY Qty: 100 5RF Rx Instructions: One daily omeprazole 20 mg capsule,delayed release(DR/EC) 20 mg PO DAILY Qty: 30 2RF cholecalciferol (vitamin D3) 25 mcg (1,000 unit) capsule 25 mcg PO DAILY Qty: 90 3RF (DME) lancets [OneTouch Delica Lancets] 30 gauge misc 1 ea Miscellaneous QID Qty: 300 4RF Rx Instructions: One TID Dx: E11.9 (DME) blood sugar diagnostic Strip See Rx Instructions .ROUTE .MEDSUPPLY Qty: 300 4RF Rx Instructions: One TID hydrocortisone valerate 0.2 % cream 1 applic topical BID PRN (Reason: skin irritation, use in ear with q-tip) Qty: 15 0RF citalopram 20 mg tablet 20 mg PO DAILY Qty: 90 4RF insulin glargine [Lantus Solostar U-100 Insulin] 100 unit/mL (3 mL) insulin pen 60 unit subcut DAILY Qty: 45 1RF Rx Instructions: DX: E11.9 verapamil [Calan SR] 120 mg tablet extended release 120 mg PO DAILY Qty: 90 4RF aspirin 81 mg tablet,delayed release (DR/EC) 81 mg PO DAILY Qty: 90 3RF tamsulosin 0.4 mg capsule 0.4 mg PO QHS Qty: 10 0RF Rx Instructions: Please take daily at night until your stone passes. morphine 10 mg capsule,extend.release pellets 10 mg PO DAILY PRNQty: 7 0RF ibuprofen 600 mg Tablet 600 mg PO PRN PRN Discharge Instructions Instructions: Kidney Stones (ED) Additional Instructions: At this time it does appear that your kidney stone is slowly moving. Please maintain your appointment at [facility]. Please continue taking the Flomax as directed. You have been given a prescription of an additional 7 days to take as directed. Take this after you run out of your current prescription. Please take the pain pills that you have been given only as needed for breakthrough pain. Thankfully there was no evidence of other significant abnormality noted on the CAT scan for the left-hand side. Your renal function is actually improving slightly, and your urinalysis shows no evidence of infection thankfully. If you notice any worsening of your symptoms, or any new symptoms such as vomi ting, diarrhea, fever, chills, shortness of breath, chest pain, numbness, weakness, or fainting , please return immediately to the emergency department for reevaluation. Please follow up with your primary care provider as soon as possible for reassessment and reevaluation. As always, it was a pleasure participating in your medical care today. Referrals: Debbi Monge MD [Primary Care Provider] - Medical Decision Making 62-year-old female with a past medical history of high cholesterol, type 2 diabetes, previous kidney stones, previous brain bleed, cholecystectomy, current uterine mass, presents today for left and right flank pain. Just over a week ago the patient developed right-sided flank pain, she was diagnosed with a 7 mm kidney stone. She elected for discharge, was started on Flomax at [facility] recommendations no scheduled for follow-up with them. A day or so after this she developed left-sided flank and left lower quadrant abdominal pain which she describes as constant, feeling like something punched her in that area. She denies any vomiting diarrhea or change in urinary frequency. She d oes continue to have vaginal discharge but this has been attributed to the uterine mass. She denies fever or chills. She denies chest pain or shortness of breath. She denies numbness tingling or weakness. She states that both of the symptoms on the right and the left feels similar to her previous kidney stones. She was not started on antibiotics. She had no evidence of infection on her last visit. She did contact [facility] and they recommended that she come to the ER for further assessment. No other complaints at this time. No other modifying factors. Patient has not taken any narcotics, she did not fill the narcotic prescription because it was not covered by her insurance and [facility] per the patient recommended she does not take it. She has been taking ibuprofen which is only minimally helped with pain. She has been taking the Flomax as directed and prescribed. Exam demonstrates a well-appearing female, mild left lower quadrant tenderness, mild umbilical tenderness at the site of her hernia which does appear to be reducible. No evidence of strangulation or jin incarceration. Minimal right CVA tenderness. Differential is now increased to include diverticulitis as well as a potential left-sided kidney stone. However upon review of the prior CT scan from last week there was no evidence of left-sided kidney stone then. We will gently hydrate the patient, treat her pain with a low-dose of morphine. She has agreed to this. We will monitor closely and reassess. 4:29 PM Laboratory work-up is returned normal, no white count bandemia or left shift. Urinalysis shows no evidence of infection whatsoever. Patient's renal function is stable/improved compared to prior visit. On reassessment pain is well controlled, patient feels well and feels comfortable going home. Repeat exam shows no signs of an acute surgical abdomen whatsoever. Patient feels much better. CT scan is negative for acute process. Her kidney stone on the right is moving slightly, hydronephrosis is still present. No evidence of etiology on the left-hand side. No evidence of diverticulitis, or other significant abnormality. Patient is otherwise stable for discharge. Did give an additional prescription for Flomax for home use. As she is almost out of her current Flomax. Recommend continued follow-up with her urologist at [facility]. Discussed red flags which to return. I have extensively reviewed the treatment plan and discharge instructions with the patient. I have addressed all patient concerns at this time. The patient was made aware of what symptoms to monitor for that would warrant a return to the emergency department. Discussed the plan with the patient, they demonstrate verbal understanding and agreement with our assessment and plan at this time. The documentation in this chart was dictated using [employer] dictation software. Please excuse any dictation errors. FINDINGS: ABDOMEN: Lung Bases: Normal where visualized. Liver: Normal density. No measurable mass. The liver is enlarged measuring 19 cm long. Gallbladder and biliary tract: Status post cholecystectomy no biliary ductal dilatation. Pancreas: There are stable pancreatic calcifications. The pancreas is otherwise unremarkable. Spleen: Normal. Kidneys: Normal size, contour and axis.There has been distal migration of the 7 mm calculus though it is still proximal to the right UVJ. There is moderate hydronephrosis present. No masses seen. Adrenal glands: No mass is seen. Lymph nodes: Within normal limits. Abdominal Aorta: Abdominal portion non-dilated. Atherosclerosis is present. PELVIS: Bladder:Symmetric distention, no gross wall thickening. Bowel: There diverticula in the colon but no evidence of acute diverticulitis. There is no evidence of bowel obstruction. No evidence of appendicitis. Peritoneal cavity: There is again seen a nubia mesentery which is nonspecific. No free air. No ascites is present. Reproductive organs: Unremarkable as visualized. Bones: Within normal limits for the patient's age. Postsurgical changes are seen in the spine. Posterior spinal rods are again noted. There is a prominent left convex lumbar scoliosis. Soft Tissues: There is a fat containing paraumbilical hernia. IMPRESSION: 1. There has been some distal migration of the 7 mm right ureteral stone. There is persistent moderate hydronephrosis. 2. Findings were discussed with Dr. Marx at 4:10 p.m. on 07/28/2022. HPI General Date/Time Provider Initiated Documentation: 07/28/22 14:18 . HPI Narrative: 62-year-old female with a past medical history of high cholesterol, type 2 diabetes, previous kidney stones, previous brain bleed, cholecystectomy, current uterine mass, presents today for left and right flank pain. Just over a week ago the patient developed right-sided flank pain, she was diagnosed with a 7 mm kidney stone. She elected for discharge, was started on Flomax at [facility] recommendations no scheduled for follow-up with them. A day or so after this she developed left-sided flank and left lower quadrant abdominal pain which she describes as constant, feeling like something punched her in that area. She denies any vomiting diarrhea or change in urinary frequency. She does continue to have vaginal discharge but this has been attributed to the uterine mass. She denies fever or chills. She denies chest pain or shortness of breath. She denies numbness tingling or weakness. She states that both of the symptoms on the right and the left feels similar to her previous kidney stones. She was not started on antibiotics. She had no evidence of infection on her last visit. She did contact [facility] and they recommended that she come to the ER for further assessment. No other complaints at this time. No other modifying factors. Patient has not taken any narcotics, she did not fill the narcotic prescription because it was not covered by her insurance and [facility] per the patient recommended she does not take it. She has been taking ibuprofen which is only minimally helped with pain. She has been taking the Flomax as directed and prescribed. Related Data Home Medications Medication Instructions Recorded Confirmed loratadine 10 mg tablet 10 mg PO DAILY PRN allergy 01/10/20 07/28/22 symptoms #90 tabs blood-glucose meter (OneTouch #1 ea 09/05/20 07/28/22 UltraMini kit) [id number] 18 1 tab PO 1XD 04/06/21 07/28/22 mg-0.4 mg tablet (Maximum Daily Multivitamin) pen needle, diabetic 31 gauge x #100 ea 09/07/21 07/28/2208/19 (BD Ultra-Fine Mini Pen Needle) cholecalciferol (vitamin D3) 25 25 mcg PO DAILY #90 caps 11/19/21 07/28/22 mcg (1,000 unit) capsule omeprazole 20 mg capsule,delayed 20 mg PO DAILY #30 caps 11/19/21 07/28/22 release blood sugar diagnostic #300 ea 07/08/22 02/22/23 lancets 30 gauge (OneTouch [facility] #300 ea 12/11/21 07/28/22 Lancets) hydrocortisone valerate 0.2 % 1 applic topical BID PRN skin 12/14/21 07/28/22 topical cream irritation, use in ear with q-tip #15 grams mometasone 0.1 % topical cream 1 applic topical DAILY 10 days #15 12/21/21 07/28/22 grams diclofenac sodium 1 % topical gel 2 g topical QID #100 grams 02/03/22 07/28/22 ibuprofen 600 mg tablet 600 mg PO PRN PRN 02/11/22 07/28/22 meloxicam 7.5 mg tablet 7.5 mg PO BID #60 tabs 02/18/22 07/28/22 citalopram 20 mg tablet 20 mg PO DAILY #90 tabs 03/18/22 07/28/22 insulin glargine 100 unit/mL (3 60 unit (0.6 mL) subcut DAILY #45 03/18/22 07/28/22 mL) subcutaneous pen (Lantus mL Solostar U-100 Insulin) albuterol sulfate 90 mcg/actuation 2 puff inhalation Q6H PRN 04/07/22 07/28/22 aerosol inhaler (ProAir HFA) shortness of breath or wheezing #18 grams verapamil 120 mg tablet,extended 120 mg PO DAILY #90 tabs 05/24/22 07/28/22 release (Calan SR) aspirin 81 mg tablet,delayed 81 mg PO DAILY #90 tabs 06/03/22 07/28/22 release atorvastatin 40 mg tablet 40 mg PO QHS #90 tabs 06/16/22 07/28/22 morphine 10 mg capsule,extended 10 mg PO DAILY PRN #7 caps 07/22/22 07/28/22 release pellets tamsulosin 0.4 mg capsule 0.4 mg PO QHS #10 caps 07/22/22 07/28/22 tamsulosin 0.4 mg capsule (Flomax) 0.4 mg PO DAILY #7 caps 07/28/22 Previous Rx's Medication Instructions Recorded loratadine 10 mg tablet 10 mg PO DAILY PRN allergy 01/10/20 symptoms #90 tabs blood-glucose meter (HowbuyTouch #1 ea 09/05/20 UltraMini kit) pen needle, diabetic 31 gauge x #100 ea 09/07/2108/19 (BD Ultra-Fine Mini Pen Needle) cholecalciferol (vitamin D3) 25 25 mcg PO DAILY #90 caps 11/19/21 mcg (1,000 unit) capsule omeprazole 20 mg capsule,delayed 20 mg PO DAILY #30 caps 11/19/21 release blood sugar diagnostic #300 ea 12/11/21 lancets 30 gauge (OneTouch Delica #300 ea 12/11/21 Lancets) hydrocortisone valerate 0.2 % 1 applic topical BID PRN skin 12/14/21 topical cream irritation, use in ear with q-tip #15 grams mometasone 0.1 % topical cream 1 applic topical DAILY 10 days #15 12/21/21 grams diclofenac sodium 1 % topical gel 2 g topical QID #100 grams 02/03/22 meloxicam 7.5 mg tablet 7.5 mg PO BID #60 tabs 02/18/22 citalopram 20 mg tablet 20 mg PO DAILY #90 tabs 03/18/22 insulin glargine 100 unit/mL (3 60 unit (0.6 mL) subcut DAILY #45 03/18/22 mL) subcutaneous pen (Lantus mL Solostar U-100 Insulin) albuterol sulfate 90 mcg/actuation 2 puff inhalation Q6H PRN 04/07/22 aerosol inhaler (ProAir HFA) shortness of breath or wheezing #18 grams verapamil 120 mg tablet,extended 120 mg PO DAILY #90 tabs 05/24/22 release (Calan SR) aspirin 81 mg tablet,delayed 81 mg PO DAILY #90 tabs 06/03/22 release atorvastatin 40 mg tablet 40 mg PO QHS #90 tabs 06/16/22 morphine 10 mg capsule,extended 10 mg PO DAILY PRN #7 caps 07/22/22 release pellets tamsulosin 0.4 mg capsule 0.4 mg PO QHS #10 caps 07/22/22 tamsulosin 0.4 mg capsule (Flomax) 0.4 mg PO DAILY #7 caps 07/28/22 Allergies Allergy/AdvReac Type Severity Reaction Status Date / Time amoxicillin Allergy Severe Affects Verified 07/28/22 16:13 kidney FXN per pt. dapsone Allergy Severe Anaphylaxsi Verified 07/28/22 16:13 s lisinopril Allergy Severe Verified 07/28/22 16:13 metformin Allergy Severe INTERACTION Verified 07/28/22 16:13 S Pertussis Vaccines Allergy Severe kidney Verified 07/28/22 16:13 problems clindamycin Allergy Mild SWELLING Verified 07/28/22 16:13 OF THE THROAT latex Allergy Mild RASH Verified 07/28/22 16:13 paroxetine Allergy Unknown Verified 07/28/22 16:13 Sulfa (Sulfonamide Allergy Unknown Verified 07/28/22 16:13 Antibiotics) adhesive AdvReac Mild Itching Verified 07/28/22 16:13 fluconazole AdvReac Mild HEADACHE Verified 07/22/22 14:00 tdap Allergy Intermediate PT Uncoded 07/22/22 14:00 REPORTED metal AdvReac Unknown staph Uncoded 07/22/22 14:00 infection General Stated Complaint: Urinary SALMA: 3 Review of Systems All systems reviewed & are unremarkable except as noted in HPI and below PFSH All Active Problems (Updated 07/28/22 @ 16:28 by Chava Marx DO) Anxiety (Chronic) Attention deficit hyperactivity disorder, predominantly inattentive type (Chronic) social phobia Chronic pain of both knees (Chronic 07/15/16) after bilateral patellar fractures from fall on ice. 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 Ongoing mesenteric adenitis being followed by [facility]. [place] scan unchanged 05/2022, next due 05/2023. 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 Davis vascular surg. SMA & NAINA patent. 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 Functional diarrhea History of subarachnoid hemorrhage Idiopathic scoliosis Rubio sergio-age 13 Knee osteonecrosis, left (11/08/16) Left carpal tunnel syndrome Lumbar disc prolapse with root compression Renal failure autoimmune - resolved Restless legs (06/05/07) Social anxiety disorder (11/25/17) Spinal stenosis with Cauda equina syndrome; surgery at [facility] Subarachnoid hemorrhage 2018, tx at [facility], small per report Thrombosis of arteries of lower extremity Tubular adenoma of colon (~08/2020) at [facility]; repeat 09/2021 - tubular adenoma. Umbilical hernia without obstruction or gangrene Uveitis sees Dr Alcaraz Surgical History History of bilateral ligation of fallopian tubes History of section History of esophagogastroduodenoscopy History of spinal fusion S/P ureteral stent placement For impacted ureteral stone Spinal Fusion (~1974) T4-L3 FOR SEVERE SCOLIOSIS Status post cholecystectomy Status post laminectomy Family History Paternal Grandmother No problems noted. Sister No problems noted. Sister No problems noted. Mother Heart disease Father Diabetes Hyperlipidemia Hypertension Stroke Brother Skin cancer Depression Diabetes Hyperlipidemia Hypertension Son Diabetes Stroke Son No problems noted. Daughter No problems noted. Maternal Grandmother , 60 Diabetes Paternal Grandfather , 60 Cancer Heart disease Maternal Grandfather Prostate cancer Social History Smoking/Tobacco Use Status: Never Second Hand Exposure: Yes Smoking risk assessment performed?: Yes Alcohol Intake: current Alcohol Intake frequency: a few times a month Alcohol type: beer and wine Drug use: Never Substance use type: does not use Counseling given: No Caregiver/Support person: No Household members: none Housing: apartment Communication Needs: None Do you need help understanding health information?: Rarely Pets and animals: Yes Pets and animals: cat(s) and dog(s) Sexually active: No Do you think of yourself as: straight/heterosexual Current gender identity: female What is your relationship status?: How often do you talk on the phone with friends or family?: three or more times per week How often do you get together with friends or relatives?: three or more times per week How often do you attend scientologist or jainism services?: 1-3 times per year Do you belong to any clubs or organized social groups?: no Panel score (0-1 are the most socially isolated patients): 1 What type of physical activity do you participate in: walking Duration: 15-30 minutes/day Frequency: 3-4 times per week Claudette/Yarsanism: Olya Seatbelt use: always Helmet use: Yes Helmet use: always Drive 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 logging truck driver: No Do you feel safe at home: Yes Do you feel safe in your relationship?: Yes Exam Narrative Exam Narrative: 1.Const: Well-nourished, Well-developed, appearing stated age 2.Eyes: PERRL, no conjunctival injection, and symmetrical lids. 3.ENT: Atraumatic external nose and ears. Moist MM. Neck: Symmetric, trachea midline, No thyromegaly. 4.CVS: +S1/S2, No murmurs or gallops. Peripheral pulses 2+ and equal in all extremities. Brisk capillary refill in all extremities. 5.RESP: Unlabored respiratory effort. Clear to auscultation bilaterally. No rales or rhonchi, minimal wheeze 6.GI: Soft, nondistended, no guarding or rebound. Mild minimal right CVA tenderness. Mild left CVA tenderness. Mild left lower quadrant tenderness on palpation. Patient does demonstrate a mild umbilical hernia which is mildly tender, and somewhat reducible. No redness, no signs of strangulation or jin incarceration. 7.MSK: Normocephalic/Atraumatic, Extremities w/o deformity or ttp No cyanosis or clubbing, Normal movement of all extremities 8.Skin: Warm, Dry. No rashes or lesions. 9.Neuro: certified low vision therapist II-XII grossly intact. Sensation grossly intact, no focal neurologic deficits. 10.Psych: (AAO) x3. Appropriate mood and affect Course Vital Signs Vital signs: Vital Signs Temperature 35.9 C L 07/28/22 14:06 Pulse 70 07/28/22 14:06 Respiratory Rate 16 07/28/22 14:06 Blood Pressure 150/76 H 07/28/22 14:06 Pulse Oximetry 98 07/28/22 14:06 Temperature 35.9 C L 07/28/22 14:06 Temperature Source Tympanic 07/28/22 14:06 Pulse 70 07/28/22 14:06 Respiratory Rate 16 07/28/22 14:06 Blood Pressure 150/76 H 07/28/22 14:06 Blood Pressure Position Sitting 07/28/22 14:06 Pulse Oximetry 98 07/28/22 14:06 Oxygen Delivery Method Room Air 07/28/22 14:06 Oxygen Flow Rate 0 07/28/22 14:06 Pain Level 6 07/28/22 15:29 Lab/Test Results Lab/Test Results: Laboratory Tests Range/Units 07/28/22 07/28/22 14:15 15:00 WBC (4.4-10.8) 10^3/uL 8.84 RBC (3.93-5.22) 10^6/uL 4.68 Hgb (11.2-15.7) g/dL 13.5 Hct (36.0-46.0) % 40.2 MCV (80-95) fL 86 MCH (27.0-33.0) pg 28.8 MCHC (32.0-36.0) % 33.6 RDW (11.7-14.6) % 12.7 Plt Count (130-400) 10^3/uL 187 MPV (8.0-11.0) fL 10.0 Immature Gran % 0.5 Neutrophils % 58.7 Lymphocytes % 30.5 Monocytes % 5.4 Eosinophils % 4.0 Basophils % 0.9 Nucleated RBC % (0.0-0.3) % 0.0 Absolute Neutrophils (1.2-6.7) 10^3/uL 5.19 Absolute Lymphocytes (1.2-3.4) 10^3/uL 2.70 Absolute Monocytes (0.1-0.8) 10^3/uL 0.48 Absolute Eosinophils (0.0-0.7) 10^3/uL 0.35 Absolute Basophils (0.0-0.2) 10^3/uL 0.08 Urine Color (Yellow) Yellow Urine Clarity (Clear) Clear Urine pH (5-8) 6.0 Ur Specific [place] (1.005-1.025) 1.025 Urine Protein (Negative) mg/dL Negative Urine Ketones (Negative) mg/dL Negative Urine Blood (Negative) Moderate H Urine Nitrite (Negative) Negative Urine Bilirubin (Negative) Negative Urine Urobilinogen (Up to 0.2) mg/dL 0.2 Ur Leukocyte Esterase (Negative) Negative Urine Glucose (Negative) mg/dL Negative
[2022-07-28 15:34] LABS: Bacteria Few HPF (Negative); C & S Indicated? Yes; Casts Negative LPF (Negative); Crystals Negative HPF (Negative); Epithelial Cells Few HPF (Negative); Mucus Negative (Negative)
[2022-07-28 15:36] LABS: ALT 57 U/L (14-59); AST 33 U/L (15-37); Albumin 3.6 g/dL (3.4-5.0); Alkaline Phosphatase 82 U/L (46-116); Anion Gap 6.5 mmol/L (3-11); BUN 16 mg/dL (7-18); Bilirubin, Total 0.4 mg/dL (0.2-1.0); CO2 29.5 mmol/L (21.0-32.0); CREATININE 0.8 mg/dL (0.55-1.02); Calcium 9.2 mg/dL (8.5-10.1); Chloride 104 mmol/L (98-107); Estimated GFR 83.26 (mL/min/1.73m2); Glucose 110 mg/dL (74-106); Potassium 3.7 mmol/L (3.5-5.1); Sodium 140 mmol/L (136-145); Total Protein 7.1 g/dL (6.4-8.2)
== END 2022-07-28 16:48 | disposition home or self-care (01) ==
PROVIDERS: Emergency Provider Student in an Organized Health Care Education/Training Program; PCP Family Medicine
DX: N13.2 Hydronephrosis with renal and ureteral calculous obstruction (principal); E11.319 Type 2 diabetes mellitus with unspecified diabetic retinopathy without macular edema; E11.42 Type 2 diabetes mellitus with diabetic polyneuropathy; E78.00 Pure hypercholesterolemia, unspecified; Z79.4 Long term (current) use of insulin; Z90.49 Acquired absence of other specified parts of digestive tract; Z79.82 Long term (current) use of aspirin
CPT/HCPCS: 80053; 93005; 96374; 96375; 99284; 74176; 81003; 81015; 85025; 87086; 93010; 99285; J2270; J2405

== ENCOUNTER 2022-08-02 02:45 | Outpatient (CLI) | payer MEDICARE, MEDICAID, SELFPAY | END 2022-08-02 02:46 | disposition home or self-care (01) | LOC: LOS 02:45 | PROVIDERS: PCP Family Medicine; Visit Provider Urology | DX: N20.0 Calculus of kidney (principal) | CPT/HCPCS: 87086 ==

== ENCOUNTER 2022-08-23 08:22 | Emergency (ER) | payer MEDICARE, MEDICAID, SELFPAY ==
[2022-08-23 08:25] VITALS: BP 179/75; PULSE 77; RESP 16; TEMP 36.8; O2SAT 98
--- NOTE | 2022-08-23 08:30 | DI.RAD_ITS ---
Exam(s) XR CHEST 2V PA LATERAL EXAM: XR CHEST 2V PA LATERAL CLINICAL HISTORY: cough, shortness of breath. TECHNIQUE: 2D digital imaging was performed. COMPARISON: CR XR CHEST 2V PA LATERAL from 07/29/2020 FINDINGS: 2 views: Rubio rods again noted. Heart size is normal. The mediastinum is not widened. Lungs are clear. No infiltrates nor pleural effusions. IMPRESSION: No acute pulmonary findings. DATA REPOSITORY: RADIATION DOSE DELIVERED:
[2022-08-23 09:13] LABS: Source Nasal/Nares
--- NOTE | 2022-08-23 09:56 | ED.GENADUL_ITS ---
Discharge Plan Discharge Details Chief Complaint: RespSymp Primary Care Provider: Debbi Monge ED Provider: Katja Ibrahim Home Meds and New Rx's Prescriptions: Continued diclofenac sodium 1 % gel 2 g topical QID Qty: 100 3RF Rx Instructions: apply to single elbow, wrist or hand; for hand includes palm/fingers/back of hand meloxicam 7.5 mg tablet 7.5 mg PO BID Qty: 60 1RF Maximum Daily Multivitamin 18-0.4 mg tablet 1 tab PO 1XD mometasone 0.1 % cream 1 applic topical DAILY 10 Days Qty: 15 1RF Rx Instructions: apply with fingertip to both ear canals loratadine 10 mg tablet 10 mg PO DAILY PRN (Reason: allergy symptoms) Qty: 90 4RF omeprazole 20 mg capsule,delayed release(DR/EC) 20 mg PO DAILY Qty: 30 2RF cholecalciferol (vitamin D3) 25 mcg (1,000 unit) capsule 25 mcg PO DAILY Qty: 90 3RF hydrocortisone valerate 0.2 % cream 1 applic topical BID PRN (Reason: skin irritation, use in ear with q-tip) Qty: 15 0RF verapamil [Calan SR] 120 mg tablet extended release 120 mg PO DAILY Qty: 90 4RF aspirin 81 mg tablet,delayed release (DR/EC) 81 mg PO DAILY Qty: 90 3RF insulin glargine [Lantus Solostar U-100 Insulin] 100 unit/mL (3 mL) insulin pen 60 unit subcut DAILY Qty: 135 1RF Rx Instructions: DX: E11.9 ibuprofen 600 mg Tablet 600 mg PO PRN PRN Held atorvastatin 40 mg tablet 40 mg PO QHS Qty: 90 3RF Hold Instructions: Resume on 08/28/22. citalopram 20 mg tablet 20 mg PO DAILY Qty: 90 4RF Hold Instructions: Resume on 08/27/22. Discontinued albuterol sulfate [ProAir HFA] 90 mcg/actuation HFA aerosol inhaler 2 puff IH Q6H PRN (Reason: shortness of breath or wheezing) Qty: 18 11RF Rx Instructions: please dispence with a spacer/aerochamber tamsulosin 0.4 mg capsule 0.4 mg PO QHS Qty: 10 0RF Rx Instructions: Please take daily at night until your stone passes. morphine 10 mg capsule,extend.release pellets 10 mg PO DAILY PRNQty: 7 0RF tamsulosin [Flomax] 0.4 mg capsule 0.4 mg PO DAILY Qty: 7 0RF No Action (DME) blood-glucose meter [OneTouch UltraMini] Kit See Rx Instructions .ROUTE .MEDSUPPLY Qty: 1 0RF Rx Instructions: As directed (DME) lancets [OneTouch Delica Lancets] 30 gauge misc 1 ea Miscellaneous QID Qty: 300 4RF Rx Instructions: One TID Dx: E11.9 (DME) blood sugar diagnostic Strip See Rx Instructions .ROUTE .MEDSUPPLY Qty: 300 4RF Rx Instructions: One TID (DME) pen needle, diabetic [BD Ultra-Fine Mini Pen Needle] 31 gauge x 3/16 needle See Rx Instructions .ROUTE .MEDSUPPLY Qty: 100 5RF Rx Instructions: One daily Discharge Instructions Additional Instructions: Do not take the atorvastatin until paxlovid is completed (it sounds like you aren't taking this anyway) do not take flomax or morphine take your paxlovid,but watch your blood pressure (it can sometimes cause your blood pressure to be low) use the combivent, 1 puff every 6 hours return earlier with new or worsening complaints Referrals: Debbi Monge MD [Primary Care Provider] - Medical Decision Making This 62-year-old female presents with report of upper respiratory symptoms with COVID exposure Past COVID-positive in the emergency department, no evidence of pneumonia on chest x-ray per radiology interpretation and my review, no hypoxia, no respiratory distress Given Combivent inhaler Placed on Paxlovid, encouraged to use caution with the verapamil that she takes and checks her blood pressure frequently She is quite stable for discharge home at this time Return precautions were reviewed in detail and patient expressed understanding Discharged home in stable condition with stable vitals HPI General Date/Time Provider Initiated Documentation: 08/23/22 08:28 . HPI Narrative: This 62-year-old female presents with report of shortness of breath, cough, and sore throat which started approximately 3 days ago. Her son was recently diagnosed with COVID and she had close exposure. She is vaccinated per patient for COVID-19. She denies any fever, chills, myalgias, nausea, vomiting. She denies any calf pain or swelling. She denies any chest pain. Related Data Home Medications Medication Instructions Recorded Confirmed loratadine 10 mg tablet 10 mg PO DAILY PRN allergy 01/10/20 08/23/22 symptoms #90 tabs blood-glucose meter (OneTouch #1 ea 09/05/20 08/23/22 UltraMini kit) [id number] 18 1 tab PO 1XD 04/06/21 08/23/22 mg-0.4 mg tablet (Maximum Daily Multivitamin) cholecalciferol (vitamin D3) 25 25 mcg PO DAILY #90 caps 11/19/21 08/23/22 mcg (1,000 unit) capsule omeprazole 20 mg capsule,delayed 20 mg PO DAILY #30 caps 11/19/21 08/23/22 release blood sugar diagnostic #300 ea 12/11/21 08/23/22 lancets 30 gauge (OneTouch Delica #300 ea 12/11/21 08/23/22 Lancets) hydrocortisone valerate 0.2 % 1 applic topical BID PRN skin 12/14/21 08/23/22 topical cream irritation, use in ear with q-tip #15 grams mometasone 0.1 % topical cream 1 applic topical DAILY 10 days #15 12/21/21 08/23/22 grams diclofenac sodium 1 % topical gel 2 g topical QID #100 grams 02/03/22 08/23/22 ibuprofen 600 mg tablet 600 mg PO PRN PRN 02/11/22 08/23/22 meloxicam 7.5 mg tablet 7.5 mg PO BID #60 tabs 02/18/22 08/23/22 citalopram 20 mg tablet 20 mg PO DAILY #90 tabs 03/18/22 08/23/22 verapamil 120 mg tablet,extended 120 mg PO DAILY #90 tabs 05/24/22 08/23/22 release (Calan SR) aspirin 81 mg tablet,delayed 81 mg PO DAILY #90 tabs 06/03/22 08/23/22 release atorvastatin 40 mg tablet 40 mg PO QHS #90 tabs 06/16/22 08/23/22 insulin glargine 100 unit/mL (3 60 unit (0.6 mL) subcut DAILY #135 08/16/22 08/23/22 mL) subcutaneous pen (Lantus mL Solostar U-100 Insulin) pen needle, diabetic 31 gauge x #100 ea 08/16/22 08/23/2208/19 (BD Ultra-Fine Mini Pen Needle) Previous Rx's Medication Instructions Recorded loratadine 10 mg tablet 10 mg PO DAILY PRN allergy 01/10/20 symptoms #90 tabs blood-glucose meter (TidyClubTouch #1 ea 09/05/20 UltraMini kit) cholecalciferol (vitamin D3) 25 25 mcg PO DAILY #90 caps 11/19/21 mcg (1,000 unit) capsule omeprazole 20 mg capsule,delayed 20 mg PO DAILY #30 caps 11/19/21 release blood sugar diagnostic #300 ea 12/11/21 lancets 30 gauge (OneTouch Delica #300 ea 12/11/21 Lancets) hydrocortisone valerate 0.2 % 1 applic topical BID PRN skin 12/14/21 topical cream irritation, use in ear with q-tip #15 grams mometasone 0.1 % topical cream 1 applic topical DAILY 10 days #15 12/21/21 grams diclofenac sodium 1 % topical gel 2 g topical QID #100 grams 02/03/22 meloxicam 7.5 mg tablet 7.5 mg PO BID #60 tabs 02/18/22 citalopram 20 mg tablet 20 mg PO DAILY #90 tabs 03/18/22 verapamil 120 mg tablet,extended 120 mg PO DAILY #90 tabs 05/24/22 release (Calan SR) aspirin 81 mg tablet,delayed 81 mg PO DAILY #90 tabs 06/03/22 release atorvastatin 40 mg tablet 40 mg PO QHS #90 tabs 06/16/22 insulin glargine 100 unit/mL (3 60 unit (0.6 mL) subcut DAILY #135 08/16/22 mL) subcutaneous pen (Lantus mL Solostar U-100 Insulin) pen needle, diabetic 31 gauge x #100 ea 08/16/2208/19 (BD Ultra-Fine Mini Pen Needle) Allergies Allergy/AdvReac Type Severity Reaction Status Date / Time amoxicillin Allergy Severe Affects Verified 08/23/22 08:33 kidney FXN per pt. dapsone Allergy Severe Anaphylaxsi Verified 08/23/22 08:33 s lisinopril Allergy Severe Verified 08/23/22 08:33 metformin Allergy Severe INTERACTION Verified 08/23/22 08:33 S Pertussis Vaccines Allergy Severe kidney Verified 08/23/22 08:33 problems clindamycin Allergy Mild SWELLING Verified 08/23/22 08:33 OF THE THROAT latex Allergy Mild RASH Verified 08/23/22 08:33 paroxetine Allergy Unknown Verified 08/23/22 08:33 Sulfa (Sulfonamide Allergy Unknown Verified 08/23/22 08:33 Antibiotics) adhesive AdvReac Mild Itching Verified 08/23/22 08:33 fluconazole AdvReac Mild HEADACHE Verified 08/23/22 08:33 tdap Allergy Intermediate PT Uncoded 08/23/22 08:33 REPORTED metal AdvReac Unknown staph Uncoded 08/23/22 08:33 infection General Stated Complaint: RespSymp SALMA: 4 PFSH All Active Problems (Updated 08/23/22 @ 11:43 by Radha Brooks RN) COVID-19 (Acute ~08/23/22) Anxiety (Chronic) Attention deficit hyperactivity disorder, predominantly inattentive type (Chronic) social phobia Chronic pain of both knees (Chronic 07/15/16) after bilateral patellar fractures from fall on ice. 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 Ongoing mesenteric adenitis being followed by [facility] GI. CT scan unchanged 05/2022, next due 05/2023. 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 Davis vascular surg. SMA & NAINA patent. No further treatment needed, ongoing surveillance at [facility] Fibrocystic disease of breast Foot drop, right right; 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 Functional diarrhea History of subarachnoid hemorrhage Idiopathic scoliosis Rubio sergio-age 13 Knee osteonecrosis, left (11/08/16) Left carpal tunnel syndrome Lumbar disc prolapse with root compression Renal failure autoimmune - resolved Restless legs (06/05/07) Social anxiety disorder (11/25/17) Spinal stenosis with Cauda equina syndrome; surgery at [facility] Subarachnoid hemorrhage 2019, tx at [facility], small per report Thrombosis of arteries of lower extremity Tubular adenoma of colon (~08/2020) at [facility]; repeat 09/2021 - tubular adenoma. Umbilical hernia without obstruction or gangrene Uveitis sees Dr Alcaraz Surgical History History of bilateral ligation of fallopian tubes History of section History of esophagogastroduodenoscopy History of spinal fusion S/P ureteral stent placement For impacted ureteral stone Spinal Fusion (~1974) T4-L3 FOR SEVERE SCOLIOSIS Status post cholecystectomy Status post laminectomy Family History Paternal Grandmother No problems noted. Sister No problems noted. Sister No problems noted. Mother Heart disease Father Diabetes Hyperlipidemia Hypertension Stroke Brother Skin cancer Depression Diabetes Hyperlipidemia Hypertension Son Diabetes Stroke Son No problems noted. Daughter No problems noted. Maternal Grandmother , 60 Diabetes Paternal Grandfather , 60 Cancer Heart disease Maternal Grandfather Prostate cancer Social History Smoking/Tobacco Use Status: Never Second Hand Exposure: Yes Smoking risk assessment performed?: Yes Alcohol Intake: current Alcohol Intake frequency: a few times a month Alcohol type: beer and wine Drug use: Never Substance use type: does not use Counseling given: No Caregiver/Support person: No Household members: none Housing: apartment Communication Needs: None Do you need help understanding health information?: Rarely Pets and animals: Yes Pets and animals: cat(s) and dog(s) Sexually active: No Do you think of yourself as: straight/heterosexual Current gender identity: female What is your relationship status?: How often do you talk on the phone with friends or family?: three or more times per week How often do you get together with friends or relatives?: three or more times per week How often do you attend methodist or pentecostal services?: 1-3 times per year Do you belong to any clubs or organized social groups?: no Panel score (0-1 are the most socially isolated patients): 1 What type of physical activity do you participate in: walking Duration: 15-30 minutes/day Frequency: 3-4 times per week Claudette/Gnosticism: Olya Seatbelt use: always Helmet use: Yes Helmet use: always Drive 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 mechanic driver: No Do you feel safe at home: Yes Do you feel safe in your relationship?: Yes Exam Const General: cooperative, comfortable and no acute distress Orientation: alert and oriented x3 Eyes Pupils: PERRL Resp Effort & Inspection: normal respiratory effort Auscultation: clear to auscultation bilaterally Cardio Rate: regular rate Rhythm: regular rhythm GI Inspection: normal to inspection Auscultation: normal bowel sounds Skin General skin exam: no rashes or lesions noted Neuro General: patient alert and patient oriented x3 Extrem Other: Distal pulses intact, no calf swelling or tenderness appreciated Course Vital Signs Vital signs: Vital Signs Temperature 36.8 C 08/23/22 08:25 Pulse 77 08/23/22 08:25 Respiratory Rate 16 08/23/22 08:25 Blood Pressure 179/75 H 08/23/22 08:25 Pulse Oximetry 98 08/23/22 08:25 Temperature 36.8 C 08/23/22 08:25 Temperature Source Oral 08/23/22 08:25 Pulse 77 08/23/22 08:25 Respiratory Rate 16 08/23/22 08:25 Respiratory Effort Short of Breath 08/23/22 08:34 Respiratory Depth Normal 08/23/22 08:34 Blood Pressure 179/75 H 08/23/22 08:25 Blood Pressure Position Sitting 08/23/22 08:25 Pulse Oximetry 98 08/23/22 08:25 Oxygen Delivery Method Room Air 08/23/22 08:25 Oxygen Flow Rate 0 08/23/22 08:25 Pain Level 4 08/23/22 08:25 Lab/Test Results Lab/Test Results: Laboratory Tests Range/Units 08/23/22 08/23/22 09:06 09:10 COVID-19 Source Cancelled Nasal/Nares SARS-CoV-2 (PCR) Cancelled Influenza Type A (PCR) Cancelled Influenza Type B (PCR) Cancelled RSV (PCR) Cancelled
[2022-08-23 10:00] LABS: COVID-19 PCR POSITIVE (Negative)
[2022-08-23] MEDS: Ipratropium/Albuterol 4 GM 120 PUFF INH IH (10:26)
== END 2022-08-23 10:45 ==
LOC: ER 08:49
PROVIDERS: Emergency Provider Physician Assistant; PCP Family Medicine
DX: U07.1 COVID-19 (principal)
CPT/HCPCS: 87635; 87637; 99283; 99284; 71046; J3490

== ENCOUNTER 2022-09-03 11:29 | Outpatient (CLI) | payer MEDICARE, MEDICAID, SELFPAY ==
--- NOTE | 2022-09-03 09:59 | DI.RAD_ITS ---
Exam(s) XR CHEST 2V PA LATERAL EXAM: XR CHEST 2V PA LATERAL CLINICAL HISTORY: left supraclavicular adenopathy, h/o covid 19, U07.1, R59.0 TECHNIQUE: 2D digital imaging was performed. COMPARISON: CR XR CHEST 2V PA LATERAL from 08/23/2022 FINDINGS: HEART: Normal size. Aorta: Not dilated. PULMONARY VASCULATURE: Normal. LUNGS: Clear. No infiltrates or scarring. PLEURAL SPACE: No pleural effusion or pneumothorax. BONE:Rods noted in spine. Scoliosis. IMPRESSION: No acute abnormality. DATA REPOSITORY: RADIATION DOSE DELIVERED:
[2022-09-03 10:33] LABS: Abs Immature Grans 0.06 10^3/uL (0.0-0.06); Absolute Basophil Count 0.06 10^3/uL (0.0-0.2); Absolute Eosinophil Count 0.25 10^3/uL (0.0-0.7); Absolute Lymphocyte Count 1.78 10^3/uL (1.2-3.4); Absolute Monocyte Count 0.52 10^3/uL (0.1-0.8); Basophils % 0.9; Eosinophils % 3.7; HGB 13.7 g/dL (11.2-15.7); Immature Grans % 0.9; Lymphocytes % 26.7; MCH 28.8 pg (27.0-33.0); MCHC 34.3 % (32.0-36.0); MCV 84 fL (80-95); MPV 9.9 fL (8.0-11.0); Monocytes % 7.8; Platelet Count 221 10^3/uL (130-400); RBC 4.76 10^6/uL (3.93-5.22); RDW 12.3 % (11.7-14.6); RDW-SD 37.4 fL; WBC 6.67 10^3/uL (4.4-10.8)
[2022-09-03 11:36] LABS: ALT 67 U/L (14-59); AST 45 U/L (15-37); Albumin 3.5 g/dL (3.4-5.0); Alkaline Phosphatase 89 U/L (46-116); Anion Gap 9.2 mmol/L (3-11); BUN 13 mg/dL (7-18); Bilirubin, Total 0.4 mg/dL (0.2-1.0); CO2 26.8 mmol/L (21.0-32.0); CREATININE 0.9 mg/dL (0.55-1.02); Calcium 9.5 mg/dL (8.5-10.1); Chloride 104 mmol/L (98-107); Estimated GFR 72.28 (mL/min/1.73m2); Glucose 148 mg/dL (74-106); Sodium 140 mmol/L (136-145); Total Protein 7.4 g/dL (6.4-8.2)
== END 2022-09-03 11:49 ==
PROVIDERS: PCP Family Medicine; Visit Provider Family Medicine
DX: R59.0 Localized enlarged lymph nodes (principal); Z86.16 Personal history of COVID-19; R05.3 Chronic cough
CPT/HCPCS: 36415; 80053; 71046; 85025

== ENCOUNTER 2022-09-17 11:28 | Outpatient (REF) | payer MEDICARE, MEDICAID, SELFPAY ==
[2022-09-17 13:51] LABS: Microalb ug/mg Crea 9.5 ug/mg Cr
== END 2022-09-17 11:29 | disposition home or self-care (01) ==
LOC: LBN 11:28
PROVIDERS: PCP Family Medicine; Visit Provider Family Medicine
DX: E11.9 Type 2 diabetes mellitus without complications (principal)
CPT/HCPCS: 82043; 82570

== ENCOUNTER 2022-09-25 13:54 | Emergency (ER) | payer MEDICARE, MEDICAID, SELFPAY ==
[2022-09-25 13:57] VITALS: BP 160/71; PULSE 80; RESP 18; TEMP 36.3; O2SAT 100
--- NOTE | 2022-09-25 14:15 | RT.EKG_ITS ---
APPROVED REPORT Exam: Resting ECG Reason for Exam: dizziness Patient Location: E HR:62 bpm ECG Measurements Heart Rate 62 AXIS GA 169 P 22 QRSd 87 QRS 17 QT 409 T 49 QTc 415 Conclusion Sinus rhythm...normal P axis, V-rate 60- 99. Sinus. Normal axis. No STEMI. I have reviewed and interpreted ECG and agree with software generated interpretation.
--- NOTE | 2022-09-25 14:22 | W.ED.GENAD ---
Discharge Plan Disposition Patient Disposition: Home Condition: Improving Discharge Details Clinical Impression: Chronic facial pain, Chronic headache, Chronic neck pain Primary Care Provider: Debbi Monge ED Provider: Lidia Quinn Home Meds and New Rx's Prescriptions: New methylprednisolone [Medrol (Terrell)] 4 mg tablets,dose pack See Rx Instructions .ROUTE .COMPLEX Qty: 21 0RF Rx Instructions: orally per package directions cyclobenzaprine 5 mg tablet 5 mg PO TID PRNQty: 10 0RF Continued atorvastatin 40 mg tablet 40 mg PO QHS Qty: 90 3RF Hold Instructions: Resume on 08/28/22. Maximum Daily Multivitamin 18-0.4 mg tablet 1 tab PO 1XD cephalexin 500 mg capsule 500 mg PO QID 10 Days Qty: 40 0RF (DME) blood-glucose meter [[employer] UltraMini] Kit See Rx Instructions .ROUTE .MEDSUPPLY Qty: 1 0RF Rx Instructions: As directed (DME) lancets [AxiomaticsTouch Delica Lancets] 30 gauge misc 1 ea Miscellaneous QID Qty: 300 4RF Rx Instructions: One TID Dx: E11.9 (DME) blood sugar diagnostic Strip See Rx Instructions .ROUTE .MEDSUPPLY Qty: 300 4RF Rx Instructions: One TID citalopram 20 mg tablet 20 mg PO DAILY Qty: 90 4RF Hold Instructions: Resume on 08/27/22. verapamil [Calan SR] 120 mg tablet extended release 120 mg PO DAILY Qty: 90 4RF insulin glargine [Lantus Solostar U-100 Insulin] 100 unit/mL (3 mL) insulin pen 60 unit subcut DAILY Qty: 135 1RF Rx Instructions: DX: E11.9 (DME) pen needle, diabetic [BD Ultra-Fine Mini Pen Needle] 31 gauge x 3/16 needle See Rx Instructions .ROUTE .MEDSUPPLY Qty: 100 5RF Rx Instructions: One daily ibuprofen 600 mg Tablet 600 mg PO PRN PRN cyclosporine [Restasis] 0.05 % dropperette 1 drp BID Discharge Instructions Instructions: General Headache (ED), Neck Pain (ED), Atypical Facial Pain (ED) Additional Instructions: Your blood tests and imaging today are reassuring and show no evidence of acute concerning findings. Take your antibiotics as prescribed by Dr. Gaston as directed until finished. Prescriptions for oral steroids and muscle relaxers have been sent electronically to your pharmacy. Call [facility] eye care this week to schedule a follow-up appointment for reevaluation. You have been placed on care management list to arrange for a follow-up appointment with your primary care doctor for reevaluation and for referral for outpatient brain and/or orbit MRI and/or referral to ophthalmology for further evaluation. Return immediately to the emergency department if you develop any worsening or new concerning symptoms. Discharge Data Discharge Date/Time-TO BE ENTERED AT DEPARTURE: 09/25/22 17:36 Discharge Physician: Lidia Quinn Medical Decision Making 1400 -- 62-year-old female with a history of obesity, hypertension, hyperlipidemia, diabetes with diabetic retinopathy and peripheral neuropathy, obstructive sleep apnea, fibromyalgia, ADHD, OCD, anxiety and depression presents for 3 weeks of facial pain, headache and neck pain with a few days of lightheadedness. She has already been seen by [facility] eye care for a potential eye injury with exposure to plastic shavings and started on polymyxin neomycin but reported that this caused eye stinging so patient endorses that Dr. Alcaraz told her she can stop this. She also states Dr. Alcaraz evaluated her for her chronic uveitis this week and was not concerned of any acute flare at that time. She has already also been seen by ENT Dr. Gaston for facial pain for which she started cephalexin this week which she is currently taking. She has also already seen her PCP for the symptoms and referred for outpatient CT sinus and CT head. Patient reports she cannot wait until Tuesday for the CT due to concern for this facial pain. Patient appears anxious. Her blood pressure is moderately hypertensive but the remainder vitals within normal limits. She has no evidence of facial or orbital erythema or pain with EOMI to suggest orbital cellulitis. Her visual acuity is within normal limits. She has no meningeal signs, fever or altered mental status to suggest meningitis. She has no focal deficits to suggest acute CVA and no sudden onset of headache or thunderclap sensation to suggest subarachnoid hemorrhage. Patient does endorse that she had facial pain during a COVID illness last month. Differential diagnosis includes post COVID syndrome pain, fibromyalgia flare, sinus infection. Considering her age and history, will refer for labs, CT sinuses and CTA brain and neck and give IV Decadron, IV Tylenol and fluid bolus reassess. 1600 -- Labs and imaging reviewed and reassuring. Normal white blood cell count. She has had chronic elevation of her liver enzymes and they appear near baseline. CT sinuses negative for acute findings. CTA brain and neck negative for acute findings. A dose of IV Toradol ordered. Patient reassessed and she feels slightly improved. She feels comfortable going home. She is requesting a prescription for Flexeril. We will also send a prescription for Medrol Dosepak. She is advised to finish her antibiotics per Dr. Gaston. We will place patient on care management's list to arrange for follow-up appoint with her primary care doctor for reevaluation and for referral for outpatient MRI brain or orbits and/or referral to ophthalmology if symptoms do not improve or worsen. Usual and customary return precautions given prior to discharge. Medical Records Medical records reviewed: Yes I reviewed the patient's medical records. Imaging Data Radiologic Study: Radiologist's impression: CTA Head With Contrast, Arteriography Exam date and time: 09/25/2022 3:17 PM Age: 62 years old Clinical indication: Headache and other: Neck and facial pain; Patient HX: Headache, neck/facial pain, h/o sah TECHNIQUE: Imaging protocol: Computed tomographic angiography of the head with contrast. Exam focused on the arteries. 3D rendering (Not supervised by radiologist): MIP and/or 3D reconstructed images were created by the technologist. COMPARISON: CT BRAIN NECK CTA 08/30/2021 4:26 PM FINDINGS: ANTERIOR CIRCULATION: Right internal carotid artery: Intracranial segment is patent with no significant stenosis. No aneurysm. Right middle cerebral artery: No occlusion or significant stenosis. No aneurysm.? Right anterior cerebral artery: No occlusion or significant stenosis. No aneurysm.? Left internal carotid artery: Intracranial segment is patent with no significant stenosis. No aneurysm. Left middle cerebral artery: No occlusion or significant stenosis. No aneurysm. ? Left anterior cerebral artery: No occlusion or significant stenosis. No aneurysm.? POSTERIOR CIRCULATION: Right vertebral artery: No occlusion or significant stenosis. No aneurysm.? Left vertebral artery: No occlusion or significant stenosis. No aneurysm.? Basilar artery: No occlusion or significant stenosis. No aneurysm. Right posterior cerebral artery: No occlusion or significant stenosis. No aneurysm.? Left posterior cerebral artery: No occlusion or significant stenosis. No aneurysm.? Brain: No definite mass, mass effect, or midline shift. Cerebral ventricles: No ventriculomegaly. Bones/joints: Unremarkable. No acute fracture. Soft tissues: Unremarkable. IMPRESSION: No large vessel stenosis or occlusion. CTA Neck With Contrast Exam date and time: 09/25/2022 3:17 PM Age: 62 years old Clinical indication: Headache and other: Neck and facial pain; Patient HX: Headache, neck/facial pain, h/o sah TECHNIQUE: Imaging protocol: Computed tomographic angiography of the neck with contrast. 3D rendering (Not supervised by radiologist): MIP and/or 3D reconstructed images were created by the technologist. COMPARISON: CT BRAIN NECK CTA 08/30/2021 4:26 PM FINDINGS: Right common carotid artery: No stenosis. No dissection or occlusion. Right internal carotid artery: No stenosis of the extracranial segment. No dissection or occlusion. Right external carotid artery: No occlusion or stenosis of the origin.? Left common carotid artery: No stenosis. No dissection or occlusion. Left internal carotid artery: No stenosis of the extracranial segment. No dissection or occlusion. Left external carotid artery: No occlusion or stenosis of the origin.? Right vertebral artery: No stenosis. No dissection or occlusion. Left vertebral artery: No stenosis. No dissection or occlusion. Soft tissues: Normal. No significant soft tissue swelling. Bones/joints: No acute fracture. IMPRESSION: No stenosis or occlusion. CT Maxillofacial Without Contrast, Sinus Exam date and time: 09/25/2022 3:08 PM Age: 62 years old Clinical indication: Eye pain and face pain; Bilateral; Patient HX: Facial pain, eye pain TECHNIQUE: Imaging protocol: CT Maxillofacial without contrast. Focus on the sinuses. COMPARISON: CT HEAD WO 02/21/2022 12:29 PM FINDINGS: Frontal sinuses: Normal. No air-fluid levels. Ethmoid sinuses:? Unchanged since February 21, 2022 is a right posteromedial ethmoid air cells that is opacified.? The remainder of the ethmoid air cells are unremarkable. Sphenoid sinuses: Normal. No air-fluid levels. Maxillary sinuses: Normal. No air-fluid levels. Ostiomeatal units are patent. Nasal cavity: Unremarkable. Orbital cavities: Orbits are normal. Globes are unremarkable. Bones/joints: Unremarkable. Soft tissues: Unremarkable. IMPRESSION: Unremarkable sinuses. Lab Data Lab results reviewed: Yes I reviewed the patient's lab results. Labs: Laboratory Tests Range/Units 09/25/22 09/25/22 14:31 14:31 WBC (4.4-10.8) 10^3/uL 7.80 RBC (3.93-5.22) 10^6/uL 4.85 Hgb (11.2-15.7) g/dL 13.9 Hct (36.0-46.0) % 42.0 MCV (80-95) fL 87 MCH (27.0-33.0) pg 28.7 MCHC (32.0-36.0) % 33.1 RDW (11.7-14.6) % 13.2 Plt Count (130-400) 10^3/uL 179 MPV (8.0-11.0) fL 10.4 Immature Gran % 0.6 Neutrophils % 60.9 Lymphocytes % 26.3 Monocytes % 7.3 Eosinophils % 4.0 Basophils % 0.9 Nucleated RBC % (0.0-0.3) % 0.0 Absolute Neutrophils (1.2-6.7) 10^3/uL 4.75 Absolute Lymphocytes (1.2-3.4) 10^3/uL 2.05 Absolute Monocytes (0.1-0.8) 10^3/uL 0.57 Absolute Eosinophils (0.0-0.7) 10^3/uL 0.31 Absolute Basophils (0.0-0.2) 10^3/uL 0.07 Sodium (136-145) mmol/L 137 Potassium (3.5-5.1) mmol/L 4.3 Chloride (98-107) mmol/L 103 Carbon Dioxide (21.0-32.0) mmol/L 29.4 Anion Gap (3-11) mmol/L 4.6 BUN (7-18) mg/dL 15 Creatinine (0.55-1.02) mg/dL 0.8 Est GFR (CKD-EPI 2020) (mL/min/1.73m2) 83.26 Glucose (74-106) mg/dL 172 H Calcium (8.5-10.1) mg/dL 10.1 Magnesium (1.8-2.4) mg/dL 2.0 Total Bilirubin (0.2-1.0) mg/dL 0.4 AST (15-37) U/L 62 H ALT (14-59) U/L 90 H Alkaline Phosphatase (46-116) U/L 96 Troponin I (<or=60) ng/L < 50 Total Protein (6.4-8.2) g/dL 7.5 Albumin (3.4-5.0) g/dL 3.6 ECG Data Attestation: I personally reviewed and interpreted this ECG (s) as follows: Interpretation: Rate of 62, sinus, normal axis, normal intervals, no STEMI. HPI General Mode of arrival: ambulatory. Date/Time Provider Initiated Documentation: 09/25/22 14:08. Limitations to Documentation: no limitations. Information obtained by: patient. HPI Narrative: Patient is a 62-year-old female with a history of morbid obesity, hypertension, hyperlipidemia, diabetes with diabetic retinopathy and peripheral neuropathy, fibromyalgia, ADHD, OCD, anxiety, depression, obstructive sleep apnea who presents for 3 weeks of facial pain, headache and neck pain. She is also complaining of 3 days of dizziness which she describes as a lightheadedness sensation. She states she contracted COVID 1 month ago and was having facial pain at that time but states it resolved for 2 days after Paxlovid and then returned. She states the pain is in her face around her sinuses, in my eye sockets throughout her head, entire neck and into her shoulders. Patient also admits to blurry vision bilaterally over the last few months. She states she was having work done at her house and there was wood shavings that she believes got in both of her eyes so she followed up with [facility] and they examined and stained her eyes and started her on polymyxin neomycin drops. She states she developed worsening eye stinging after these drops so she followed up again with Dr. Alcaraz and he advised her to stop them. She states she has had some nasal congestion since COVID but with occasional brown nasal discharge. She states she followed up with Dr. Gaston this week in the office for the symptoms and he started her on cephalexin for 10 days for a possible sinus infection. Patient states she then saw her PCP this week for the symptoms and they referred her for outpatient CT head and CT sinuses. Patient states she called the radiology department and they stated her CAT scan could potentially be performed on Tuesday in 4 days from now for patient states she cannot wait till then due to her pain so she came here for evaluation. She last took ibuprofen last night. She denies any known fever, photophobia, persistent chest pain, difficulty breathing, abdominal pain, nausea, vomiting, diarrhea, unilateral extremity numbness or weakness. Related Data Home Medications Medication Instructions Recorded Confirmed blood-glucose meter (OneTouch #1 ea 09/05/20 09/27/22 UltraMini kit) [id number] 1 tab PO 1XD 04/06/21 09/27/22 mg-0.4 mg tablet (Maximum Daily Multivitamin) blood sugar diagnostic #300 ea 12/11/21 09/27/22 lancets 30 gauge (OneTouch Delica #300 ea 12/11/21 09/27/22 Lancets) ibuprofen 600 mg tablet 600 mg PO PRN PRN 02/11/22 09/27/22 citalopram 20 mg tablet 20 mg PO DAILY #90 tabs 03/18/22 09/27/22 verapamil 120 mg tablet,extended 120 mg PO DAILY #90 tabs 05/24/22 09/27/22 release (Calan SR) atorvastatin 40 mg tablet 40 mg PO QHS #90 tabs 06/16/22 09/27/22 insulin glargine 100 unit/mL (3 60 unit (0.6 mL) subcut DAILY #135 08/16/22 09/27/22 mL) subcutaneous pen (Lantus mL Solostar U-100 Insulin) pen needle, diabetic 31 gauge x #100 ea 08/16/22 09/27/22 3/16 (BD Ultra-Fine Mini Pen Needle) cephalexin 500 mg capsule 500 mg PO QID 10 days #40 caps 09/23/22 09/27/22 cyclobenzaprine 5 mg tablet 5 mg PO TID PRN #10 tabs 09/25/22 09/27/22 cyclosporine 0.05 % eye drops in a 1 drp BID 09/25/22 09/27/22 dropperette (Restasis) methylprednisolone 4 mg tablets in See Rx Instructions PO .COMPLEX 09/25/22 09/27/22 a dose pack (Medrol (Terrell)) #21 dose pk Previous Rx's Medication Instructions Recorded blood-glucose meter (OneTouch #1 ea 09/05/20 UltraMini kit) blood sugar diagnostic #300 ea 12/11/21 lancets 30 gauge (OneTouch Delica #300 ea 12/11/21 Lancets) citalopram 20 mg tablet 20 mg PO DAILY #90 tabs 03/18/22 verapamil 120 mg tablet,extended 120 mg PO DAILY #90 tabs 05/24/22 release (Calan SR) atorvastatin 40 mg tablet 40 mg PO QHS #90 tabs 06/16/22 insulin glargine 100 unit/mL (3 60 unit (0.6 mL) subcut DAILY #135 08/16/22 mL) subcutaneous pen (Lantus mL Solostar U-100 Insulin) pen needle, diabetic 31 gauge x #100 ea 08/16/22/ (BD Ultra-Fine Mini Pen Needle) cephalexin 500 mg capsule 500 mg PO QID 10 days #40 caps 09/23/22 cyclobenzaprine 5 mg tablet 5 mg PO TID PRN #10 tabs 09/25/22 methylprednisolone 4 mg tablets in See Rx Instructions PO .COMPLEX 09/25/22 a dose pack (Medrol (Terrell)) #21 dose pk Allergies Allergy/AdvReac Type Severity Reaction Status Date / Time amoxicillin Allergy Severe Affects Verified 09/25/22 14:26 kidney FXN per pt. dapsone Allergy Severe Anaphylaxsi Verified 09/25/22 14:26 s lisinopril Allergy Severe Verified 09/25/22 14:26 metformin Allergy Severe INTERACTION Verified 09/25/22 14:26 S Pertussis Vaccines Allergy Severe kidney Verified 09/25/22 14:26 problems clindamycin Allergy Mild SWELLING Verified 09/25/22 14:26 OF THE THROAT latex Allergy Mild RASH Verified 09/25/22 14:26 paroxetine Allergy Unknown Verified 09/25/22 14:26 Sulfa (Sulfonamide Allergy Unknown Verified 09/25/22 14:26 Antibiotics) adhesive AdvReac Mild Itching Verified 09/25/22 14:26 tdap Allergy Intermediate PT Uncoded 09/25/22 14:26 REPORTED metal AdvReac Unknown staph Uncoded 09/25/22 14:26 infection General Stated Complaint: Headache SALMA: 2 Review of Systems All systems reviewed & are unremarkable except as noted in HPI and below Constitutional Constitutional: Reports as per HPI, Denies chills, Denies fever(s) and Reports headache(s) Eyes Eyes: Denies blurry vision ENT Ears, Nose, Mouth, and Throat: Reports dizziness, Reports facial pain, Reports headache(s), Reports neck pain, Reports sinus pain, Denies sore throat and Denies throat swelling Cardiovascular Cardiovascular: Denies chest pain and Denies dyspnea Respiratory Respiratory: Denies cough and Denies dyspnea Gastrointestinal Gastrointestinal: Denies abdominal pain, Denies diarrhea and Denies vomiting Genitourinary Genitourinary: Denies hematuria and Denies dysuria Musculoskeletal Musculoskeletal: Denies back pain, Reports neck pain and Denies numbness Integumentary/Breasts Skin/Breast: Denies lesions and Denies rash Neurologic Neurologic: Reports dizziness, Reports headache(s), Denies localized weakness and Denies numbness Allergic/Immunologic Allergic/Immunologic: Denies throat swelling PFSH All Active Problems (Updated 09/25/22 @ 16:28 by Lidia Quinn DO) Chronic facial pain (Acute) Chronic headache (Acute) Chronic neck pain (Acute) Abnormal auditory perception (Acute) Frontal sinus pain (Acute) Pain of maxillary sinus (Acute) Anxiety (Chronic) Attention deficit hyperactivity disorder, predominantly inattentive type (Chronic) social phobia Chronic pain of both knees (Chronic 07/15/16) after bilateral patellar fractures from fall on ice. Depressive disorder (Chronic) Generalized osteoarthrosis (Chronic) Hyperlipidemia (Chronic) Morbid obesity due to excess calories (Chronic) working with Weight Mgmt clinic at [facility] Non-alcoholic fatty liver disease (Chronic) Obsessive compulsive disorder (Chronic) Obstructive sleep apnea syndrome (Chronic 06/05/07) with CPAP Diabetic retinopathy (Chronic) 06/14/18; [facility] Hypertension (Chronic) Diabetic peripheral neuropathy (Acute) Abdominal pain (Chronic) 06/2020- [facility] GI, 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 Ongoing mesenteric adenitis being followed by [facility] GI. CT scan unchanged 05/2022, next due 05/2023. 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 Davis vascular surg. SMA & NAINA patent. 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 Functional diarrhea History of subarachnoid hemorrhage Idiopathic scoliosis Rubio sergio-age 13 Knee osteonecrosis, left (11/08/16) Left carpal tunnel syndrome Lumbar disc prolapse with root compression Renal failure autoimmune - resolved Restless legs (06/05/07) Social anxiety disorder (11/25/17) Spinal stenosis with Cauda equina syndrome; surgery at [facility] Subarachnoid hemorrhage 2019, tx at [facility], small per report Thrombosis of arteries of lower extremity Tubular adenoma of colon (~08/2020) at [facility]; repeat 09/2021 - tubular adenoma. Umbilical hernia without obstruction or gangrene Uveitis sees Dr Alcaraz Surgical History History of bilateral ligation of fallopian tubes History of section History of esophagogastroduodenoscopy History of spinal fusion S/P ureteral stent placement For impacted ureteral stone Spinal Fusion (~1974) T4-L3 FOR SEVERE SCOLIOSIS Status post cholecystectomy Status post laminectomy Family History Paternal Grandmother No problems noted. Sister No problems noted. Sister No problems noted. Mother Heart disease Father Diabetes Hyperlipidemia Hypertension Stroke Brother Skin cancer Depression Diabetes Hyperlipidemia Hypertension Son Diabetes Stroke Son No problems noted. Daughter No problems noted. Maternal Grandmother , 60 Diabetes Paternal Grandfather , 60 Cancer Heart disease Maternal Grandfather Prostate cancer Social History Smoking/Tobacco Use Status: Never Second Hand Exposure: Yes Smoking risk assessment performed?: Yes Alcohol Intake: current Alcohol Intake frequency: holidays/special occasions only Alcohol type: beer and wine Drug use: Never Substance use type: does not use Counseling given: No Caregiver/Support person: No Household members: none Housing: apartment Communication Needs: None Do you need help understanding health information?: Rarely Pets and animals: Yes Pets and animals: cat(s) and dog(s) Sexually active: No Do you think of yourself as: straight/heterosexual Current gender identity: female What is your relationship status?: How often do you talk on the phone with friends or family?: three or more times per week How often do you get together with friends or relatives?: three or more times per week How often do you attend methodist or congregational services?: 1-3 times per year Do you belong to any clubs or organized social groups?: no Panel score (0-1 are the most socially isolated patients): 1 What type of physical activity do you participate in: walking Duration: 15-30 minutes/day Frequency: 3-4 times per week Claudette/Yazidism: Olya Seatbelt use: always Helmet use: Yes Helmet use: always Drive 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 experienced truck driver: No Do you feel safe at home: Yes Do you feel safe in your relationship?: Yes Exam Const General: cooperative and no acute distress Orientation: alert, awake and oriented x3 HENMT Head: normal to inspection and normocephalic Ears: hearing grossly normal bilaterally, external ears normal and TM's normal bilaterally General nose exam: external nose normal Face and sinus: normal facial exam and sinus tenderness frontal (bilateral) and maxillary (bilateral) Mouth: oral mucosae normal Teeth and gingiva: dentition normal Throat: posterior oropharynx normal Eyes General: appearance normal, both eyes and all related structures Pupils: PERRL EOM: EOM intact bilaterally Neck Neck: normal visual inspection, trachea midline, no anterior neck swelling, negative Brudzinski's sign, negative Kernig's sign and No submandibular swelling Lymphatic: no lymphadenopathy noted Chest Chest: normal inspection of the chest and no tenderness Resp Effort & Inspection: normal respiratory effort and able to speak in complete sentences Auscultation: clear to auscultation bilaterally Cardio Rate: regular rate Rhythm: regular rhythm GI Inspection: normal to inspection Palpation: soft, not firm, not rigid and nontender Auscultation: hypoactive bowel sounds Back/Spine/Pelvis Thoracic/Lumbar Spine: thoracic and lumbar spine normal to inspection Skin General skin exam: no rashes or lesions noted Neuro General: patient alert, patient awake, patient oriented x3, moves all extremities and no meningeal signs Cranial Nerves: CN's II-XI intact bilaterally Cognition: normal cognition Speech: speech normal Motor: muscle tone normal throughout and strength 5/5 throughout Sensory Exam: no sensory deficits noted Extrem General: normal to inspection, full ROM, capillary refill normal, no calf tenderness bilaterally and no edema Psych Appearance: grossly normal Mental Status: mental status grossly normal Speech and Movement: speech and movement normal Affect: normal affect Course Vital Signs Vital signs: Vital Signs Temperature 97.3 F L 09/25/22 13:57 Pulse 80 09/25/22 13:57 Respiratory Rate 18 09/25/22 13:57 Blood Pressure 160/71 H 09/25/22 13:57 Pulse Oximetry 100 09/25/22 13:57 Temperature 97.3 F L 09/25/22 13:57 Temperature Source Temporal Artery Scan 09/25/22 13:57 Pulse 80 09/25/22 13:57 Respiratory Rate 18 09/25/22 13:57 Respiratory Effort Normal, Non-Labored 09/25/22 14:18 Blood Pressure 160/71 H 09/25/22 13:57 Pulse Oximetry 100 09/25/22 13:57 Oxygen Delivery Method Room Air 09/25/22 13:57 Oxygen Flow Rate 0 09/25/22 13:57 Pain Level 5 09/25/22 14:19
[2022-09-25 14:24] VITALS: BP 148/74; PULSE 64; RESP 16; TEMP 36.7; O2SAT 98
--- NOTE | 2022-09-25 15:00 | DI.CT_ITS ---
Exam(s) CT SINUS WO CT BRAIN NECK CTA EXAM: CT BRAIN NECK CTA CLINICAL HISTORY: headache, neck/facial pain; h/o SAH. TECHNIQUE: Imaging Protocol: Axial CT angiography was performed with multi-slice acquisition and mu lti-planar and 3D reconstructions. CONTRAST MATERIAL: Intravenous: Omnipaque 350 Contrast volume:85 ml COMPARISON: CT CT BRAIN NECK CTA from 10/30/[address] ABDOMEN PELVIS WO from 07/28/[address] SINUS WO from 09/25/2022 FINDINGS: CT Head W/O and W contrast: Ventricles and Extra axial spaces: Normal in size and morphology for the patient's age. Hemorrhage: None. Cerebral parenchyma: Normal. Midline shift: None. Brainstem/Cerebellum: Normal. Calvarium: Normal. Paranasal sinuses/Mastoids: Opacification of a single right ethmoid air cell. Sinuses otherwise malu r. Soft Tissues: Unremarkable. Enhancement: Normal. CTA Brain W: Internal Carotid Arteries: Petrous: Normal. Cavernous: Normal. Cerebral: Normal. Middle Cerebral Arteries: Right: No aneurysm, occlusion or significant stenosis. Left: No aneurysm, occlusion or significant stenosis. Anterior Cerebral Arteries: Right: No aneurysm, occlusion or significant stenosis. Left: No aneurysm, occlusion or significant stenosis. Posterior cerebral Arteries: Right: No aneurysm, occlusion or significant stenosis. Left: No aneurysm, occlusion or significant stenosis. Vertebral Arteries: Right: No aneurysm, occlusion or significant stenosis. Left: No aneurysm, occlusion or significant stenosis. Basilar Artery: No aneurysm, occlusion or significant stenosis. CTA Neck W: Common Carotid: Right: No dissection, occlusion or significant stenosis. Left: No dissection, occlusion or significant stenosis. External Carotid: Right: No dissection, occlusion or significant stenosis. Left: No dissection, occlusion or significant stenosis. Internal Carotid: Right: No dissection, occlusion or significant stenosis. Left: No dissection, occlusion or significant stenosis. Vertebral Artery: Right: No dissection, occlusion or significant stenosis. Left: No dissection, occlusion or significant stenosis. Lung Apices: Normal. Bones: No acute abnormality. Degenerative changes. Rods in the thoracic spine. Soft Tissues: Normal. Sinus CT: Paranasal sinuses/Mastoids: Opacification of a single right ethmoid air cell. Sinuses otherwise clear . Judith bullosa of the left middle turbinate. Mild rightward deviation of the nasal septum. Orbit s are unremarkable. IMPRESSION: 1. Normal CTA examination of the [place]. 2. Unremarkable CT Head. 3. Normal CTA examination of the neck. 4. Stable appearance of opacification with single right ethmoid sinus. RADIATION DOSE DELIVERED: 2,440.96mGy.cm Total DLP DATA REPOSITORY: All CT scans at this facility are submitted to the National Radiology Data Registry (NRDR) Dose Index Registry (DIR) with the [employer] (ACR). RADIATION OPTIMIZATION: All CT scans at this facility use at least one of these dose optimization te chniques: automated exposure control; mA and/or kV adjustment per patient size (includes targeted exa ms where dose is matched to clinical indication); or iterative reconstruction.
[2022-09-25 15:07] LABS: Abs Immature Grans 0.05 10^3/uL (0.0-0.06); Absolute Basophil Count 0.07 10^3/uL (0.0-0.2); Absolute Eosinophil Count 0.31 10^3/uL (0.0-0.7); Absolute Lymphocyte Count 2.05 10^3/uL (1.2-3.4); Absolute Monocyte Count 0.57 10^3/uL (0.1-0.8); Absolute Neutrophil Count 4.75 10^3/uL (1.2-6.7); Basophils % 0.9; HGB 13.9 g/dL (11.2-15.7); Immature Grans % 0.6; Lymphocytes % 26.3; MCH 28.7 pg (27.0-33.0); MCHC 33.1 % (32.0-36.0); MCV 87 fL (80-95); MPV 10.4 fL (8.0-11.0); Monocytes % 7.3; Neutrophils % 60.9; Platelet Count 179 10^3/uL (130-400); RBC 4.85 10^6/uL (3.93-5.22); RDW 13.2 % (11.7-14.6)
[2022-09-25] MEDS: Omnipaque 350 MG/ML 100 ML BTL IJ (15:14)
[2022-09-25] MEDS: Normal Saline - Diluent 50 ML VIAL IJ (15:15)
[2022-09-25 15:24] LABS: ALT 90 U/L (14-59); AST 62 U/L (15-37); Albumin 3.6 g/dL (3.4-5.0); Alkaline Phosphatase 96 U/L (46-116); Anion Gap 4.6 mmol/L (3-11); BUN 15 mg/dL (7-18); Bilirubin, Total 0.4 mg/dL (0.2-1.0); CO2 29.4 mmol/L (21.0-32.0); CREATININE 0.8 mg/dL (0.55-1.02); Calcium 10.1 mg/dL (8.5-10.1); Chloride 103 mmol/L (98-107); Estimated GFR 83.26 (mL/min/1.73m2); Glucose 172 mg/dL (74-106); Potassium 4.3 mmol/L (3.5-5.1); Sodium 137 mmol/L (136-145); Total Protein 7.5 g/dL (6.4-8.2); Troponin I < 50 ng/L (<or=60)
--- NOTE | 2022-09-25 15:35 | DI.VRAD_ITS ---
PROCEDURE INFORMATION: Exam: CT Maxillofacial Without Contrast, Sinus Exam date and time: 09/25/2022 3:08 PM Age: 62 years old Clinical indication: Eye pain and face pain; Bilateral; Patient HX: Facial pain, eye pain TECHNIQUE: Imaging protocol: CT Maxillofacial without contrast. Focus on the sinuses. COMPARISON: CT HEAD WO 02/21/2022 12:29 PM FINDINGS: Frontal sinuses: Normal. No air-fluid levels. Ethmoid sinuses: Unchanged since February 21, 2022 is a right posteromedial ethmoid air cells that is opacified. The remainder of the ethmoid air cells are unremarkable. Sphenoid sinuses: Normal. No air-fluid levels. Maxillary sinuses: Normal. No air-fluid levels. Ostiomeatal units are patent. Nasal cavity: Unremarkable. Orbital cavities: Orbits are normal. Globes are unremarkable. Bones/joints: Unremarkable. Soft tissues: Unremarkable. IMPRESSION: Unremarkable sinuses. Dictated and Authenticated by: Albert Lamb MD. Ordering:MENDOZA Murillo MD
--- NOTE | 2022-09-25 15:45 | DI.VRAD_ITS ---
PROCEDURE INFORMATION: Exam: CTA Head With Contrast, Arteriography Exam date and time: 09/25/2022 3:17 PM Age: 62 years old Clinical indication: Headache and other: Neck and facial pain; Patient HX: Headache, neck/facial pain, h/o sah TECHNIQUE: Imaging protocol: Computed tomographic angiography of the head with contrast. Exam focused on the arteries. 3D rendering (Not supervised by radiologist): MIP and/or 3D reconstructed images were created by the technologist. COMPARISON: CT BRAIN NECK CTA 08/30/2021 4:26 PM FINDINGS: ANTERIOR CIRCULATION: Right internal carotid artery: Intracranial segment is patent with no significant stenosis. No aneurysm. Right middle cerebral artery: No occlusion or significant stenosis. No aneurysm. Right anterior cerebral artery: No occlusion or significant stenosis. No aneurysm. Left internal carotid artery: Intracranial segment is patent with no significant stenosis. No aneurysm. Left middle cerebral artery: No occlusion or significant stenosis. No aneurysm. Left anterior cerebral artery: No occlusion or significant stenosis. No aneurysm. POSTERIOR CIRCULATION: Right vertebral artery: No occlusion or significant stenosis. No aneurysm. Left vertebral artery: No occlusion or significant stenosis. No aneurysm. Basilar artery: No occlusion or significant stenosis. No aneurysm. Right posterior cerebral artery: No occlusion or significant stenosis. No aneurysm. Left posterior cerebral artery: No occlusion or significant stenosis. No aneurysm. Brain: No definite mass, mass effect, or midline shift. Cerebral ventricles: No ventriculomegaly. Bones/joints: Unremarkable. No acute fracture. Soft tissues: Unremarkable. IMPRESSION: No large vessel stenosis or occlusion. PROCEDURE INFORMATION: Exam: CTA Neck With Contrast Exam date and time: 09/25/2022 3:17 PM Age: 62 years old Clinical indication: Headache and other: Neck and facial pain; Patient HX: Headache, neck/facial pain, h/o sah TECHNIQUE: Imaging protocol: Computed tomographic angiography of the neck with contrast. 3D rendering (Not supervised by radiologist): MIP and/or 3D reconstructed images were created by the technologist. COMPARISON: CT BRAIN NECK CTA 08/30/2021 4:26 PM FINDINGS: Right common carotid artery: No stenosis. No dissection or occlusion. Right internal carotid artery: No stenosis of the extracranial segment. No dissection or occlusion. Right external carotid artery: No occlusion or stenosis of the origin. Left common carotid artery: No stenosis. No dissection or occlusion. Left internal carotid artery: No stenosis of the extracranial segment. No dissection or occlusion. Left external carotid artery: No occlusion or stenosis of the origin. Right vertebral artery: No stenosis. No dissection or occlusion. Left vertebral artery: No stenosis. No dissection or occlusion. Soft tissues: Normal. No significant soft tissue swelling. Bones/joints: No acute fracture. IMPRESSION: No stenosis or occlusion. REFERENCES: NASCET CRITERIA. The degree of stenosis in the cervical segment of the internal carotid artery is based on NASCET criteria. Normal is no stenosis. Mild is less than 50% stenosis. Moderate is 50-69% stenosis. Severe is 70% to 99% stenosis. Total occlusion is no detectable patent lumen. Dictated and Authenticated by: Albert Lamb MD. Ordering:MENDOZA Murillo MD
[2022-09-25] MEDS: Normal Saline 1,000 ML 1000 ML IV (15:48)
[2022-09-25] MEDS: Dexamethasone 10 MG/ML VIAL IVP (15:49)
[2022-09-25] MEDS: ACETAMINOPHEN 1,000 MG/100 ML BTL 400 MG IVPB (15:49)
[2022-09-25] MEDS: Ketorolac 30 MG/ML VIAL IVP (15:57)
[2022-09-25 17:35] VITALS: BP 171/73; PULSE 66; RESP 16; TEMP 36.6; O2SAT 99
--- NOTE | 2022-09-25 18:28 | NUR.NOTE ---
Referral to PCP for chronic head & facial pain in 1-[address] Quinn as patient will need a brain MRI and appt with Ophthalmology. Put the referral in the care manger's box for f/u assistance. Nursing Note:
== END 2022-09-25 17:36 | disposition home or self-care (01) ==
PROVIDERS: Emergency Provider Physician Assistant; PCP Family Medicine
DX: R51.9 Headache, unspecified (principal); M54.2 Cervicalgia; G89.29 Other chronic pain; R42 Dizziness and giddiness; I10 Essential (primary) hypertension; E11.42 Type 2 diabetes mellitus with diabetic polyneuropathy; E11.319 Type 2 diabetes mellitus with unspecified diabetic retinopathy without macular edema; Z86.16 Personal history of COVID-19
CPT/HCPCS: 36415; 70496; 70498; 80053; 93005; 96361; 96365; 96375; 99285; 70486; 83735; 84484; 85025; 93010; 99284; J0131; J1100; J1885; J3490

== ENCOUNTER 2022-10-18 03:01 | Outpatient (CLI) | payer MEDICARE, MEDICAID, SELFPAY ==
[2022-10-18 12:54] LABS: ALT 88 U/L (14-59); AST 47 U/L (15-37); Albumin 3.6 g/dL (3.4-5.0); Alkaline Phosphatase 83 U/L (46-116); Anion Gap 3.1 mmol/L (3-11); BUN 15 mg/dL (7-18); Bilirubin, Total 0.6 mg/dL (0.2-1.0); CO2 28.9 mmol/L (21.0-32.0); CREATININE 0.9 mg/dL (0.55-1.02); Chloride 105 mmol/L (98-107); Estimated GFR 72.28 (mL/min/1.73m2); Glucose 213 mg/dL (74-106); Sodium 137 mmol/L (136-145); Total Protein 7.2 g/dL (6.4-8.2)
[2022-10-18 13:20] LABS: Hemoglobin A1C 6.5 % (<5.7)
== END 2022-10-18 03:02 | disposition home or self-care (01) ==
LOC: LOS 03:01
PROVIDERS: PCP Family Medicine; Visit Provider Family Medicine
DX: E11.65 Type 2 diabetes mellitus with hyperglycemia (principal); E78.5 Hyperlipidemia, unspecified
CPT/HCPCS: 36415; 80053; 83036

== ENCOUNTER → 2023-03-03 03:41 | Outpatient (CLI) | payer MEDICARE, MEDICAID, SELFPAY ==
--- NOTE | 2023-03-03 | DI.US_ITS ---
Exam(s) US RENAL EXAM: US RENAL CLINICAL HISTORY: NEPHROLITHIASIS,N20.0,H/O STONE TECHNIQUE: Ultrasound of both kidneys performed using standard protocol. COMPARISON: US US AXILLA LT from 09/30/[address] ABDOMEN PELVIS WO from 07/28/2022 FINDINGS: RIGHT KIDNEY: Measures 12.6 cm in length. No cysts evident. Normal cortical thickness and corticomedullary differen tiation .No solid masses No intrarenal calculi nor hydronephrosis. LEFT KIDNEY: Measures 10.6 cm in length. No cysts evident. Normal cortical thickness and corticomedullary differe ntiaion. No solids masses. No intrarenal calculi nor hydonephrosis. URINARY BLADDER: Prevoid volume is 420 cc Postvoid volume is 47 cc No evidence of bladder mass nor diverticuli. Ureterovesical jets: Both identified and appear symmetrical IMPRESSION: 1. No significant ultrasound findings in the kidneys. 2. No hydronephrosis on the right side. The obstructing calculus seen on prior CT scan July 3 was apparently removed by instrumentation. 3. No obvious abnormality in the urinary bladder. DATA REPOSITORY:
== END ==
PROVIDERS: PCP Family Medicine; Visit Provider Urology
DX: N20.0 Calculus of kidney (principal)
CPT/HCPCS: 76770

== ENCOUNTER 2023-04-21 13:53 | Outpatient (RCR) | payer MEDICARE, MEDICAID, SELFPAY ==
--- NOTE | 2023-04-21 14:00 | HOLTER_ITS ---
APPROVED REPORT Conclusion This is a 48-hour Holter monitor ordered for palpitations Rhythm throughout was sinus. Average heart rate was 70. Minimum was 54, maximum 107 There were 78 isolated premature ventricular contractions There were 15 isolated premature atrial contractions There was no atrial fibrillation, no SVT, no high-grade AV block, no pauses greater than 3 seconds Patient symptoms were reported which could not be reliably correlated to any dysrhythmia
== END 2023-05-05 23:59 | disposition home or self-care (01) ==
LOC: CARDOPNVT 13:53
PROVIDERS: PCP Family Medicine; Visit Provider Nurse Practitioner Family
DX: I49.3 Ventricular premature depolarization (principal)
CPT/HCPCS: 93227; 93225; 93226

== ENCOUNTER 2023-05-11 12:15 | Outpatient (REF) | payer MEDICARE, MEDICAID, SELFPAY ==
--- NOTE | 2023-05-11 11:40 | PAPFT_PTH ---
PATIENT: Linh Hudson LOC: [facility] U#:[id number] AGE/SX: 63/F ROOM: RE05/11/[address]: Keisha Mariscal MD : 1960 BED: DIS: 05/11/2023 SPEC #: [id number] RECD: 05/11/23 18:48 STATUS: CHERRIE REJordan #: [id number] RATNA: 05/11/23 11:[address]: Keisha Mariscal [facility] Cytology RECD BY: Katja Caro ENTERED: 05/11/23 18:49 SP TYPE: PAPFT LIBAN DR: Debbi Monge Tissues: 1 - CX/ENDOCX FOR PAP SMEARS Procedures: PAP THIN PREP/UVM Screening HPV DNA PROBE Comments: [id number]
== END 2023-05-11 12:16 | disposition home or self-care (01) ==
LOC: LBN 12:15
PROVIDERS: PCP Family Medicine; Visit Provider Obstetrics & Gynecology
DX: N89.8 Other specified noninflammatory disorders of vagina (principal); Z12.4 Encounter for screening for malignant neoplasm of cervix; Z11.51 Encounter for screening for human papillomavirus (HPV)
CPT/HCPCS: 88142; 87480; 87510; 87624; 87660

== ENCOUNTER → 2023-06-14 14:04 | Outpatient (CLI) | payer MEDICARE, MEDICAID, SELFPAY ==
--- NOTE | 2023-06-14 13:45 | DI.RAD_ITS ---
Exam(s) XR FOOT RT COMPLETE EXAM: XR FOOT RT COMPLETE CLINICAL HISTORY: S92.220C right foot injury. TECHNIQUE: 2D digital imaging was performed. COMPARISON: No exams were available for comparison FINDINGS: 3 views No evidence of acute fracture or diastasis of the Lisfranc joint. 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 No osseous lesions nor eros ions. There appears to be developmental fusion across the 2nd and 3rd tarsometatarsal joints. Also somewhat abnormal appearance of the medial cuneiform proximal aspect. Mild degenerative changes are noted in the great toe metatarsophalangeal joint. High plantar arch is noted. No inferior calcaneal spur. There is an enthesophyte at the insertional aspect of the Achilles tendon on the posterior as pect of the calcaneus. No calcification in the plantar fascia. 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 Also flattening of the 3rd metatarsal head consistent with Freiberg's infraction DATA REPOSITORY: RADIATION DOSE DELIVERED:
== END ==
PROVIDERS: PCP Family Medicine; Visit Provider Family Medicine
DX: M92.71 Juvenile osteochondrosis of metatarsus, right foot (principal)
CPT/HCPCS: 73630

== ENCOUNTER 2023-07-04 18:41 | Outpatient (REF) | payer MEDICARE, MEDICAID, SELFPAY ==
[2023-07-04 16:43] LABS: C Diff PCR Negative (Negative)
[2023-07-05 11:29] LABS: Campylobacter PCR Negative (Negative); Salmonella PCR Negative (Negative); Shiga Toxin PCR Negative (Negative); Shigella/Enteroinvasive Ecoli Negative (Negative)
== END 2023-07-04 18:42 | disposition home or self-care (01) ==
LOC: LBN 18:41
PROVIDERS: PCP Family Medicine; Visit Provider Family Medicine
DX: K58.0 Irritable bowel syndrome with diarrhea (principal); E11.9 Type 2 diabetes mellitus without complications; Z79.4 Long term (current) use of insulin; K76.89 Other specified diseases of liver
CPT/HCPCS: 87493; 87505

== ENCOUNTER → 2023-07-08 00:58 | Outpatient (CLI) | payer MEDICARE, MEDICAID, SELFPAY ==
--- NOTE | 2023-07-08 15:10 | DI.MAMMO_ITS ---
Exam(s) MAMMO SCREENING EXAM: MAMMO SCREENING CLINICAL HISTORY: screening TECHNIQUE: Bilateral full field digital CC and MLO mammographic images were obtained with 3D tomosyn thesis and utilizing computer aided detection (CAD). COMPARISON: Available for comparison. FINDINGS: Masses/Architectural Distortion: No suspicious nodules or areas of architectural distortion are prese nt. Microcalcifications: No suspicious pleomorphic-type are seen. Skin Thickening/Nipple Retraction: None. IMPRESSION: 1. No significant interval change with no specific features of malignancy noted. 2. Unless there is more urgent need, screening mammography is recommended, as per [employer] guidelines. BI-RADS Category 1 - Negative Breast Density - Category B - Scattered areas of fibroglandular density Breast density category C or D implies that the patient has dense breast tissue. Dense breast tissue is very common and is not abnormal but dense breast tissue can make it harder to find cancer on a ma mmogram. Also, dense breast tissue may increase their breast cancer risk. This information about the result of the mammogram report was provided to the patient to raise their awareness. Use this report when you speak with the patient about their risks for breast cancer, which includes their family hist ory. At that time, you may recommend for more screening tests (Ultrasound or MRI) as they might be us eful based on their risk. A negative radiographic report should not delay biopsy if a dominant or clinically suspicious mass is present. Up to ten percent of cancers are not identified on mammography. A negative report may reinforce clinical impression. Adenosis and dense breasts may obscure an underlying neoplasm. False positive reports average 6 to 10%. Patient will receive a letter notifying them of these results.
== END ==
PROVIDERS: PCP Family Medicine; Visit Provider Obstetrics & Gynecology
DX: Z12.31 Encounter for screening mammogram for malignant neoplasm of breast (principal); R92.323 Mammographic fibroglandular density, bilateral breasts
CPT/HCPCS: 77063; 77067

== ENCOUNTER → 2023-07-08 01:44 | Outpatient (CLI) | payer MEDICARE, MEDICAID, SELFPAY ==
--- NOTE | 2023-07-08 07:45 | DI.DEXA_ITS ---
Exam(s) XR DEXA BONE DENSITY W/WO NITHYA EXAM: XR DEXA BONE DENSITY W/WO NITHYA CLINICAL HISTORY: screening for osteoporosis in postmenopausal woman,z78.0 TECHNIQUE: COMPARISON: CR XR CHEST 2V PA LATERAL from 09/03/2022 FINDINGS: Lateral Spine Image: This was not performed. The patient has Rubio rods in the thoracic and lum bar spine. Right hip: Total T-Score: -0.3 Total Z-Score: 0.9 T- and Z-scores: Within normal limits. No evidence of osteoporosis. Left forearm: Total T-Score: -0.3 Total Z-Score: 1.2 T- and Z-scores: Within normal limits. IMPRESSION: No evidence of osteoporosis.
== END ==
PROVIDERS: PCP Family Medicine; Visit Provider Family Medicine
DX: Z78.0 Asymptomatic menopausal state (principal); Z13.820 Encounter for screening for osteoporosis
CPT/HCPCS: 77080

== ENCOUNTER 2023-07-08 16:51 | Outpatient (REF) | payer MEDICARE, MEDICAID, SELFPAY | END 2023-07-08 16:52 | disposition home or self-care (01) | LOC: LBN 16:51 | PROVIDERS: PCP Family Medicine; Visit Provider Obstetrics & Gynecology | DX: N89.8 Other specified noninflammatory disorders of vagina (principal) | CPT/HCPCS: 87480; 87510; 87660 ==

== ENCOUNTER → 2023-07-19 12:59 | Outpatient (BNVA) | payer MEDICARE, MEDICAID, SELFPAY | PROVIDERS: PCP Family Medicine; Referring Provider Family Medicine; Visit Provider Podiatrist | DX: E11.40 Type 2 diabetes mellitus with diabetic neuropathy, unspecified (principal); Z79.4 Long term (current) use of insulin; E11.42 Type 2 diabetes mellitus with diabetic polyneuropathy; I87.2 Venous insufficiency (chronic) (peripheral); R60.9 Edema, unspecified | CPT/HCPCS: 99213 ==

== ENCOUNTER 2023-08-05 16:36 | Outpatient (CLI) | payer MEDICARE, MEDICAID, SELFPAY ==
[2023-08-05 15:54] LABS: Iron 63 ug/dL (50-170); Total Iron Binding Capacity 315 ug/dL (250-450); Transferrin Sat 20 % (15-50)
[2023-08-05 16:07] LABS: Ferritin 441 ng/mL (8-252)
== END 2023-08-05 16:37 | disposition home or self-care (01) ==
LOC: LBO 16:36
PROVIDERS: PCP Family Medicine; Visit Provider Nurse Practitioner
DX: M25.561 Pain in right knee (principal)
CPT/HCPCS: 36415; 82728; 83540; 83550

== ENCOUNTER 2023-08-17 15:45 | Outpatient (REF) | payer MEDICARE, MEDICAID, SELFPAY ==
[2023-08-17 12:11] LABS: Bilirubin Negative (Negative); Blood Trace-intact (Negative); Clarity Sl Cloudy (Clear); Glucose Negative (Negative); Ketones Negative (Negative); Leukocyte Esterase Negative (Negative); Nitrite Negative (Negative); Specific Gravity >= 1.030 (1.005-1.025); Urobilinogen 0.2 mg/dL (Up to 0.2); pH 5.5 (5-8)
[2023-08-17 12:19] LABS: Bacteria Moderate HPF (Negative); C & S Indicated? No; Casts Negative LPF (Negative); Crystals Negative HPF (Negative); Epithelial Cells Many HPF (Negative); Mucus Negative (Negative); RBC 0-2 HPF (0-2); WBC Negative HPF (0-5)
== END 2023-08-17 15:46 | disposition home or self-care (01) ==
LOC: LBN 15:45
PROVIDERS: PCP Family Medicine; Referring Provider Family Medicine; Visit Provider Family Medicine
DX: R30.0 Dysuria (principal)
CPT/HCPCS: 81003; 81015

== ENCOUNTER 2023-08-26 13:23 | Outpatient (RCR) | payer MEDICARE, MEDICAID, SELFPAY ==
--- NOTE | 2023-08-26 13:45 | HOLTER_ITS ---
APPROVED REPORT Conclusion This is a 48-hour Holter monitor Rhythm throughout is sinus with an average heart rate of 66. Minimum 51 maximum 111 There were 8 premature ventricular contractions There were 12 premature atrial contractions There was no atrial fibrillation, no high-grade AV block, no pauses greater than 3 seconds
== END 2023-09-04 23:59 | disposition home or self-care (01) ==
LOC: CARDOPNVT 13:23
PROVIDERS: PCP Family Medicine; Visit Provider Internal Medicine Cardiovascular Disease
DX: R00.2 Palpitations (principal); I49.1 Atrial premature depolarization
CPT/HCPCS: 93227; 93225; 93226

== ENCOUNTER 2023-09-02 01:16 | Outpatient (CLI) | payer MEDICARE, MEDICAID, SELFPAY ==
[2023-09-02 12:48] LABS: Abs Immature Grans 0.04 10^3/uL (0.0-0.06); Absolute Eosinophil Count 0.33 10^3/uL (0.0-0.7); Absolute Lymphocyte Count 2.44 10^3/uL (1.2-3.4); Absolute Monocyte Count 0.55 10^3/uL (0.1-0.8); Absolute Neutrophil Count 4.92 10^3/uL (1.2-6.7); Basophils % 1.2; Eosinophils % 3.9; HCT 42.2 % (36.0-46.0); HGB 14.1 g/dL (11.2-15.7); Immature Grans % 0.5; Lymphocytes % 29.1; MCH 29.1 pg (27.0-33.0); MCHC 33.4 % (32.0-36.0); MCV 87 fL (80-95); MPV 10.6 fL (8.0-11.0); Monocytes % 6.6; Neutrophils % 58.7; Platelet Count 177 10^3/uL (130-400); RBC 4.84 10^6/uL (3.93-5.22); RDW 12.9 % (11.7-14.6); RDW-SD 40.4 fL; WBC 8.38 10^3/uL (4.4-10.8)
[2023-09-02 13:25] LABS: ALT 54 U/L (14-59); AST 33 U/L (15-37); Albumin 3.5 g/dL (3.4-5.0); Alkaline Phosphatase 107 U/L (46-116); Anion Gap 9.4 mmol/L (3-11); BUN 19 mg/dL (7-18); Bilirubin, Total 0.6 mg/dL (0.2-1.0); CO2 25.6 mmol/L (21.0-32.0); CREATININE 0.8 mg/dL (0.55-1.02); Calcium 9.2 mg/dL (8.5-10.1); Chloride 105 mmol/L (98-107); Estimated GFR 82.74 (mL/min/1.73m2); Glucose 143 mg/dL (74-106); Potassium 4.1 mmol/L (3.5-5.1); Sodium 140 mmol/L (136-145); TSH 2.99 uIU/Ml (0.36-3.74)
[2023-09-02 18:00] LABS: Parathyroid Hormone,Intact 47 pg/mL (19-88)
[2023-09-05 09:52] LABS: IgA 206 mg/dL (85-499); IgG 895 mg/dL (610-1616)
[2023-09-05 14:07] LABS: Tissue Transglutaminase IgA <4.0 CU (<20.0)
== END 2023-09-02 01:17 | disposition home or self-care (01) ==
PROVIDERS: PCP Family Medicine; Visit Provider Nurse Practitioner Gerontology
DX: R19.8 Other specified symptoms and signs involving the digestive system and abdomen (principal); K76.0 Fatty (change of) liver, not elsewhere classified
CPT/HCPCS: 36415; 80053; 82784; 83970; 84443; 85025

== ENCOUNTER 2023-10-07 12:02 | Outpatient (REF) | payer MEDICARE, MEDICAID, SELFPAY ==
[2023-10-07 21:50] LABS: COMMENT (LAB VIEW ONLY) 173.79 mg/dL; Microalb ug/mg Crea 7.4 ug/mg Cr
== END 2023-10-07 12:03 | disposition home or self-care (01) ==
LOC: LBN 12:02
PROVIDERS: PCP Family Medicine; Visit Provider Family Medicine
DX: E11.40 Type 2 diabetes mellitus with diabetic neuropathy, unspecified (principal); Z79.4 Long term (current) use of insulin
CPT/HCPCS: 82043; 82570

== ENCOUNTER → 2023-10-27 04:27 | Outpatient (CLI) | payer MEDICARE, MEDICAID, SELFPAY ==
--- NOTE | 2023-10-27 08:15 | DI.CT_ITS ---
Exam(s) CT THORACIC SPINE WO EXAM: CT THORACIC SPINE WO CLINICAL HISTORY: M54.6 PAIN IN T SPINE Z98.1 ARTHRODESIS Z96.7 PRESENCE BONE, TENDON IMPLAN. TECHNIQUE: Imaging Protocol: Axial computed tomography images with coronal and sagittal reformatted images were created and reviewed. CONTRAST MATERIAL: Intravenous: None COMPARISON: CT CT ABDOMEN PELVIS WO from 07/28/2022 FINDINGS: OSSEOUS: There are Rubio rods in place. The left-sided sergio there is from the 4 down vertically into the lower lumbar spine level and the right-sided sergio extends from approximately same level but d own to T10 level. There is no obvious hardware fracture. There is a bidirectional thoracolumbar sco liosis which is convex right in the thoracic spine and convex left in the lumbar spine. There is no evidence of vertebral fractures. Effective fusion is noted. There is no evidence of vertebral fract ures. No evidence of osteomyelitis. No prominent disc space narrowing. Below the level of the fusion rods in the lumbar spine there appears to be an element of central spin al canal stenosis, this beyond-below the level of the Rubio rods and appearing to be at L4-5 lev el. If clinically indicated can be further study with CT or MRI of these levels. IMPRESSION: Posterior osseous elements fusion rods which appear intact. Bidirectional thoracolumbar scoliosis. Probable spinal canal stenosis in the lower lumbar spine which is significantly below the level of th e rods. If clinically indicated can be further studied with MRI or CT. RADIATION DOSE DELIVERED: 1,277.6mGy.cm Total DLP DATA REPOSITORY: All CT scans at this facility are submitted to the National Radiology Data Registry (NRDR) Dose Index Registry (DIR) with the [employer] (ACR). RADIATION OPTIMIZATION: All CT scans at this facility use at least one of these dose optimization te chniques: automated exposure control; mA and/or kV adjustment per patient size (includes targeted exa ms where dose is matched to clinical indication); or iterative reconstruction.
== END ==
PROVIDERS: PCP Family Medicine; Visit Provider Family Medicine
DX: M54.6 Pain in thoracic spine (principal); Z98.1 Arthrodesis status; Z96.7 Presence of other bone and tendon implants
CPT/HCPCS: 72128

== ENCOUNTER → 2023-10-27 04:27 | Outpatient (CLI) | payer MEDICARE, MEDICAID, SELFPAY ==
--- NOTE | 2023-10-27 | DI.US_ITS ---
Exam(s) US ABDOMEN LIMITED EXAM: US ABDOMEN LIMITED CLINICAL HISTORY: ELEVATED LFTS, R79.89; ELEVATED ALKALINE PHOSPHATASE, R74.8 TECHNIQUE: Ultrasound abdomen performed using standard protocol. COMPARISON: CT CT ABDOMEN PELVIS WO from 07/28/2022 US US RENAL from 03/03/2023 FINDINGS: There is no ascites evident. LIVER: Liver is hyperechoic indicating steatosis common liver size is slightly prominent.. There no discrete focal hepatic lesions identified. GALLBLADDER/BILIARY: Gallbladder is again noted to be surgically absent The common hepatic duct isnot dilated, measuring 5-6mm at the level of destiney hepatis. PANCREAS: Only partially visualized due to overlying bowel gas. In RIGHT KIDNEY:No evidence of solid mass, calculus, nor hydronephrosis. No cortical cysts evident. IMPRESSION: 1. Gallbladder surgically absent. The biliary tree is not dilated. 2. Hepatomegaly and hepatic steatosis. No discrete focal hepatic lesions evident and no ascites. 3. Pancreas was not well seen due to overlying bowel gas. DATA REPOSITORY:
== END ==
PROVIDERS: PCP Family Medicine; Visit Provider Nurse Practitioner Gerontology
DX: M41.35 Thoracogenic scoliosis, thoracolumbar region (principal)
CPT/HCPCS: 72128; 76705

== ENCOUNTER 2024-03-23 13:35 | Emergency (ER) | payer MEDICARE, MEDICAID, SELFPAY ==
[2024-03-23 13:38] VITALS: BP 139/77; PULSE 65; RESP 18; TEMP 36.4; O2SAT 96
--- NOTE | 2024-03-23 13:45 | DI.CT_ITS ---
Exam(s) CT ABDOMEN PELVIS WO EXAM: CT ABDOMEN PELVIS WO CLINICAL HISTORY: ruq pain, hx of kidney stones. TECHNIQUE: Imaging Protocol: Axial computed tomography images with coronal and sagittal reformatted images were created and reviewed CONTRAST MATERIAL: Intravenous: none Oral: None COMPARISON: CT CT ABDOMEN PELVIS WO from 07/28/2022 FINDINGS: VISUALIZED LUNG BASES: No nodules nor pleural effusions evident. ABDOMEN: GI/abdominal wall: There is an anterior abdominal wall midline para-infraumbilical hernia again noted . A loop of redundant sigmoid is seen near the wide neck of the hernia sac but does not truly protru ded into the hernia sac. The hernia sac measures 5.4 cm craniocaudal by 4 cm AP by 6.5 cm maximum wi dth, similar size to July 2022. There is no evidence of bowel obstruction, free air nor ascites. MESENTERY/OMENTUM: There is some streaking in the central mesentery around the mid-lower aspect of th e superior mesenteric vessels, similar to the previous study. There are small mesenteric sub cm size lymph nodes noted. No gross lymphadenopathy in the mesentery. LIVER: There are no obvious focal hepatic lesions evident of this noninfused study. GALLBLADDER/BILIARY: The gallbladder is again noted to be surgically absent. CBD is not dilated. PANCREAS: No evidence of pancreatic mass nor dilatation of the pancreatic duct. A few parenchymal ca lcifications are again noted in the uncinate process of the pancreas. There is no prominent regional lymphadenopathy around the pancreas SPLEEN: Spleen is not enlarged. No obvious intrasplenic lesions. ADRENALS: There are no significant adrenal masses. KIDNEYS:There are no calculi evident in the right kidney nor radiopaque calculi ower seen in the nond ilated right ureter. The previously present obstructing calculus in the lower right ureter evident o n the July 2022 study is no longer seen and there is no radiopaque calculus in the nondistended u rinary bladder. There is a tiny sub mm size calculus in the superior pole calyx of the right kidney. No hydronephrosis nor hydroureter on either side. No solid renal masses. No cysts evident in the kidneys.. ABDOMINAL AORTA: Abdominal aorta is not enlarged. Celiac artery is again noted be a very thin vessel . Superior mesenteric artery exhibits normal diameter. There are no aneurysms of the iliac arteries LYMPH NODES: There is no retroperitoneal nor paraaortic adenopathy. GI: There is no evidence of bowel obstruction, free air, nor abscess. PELVIS: LYMPH NODES: There is no intrapelvic nor inguinal adenopathy. GI: No evidence of appendicitis.No evidence of sigmoid diverticulitis. URINARY BLADDER: No calculi nor obvious masses evident REPRODUCTIVE: Uterus and adnexal regions unremarkable. No free fluid in the pelvis. OSSEOUS: There are Rubio rods throughout the thoracolumbar spine and bidirectional thoracolumbar scoliosis. No fractures. No osseous lesions. IMPRESSION: 1. There are presently no obstructing renal calculi. The large calculus which was previously present in the lower right ureter on CT scan of July 2022 is no longer seen and there are no calculi nor hydronephrosis on the right side. There is a tiny sub mm calculus in the opposite-left kidney witho ut evidence of obstruction of the kidney and ureter. 2. Fat containing paraumbilical hernia again noted, similar in size to 07/28/2022. There is a loop o f sigmoid near the neck of the hernia but not within the actual hernia sac. The size of this hernia appears similar to CT scan of July 2022. No evidence of bowel obstruction. 3. There is again noted unchanged streaking in the central mesentery around the superior mesenteric v essels. This appears unchanged from 07/28/2022. Cannot assess for thrombosis of these vessels as th is is a noninfused study. There are some scattered small mesenteric lymph nodes noted but no gross l ymphadenopathy and no evidence of splenomegaly. 4. Small diminutive celiac artery again noted. Superior mesenteric artery exhibits normal diameter. 5. Rubio rods in the thoracolumbar spine with bidirectional scoliosis. Report called to ER by myself 03/23/2024 at 2:45 p.m. RADIATION DOSE DELIVERED: 770.93mGy.cm Total DLP DATA REPOSITORY: All CT scans at this facility are submitted to the National Radiology Data Registry (NRDR) Dose Index Registry (DIR) with the [employer] (ACR). RADIATION OPTIMIZATION: All CT scans at this facility use at least one of these dose optimization te chniques: automated exposure control; mA and/or kV adjustment per patient size (includes targeted exa ms where dose is matched to clinical indication); or iterative reconstruction.
[2024-03-23 14:05] VITALS: BP 139/77; PULSE 65; RESP 18; TEMP 36.4; O2SAT 96
[2024-03-23 14:10] LABS: Bilirubin Negative (Negative); Blood Negative (Negative); Clarity Clear (Clear); Glucose Negative (Negative); Ketones Negative (Negative); Leukocyte Esterase Negative (Negative); Nitrite Negative (Negative); Specific Gravity 1.025 (1.005-1.025); Urobilinogen 0.2 mg/dL (Up to 0.2); pH 5.5 (5-8)
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
[2024-03-23 14:46] LABS: Abs Immature Grans 0.03 10^3/uL (0.0-0.06); Absolute Basophil Count 0.09 10^3/uL (0.0-0.2); Absolute Eosinophil Count 0.31 10^3/uL (0.0-0.7); Absolute Monocyte Count 0.45 10^3/uL (0.1-0.8); Absolute Neutrophil Count 4.58 10^3/uL (1.2-6.7); Basophils % 1.1 %; Eosinophils % 3.8 %; HCT 42.6 % (36.0-46.0); HGB 14.4 g/dL (11.2-15.7); Immature Grans % 0.4 %; Lymphocytes % 32.3 %; MCHC 33.8 % (32.0-36.0); MCV 86 fL (80-95); Monocytes % 5.6 %; Neutrophils % 56.8 %; Platelet Count 175 10^3/uL (130-400); RBC 4.97 10^6/uL (3.93-5.22); RDW 12.8 % (11.7-14.6); RDW-SD 40.1 fL; WBC 8.06 10^3/uL (4.4-10.8)
[2024-03-23 15:01] LABS: PTT Activated 25.1 sec (23.6-32.8); Prothrombin Time 9.8 sec (9.1-11.1)
[2024-03-23 15:05] LABS: ALT 57 U/L (14-59); AST 37 U/L (15-37); Albumin 3.5 g/dL (3.4-5.0); Alkaline Phosphatase 96 U/L (46-116); Anion Gap 11.6 mmol/L (3-11); BUN 19 mg/dL (7-18); Bilirubin, Total 0.51 mg/dL (0.2-1.0); CO2 25.4 mmol/L (21.0-32.0); CREATININE 0.9 mg/dL (0.55-1.02); Chloride 105 mmol/L (98-107); Estimated GFR 71.39 (mL/min/1.73m2); Glucose 128 mg/dL (74-106); Lipase 54 U/L (16-77); Sodium 142 mmol/L (136-145); Total Protein 7.1 g/dL (6.4-8.2)
[2024-03-23 15:20] LABS: Calcium 9.1 mg/dL (8.5-10.1)
[2024-03-23 15:47] VITALS: BP 170/68; PULSE 57; RESP 16; O2SAT 99
== END 2024-03-23 15:49 | disposition home or self-care (01) ==
PROVIDERS: Emergency Provider Student in an Organized Health Care Education/Training Program; PCP Family Medicine
DX: R10.9 Unspecified abdominal pain (principal); K42.9 Umbilical hernia without obstruction or gangrene
CPT/HCPCS: 80053; 83690; 99284; 74176; 81003; 85025; 85610; 85730

== ENCOUNTER 2024-05-15 01:34 | Outpatient (CLI) | payer MEDICARE, MEDICAID, SELFPAY ==
--- NOTE | 2024-05-15 | DI.US_ITS ---
Exam(s) US ABDOMEN LIMITED EXAM: US ABDOMEN LIMITED CLINICAL HISTORY: RT UPPER QUAD ABD PAIN, R10.10 TECHNIQUE: Ultrasound abdomen performed using standard protocol. COMPARISON: US US ABDOMEN LIMITED from 10/27/[address] ABDOMEN PELVIS WO from 03/23/2024 FINDINGS: There is no ascites evident. LIVER: There is again noted be hyperechoic indicating steatosis and liver size is again noted to be s lightly prominent. GALLBLADDER/BILIARY: Gallbladder is again noted be surgically absent. The common hepatic duct isnot dilated, measuring 3-4mm at the level of destiney hepatis. PANCREAS: There is no evidence of pancreatic mass nor dilatation of the pancreatic duct. RIGHT KIDNEY:No evidence of solid mass, calculus, nor hydronephrosis. No cortical cysts evident. IMPRESSION: 1. Gallbladder is again noted be surgically absent. The biliary tree is not dilated. 2. Hepatic steatosis mild hepatomegaly again noted. 3. No other right upper quadrant ultrasound findings and there is no ascites evident. DATA REPOSITORY:
== END 2024-05-15 01:54 ==
LOC: DI 01:34
PROVIDERS: PCP Family Medicine; Visit Provider Nurse Practitioner Gerontology
DX: R16.0 Hepatomegaly, not elsewhere classified (principal); K76.0 Fatty (change of) liver, not elsewhere classified
CPT/HCPCS: 76705

== ENCOUNTER 2024-06-15 00:30 | Outpatient (CLI) | payer MEDICARE, MEDICAID, SELFPAY ==
--- NOTE | 2024-06-15 13:59 | DI.RAD_ITS ---
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 TECHNIQUE: 2D digital imaging was performed. COMPARISON: CT CT ABDOMEN PELVIS WO from 03/23/2024 FINDINGS: 3 views The lower aspect of the longer of the 2 spinal Rubio rods is included in the field of view with its distal tip at the lower L3 level. There is scoliosis in the lumbar spine convex left. Also mult ilevel disc space narrowing. There are no acute nor subacute appearing fractures in the pelvis and hips and bone density appears n ormal. There is minimal if any significant narrowing of the hip joint spaces. On the lateral aspect of the both hips there is a relatively symmetrical bony excrescences/enthesophytes coming off the in ferior aspect of the lateral aspect of the greater trochanters and pointing caudally. These are belo w the level of the insertion sites of the gluteus minimus and medius tendons. IMPRESSION: There are bilateral symmetrical enthesophytes coming off the inferolateral aspect of the greater troc hanters of both hips. DATA REPOSITORY: RADIATION DOSE DELIVERED:
== END 2024-06-15 00:50 ==
LOC: DI 00:31
PROVIDERS: PCP Family Medicine; Visit Provider Family Medicine
DX: M77.8 Other enthesopathies, not elsewhere classified (principal)
CPT/HCPCS: 73521

== ENCOUNTER 2024-06-29 15:41 | Outpatient (CLI) | payer MEDICARE, MEDICAID, SELFPAY ==
[2024-06-29 16:29] LABS: Hemoglobin A1C 6.8 % (<5.7)
[2024-06-29 16:42] LABS: COMMENT (LAB VIEW ONLY) 133.41 mg/dL
[2024-06-29 16:43] LABS: ALT 44 U/L (14-59); AST 26 U/L (15-37); Albumin 3.6 g/dL (3.4-5.0); Alkaline Phosphatase 103 U/L (46-116); Anion Gap 4.9 mmol/L (3-11); BUN 15 mg/dL (7-18); Bilirubin, Total 0.43 mg/dL (0.2-1.0); CO2 30.1 mmol/L (21.0-32.0); Calcium 9.5 mg/dL (8.5-10.1); Calculated LDL 104 mg/dL (<100); Chloride 106 mmol/L (98-107); Cholesterol 196 mg/dL (<200); Estimated GFR 62.91 (mL/min/1.73m2); Glucose 111 mg/dL (74-106); HDL Cholesterol 37 mg/dL (40-60); Potassium 4.2 mmol/L (3.5-5.1); Sodium 141 mmol/L (136-145); Total Protein 7.2 g/dL (6.4-8.2); Triglyceride 277 mg/dL (<150)
== END 2024-06-29 15:42 | disposition home or self-care (01) ==
LOC: LBO 15:42
PROVIDERS: PCP Family Medicine; Visit Provider Family Medicine
DX: E11.9 Type 2 diabetes mellitus without complications (principal); E11.40 Type 2 diabetes mellitus with diabetic neuropathy, unspecified; Z79.4 Long term (current) use of insulin; Z00.00 Encounter for general adult medical examination without abnormal findings; I15.9 Secondary hypertension, unspecified
CPT/HCPCS: 36415; 80053; 80061; 82043; 82570; 83036

== ENCOUNTER 2024-07-10 14:32 | Outpatient (REF) | payer MEDICARE, MEDICAID, SELFPAY | END 2024-07-10 14:33 | disposition home or self-care (01) | LOC: LBN 14:32 | PROVIDERS: PCP Family Medicine; Visit Provider Obstetrics & Gynecology | DX: N89.8 Other specified noninflammatory disorders of vagina (principal); R30.0 Dysuria; Z01.419 Encounter for gynecological examination (general) (routine) without abnormal findings | CPT/HCPCS: 87480; 87510; 87660 ==

== ENCOUNTER 2024-07-24 03:14 | Emergency (ER) | payer MEDICARE, MEDICAID, SELFPAY ==
[2024-07-24] VITALS (15 sets, daily range): BP systolic 138–167; BP diastolic 46–79; PULSE 59–107; RESP 15–22; TEMP 36.3; O2SAT 92–98
--- NOTE | 2024-07-24 03:00 | RT.EKG_ITS ---
APPROVED REPORT Exam: Resting ECG Reason for Exam: palpitations Patient Location: E HR:60 bpm ECG Measurements Heart Rate 60 AXIS MO 213 P 62 QRSd 91 QRS 50 QT 442 T 65 QTc 441 Conclusion Sinus rhythm...normal P axis, V-rate 60- 99 Borderline prolonged MO interval...MO >212, V-rate 50- [address] segment or T wave abnormalities to suggest occlusive VT
[2024-07-24 04:09] LABS: Abs Immature Grans 0.01 10^3/uL (0.0-0.06); Absolute Basophil Count 0.02 10^3/uL (0.0-0.2); Absolute Eosinophil Count 0.12 10^3/uL (0.0-0.7); Absolute Lymphocyte Count 1.65 10^3/uL (1.2-3.4); Absolute Monocyte Count 0.31 10^3/uL (0.1-0.8); Basophils % 0.5 %; Eosinophils % 2.9 %; HCT 38.9 % (36.0-46.0); HGB 13.1 g/dL (11.2-15.7); Immature Grans % 0.2 %; Lymphocytes % 40.1 %; MCH 28.7 pg (27.0-33.0); MCHC 33.7 % (32.0-36.0); MCV 85 fL (80-95); MPV 10.4 fL (8.0-11.0); Monocytes % 7.5 %; Neutrophils % 48.8 %; Platelet Count 131 10^3/uL (130-400); RBC 4.56 10^6/uL (3.93-5.22); RDW 12.7 % (11.7-14.6); RDW-SD 39.6 fL; WBC 4.11 10^3/uL (4.4-10.8)
[2024-07-24 04:11] LABS: Absolute Neutrophil Count 2.01 10^3/uL (1.2-6.7)
[2024-07-24 04:23] LABS: ALT 58 U/L (14-59); AST 47 U/L (15-37); Albumin 3.3 g/dL (3.4-5.0); Alkaline Phosphatase 90 U/L (46-116); Anion Gap 7.6 mmol/L (3-11); BUN 11 mg/dL (7-18); Bilirubin, Total 0.54 mg/dL (0.2-1.0); CO2 29.4 mmol/L (21.0-32.0); CREATININE 0.9 mg/dL (0.55-1.02); Calcium 9.2 mg/dL (8.5-10.1); Chloride 104 mmol/L (98-107); Estimated GFR 71.39 (mL/min/1.73m2); Glucose 136 mg/dL (74-106); Magnesium 1.8 mg/dL (1.8-2.4); Potassium 3.8 mmol/L (3.5-5.1); Sodium 141 mmol/L (136-145); Total Protein 6.9 g/dL (6.4-8.2)
--- NOTE | 2024-07-24 04:39 | DI.VRAD_ITS ---
PROCEDURE INFORMATION: Exam: XR Chest Exam date and time: 07/24/2024 4:19 AM Age: 64 years old Clinical indication: Other: Flu like symptoms, palpitations; Prior surgery; Surgery date: 6+ months; Surgery type: Spine rods TECHNIQUE: Imaging protocol: Radiologic exam of the chest. Views: 2 views. COMPARISON: CR XR CHEST 2V PA LATERAL 09/03/2022 9:56 AM FINDINGS: Tubes, catheters and devices: Bilateral spinal stabilization rods. Lungs: No focal consolidation seen. Pleural spaces: No large pleural effusion seen. Heart/Mediastinum: No cardiomegaly. Bones/joints: No acute abnormality. IMPRESSION: No acute findings to explain reported symptoms. Dictated and Authenticated by: Jennifer Arriola MD. Orderin Emmy Cooley MD
--- NOTE | 2024-07-24 04:58 | DI.RAD_ITS ---
Exam(s) XR CHEST 2V PA LATERAL EXAM: XR CHEST 2V PA LATERAL CLINICAL HISTORY: flu like symptoms, palpitations TECHNIQUE: 2D digital imaging was performed of the chest. Two images were obtained. PA and lateral views were obtained. COMPARISON: CR XR CHEST 2V PA LATERAL from 09/03/2022 FINDINGS: MEDIASTINUM: Normal. HEART: Normal. PULMONARY VASCULATURE: Normal. LUNGS: Clear. PLEURAL SPACE: No pleural effusion or pneumothorax. BONE:Within normal limits for the patient's age. There is again seen a right convex thoracic scolios is with spinal rods in place. OTHER FINDINGS:Normal. IMPRESSION: No acute pulmonary findings. DATA REPOSITORY: RADIATION DOSE DELIVERED:
[2024-07-24 05:23] LABS: COVID-19 PCR Negative (Negative); Influenza A PCR Positive (Negative); Influenza B PCR Negative (Negative); RSV PCR Negative (Negative)
[2024-07-24 05:25] LABS: Source Nasopharynx
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
== END 2024-07-24 06:25 | disposition home or self-care (01) ==
PROVIDERS: Emergency Provider Student in an Organized Health Care Education/Training Program; PCP Family Medicine
DX: J10.1 Influenza due to other identified influenza virus with other respiratory manifestations (principal); R00.2 Palpitations; R09.81 Nasal congestion; R50.9 Fever, unspecified; Z60.8 Other problems related to social environment
CPT/HCPCS: 80053; 87637; 93005; 99285; 71046; 83735; 85025; 93010; 99284

== ENCOUNTER 2024-08-08 02:32 | Outpatient (CLI) | payer MEDICARE, MEDICAID, SELFPAY ==
--- NOTE | 2024-08-08 07:00 | DI.RAD_ITS ---
Exam(s) XR CHEST 2V PA LATERAL EXAM: XR CHEST 2V PA LATERAL CLINICAL HISTORY: cough,J10.1,influenza a. TECHNIQUE: 2D digital imaging was performed. COMPARISON: CR,XR XR CHEST 2V PA LATERAL from 07/24/2024 FINDINGS: 2 views: Planted rods noted in the spine all column. Heart size is normal. The mediastinum is not widened. Lungs are clear. No infiltrates nor pleural effusions. IMPRESSION: No acute pulmonary findings. DATA REPOSITORY: RADIATION DOSE DELIVERED:
== END 2024-08-08 02:52 ==
LOC: DI 02:32
PROVIDERS: PCP Family Medicine; Visit Provider Family Medicine
DX: J10.1 Influenza due to other identified influenza virus with other respiratory manifestations (principal)
CPT/HCPCS: 71046

== ENCOUNTER 2024-08-30 01:48 | Outpatient (CLI) | payer MEDICARE, MEDICAID, SELFPAY ==
--- NOTE | 2024-08-30 07:45 | DI.MAMMO_ITS ---
Exam(s) MG MAMMO SCREENING 60 MIN DUR EXAM: MG MAMMO SCREENING 60 MIN DUR CLINICAL HISTORY: breast cancer screening,z12.39. TECHNIQUE: Bilateral full field digital CC and MLO mammographic images were obtained with 3D tomosyn thesis and utilizing computer aided detection (CAD). COMPARISON: Prior mammograms were reviewed. FINDINGS: There has been no significant change in the appearance and distribution of the fibroglandular tissue. Benign-appearing lymph nodes in the upper quadrants of both breasts again noted. Skin moles again no ashley. There are no new spiculated masses nor malignant appearing microcalcification groups. There is no significant architectural distortion nor skin thickening-retraction. IMPRESSION: No radiographic evidence of malignancy. BI-RADS Category 1 - Negative Breast Density - Category B - Scattered areas of fibroglandular density Breast density Category C or D implies that the patient has dense breast tissue. Dense breast tissue can make it harder to find cancer on a mammogram. Dense breast tissue is also associated with an incr eased risk of breast cancer. This information about the result of the mammogram report was provided to the patient to raise their awareness. Use this report when you speak with the patient about their risks for breast cancer, which includes their family history. At that time, you may recommend additional screening tests (Ultrasoun d or MRI) as these tests may add significant information. A negative radiographic report should not delay biopsy if a dominant or clinically suspicious mass is present. Up to ten percent of cancers are not identified on mammography. A negative report may reinforce clinical impression. Adenosis and dense breasts may obscure an underlying neoplasm. False positive reports average 6 to 10%. Patient will receive a letter notifying them of these results.
== END 2024-08-30 02:08 ==
PROVIDERS: PCP Family Medicine; Visit Provider Family Medicine
DX: Z12.31 Encounter for screening mammogram for malignant neoplasm of breast (principal); R92.323 Mammographic fibroglandular density, bilateral breasts
CPT/HCPCS: 77063; 77067

== ENCOUNTER 2024-10-26 11:47 | Outpatient (CLI) | payer MEDICARE, MEDICAID, SELFPAY ==
[2024-10-26 12:36] LABS: Abs Immature Grans 0.03 10^3/uL (0.0-0.06); Absolute Eosinophil Count 0.27 10^3/uL (0.0-0.7); Absolute Lymphocyte Count 2.42 10^3/uL (1.2-3.4); Absolute Monocyte Count 0.41 10^3/uL (0.1-0.8); Absolute Neutrophil Count 4.16 10^3/uL (1.2-6.7); Basophils % 1.4 %; Eosinophils % 3.7 %; HCT 41.9 % (36.0-46.0); Immature Grans % 0.4 %; Lymphocytes % 32.7 %; MCH 28.1 pg (27.0-33.0); MCHC 33.4 % (32.0-36.0); MCV 84 fL (80-95); MPV 10.2 fL (8.0-11.0); Monocytes % 5.5 %; Neutrophils % 56.3 %; Platelet Count 190 10^3/uL (130-400); RBC 4.98 10^6/uL (3.93-5.22); RDW 13.1 % (11.7-14.6); WBC 7.39 10^3/uL (4.4-10.8)
[2024-10-26 12:59] LABS: ALT 40 U/L (14-59); AST 23 U/L (15-37); Albumin 3.6 g/dL (3.4-5.0); Alkaline Phosphatase 96 U/L (46-116); Anion Gap 8.1 mmol/L (3-11); BUN 17 mg/dL (7-18); Bilirubin, Total 0.5 mg/dL (0.2-1.0); CO2 27.9 mmol/L (21.0-32.0); CREATININE 0.8 mg/dL (0.55-1.02); Calcium 9.5 mg/dL (8.5-10.1); Chloride 103 mmol/L (98-107); Estimated GFR 82.23 (mL/min/1.73m2); Glucose 143 mg/dL (74-106); Potassium 4.1 mmol/L (3.5-5.1); Sodium 139 mmol/L (136-145); Total Protein 7.3 g/dL (6.4-8.2)
[2024-10-26 13:01] LABS: Hemoglobin A1C 6.8 % (<5.7)
== END 2024-10-26 11:48 | disposition home or self-care (01) ==
LOC: LOS 11:47
PROVIDERS: PCP Family Medicine; Visit Provider Family Medicine
DX: E11.9 Type 2 diabetes mellitus without complications (principal); E11.40 Type 2 diabetes mellitus with diabetic neuropathy, unspecified; Z79.4 Long term (current) use of insulin; K75.81 Nonalcoholic steatohepatitis (NASH)
CPT/HCPCS: 36415; 80053; 83036; 85025

== ENCOUNTER 2024-12-12 03:42 | Outpatient (CLI) | payer MEDICARE, MEDICAID, SELFPAY ==
[2024-12-12 12:36] LABS: ALT 45 U/L (14-59); AST 28 U/L (15-37); Albumin 3.6 g/dL (3.4-5.0); Alkaline Phosphatase 98 U/L (46-116); Anion Gap 9.6 mmol/L (3-11); BUN 15 mg/dL (7-18); Bilirubin, Total 0.5 mg/dL (0.2-1.0); CO2 25.4 mmol/L (21.0-32.0); Calcium 9.1 mg/dL (8.5-10.1); Chloride 103 mmol/L (98-107); Estimated GFR 71.39 (mL/min/1.73m2); Glucose 194 mg/dL (74-106); Potassium 4.1 mmol/L (3.5-5.1); Sodium 138 mmol/L (136-145); Total Protein 7.0 g/dL (6.4-8.2)
== END 2024-12-12 03:43 | disposition home or self-care (01) ==
PROVIDERS: PCP Family Medicine; Visit Provider Family Medicine
DX: K75.81 Nonalcoholic steatohepatitis (NASH) (principal)
CPT/HCPCS: 36415; 80053

== ENCOUNTER → 2025-01-16 12:58 | Outpatient (BNVA) | payer MEDICARE, MEDICAID, SELFPAY | PROVIDERS: PCP Family Medicine; Referring Provider Family Medicine; Visit Provider Podiatrist | DX: E11.42 Type 2 diabetes mellitus with diabetic polyneuropathy (principal); I87.2 Venous insufficiency (chronic) (peripheral); R60.0 Localized edema; L60.0 Ingrowing nail; Z79.4 Long term (current) use of insulin | CPT/HCPCS: 99214 ==

== ENCOUNTER 2025-01-22 15:12 | Outpatient (CLI) | payer MEDICARE, MEDICAID, SELFPAY ==
--- NOTE | 2025-01-22 08:30 | DI.CT_ITS ---
Exam(s) CT HEAD WO EXAM: CT HEAD WO CLINICAL HISTORY: head injury, ongoing headache,S09.90XA. TECHNIQUE: Imaging Protocol: Axial computed tomography images with coronal and sagittal reformatted images were created and reviewed COMPARISON: No exams were available for comparison FINDINGS: Ventricles and Extra axial spaces: Normal in size and morphology for the patient's age. Hemorrhage: None. Cerebral parenchyma: No evidence of acute infarct or mass. Midline shift: None. Brainstem/Cerebellum: Normal. Bones: No skull or facial fractures. Visualized Paranasal sinuses:Stable opacification of a single right ethmoid sinus. Mastoids: Clear. Soft Tissues: Unremarkable. ORBITS: Unremarkable. PITUITARY: Not enlarged. IMPRESSION: No acute intracranial process. RADIATION DOSE DELIVERED: Total DLP DATA REPOSITORY: All CT scans at this facility are submitted to the National Radiology Data Registry (NRDR) Dose Index Registry (DIR) with the [employer] (ACR). RADIATION OPTIMIZATION: All CT scans at this facility use at least one of these dose optimization techniques: automated exposure control; mA and/or kV adjustment per patient size (includes targeted exams where dose is matched to clinical indication); or iterative reconstruction.
--- NOTE | 2025-01-22 08:30 | DI.RAD_ITS ---
Exam(s) XR SHOULDER LT COMPLETE 2+V EXAM: XR SHOULDER LT COMPLETE 2+V CLINICAL HISTORY: chronic L shoulder pain,M25.5`1,G89.29,MYALGIA,M79.18. TECHNIQUE: 2D digital imaging was performed. Three views. COMPARISON: No exams were available for comparison FINDINGS: BONES: No acute fracture is present. No bony destructive lesion is seen. Degenerative spurring at the greater tuberosity. Rods are noted in the thoracic spine. JOINTS: No dislocation present. Mild spurring at the AC joint and undersurface of the acromion. The glenohumeral joint space is maintained. Mild spurring at the glenoid. SOFT TISSUE: Normal. IMPRESSION: Mild degenerative changes. DATA REPOSITORY: RADIATION DOSE DELIVERED:
== END 2025-01-22 15:32 ==
LOC: DI 15:12
PROVIDERS: PCP Family Medicine; Visit Provider Family Medicine
DX: S09.90XA Unspecified injury of head, initial encounter (principal); M79.18 Myalgia, other site; G89.29 Other chronic pain; M25.512 Pain in left shoulder; X58.XXXA Exposure to other specified factors, initial encounter
CPT/HCPCS: 70450; 73030

== ENCOUNTER 2025-02-04 11:13 | Emergency (ER) | payer MEDICARE, MEDICAID, SELFPAY ==
[2025-02-04] VITALS (20 sets, daily range): BP systolic 127–143; BP diastolic 62–90; PULSE 53–70; RESP 16–18; TEMP 36.6; O2SAT 95–99
--- NOTE | 2025-02-04 11:15 | RT.EKG_ITS ---
APPROVED REPORT Exam: Resting ECG Reason for Exam: chest pain Patient Location: E HR:56 bpm ECG Measurements Heart Rate [address] 203 P 57 QRSd 87 QRS 41 QT 447 T 53 QTc 432 Conclusion Sinus bradycardia...rate< 60 No Occlusion MD
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
--- NOTE | 2025-02-04 12:00 | DI.CT_ITS ---
Exam(s) CT ABDOMEN PELVIS CTA EXAM: CT ABDOMEN PELVIS CTA CLINICAL HISTORY: Prior celiac occlusion abdominal pain. TECHNIQUE: Imaging Protocol: Axial CT angiography was performed with multi- slice acquisition and multi-planar and/or 3D reconstructions. CONTRAST MATERIAL: Intravenous: Omnipaque 350 Contrast volume:100mL Oral: No COMPARISON: CT CT ABDOMEN PELVIS W from 07/22/[address] ABDOMEN PELVIS WO from 07/28/[address] ABDOMEN PELVIS WO from 03/23/2024 FINDINGS: ABDOMEN AND PELVIS: Abdomen: Celiac axis/mesenteric arteries: The superior mesenteric artery is unremarkable. There is occlusion at the origin of the celiac axis. There is decreased size of the hepatic artery. There are anastomotic channels connected to the superior mesenteric artery providing blood flow and reconstituting the splenic artery. Renal Arteries: No evidence of occlusion or significant stenosis. There is a single renal artery perfusing each kidney. Aorta: No evidence of occlusion or significant stenosis. No aneurysm or dissection. Atherosclerotic calcification is present. There is no significant stenosis. Pelvis: Iliac Arteries: No evidence of occlusion or significant stenosis. Common Femoral Arteries: No evidence of occlusion or significant stenosis. ABDOMEN: Lung bases: Unremarkable. Liver: Normal density. No measurable mass. Portal, Superior Mesenteric, and Splenic Veins: Unremarkable. Gallbladder and Biliary Tract: Status post cholecystectomy. There is no biliary ductal dilatation. Pancreas: Normal density, no abnormal calcifications or inflammatory process. Spleen: Normal. Adrenals: No masses seen. Kidneys: Normal size, contour and axis. No radiodense stones or obstructive uropathy. There are tiny hypodensities seen in the kidneys bilaterally. They are too small for further characterization but likely reflect small cysts. No follow-up is recommended. No suspicious renal masses are present. Bowel: There are diverticula seen in the colon, but no evidence of acute diverticulitis. There is no suspicious bowel wall thickening or obstruction present. Appendix is unremarkable. Peritoneal Cavity: No ascites, collection or mesenteric inflammatory response. No free air. Lymph Nodes: Within normal limits. Bones: There is again seen an S-type thoracolumbar scoliosis with spinal rods in place. Age-appropriate degenerative changes are present throughout the spine. Soft Tissues: There is a midline anterior abdominal wall hernia. PELVIS: Bladder: Symmetric distention, no gross wall thickening. Reproductive Organs: Unremarkable as visualized. Lymph Nodes: Within normal limits. Bones: Within normal limits. IMPRESSION: 1. Occlusion seen at the origin of the celiac axis with reconstitution distally via collaterals from the superior mesenteric artery. 2. No evidence of an abdominal aortic aneurysm or dissection. 3. Diverticulosis of the colon but no evidence of acute diverticulitis. RADIATION DOSE DELIVERED: 962.65mGy.cm Total DLP DATA REPOSITORY: All CT scans at this facility are submitted to the National Radiology Data Registry (NRDR) Dose Index Registry (DIR) with the [employer] ([employer]CR). RADIATION OPTIMIZATION: All CT scans at this facility use at least one of these dose optimization techniques: automated exposure control; mA and/or kV adjustment per patient size (includes targeted exams where dose is matched to clinical indication); or iterative reconstruction.
[2025-02-04 12:58] LABS: Abs Immature Grans 0.03 10^3/uL (0.0-0.06); HCT 41.4 % (36.0-46.0); HGB 13.8 g/dL (11.2-15.7); Immature Grans % 0.4 %; MCH 28.2 pg (27.0-33.0); MCHC 33.3 % (32.0-36.0); MCV 85 fL (80-95); MPV 10.3 fL (8.0-11.0); Platelet Count 178 10^3/uL (130-400); RBC 4.90 10^6/uL (3.93-5.22); RDW 12.8 % (11.7-14.6); RDW-SD 39.1 fL; WBC 7.04 10^3/uL (4.4-10.8)
[2025-02-04] MEDS: Ondansetron 4 MG/2 ML VIAL IVP (13:01)
[2025-02-04] MEDS: Normal Saline 50 ML 500 ML (13:05)
[2025-02-04] MEDS: Famotidine 20 MG/2 ML VIAL 40 MG IVP (13:05)
[2025-02-04 13:20] LABS: ALT 49 U/L (14-59); AST 31 U/L (15-37); Albumin 3.9 g/dL (3.4-5.0); Alkaline Phosphatase 96 U/L (46-116); Anion Gap 7.7 mmol/L (3-11); BUN 17 mg/dL (7-18); Bilirubin, Total 0.5 mg/dL (0.2-1.0); CO2 29.3 mmol/L (21.0-32.0); Calcium 9.4 mg/dL (8.5-10.1); Chloride 103 mmol/L (98-107); Estimated GFR 71.39 (mL/min/1.73m2); Glucose 160 mg/dL (74-106); Potassium 4.4 mmol/L (3.5-5.1); Sodium 140 mmol/L (136-145); Total Protein 7.0 g/dL (6.4-8.2)
[2025-02-04] MEDS: Hyoscyamine 0.125 MG SL/ORAL/CHEW PO (13:27)
--- NOTE | 2025-02-04 14:00 | RT.EKG_ITS ---
APPROVED REPORT Exam: Resting ECG Reason for Exam: Nausea abdominal pain Patient Location: E HR:59 bpm ECG Measurements Heart Rate 59 AXIS RI 207 P 72 QRSd 89 QRS 41 QT 452 T 63 QTc 447 Conclusion Sinus bradycardia...rate< 60 No Occlusion NE
[2025-02-04 14:15] LABS: Lab Add On Test DONE
[2025-02-04 14:24] LABS: Lipase 58 U/L (<78)
[2025-02-04 14:33] LABS: Troponin I 6 ng/L (<or=51)
[2025-02-04 15:35] LABS: Troponin I 8 ng/L (<or=51)
== END 2025-02-04 16:00 | disposition home or self-care (01) ==
PROVIDERS: Emergency Provider Emergency Medicine; PCP Family Medicine
DX: R11.2 Nausea with vomiting, unspecified (principal); R19.7 Diarrhea, unspecified; R10.9 Unspecified abdominal pain; K43.9 Ventral hernia without obstruction or gangrene
CPT/HCPCS: 99285; 99284; 36415; 96374; 96375; 80053; 83690; 93005; 74174; 83605; 84484; 85025; 93010; J2405; J3490

== ENCOUNTER 2025-02-08 15:45 | Outpatient (REF) | payer MEDICARE, MEDICAID, SELFPAY ==
[2025-02-09 11:13] LABS: Campylobacter PCR Negative (Negative); Shiga Toxin PCR Negative (Negative); Shigella/Enteroinvasive Ecoli Negative (Negative)
[2025-02-12 13:02] LABS: Helicobacter pylori Ag, Feces Negative (Negative)
== END 2025-02-08 15:46 | disposition home or self-care (01) ==
LOC: LBN 15:45
PROVIDERS: PCP Family Medicine; Visit Provider Family Medicine
DX: R19.7 Diarrhea, unspecified (principal); R11.2 Nausea with vomiting, unspecified; R10.9 Unspecified abdominal pain
CPT/HCPCS: 87338; 87505

== ENCOUNTER → 2025-02-12 10:41 | Outpatient (BNVA) | payer MEDICARE, MEDICAID, SELFPAY | PROVIDERS: PCP Family Medicine; Referring Provider Family Medicine; Visit Provider Student in an Organized Health Care Education/Training Program | DX: M75.22 Bicipital tendinitis, left shoulder (principal); M54.12 Radiculopathy, cervical region; M54.6 Pain in thoracic spine | CPT/HCPCS: 99213 ==

== ENCOUNTER 2025-03-11 02:30 | Outpatient (CLI) | payer MEDICARE, MEDICAID, SELFPAY ==
--- NOTE | 2025-03-11 12:45 | DI.RAD_ITS ---
Exam(s) XR ABDOMEN FLAT PLATE EXAM: 2D digital imaging was performed. CLINICAL HISTORY: BLOATING R14.0 ABD CRAMPING R10.9 ? INCREASED STOOL BURDEN. COMPARISON: No exams were available for comparison TECHNIQUE: Supine views of the abdomen was performed. Two images were obtained. FINDINGS: LUNG BASES: Clear. BOWEL GAS PATTERN: Nondistended. There is a mild amount of stool, predominantly in the right colon. FREE AIR: None. CALCIFICATIONS: No radiopaque calcifications. OSSEOUS STRUCTURES: There is a prominent left convex thoracolumbar scoliosis. Spinal rods are seen in the visualized portions of the thoracic and lumbar spine. There are degenerative changes seen throughout the thoracic and lumbar spine. OTHER FINDINGS: There are surgical clips in the right upper quadrant of the abdomen. IMPRESSION: Small amount of retained stool, predominantly in the right colon. There is no evidence of bowel obstruction. DATA REPOSITORY: RADIATION DOSE DELIVERED:
== END 2025-03-11 02:50 ==
LOC: DI 02:30
PROVIDERS: PCP Family Medicine; Visit Provider Nurse Practitioner Gerontology
DX: R14.0 Abdominal distension (gaseous) (principal); R10.9 Unspecified abdominal pain
CPT/HCPCS: 74018

== ENCOUNTER 2025-04-02 00:59 | Outpatient (CLI) | payer MEDICARE, MEDICAID, SELFPAY ==
--- NOTE | 2025-04-02 12:20 | DI.US_ITS ---
Exam(s) US RENAL EXAM: US RENAL CLINICAL HISTORY: H/O NEPHROLITHIASIS,[id number],ASSESS FOR STONES TECHNIQUE: Ultrasound of both kidneys performed using standard protocol. COMPARISON: US US ABDOMEN LIMITED from 05/15/[address] ABDOMEN PELVIS CTA from 02/04/2025 FINDINGS: RIGHT KIDNEY: Measures 11 cm in length. No cysts evident. Normal cortical thickness and corticomedullary differentiation .No solid masses No intrarenal calculi nor hydronephrosis. LEFT KIDNEY: Measures 10.2 cm in length. No cysts evident. Normal cortical thickness and corticomedullary differentiaion. No solids masses. There multiple nonshadowing hyperechoic foci measuring up to 4 mm which may represent nonobstructive calculi in the left kidney. However, there are no calculi seen in the left kidney on recent CT scan of 02/04/2025. URINARY BLADDER: Prevoid volume is 48 cc Postvoid volume is 0 cc No evidence of bladder mass nor diverticuli. Ureterovesical jets: Both identified and appear symmetrical IMPRESSION: 1. No significant ultrasound findings in the right kidney. 2. Multiple small hyperechoic foci are noted in the left kidney measuring up to 4 mm. Although this may represent nonobstructive calculi, please note that recent CT scan of 02/04/2025 did not reveal calculi in the kidneys. If clinically indicated repeat CT scan without IV contrast can be performed for added sensitivity/specificity. There is also the possibly that these may represent noncalcified kidney stones. DATA REPOSITORY:
== END 2025-04-02 01:19 ==
LOC: DI 00:59
PROVIDERS: PCP Family Medicine; Visit Provider Student in an Organized Health Care Education/Training Program
DX: Z87.442 Personal history of urinary calculi (principal)
CPT/HCPCS: 76770